=== PATIENT | male | born 1970 | race Caucasian/White ===

== ENCOUNTER 2020-06-03 18:36 | Emergency (ER) | payer OTHER, SELFPAY ==
[2020-06-03 18:44] VITALS: BP 160/90; PULSE 76; RESP 16; TEMP 36.6; O2SAT 98
--- NOTE | 2020-06-03 18:53 | NUR.NOTE ---
Nursing Note: PMH of HTN. PT does not know the name of the medication he takes.
--- NOTE | 2020-06-03 19:03 | ED.GENADUL_ITS ---
Discharge Plan Disposition Patient Disposition: HOME Condition: Good Discharge Details Chief Complaint: EyeProblem Clinical Impression: Abrasion, corneal Primary Care Provider: Farooq Munoz ED Provider: Naeem French Discharge Instructions Instructions: Corneal Abrasion (ED) Additional Instructions: You have a corneal abrasion on your eye. Please apply the erythromycin ointment 2-3 times per day and a thin ribbon. Please follow-up closely with Dr. Varner on Friday. Please take Tylenol and Motrin as needed for pain. If you notice any worsening of your symptoms, or any new symptoms such as change in vision, discharge from your eye, vomiting, diarrhea, fever, chills, shortness of breath, chest pain, numbness, weakness, or fainting , please return immediately to the emergency department for reevaluation. Please follow up with your primary care provider as soon as possible for reassessment and reevaluation. As always, it was a pleasure participating in your medical care today. Referrals: [facility] [Outside] Medical Decision Making Very pleasant 49-year-old male presents today for pain in his left eye. Patient states that he was working in his shop, the back of his head hit a board, which pushed his head forward and unfortunately his left eye came in direct contact with a nail that was in another board directly in front of him. Hurt his eye, and after about 2 to 3 hours at home with continued pain he came to the ER for further assessment. He admits to blurriness in the left eye, denies any changes in his right eye. Tetanus is not up to date. No other complaints at this time. No other modifying factors. He does not wear contact lenses. Physical exam shows notable corneal abrasion/laceration in a crescent shape with a small flap. However there is no evidence whatsoever of leaking or Salazar sign. Mild pressure onto the eye also shows no evidence of leaking or Salazar sign. At this time I feel that patient would benefit from updating his tetanus status, close follow-up with Dr. Varner, and with his pain being completely resolved with the tetracaine I feel signs and symptoms are clinically consistent with notable corneal abrasion. With no evidence of foreign body or rust ring no further management is needed. Will give erythromycin ointment for pain control, as well as recommend Tylenol Motrin. Discussed red flags which to return as well as importance of close follow-up with Dr. Varner. HPI General Date/Time Provider Initiated Documentation: 06/03/20 18:37 . HPI Narrative: Very pleasant 49-year-old male presents today for pain in his left eye. Patient states that he was working in his shop, the back of his head hit a board, which pushed his head forward and unfortunately his left eye came in direct contact with a nail that was in another board directly in front of him. Hurt his eye, and after about 2 to 3 hours at home with continued pain he came to the ER for further assessment. He admits to blurriness in the left eye, denies any changes in his right eye. Tetanus is not up to date. No other complaints at this time. No other modifying factors. He does not wear contact lenses. Related Data Allergies Allergy/AdvReac Type Severity Reaction Status Date / Time No Known Allergies Allergy Unverified 06/03/20 18:52 General Stated Complaint: EyeProblem JODIE: 4 Review of Systems All systems reviewed & are unremarkable except as noted in HPI and below [facility] Social History Drug use: Never Substance use type: does not use Do you feel safe at home: Yes Do you feel safe in your relationship?: Yes Exam Narrative Exam Narrative: 1.Const: Well-nourished, Well-developed, appearing stated age 2.Eyes: PERRL, no conjunctival injection, and symmetrical lids. Left eye: EOMI, PERRL, Peripheral vision intact. No nystagmus. No clinical signs of septal/orbital cellulitis, no redness around the eye, no proptosis. No hyphema, no signs of trauma around the eye, no periorbital emphysema. No sluggishness of the pupil. No ophthalmoplegia. No afferent pupillary defect. Fluorescein exam is positive for corneal abrasion, negative Salazar sign. The patient's notable corneal abrasion is crescent shaped, with a thin component at the ends, and a notably wide component in the central aspect just from the pupil. It appears that the cornea was lacerated at an angle, with a small flap present on the medial aspect of the crescent. Prolonged observation shows no evidence of leaking or Salazar sign. Vision in the patient's right eye is 20/50 vision in the patient's left eye is 20/100. He does not wear glasses or contacts. Eversion of the upper and lower lids show no evidence of retained foreign body whatsoever. 3.ENT: Atraumatic external nose and ears. Moist MM. Neck: Symmetric, trachea midline, No thyromegaly. 4.CVS: +S1/S2, No murmurs or gallops. Peripheral pulses 2+ and equal in all extremities. Brisk capillary refill in all extremities. 5.RESP: Unlabored respiratory effort. Clear to auscultation bilaterally. No wheezes rales or rhonchi 6.GI: Soft, Nontender/Nondistended, No hepatosplenomegaly. No guarding or rebound. 7.MSK: Normocephalic/Atraumatic, Extremities w/o deformity or ttp No cyanosis or clubbing, Normal movement of all extremities 8.Skin: Warm, Dry. No rashes or lesions. 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 Sensation grossly intact, no focal neurologic deficits. 10.Psych: (AAO) x3. Appropriate mood and affect Course Vital Signs Vital signs: Vital Signs Temperature 36.6 C 06/03/20 18:44 Pulse 76 06/03/20 18:44 Respiratory Rate 16 06/03/20 18:44 Blood Pressure 193/102 H 06/03/20 18:44 Pulse Oximetry 98 06/03/20 18:44 Temperature 36.6 C 06/03/20 18:44 Temperature Source Tympanic 06/03/20 18:44 Pulse 76 06/03/20 18:44 Respiratory Rate 16 06/03/20 18:44 Respiratory Effort Non-Labored 06/03/20 18:49 Blood Pressure 193/102 H 06/03/20 18:44 Blood Pressure Position Sitting 06/03/20 18:44 Pulse Oximetry 98 06/03/20 18:44 Oxygen Delivery Method Room Air 06/03/20 18:44 Oxygen Flow Rate 0 06/03/20 18:44 Pain Level 9 06/03/20 18:44
[2020-06-03] MEDS: Fluorescein STRIPS 100/BOX 1 MG (19:10)
[2020-06-03] MEDS: Erythromycin Ophth Oint 3.5 GM TUBE (19:10)
[2020-06-03] MEDS: Tetanus & Diphtheria Tox,ADULT 0.5 ML VIAL IM (19:10)
[2020-06-03] MEDS: Tetracaine 0.5% 4 ML BTL (19:11)
--- NOTE | 2020-06-04 06:03 | NUR.NOTE ---
referral faxed to [facility] for follow up.Nursing Note:
== END 2020-06-03 19:05 | disposition home or self-care (01) ==
PROVIDERS: Emergency Provider Student in an Organized Health Care Education/Training Program; PCP Physician Assistant
DX: S05.02XA Injury of conjunctiva and corneal abrasion without foreign body, left eye, initial encounter (principal); W45.0XXA Nail entering through skin, initial encounter; I10 Essential (primary) hypertension
CPT/HCPCS: 90471; 99284; 99283

== ENCOUNTER 2023-05-07 10:14 | Outpatient (REF) | payer BC, SELFPAY ==
[2023-05-07 17:05] LABS: HCT 43.7 % (40.0-50.0); HGB 14.8 g/dL (13.5-17.5); MCH 30.4 pg (27.0-33.0); MCHC 33.9 % (32.0-36.0); MCV 90 fL (80-95); MPV 11.1 fL (8.0-11.0); Platelet Count 181 10^3/uL (130-400); RBC 4.87 10^6/uL (4.36-5.78); RDW-SD 39.8 fL; WBC 7.03 10^3/uL (4.4-10.8)
[2023-05-07 17:33] LABS: ALT 26 U/L (16-63); AST 25 U/L (15-37); Albumin 3.8 g/dL (3.4-5.0); Alkaline Phosphatase 69 U/L (46-116); Anion Gap 6.9 mmol/L (3-11); BUN 13 mg/dL (7-18); Bilirubin, Total 0.6 mg/dL (0.2-1.0); CO2 28.1 mmol/L (21.0-32.0); CREATININE 1.1 mg/dL (0.70-1.30); Calcium 8.7 mg/dL (8.5-10.1); Calculated LDL 48 mg/dL (<100); Chloride 105 mmol/L (98-107); Cholesterol 95 mg/dL (<200); Estimated GFR 79.77 (mL/min/1.73m2); Glucose 96 mg/dL (74-106); HDL Cholesterol 39 mg/dL (40-60); Potassium 4.7 mmol/L (3.5-5.1); Sodium 140 mmol/L (136-145); Total Protein 6.9 g/dL (6.4-8.2); Triglyceride 42 mg/dL (<150)
[2023-05-08 19:10] LABS: PSA, Screening 0.4 ng/mL (<=3.5)
== END 2023-05-07 10:15 | disposition home or self-care (01) ==
LOC: NCHCN 10:14
PROVIDERS: PCP Physician Assistant; Visit Provider Physician Assistant
DX: I10 Essential (primary) hypertension (principal); E78.5 Hyperlipidemia, unspecified; Z12.5 Encounter for screening for malignant neoplasm of prostate
CPT/HCPCS: 80053; 80061; 84153; 85027

== ENCOUNTER 2023-07-04 05:39 | Emergency (ER) | payer BC, SELFPAY ==
[2023-07-04] VITALS (421 sets, daily range): BP systolic 117–152; BP diastolic 63–88; PULSE 48–123; RESP 0–28; TEMP 36.7–36.8; O2SAT 95–100
--- NOTE | 2023-07-04 05:30 | RT.EKG_ITS ---
APPROVED REPORT Exam: Resting ECG Reason for Exam: chest pain Patient Location: E HR:65 bpm ECG Measurements Heart Rate 65 AXIS ID 161 P 66 QRSd 99 QRS -36 QT 406 T 173 QTc 422 Conclusion Sinus rhythm...normal P axis, V-rate 60- 99 Left axis deviation...QRS axis (-30,-90) Repol abnrm suggests ischemia, diffuse leads...ST-T neg, ant/lat/inf Sinus rhtythm with ST depression V3-V6 and T wave inversion. No prior for comparisson.WD
--- NOTE | 2023-07-04 05:45 | DI.RAD_ITS ---
Exam(s) XR PORTABLE CHEST AP EXAM: XR PORTABLE CHEST AP CLINICAL HISTORY: chest pain TECHNIQUE: 2D digital imaging was performed. COMPARISON: CT CT CHEST PE CTA from 07/04/2023 FINDINGS: LUNGS: Clear. No pleural abnormality seen. HEART: Normal size. AORTA: Normal diameter. BONES: Unremarkable for age. Soft tissues: Unremarkable. IMPRESSION: No acute findings. DATA REPOSITORY: RADIATION DOSE DELIVERED:
--- NOTE | 2023-07-04 05:46 | W.ED.GENAD ---
Discharge Plan Discharge Details Chief Complaint: Chest Pain Clinical Impression: Non-ST elevation (NSTEMI) myocardial infarction Primary Care Provider: Farooq Munoz ED Provider: Jennifer Scott Home Meds and New Rx's Prescriptions: No Action atorvastatin 80 mg tablet 80 mg PO DAILY Patient Comments: TAKE ONE TABLET BY MOUTH EVERY DAY metoprolol succinate 50 mg tablet extended release 24 hr 50 mg PO DAILY Patient Comments: TAKE 1 TABLET BY MOUTH ONCE A DAY amlodipine 10 mg tablet 10 mg PO DAILY Patient Comments: TAKE ONE TABLET BY MOUTH EVERY DAY nitroglycerin 0.4 mg tablet, sublingual 0.4 mg sublingual Patient Comments: PLACE ONE TABLET UNDER THE TONGUE EVERY 5 MINUTES FOR UP TO 3 DOSES NEEDED FOR CHEST PAIN hydrochlorothiazide 12.5 mg tablet 12.5 mg PO DAILY Patient Comments: TAKE ONE TABLET BY MOUTH EVERY DAY aspirin [Ecotrin Low Strength] 81 mg Tablet,Delayed Release (Dr/Ec) 81 mg PO DAILY Medical Decision Making 52-year-old male with history of prior OR and stent placement presents for evaluation of chest pain. He received a total of 3 sublingual nitroglycerin and 4 baby aspirin. He has had resolution of his pain at this time. EKG was obtained and shows ST wave depressions laterally with T wave inversion. CXR unremarkable. Labs show elevated troponin 251. Patient had return of chest pain and was started on heparin gtt and nitro gtt. Pain resolved again. Repeat EKG shows persistent ST depression with T wave inversion. Consult placed to [facility] cardiology. Anticipate transfer for further care. Signed out to oncoming provider. HPI General Date/Time Provider Initiated Documentation: 07/04/23 05:44. HPI Narrative: 52-year-old male with history of cardiac stent secondary to OR in 2016 presents for evaluation of chest pain. Around 5 AM he developed significant pain in the center of his chest. He did take one of his sublingual nitroglycerin with improvement. Called EMS. He received a total of 3 sublingual nitroglycerin with resolution of pain. He received 4 baby aspirin en route. He is not on any other blood thinners. He does have a history of high blood pressure and is on medication. He also takes medication for high cholesterol. No fevers or chills. No cough or cold. No leg pain or swelling. The pain is not worse with taking a deep breath or movement. He states that he has never had a stress test or an echocardiogram. He has been having ongoing intermittent episodes of chest pain for a month or more. He has been seeing his primary care physician. There was a plan to have a CT of his chest obtained. Patient is a smoker. Related Data Home Medications Medication Instructions Recorded Confirmed amlodipine 10 mg tablet 10 mg PO DAILY 07/04/23 07/04/23 aspirin 81 mg tablet,delayed 81 mg PO DAILY 07/04/23 07/04/23 release (Ecotrin Low Strength) atorvastatin 80 mg tablet 80 mg PO DAILY 07/04/23 07/04/23 hydrochlorothiazide 12.5 mg tablet 12.5 mg PO DAILY 07/04/23 07/04/23 metoprolol succinate 50 mg 50 mg PO DAILY 07/04/23 07/04/23 tablet,extended release 24 hr nitroglycerin 0.4 mg sublingual 0.4 mg sublingual 07/04/23 tablet Allergies Allergy/AdvReac Type Severity Reaction Status Date / Time No Known Allergies Allergy Unverified 07/04/23 05:47 General JODIE: 4 Review of Systems Narrative: Remainder of review of systems otherwise negative except present on the HPI x 10. PFSH All Active Problems (Updated 07/04/23 @ 07:19 by Jennifer Scott MD) Non-ST elevation (NSTEMI) myocardial infarction (Acute) Social History Smoking/Tobacco Use Status: Current every day Tobacco Type: pipe Smoking risk assessment performed?: Yes Drug use: Never Substance use type: does not use Do you feel safe at home: Yes Do you feel safe in your relationship?: Yes Exam Narrative Exam Narrative: General: non-toxic, no respiratory distress, comfortable HEENT: normocephalic, atraumatic, lids and lashes normal, PERRL, EOMI, anicteric sclera, no conjunctival injection, moist oral mucosa Card: regular rate and rhythm, S1S2, no murmurs, rubs, or gallops Lungs: good air entry, clear to auscultation bilaterally. no wheezes, rales, rhonchi, or retractions Abd: soft, non-tender, non-distended, normal bowel sounds, no rebound or guarding, no peritoneal signs Musculoskeletal: full range of motion of arms and legs, no tenderness to palpation. no clubbing, cyanosis, or edema Neurologic: appropriate for age, strength normal Psych: alert and oriented Skin: no petechiae, no lesions, warm and dry Critical Care Time Critical Care Time Attestation: CRITICAL CARE Total critical care time: 40 minutes Critical care concerns:Chest pain, non-STEMI Critical care interventions: IV heparin, IV nitroglycerin, cardiology consult, frequent reassessment Total critical care time included the assessment and discussions as described in the emergency department history, physical, and medical decision making. The critical care time provided excludes separately billable procedures. Sign Out Sign Out Data: Sign Out Comment: Patient presented with chest pain that started at 5 AM this morning. Initially resolved with 3 nitroglycerin. He also got 4 baby aspirin en route. He was pain-free upon ED arrival. EKG concerning for lateral ST depressions with T wave inversion. Initial troponin 251. Patient had return of chest pain. Nitro drip and heparin drip were started. Consult placed to [facility]. Last updated by Jennifer Scott MD at 07/04/23 07:14
[2023-07-04 05:57] LABS: Abs Immature Grans 0.02 10^3/uL (0.0-0.06); Absolute Lymphocyte Count 3.02 10^3/uL (1.2-3.4); Absolute Monocyte Count 1.03 10^3/uL (0.1-0.8); Absolute Neutrophil Count 4.61 10^3/uL (1.2-6.7); Basophils % 1.1; Eosinophils % 3.3; HCT 46.4 % (40.0-50.0); HGB 15.6 g/dL (13.5-17.5); Immature Grans % 0.2; Lymphocytes % 33.3; MCH 29.9 pg (27.0-33.0); MCHC 33.6 % (32.0-36.0); MCV 89 fL (80-95); MPV 10.3 fL (8.0-11.0); Monocytes % 11.3; Neutrophils % 50.8; Platelet Count 209 10^3/uL (130-400); RBC 5.22 10^6/uL (4.36-5.78); RDW 12.3 % (11.8-14.1); RDW-SD 40.5 fL; WBC 9.08 10^3/uL (4.4-10.8)
--- NOTE | 2023-07-04 06:00 | DI.CT_ITS ---
Exam(s) CT CHEST PE CTA EXAM: CT CHEST PE CTA CLINICAL HISTORY: chest pain. TECHNIQUE: Imaging Protocol: Axial CT angiography was performed with multi-slice acquisition and mu lti-planar reconstructions as well as axial, coronal and sagittal MIP reconstructions. CONTRAST MATERIAL: Intravenous: Omnipaque 350 Contrast volume:100 ml COMPARISON: CR,XR XR PORTABLE CHEST AP from 07/04/2023 FINDINGS: Pulmonary Arteries: No evidence of filling defect to suggest pulmonary emboli. Tracheobronchial tree: Patent where visualized. Mediastinum and Elizabeth: No dominant adenopathy or fluid collection. Pulmonary parenchyma: Mild emphysematous changes in the upper lobes. Minimal atelectasis right lower lobe. No consolidation or dominant measurable mass. Pleura: No effusion or pneumothorax. Heart: The heart is not dilated. Rosa artery stent. Aorta: Thoracic aorta non-dilated. No aneurysm. No dissection. Upper abdomen: Unremarkable. Bones: Degenerative changes thoracic spine. No compression fractures. Tubes, Catheters, and Lines: IMPRESSION: No evidence of pulmonary embolism or other acute abnormality. Mild emphysematous changes.. RADIATION DOSE DELIVERED: 438.1mGy.cm Total DLP DATA REPOSITORY: All CT scans at this facility are submitted to the National Radiology Data Registry (NRDR) Dose Index Registry (DIR) with the [employer] (ACR). RADIATION OPTIMIZATION: All CT scans at this facility use at least one of these dose optimization te chniques: automated exposure control; mA and/or kV adjustment per patient size (includes targeted exa ms where dose is matched to clinical indication); or iterative reconstruction.
[2023-07-04 06:12] LABS: INR 1.1 (0.9-1.1); PTT Activated 28.5 sec (21.5-31.9)
[2023-07-04 06:19] LABS: ALT 27 U/L (16-63); AST 26 U/L (15-37); Alkaline Phosphatase 86 U/L (46-116); BUN 11 mg/dL (7-18); Bilirubin, Total 0.6 mg/dL (0.2-1.0); CREATININE 1.2 mg/dL (0.70-1.30); Calcium 9.2 mg/dL (8.5-10.1); Chloride 106 mmol/L (98-107); Estimated GFR 71.86 (mL/min/1.73m2); Glucose 111 mg/dL (74-106); Magnesium 2.1 mg/dL (1.8-2.4); NT-proBNP 315 pg/mL (<300); Potassium 4.1 mmol/L (3.5-5.1); Sodium 142 mmol/L (136-145); Total Protein 7.5 g/dL (6.4-8.2)
[2023-07-04 06:27] LABS: Troponin I 251 ng/L (<or=60)
--- NOTE | 2023-07-04 06:30 | RT.EKG_ITS ---
APPROVED REPORT Exam: Resting ECG Reason for Exam: chest pain Patient Location: E HR:57 bpm ECG Measurements Heart Rate 57 AXIS TX 155 P 66 QRSd 109 QRS -29 QT 455 T 178 QTc 444 Conclusion Sinus bradycardia...rate< 60 Repol abnrm, prob ischemia, anterolateral lds...ST dep, T neg, I aVL V2-V6 Sinus bradycardia with ST depression V3-V4. No significant change from prior. WD
[2023-07-04] MEDS: Normal Saline - Diluent 50 ML VIAL IJ (06:34)
[2023-07-04] MEDS: Omnipaque 350 MG/ML 100 ML BTL IJ (06:34)
[2023-07-04] MEDS: Heparin in 0.45% NaCl 25,000 UNIT/250 ML BAG 10 UNIT IV (06:54)
[2023-07-04] MEDS: nitroGLYcerin in D5W 50 MG/250 ML BTL IV (07:02)
--- NOTE | 2023-07-04 07:10 | DI.VRAD_ITS ---
PROCEDURE INFORMATION: Exam: XR Chest Exam date and time: 07/04/2023 6:03 AM Age: 52 years old Clinical indication: Chest wall pain TECHNIQUE: Imaging protocol: Radiologic exam of the chest. Views: 1 view. COMPARISON: No relevant prior studies available. FINDINGS: Lungs: No consolidation. Pleural spaces: No pleural effusion. No pneumothorax. Heart/Mediastinum: No cardiomegaly. Bones/joints: Unremarkable. IMPRESSION: No acute findings. Dictated and Authenticated by: Norberto Triana MD. Ordering:RAJIV Rodriguez MD
--- NOTE | 2023-07-04 07:44 | DI.VRAD_ITS ---
PROCEDURE INFORMATION: Exam: CTA Chest With Contrast Exam date and time: 07/04/2023 6:29 AM Age: 52 years old Clinical indication: Chest wall pain; Prior surgery; Surgery date: 6+ months; Surgery type: PT states h/o heart attack and cardiac stent surgery TECHNIQUE: Imaging protocol: Computed tomographic angiography of the chest with contrast. Exam focused on the arteries. 3D rendering (Not supervised by radiologist): MIP and/or 3D reconstructed images were created by the technologist. Radiation optimization: All CT scans at this facility use at least one of these dose optimization techniques: automated exposure control; mA and/or kV adjustment per patient size (includes targeted exams where dose is matched to clinical indication); or iterative reconstruction. Contrast material: OMNI 350; Contrast volume: 100 ml; Contrast route: INTRAVENOUS (IV); COMPARISON: CR XR PORTABLE CHEST AP 07/04/2023 6:03 AM FINDINGS: Pulmonary arteries: Normal. No pulmonary emboli. Aorta: Unremarkable. No aortic aneurysm. No aortic dissection. Lungs: Mild centrilobular emphysema in the lung apices. Mild dependent changes at the lung bases. No acute lung infiltrates. No suspicious pulmonary nodules. Pleural spaces: Unremarkable. No pneumothorax. No pleural effusion. Heart: Unremarkable. No cardiomegaly. No pericardial effusion. Coronary arteries: No coronary artery calcification noted. Lymph nodes: Unremarkable. No enlarged lymph nodes. Bones/joints: Moderate multilevel degenerative changes in the mid to lower thoracic spine. No acute or suspicious osseous abnormalities. Soft tissues: Unremarkable. IMPRESSION: 1. No evidence of pulmonary embolism. 2. Mild centrilobular emphysema in the lung apices. Dictated and Authenticated by: Francesca Gomez MD. Ordering:RAJIV Rodriguez MD
--- NOTE | 2023-07-04 08:26 | W.EDPROG ---
Date of service: 07/04/23 Time of Service: 08:27 Medical Decision Making Case discussed with [facility] transfer center cardiology. Patient accepted in transfer to Dr. Piyush Pastor. Awaiting bed. Plan is to continue nitro drip as well as heparin drip. They have requested low-dose beta-óscar metoprolol 12.5 twice daily. Loading dose of Plavix and atorvastatin. Awaiting bed. Patient with normal vital signs. Pain-free. 3:45 PM. Unable to get any timeline as to when the patient will be transferred to [facility]. principal secretary has called multiple times requesting a bed. I have discussed the case with my colleague hospitalist for obs admission given that the patient may be here for several more hours. Sign Out Sign Out Data: Sign Out Comment: Patient presented with chest pain that started at 5 AM this morning. Initially resolved with 3 nitroglycerin. He also got 4 baby aspirin en route. He was pain-free upon ED arrival. EKG concerning for lateral ST depressions with T wave inversion. Initial troponin 251. Patient had return of chest pain. Nitro drip and heparin drip were started. Consult placed to [facility]. Last updated by Jennifer Scott MD at 07/04/23 07:14 Discharge Plan Disposition Patient Disposition: Transfer-Acute Inpatient Care Specific Acute Inpt Facility: [facility] Condition: Stable Discharge Details Clinical Impression: Non-ST elevation (NSTEMI) myocardial infarction Primary Care Provider: Farooq Munoz ED Provider: Reji Garcia Home Meds and New Rx's Prescriptions: No Action atorvastatin 80 mg tablet 80 mg PO DAILY Patient Comments: TAKE ONE TABLET BY MOUTH EVERY DAY metoprolol succinate 50 mg tablet extended release 24 hr 50 mg PO DAILY Patient Comments: TAKE 1 TABLET BY MOUTH ONCE A DAY amlodipine 10 mg tablet 10 mg PO DAILY Patient Comments: TAKE ONE TABLET BY MOUTH EVERY DAY nitroglycerin 0.4 mg tablet, sublingual 0.4 mg sublingual PRN PRN Patient Comments: PLACE ONE TABLET UNDER THE TONGUE EVERY 5 MINUTES FOR UP TO 3 DOSES NEEDED FOR CHEST PAIN hydrochlorothiazide 12.5 mg tablet 12.5 mg PO DAILY Patient Comments: TAKE ONE TABLET BY MOUTH EVERY DAY aspirin [Ecotrin Low Strength] 81 mg Tablet,Delayed Release (Dr/Ec) 81 mg PO DAILY
[2023-07-04] MEDS: Metoprolol 12.5 MG TAB PO (08:55)
[2023-07-04] MEDS: Clopidogrel 300 MG TAB 600 MG PO (08:55)
--- NOTE | 2023-07-04 09:15 | RT.EKG_ITS ---
APPROVED REPORT Exam: Resting ECG Reason for Exam: Repeat EKG Patient Location: E HR:54 bpm ECG Measurements Heart Rate 54 AXIS CA 163 P 43 QRSd 102 QRS -15 QT 438 T 211 QTc 416 Conclusion Sinus bradycardia...rate< 60 Repol abnrm suggests ischemia, anterolateral...ST dep, T neg, I aVL V2-V6
[2023-07-04 09:55] LABS: Troponin I 361 ng/L (<or=60)
--- NOTE | 2023-07-04 10:15 | NUR.NOTE ---
Nursing Note: received report from Irene Garcia RN at 1015; assumed care of patient at this time.
--- NOTE | 2023-07-04 11:07 | NUR.NOTE ---
Nursing Note: leaving bedside at this time Mili - [phone]. Will call with any updates
[2023-07-04 13:29] LABS: Troponin I 505 ng/L (<or=60)
[2023-07-04 13:31] LABS: PTT Activated 67.6 sec (21.5-31.9)
[2023-07-04 16:42] LABS: Troponin I 525 ng/L (<or=60)
--- NOTE | 2023-07-04 16:44 | HPE_ITS ---
Date of service: 07/04/23 Time of Service: 16:44 [facility] All Active Problems (Updated 07/04/23 @ 07:19 by Jennifer Scott MD) Non-ST elevation (NSTEMI) myocardial infarction (Acute) Social History Smoking/Tobacco Use Status: Current every day Tobacco Type: pipe Smoking risk assessment performed?: Yes Drug use: Never Substance use type: does not use Do you feel safe at home: Yes Do you feel safe in your relationship?: Yes Meds Allergies and Home Medications Allergies Allergy/AdvReac Type Severity Reaction Status Date / Time No Known Allergies Allergy Unverified 07/04/23 05:47 Home Medications Medication Instructions Recorded Confirmed Type amlodipine 10 mg tablet 10 mg PO DAILY 07/04/23 07/04/23 History aspirin 81 mg tablet,delayed 81 mg PO DAILY 07/04/23 07/04/23 History release (Ecotrin Low Strength) atorvastatin 80 mg tablet 80 mg PO DAILY 07/04/23 07/04/23 History hydrochlorothiazide 12.5 mg tablet 12.5 mg PO DAILY 07/04/23 07/04/23 History metoprolol succinate 50 mg 50 mg PO DAILY 07/04/23 07/04/23 History tablet,extended release 24 hr nitroglycerin 0.4 mg sublingual 0.4 mg sublingual PRN PRN 07/04/23 07/04/23 History tablet Results Labs 07/04/23 05:30 07/04/23 05:30 Labs: Laboratory Results - last 24 hr 07/04/23 07/04/23 07/04/23 05:30 05:30 05:51 WBC 9.08 RBC 5.22 Hgb 15.6 Hct 46.4 MCV 89 MCH 29.9 MCHC 33.6 RDW 12.3 Plt Count 209 MPV 10.3 Immature Gran % 0.2 Neutrophils % 50.8 Lymphocytes % 33.3 Monocytes % 11.3 Eosinophils % 3.3 Basophils % 1.1 Nucleated RBC % 0.0 Absolute Neutrophils 4.61 Absolute Lymphocytes 3.02 Absolute Monocytes 1.03 H Absolute Eosinophils 0.30 Absolute Basophils 0.10 PT 11.0 INR 1.1 APTT 28.5 Sodium 142 Potassium 4.1 Chloride 106 Carbon Dioxide 27.0 Anion Gap 9.0 BUN 11 Creatinine 1.2 Est GFR (CKD-EPI 2020) 71.86 Glucose 111 H Calcium 9.2 Magnesium 2.1 Total Bilirubin 0.6 AST 26 ALT 27 Alkaline Phosphatase 86 Troponin I 251 H* NT-Pro-B Natriuret Pep 315 H Total Protein 7.5 Albumin 4.0 07/04/23 07/04/23 07/04/23 09:25 13:01 13:01 WBC RBC Hgb Hct MCV MCH MCHC RDW Plt Count MPV Immature Gran % Neutrophils % Lymphocytes % Monocytes % Eosinophils % Basophils % Nucleated RBC % Absolute Neutrophils Absolute Lymphocytes Absolute Monocytes Absolute Eosinophils Absolute Basophils PT INR APTT 67.6 H Sodium Potassium Chloride Carbon Dioxide Anion Gap BUN Creatinine Est GFR (CKD-EPI 2020) Glucose Calcium Magnesium Total Bilirubin AST ALT Alkaline Phosphatase Troponin I 361 H* 505 H* NT-Pro-B Natriuret Pep Total Protein Albumin 07/04/23 16:07 WBC RBC Hgb Hct MCV MCH MCHC RDW Plt Count MPV Immature Gran % Neutrophils % Lymphocytes % Monocytes % Eosinophils % Basophils % Nucleated RBC % Absolute Neutrophils Absolute Lymphocytes Absolute Monocytes Absolute Eosinophils Absolute Basophils PT INR APTT Sodium Potassium Chloride Carbon Dioxide Anion Gap BUN Creatinine Est GFR (CKD-EPI 2020) Glucose Calcium Magnesium Total Bilirubin AST ALT Alkaline Phosphatase Troponin I 525 H* NT-Pro-B Natriuret Pep Total Protein Albumin Last Vital Signs Temp 36.8 C 07/04/23 05:41 Pulse 53 L 07/04/23 16:01 Resp 12 07/04/23 16:13 BP 132/79 07/04/23 16:01 Pulse Ox 98 07/04/23 16:13
--- NOTE | 2023-07-04 17:07 | NUR.NOTE ---
Nursing Note: report to [employer] worker blessing transporting patient. [phone]
--- NOTE | 2023-07-04 17:10 | NUR.NOTE ---
Nursing Note: Attempted report to [phone], rang for minutes, no answer and line disconnected. Will try back. Patient still in room with [employer] now; preparing for transport.
--- NOTE | 2023-07-04 17:21 | NUR.NOTE ---
Nursing Note: Report to Justin EATON at L3wb unit at [facility]
== END 2023-07-04 13:44 | disposition short-term general hospital (02) ==
PROVIDERS: Emergency Medicine Emergency Medical Services; Emergency Provider Emergency Medicine; PCP Physician Assistant
DX: I21.4 Non-ST elevation (NSTEMI) myocardial infarction (principal); R00.1 Bradycardia, unspecified; I25.2 Old myocardial infarction; I25.10 Atherosclerotic heart disease of native coronary artery without angina pectoris; Z95.5 Presence of coronary angioplasty implant and graft; F17.210 Nicotine dependence, cigarettes, uncomplicated
CPT/HCPCS: 71275; 80053; 93005; 96365; 96366; 99291; 71045; 83735; 83880; 84484; 85025; 85610; 85730; 93010; 93306; J3490

== ENCOUNTER 2023-07-23 10:00 | Outpatient (RCR) | payer BC, SELFPAY | END 2023-07-24 23:59 | disposition home or self-care (01) | LOC: CR 10:00 | PROVIDERS: PCP Physician Assistant; Visit Provider Internal Medicine Cardiovascular Disease | DX: I25.2 Old myocardial infarction (principal); I25.10 Atherosclerotic heart disease of native coronary artery without angina pectoris | CPT/HCPCS: S9472 ==

== ENCOUNTER 2023-07-31 08:51 | Outpatient (CLI) | payer BC, SELFPAY ==
--- NOTE | 2023-07-31 08:45 | RT.EKG_ITS ---
APPROVED REPORT Exam: Resting ECG Reason for Exam: cardiology evaluation Patient Location: O HR:58 bpm ECG Measurements Heart Rate 58 AXIS MA 154 P 58 QRSd 104 QRS -2 QT 431 T 104 QTc 424 Conclusion Sinus rhythm...normal P axis, V-rate 50- 99 Abnormal T, consider ischemia, lateral leads...T <-0.20mV, I aVL V5 V6 Baseline wander in lead(s) V4
== END 2023-07-31 08:52 | disposition home or self-care (01) ==
LOC: DI.CARD 08:51
PROVIDERS: PCP Physician Assistant; Visit Provider Internal Medicine Cardiovascular Disease
DX: I21.4 Non-ST elevation (NSTEMI) myocardial infarction (principal)
CPT/HCPCS: 93010

== ENCOUNTER 2023-08-22 10:03 | Outpatient (RCR) | payer BC, SELFPAY | END 2023-08-23 23:59 | disposition home or self-care (01) | LOC: CR 10:03 | PROVIDERS: PCP Physician Assistant; Visit Provider Internal Medicine Cardiovascular Disease | DX: I25.10 Atherosclerotic heart disease of native coronary artery without angina pectoris (principal); I25.2 Old myocardial infarction; Z51.89 Encounter for other specified aftercare | CPT/HCPCS: S9472 ==

== ENCOUNTER 2023-09-22 10:25 | Outpatient (RCR) | payer BC, SELFPAY | END 2023-09-23 23:59 | disposition home or self-care (01) | LOC: CR 10:25 | PROVIDERS: PCP Physician Assistant; Visit Provider Internal Medicine Cardiovascular Disease | DX: I25.10 Atherosclerotic heart disease of native coronary artery without angina pectoris (principal); Z51.89 Encounter for other specified aftercare | CPT/HCPCS: S9472 ==

== ENCOUNTER 2023-10-22 10:57 | Outpatient (RCR) | payer BC, SELFPAY | END 2023-10-23 23:59 | disposition home or self-care (01) | LOC: CR 10:57 | PROVIDERS: PCP Physician Assistant; Visit Provider Internal Medicine Cardiovascular Disease | DX: I25.2 Old myocardial infarction (principal); Z51.89 Encounter for other specified aftercare | CPT/HCPCS: S9472 ==

== ENCOUNTER 2023-10-31 10:05 | Outpatient (RCR) | payer BC, SELFPAY | END 2023-11-23 23:59 | disposition home or self-care (01) | LOC: CR 10:05 | PROVIDERS: PCP Physician Assistant; Visit Provider Internal Medicine Cardiovascular Disease | DX: I25.2 Old myocardial infarction (principal); Z51.89 Encounter for other specified aftercare | CPT/HCPCS: S9472 ==

== ENCOUNTER 2023-11-14 11:12 | Outpatient (REF) | payer BC, SELFPAY ==
[2023-11-14 16:06] LABS: BUN 14 mg/dL (7-18); CREATININE 1.1 mg/dL (0.70-1.30); Calcium 9.1 mg/dL (8.5-10.1); Chloride 103 mmol/L (98-107); Estimated GFR 79.77 (mL/min/1.73m2); Glucose 96 mg/dL (74-106); Potassium 4.7 mmol/L (3.5-5.1); Sodium 138 mmol/L (136-145)
[2023-11-19 13:08] LABS: Testosterone, Total 723 ng/dL (240-950)
== END 2023-11-14 11:13 | disposition home or self-care (01) ==
LOC: NCHCN 11:12
PROVIDERS: PCP Physician Assistant; Visit Provider Physician Assistant
DX: I10 Essential (primary) hypertension (principal); F52.21 Male erectile disorder
CPT/HCPCS: 80048; 84403

== ENCOUNTER 2024-08-11 18:42 | Outpatient (REF) | payer BC, SELFPAY ==
[2024-08-11 16:54] LABS: HCT 44.3 % (40.0-50.0); HGB 14.3 g/dL (13.5-17.5); MCH 30.2 pg (27.0-33.0); MCHC 32.3 % (32.0-36.0); MCV 94 fL (80-95); MPV 11.4 fL (8.0-11.0); Platelet Count 151 10^3/uL (130-400); RBC 4.73 10^6/uL (4.36-5.78); RDW 12.9 % (11.8-14.1); RDW-SD 44.3 fL; WBC 8.09 10^3/uL (4.4-10.8)
[2024-08-11 17:23] LABS: ALT 26 U/L (16-63); AST 28 U/L (15-37); Albumin 3.7 g/dL (3.4-5.0); Alkaline Phosphatase 67 U/L (46-116); Anion Gap 11.6 mmol/L (3-11); BUN 16 mg/dL (7-18); Bilirubin, Total 0.61 mg/dL (0.2-1.0); CO2 27.4 mmol/L (21.0-32.0); CREATININE 1.1 mg/dL (0.70-1.30); Calcium 8.8 mg/dL (8.5-10.1); Calculated LDL 96 mg/dL (<100); Chloride 101 mmol/L (98-107); Cholesterol 190 mg/dL (<200); Estimated GFR 79.28 (mL/min/1.73m2); Glucose 87 mg/dL (74-106); HDL Cholesterol 47 mg/dL (40-60); Potassium 3.7 mmol/L (3.5-5.1); Sodium 140 mmol/L (136-145); Total Protein 6.9 g/dL (6.4-8.2); Triglyceride 239 mg/dL (<150)
[2024-08-11 17:34] LABS: C-Reactive Protein < 0.50 mg/dL (<or=0.5)
--- OUTSIDE RECORDS SUMMARY | 2024-08-11 18:45 | XMS_ITS | Data Portability ---
Author Organization [place] - [facility], [facility] Address [place] [address] Assessment Encounter Date Assessment Date Assessment LastModified by Organization Details LastModified Time 02/26/2024 02/26/2024 No sign of active coronary artery disease. He has some chronic fatigue that did not improve with stent placements though he is no longer having heartburn which was his cardiac equivalent. Continues to not smoke. Has moderate varicosities in right lower leg greater than left. Advised compression stockings. No change in medication management today. Less orthostasis on lower dose of metoprolol. Fasting blood work prior to physical in 6 months. [email or web address] Not available 02/26/2024 11:51:49 Plan of Treatment Reminders Order Date Submit Date Provider Last Modified By Organization Details Last Modified Time Details Appointments Follow Up 30 2023 09:30A M Not available Not available Not available Annual Wellness Exam 40 2023 09:00A M Not available Not available Not available Lab testoster one, total, serum - 1 attempt to right ACleft AC 1 sst 2 red 2022 023 BEHZAD [facility] (Registration ), [address] [place] [address] [place], [address], 11/19/2023 15:23:03 BMP, serum or plasma - 1 attempt to right ACleft AC 1 sst 2 red 2022 023 [facility] (Registration ), [address] [place] [address] [place], [address], 11/21/2023 07:56:32 CBC 2023 024 [facility] (Registration ), [address] [place] [address] [place], [address], 08/11/2024 10:25:22 PSA, serum or plasma 2023 024 [facility] (Registration ), [address] [place] [address] [place], [address], 08/11/2024 10:25:21 lipid panel, blood 2023 024 [facility] (Registration ), [address] [place] [address] [place], [address], 08/11/2024 10:30:39 CMP, serum or plasma 2023 024 [facility] (Registration ), [address] [place] [address] [place], [address], 08/11/2024 10:25:20 C reactive protein, QN, serum or plasma - 1 tiger, 1 LAV obtained without issue 2023 024 [email or web address] [facility] (Registration ), [address] [place] [address] [place], [address], 08/11/2024 10:48:06 Referral None recorded. Procedures None recorded. Surgeries None recorded. Imaging None recorded. Medication Orders metoprolo l succinate ER 25 mg tablet,ex tended release 24 hr 2022 023 BEHZAD [facility], [address], [place], [address], 11/21/2023 10:36:14 doxycycli ne hyclate 100 mg capsule 2023 024 BEHZAD [facility], [address] [place], [address], 08/11/2024 09:35:03 Patient TargetsNo targets recorded. Patient Instructions Encounter Date Encounter Id Patient Instructions Last Modified By Organization Details Last Modified Time 08/11/2024 [id number] diet [email or web address] Not available 09:59:09 exercise [email or web address] Not available 09:59:08 Reason for Referral None Reported. Results Created Date Observation Date Name Description Value Unit Range Abnormal Flag Note LastModifiedBy Organization Detail LastModifiedTime 11/14/2011/14/2023 BASIC METAB OLIC PANEL calcium 9.1 mg/dL 8.5-10 .1 normal Not Available [address] [facility] [place], [address] 11/15/2023 10:14:33 11/14/20 23 11/14/2023 BASIC METAB OLIC PANEL glucose 96 mg/dL 74-106 normal Not Available Jenae reeder [address] [place], [address] 11/15/2023 10:14:33 11/14/20 23 11/14/2023 BASIC METAB OLIC PANEL BUN 14 mg/dL 7-18 normal Not Available Jenae reeder [address] [facility] [place], [address] 11/15/2023 10:14:33 11/14/20 23 11/14/2023 BASIC METAB OLIC PANEL creatinine 1.1 mg/dL 0.70-1 .30 normal Not Available [address] [facility] [place], [address] 11/15/2023 10:14:33 11/14/20 23 11/14/2023 BASIC METAB OLIC PANEL estimated GFR 79.77 mL/min /1.73m 2 The eGFR is calcu lated from a serum creat inine using the CKD-E PI 2020 equat ion. Other varia bles requi red for the equat ion are gende r and age; this equat ion does not inclu de a race coeff icien t. This equat ion has simil ar overa ll perfo rmanc e to previ ous equat ions excep t value s may diffe r, in parti cular , in patie nts with highe r value s of eGFR and young er-ag ed adult s. Not Available [address] [place], [address] 11/15/2023 10:14:33 11/14/20 23 11/14/2023 BASIC METAB OLIC PANEL sodium 138 mmol/ L 136-14 5 normal Not Available [address] [place], [address] 11/15/2023 10:14:33 11/14/20 23 11/14/2023 BASIC METAB OLIC PANEL potassium 4.7 mmol/ L 3.5-5. 1 normal Not Available [address] [place], [address] 11/15/2023 10:14:33 11/14/2011/14/2023 BASIC METAB OLIC PANEL chloride 103 mmol/ L 98-107 normal Not Available [address] [place], [address] 11/15/2023 10:14:33 11/14/20 23 11/14/2023 BASIC METAB OLIC PANEL CO2 28.0 mmol/ L 21.0-3 2.0 normal Not Available [address] [place], [address] 11/15/2023 10:14:33 11/14/2011/14/2023 BASIC METAB OLIC PANEL anion gap 7.0 mmol/ L 3-11 normal Not Available [address] [place], [address] 11/15/2023 10:14:33 11/14/20 23 11/19/2023 TESTO STERO NE, TOTAL testosterone , total 723 NG/dL 240-95 0 ----- ----- ----- ----A DDITI ONAL INFOR MATIO N---- ----- ----- ----- Testi ng perfo rmed by Dante Pabon atandrew Bear m Mass Spect romet ry (LC-M S/MS) . This test was devel oped and its perfo rmanc e joseph cteri stics deter mined by [facility] in a mikael r consi stent with VIRI causey ts. This test has not been clear ed or appro keenan by the U.S. Food and Drug Admin istra tion. Test Perfo rmed by: [facility] - [address] [address] , [place] [address] Lab Direc tor: Farzad Daugherty Ph.D. ; CLIA# [id number] Not Available [place] [address] [facility] [address], [place], [address] 11/19/2023 15:23:03 08/09/20 24 07/04/2023 imagi ng/di agnos tic resul t No observ ation record ed. [email or web address] Not Available 08/09 02:04:49 08/09/2007/04/2023 imagi ng/di agnos tic resul t No observ ation record ed. [email or web address] Not Available 08/09 02:05:09 08/09/20 24 07/04/2023 imagi ng/di agnos tic resul t No observ ation record ed. [email or web address] Not Available 08/09 02:05:09 08/09/20 24 07/04/2023 imagi ng/di agnos tic resul t No observ ation record ed. [email or web address] Not Available 08/09 02:05:10 08/09/20 24 07/31/2023 imagi ng/di agnos tic resul t No observ ation record ed. [email or web address] Not Available 08/09 02:05:16 08/09/20 24 07/04/2023 imagi ng/di agnos tic resul t No observ ation record ed. [email or web address] Not Available 08/09 02:05:27 08/09/20 24 07/04/2023 imagi ng/di agnos tic resul t No observ ation record ed. [email or web address] Not Available 08/09 02:05:28 08/09/20 24 07/04/2023 imagi ng/di agnos tic resul t No observ ation record ed. [email or web address] Not Available 08/09 02:05:37 09/1607/04/2023 imagi ng/di jabarios tic resul t No observ ation record ed. [email or web address] Not Available 08/09 02:05:40 Result Notes None recorded. Problems Name Problem SNOMED Code Status Onset Date Resolution Date Notes Provider Name and Address Organization Details Recorded Time Anxiety disorder 434143636 Active 2022 Problem Code: F41.9; Problem Code Type: ICD-10; Not Available [facility] 3 05:17:30 Mild intermitt ent asthma 611497370 Active 2022 Problem Code: J45.20; Problem Code Type: ICD-10; Not Available [facility] 3 05:17:30 Essential hypertens ion 91915895 Active 2022 Problem Code: I10; Problem Code Type: ICD-10; [address] [place], [address] , [facility] 4 09:21:54 Hyperlipi demia 67789033 Active 2022 3 - Comments only - Farooq Munoz RPA - He has resumed taking statin. He will continue. Problem Code: E78.5; Problem Code Type: ICD-10; Not Available [facility] 3 05:17:30 Nicotine dependenc e 42065691 Active 2022 in remission . Stopped smoking 2022. Nicotine gum. Problem Code: F17.200; Problem Code Type: ICD-10; In remission . He stopped in fall [address], [place], [address] , [facility] 4 11:49:35 Screening for malignant neoplasm of prostate Active 2022 Problem Code: Z12.5; Problem Code Type: ICD-10; Not Available [facility] 3 05:17:31 Constipat ion 78681766 Active 2022 Problem Code: K59.09; Problem Code Type: ICD-10; Not Available [facility] 3 05:17:31 Acute non-ST segment elevation myocardia l infarctio n 708163161 Active 2022 3 - Comments only - Farooq Munoz RPA - restenosi s of LAD and RCA stenosis. stenting X 3. Plavix X 1 year. Problem Code: I21.4; Problem Code Type: ICD-10; Not Available [facility] 3 05:17:31 Atheroscl erosis of coronary artery without angina pectoris 05026049767 4103 Active 2022 3 - Comments only - Farooq Munoz SWAPNIL - Status post stenting of his LAD and RCA earlier this month. Restentin g of the LAD from prior CA. He is doing well. Toleratin g his medicatio ns well. Metoprolo l may be contribut ing to some fatigue. Hold off on medicatio n managemen t changes for now. He will be on dual antiplate let therapy for a year. Preserved ejection fracture on recent echocardi ogram. Akinesis of the apical region. Functiona lly doing well. Has started with cardiac rehab. Had his intake yesterday . Some persisten t tendernes s over his right volar forearm that he relates to catheteri zation. Advised moist heat. No sign of celluliti s. I do not feel any roping of his veins. Good radial pulse. Follow-up here in 1 month. Problem Code: I25.10; Problem Code Type: ICD-10; Not Available [facility] 3 05:17:31 Erectile dysfuncti on 836019605 Active 2022 3 - Comments only - Farooq Alexander KRAFT - Mild and likely an anxiety component . Trial of low-dose sildenafi l. Cautioned on the contraind ication with any nitro use. Problem Code: N52.9; Problem Code Type: ICD-10; Not Available [facility] 4 05:36:18 Problem Notes None recorded. Procedures Surgical History None recorded. Imaging Results Imaging Date Name Status LastModified by Organ atmission hospital Details LastModified Time 07/04/2023 imaging/diag nostic result completed [email or web address] Information not available 08/09/2024 02:04:49 07/04/2023 imaging/diag nostic result completed [email or web address] Information not available 08/09/2024 02:05:09 07/04/2023 imaging/diag nostic result completed Information not available 08/09/2024 02:05:09 07/04/2023 imaging/diag nostic result completed Information not available 08/09/2024 02:05:10 07/31/2023 imaging/diag nostic result completed Information not available 08/09/2024 02:05:16 07/04/2023 imaging/diag nostic result completed Information not available 08/09/2024 02:05:27 07/04/2023 imaging/diag nostic result completed Information not available 08/09/2024 02:05:28 07/04/2023 imaging/diag nostic result completed Information not available 08/09/2024 02:05:37 07/04/2023 imaging/diag nostic result completed Information not available 08/09/2024 02:05:40 Procedure Notes None recorded. Medical Equipment None Reported. Allergies No known drug allergies Medications Name Sig Start Date Stop Date Status Note LastModified by Organization Details LastModified Time atorvasta tin 80 mg tablet TAKE ONE TABLET BY MOUTH EVERY EVENING active Not Available Not Available No t Available doxycycli ne hyclate 100 mg capsule TAKE ONE CAPSULE BY MOUTH TWICE A DAY 08/11 completed Not Available Not Available Not Available Carafate 1 gram tablet Take 1 tablet by mouth three times a day as needed prior to meals 07/01 completed Not Available Not Available Not Available metoprolo l succinate ER 50 mg tablet,ex tended release 24 hr TAKE 1 TABLET BY MOUTH ONCE A DAY 02/25 completed Not Available Not Available Not Available famotidin e 40 mg tablet Take 1 tablet by mouth twice a day 07/01 completed Not Available Not Available Not Available clopidogr el 75 mg tablet TAKE ONE TABLET BY MOUTH EVERY DAY 07/06 completed stopped by saurabh phillips [place] 07/02/24 Not Available Not Available Not Available amlodipin e 5 mg tablet TAKE ONE TABLET BY MOUTH EVERY DAY 12/29 /2023 completed Not Available Not Available Not Available amlodipin e 10 mg tablet TAKE ONE TABLET BY MOUTH EVERY DAY 02/25 completed Not Available Not Available Not Available pantopraz ole 40 mg tablet,de layed release Take 1 tablet by mouth once a day take before your largest meal of day. 06/25 completed Not Available Not Available Not Available lisinopri l 10 mg tablet TAKE ONE TABLET BY MOUTH EVERY DAY 11/21 completed Not Available Not Available Not Available nicotine 21 mg/24 hr daily transderm al patch Apply 1 patch to skin daily 07/18 completed [facility] d/c 07/08 Not Available Not Available Not Available nitroglyc rudy 0.4 mg sublingua l tablet PLACE 1 TABLET UNDER THE TONGUE EVERY 5 MIN NEEDED FOR CHEST PAIN active Not Available Not Available No t Available metoprolo l succinate ER 25 mg tablet,ex tended release 24 hr TAKE ONE TABLET BY MOUTH EVERY DAY active Not Available Not Available No t Available lisinopri l 10 mg-hydroc hlorothia zide 12.5 mg tablet TAKE ONE TABLET BY MOUTH EVERY DAY active Not Available Not Available No t Available Adult Low Dose Aspirin 81 mg tablet,de layed release Take 1 tablet by mouth once a day active Not Available Not Available No t Available sildenafi l (pulmonar y hypertens ion) 20 mg tablet TAKE 1-5 TABLETS BY MOUTH DIRECTED NEEDED 30 MIN PRIOR TO INTERCOU RSE active Not Available Not Available No t Available hydrochlo rothiazid e 12.5 mg tablet Take 1 tablet by mouth once a day 07/18 completed NOT on [facility] D/c summary 07/08/23 Not Available Not Available Not Available Vitals Date Recorded Body height Body mass index (BMI) Body weight Body temperature Respiratory rate Heart rate Systolic blood pressure Diastolic blood pressure Provider Name and Address Organization Details Last Updated DateTime 3 180.34 cm 29.2 kg/m2 69325.2 4 g 97.5 [degF] 18 /min 64 /min 118 mm[Hg] 64 mm[Hg] SKYLAR RAM RN [place] [facility] 3 10:17:26 Date Recorded Body height Body mass index (BMI) Body weight Body temperature Respiratory rate Heart rate Systolic blood pressure Diastolic blood pressure Provider Name and Address Organization Details Last Updated DateTime 4 180.34 cm 29.9 kg/m2 67033.9 2 g 97.3 [degF] 16 /min 68 /min 130 mm[Hg] 64 mm[Hg] SKYLAR RAM RN [facility] 4 11:30:06 Date Recorded Body height Body mass index (BMI) Body weight Body temperature Oxygen saturation Oxygen saturation in Arterial blood by Pulse oximetry Heart rate Respiratory rate Systolic blood pressure Diastolic blood pressure Provider Name and Address Organization Details Last Updated DateTime 4 180.34 cm 30.4 kg/m2 62266.1 4 g 98.8 [degF] 99 % 99 % 74 /min 15 /min 118 mm[Hg] 60 mm[Hg] PANDA ARIAS RN [facility] 4 13:41:53 Date Recorded Body height Body mass index (BMI) Body weight Body temperature Oxygen saturation Oxygen saturation in Arterial blood by Pulse oximetry Heart rate Respiratory rate Systolic blood pressure Diastolic blood pressure Provider Name and Address Organization Details Last Updated DateTime 4 180.34 cm 30.8 kg/m2 499418. 48 g 97.9 [degF] 98 % 98 % 68 /min 14 /min 138 mm[Hg] 86 mm[Hg] ANNETTE CARDENAS RN [facility] 4 09:39:08 Social History Question Answer Notes LastModified by Organizat ion Details LastModified Time Tobacco Smoking Status Former Smoker SKYLAR RAM RN [facility], [facility] 11/21/2023 10:21:05 What Was The Date Of Your Most Recent Tobacco Screening? 08/11/2024 Information not available 08/11/2024 At What Age Did You Start Smoking Tobacco? 10 Information not available 11/21/2023 Has Tobacco Cessation Counseling Been Provided? Yes Information not available 11/21/2023 On What Date Was Tobacco Cessation Counseling Provided? 11/21/2023 Information not available 11/21/2023 Do You Or Have You Ever Used Any Other Forms Of Tobacco Or Nicotine? No Information not available 08/11/2024 Sex: Male Functional Status None recorded. Mental Status None recorded. Family History Relationship Description Onset Age of this Age Resolved Age Notes LastModified by Organization Details LastModified Time Father Family history of ischemic heart disease [email or web address] Not available 2022 03:55:04 Mother Family history of malignant neoplasm of lung [email or web address] Not available 2022 03:55:05 Medical History No medical history recorded. Immunizations Vaccine Type Date Status Provider Name and Address Organization Details Recorded Time Tdap 07/22/2017 completed Not Available [facility] 06:13:43 Influenza, split virus, quadrivalent, PF 11/21/2023 cancelled FAROOQ MUNOZ PA-C [address], [place], [address], [facility] 11/21/2023 12:36:35 COVID-19, mRNA, LNP-S, PF, valentin-sucrose, 30 mcg/0.3 mL 11/21/2023 cancelled FAROOQ MUNOZ PA-C [address], [place], [address], [facility] 11/21/2023 12:36:35 zoster recombinant 11/21/2023 cancelled FAROOQ MUNOZ PA-C [address], [place], [address], [facility] 11/21/2023 12:36:35 Past Encounters Encounter ID Performer Location Encounter Start Date Encounter Closed Date Diagnosis/Indication Diagnosis SNOMED-CT Code Diagnosis ICD10 Code [id number] Makayla Alberto RN [facility] [address] [place] [address] 11/14/2023 07:25:31 11/14/2023 08:52:41 Erectile dysfunction 639937450 F52.21 Essential hypertension 84851433 I10 [id number] FAROOQ MUNOZ PA-C [facility] [address] [place] [address] 11/21/2023 10:03:29 11/21/2023 10:44:28 Administration of influenza vaccine 16500591 Z23 Administra tion of SARS-CoV-2 vaccine 0530899353 Z23 Active or passive immunization 989034244 Z23 Essential hypertension 64602948 I10 Atheroscle rosis of coronary artery without angina pectoris 3272040513 60547 I25.10 [id number] FAROOQ MUNOZ PA-C [facility] [address] [place] [address] 02/26/2024 11:20:59 02/26/2024 11:46:25 Atherosclerosis of coronary artery without angina pectoris 3705051837 33385 I25.10 Essential hypertension 34237131 I10 Hyperlipidemia 19606489 E78.5 Screening for malignant neoplasm of prostate 541199416 Z12.5 [id number] FAROOQ MUNOZ PA-C [facility] [address] [place] [address] 08/11/2024 09:27:11 08/11/2024 09:57:50 Hyperlipidemia 29256676 E78.5 Screening for malignant neoplasm of prostate 268845925 Z12.5 Atheroscle rosis of coronary artery without angina pectoris 4508883380 10995 I25.10 Obesity 566366690 E66.9 Lyme disease 50559066 A6 9.20 [id number] FAROOQ MUNOZ PA-C [facility] [address] [place] [address] 07/06/2024 13:33:54 07/06/2024 14:43:39 Lyme disease 05030384 A69.20 Health Concerns Section Related Observation LastModified by Organization Detai ls LastModified Time None Recorded Concern Status LastModified by Organization Details LastModified Time None Recorded Advance Directives Directive None Recorded Payers Encounter Date Sequence Insurance Name Policy Number Policy [place] Covered Member ID [place] Member ID Guarantor Name 11/21/2023 2 [place] [facility] [id number] Antonio Pham [id number] Antonio Pham 02/26/2024 2 [place] [facility] [id number] Antonio Pham [id number] Antonio Pham 07/06/2024 2 [place] [facility] [id number] Antonio Pham [id number] Antonio Pham 07/06/2024 1 [place] [facility] [id number] Antonio Pham [id number] Antonio Pham 08/11/2024 1 [place] [facility] [id number] Antonio Pham [id number] Antonio Pham Notes Date Note Type Note Provider Name and Address Organization Details Recorded Time 11/21/2023 text/html HPI Notes: Jatin mesa is here for follow-up of Coronary artery disease and hypertension. He is feeling pretty well. He continues to not smoke though this has been difficult. Associated mood irritability. He continues with some fatigue and cold extremities that he attributes to his medications. Some mild lightheadedness if he gets up quickly. He has not had any recurrent chest pain or stomach issues. He completed cardiac rehab. He has been checking his blood pressures at home. They have been in a very good range. [address] [place], [address], [facility] 11/21/2023 12:42:27 02/26/2024 text/html HPI Notes: Ramos is here for followup of coronary artery disease, htn. Ramos is doing fine. Continues to be a non smoker though admits that he isn't happy about it. Compliant with his medications. Less krthostatic dizziness since lower metoprolol to 25 mg. Has not had any chest pain or heart burn. Chronic fatigue that is unchanged. [address] [place], [address], [facility] 02/26/2024 11:54:27 07/06/2024 text/html HPI Notes: Can nts for an acute visit with fever, rigors, and chills that began 5 days ago. Some improvement of symptoms over the next few days. Associated upper back and neck tightness. No respiratory symptoms. No nasal congestion. No associated nausea or vomiting. No diarrhea. About the same time his noted a rash on his back. He recalls feeling a bug on his back just prior and slapping his back. He is feeling better now but the rash Has spread. Now several red oval lesions over his body. [address], [place], [address], [facility]. 07/06/2024 14:54:27 08/11/2024 text/html HPI Notes: Ramos is here for follow-up after treatment for Lyme disease. He tolerated the antibiotic okay. His rash resolved after a few days. The antibiotic made him a bit constipated. He is concerned about persistent infection In his sinuses. Poor dentition. Chronically. He cannot afford the appropriate dental care. UMA LOPEZ, [facility]. 08/11/2024 10:18:08
--- OUTSIDE RECORDS SUMMARY | 2024-08-11 18:46 | XMS_ITS | Continuity of Care Document ---
Author Organization [place] - [facility] Address [address] [place] [address] Assessment No assessment recorded. Plan of Treatment Reminders Order Date Submit Date Provider Last Modified By Organization Details Last Modified Time Details Appointments Follow Up 30 2023 09:30A M Not available Not available Not available Annual Wellness Exam 40 2023 09:00A M Not available Not available Not available Lab C reactive protein, QN, serum or plasma - 1 tiger, 1 LAV obtained without issue 2023 024 [email or web address] [facility] (Registration ), [facility] [place], [address], 08/11/2024 10:48:06 Referral None recorded. Procedures None recorded. Surgeries None recorded. Imaging None recorded. Medication Orders None recorded. Patient TargetsNo targets recorded. Patient Instructions Encounter Date Encounter Id Patient Instructions Last Modified By Organization Details Last Modified Time 08/11/2024 [id number] diet [email or web address] Not available 09:59:09 exercise [email or web address] Not available 09:59:08 Reason for Referral None Reported. Results Created Date Observation Date Name Description Value Unit Range Abnormal Flag Note LastModifiedBy Organization Detail LastModifiedTime 08/09/20 24 07/04/2023 imagi ng/di agnos tic [...] record ed. [email or web address] Not Available 08/09 02:05:16 08/09/2007/04/2023 imagi ng/di agnos tic resul t No observ ation record ed. [email or web address] Not Available 08/09 02:05:27 08/09/20 24 07/04/2023 imagi ng/di agnos tic resul t No observ ation record ed. [email or web address] Not Available 08/09 02:05:28 08/09/20 24 07/04/2023 imagi ng/di agnos tic resul t No observ ation record ed. [email or web address] Not Available 08/09 02:05:37 08/09/20 24 07/04/2023 imagi ng/di agnos tic resul t No observ ation record ed. [email or web address] Not Available 08/09 02:05:40 Result Notes None recorded. Problems Name Problem SNOMED Code Status Onset Date Resolution Date Notes Provider Name and Address Organization Details Recorded Time Anxiety disorder 863730378 Active 2022 Problem Code: F41.9; Problem Code Type: ICD-10; Not Available [facility] 05:17:30 Mild intermitt ent asthma 229011352 Active 2022 Problem Code: J45.20; Problem Code Type: ICD-10; Not Available [facility] 05:17:30 Essential hypertens ion 05588007 Active 2022 Problem Code: I10; Problem Code Type: ICD-10; FAROOQ MUNOZ PA-C [address], [place], [address] , [facility] 4 09:21:54 Hyperlipi isaiah 99788373 Active 2022 3 - Comments only - Farooq Munoz RPA - He has resumed taking statin. He will continue. Problem Code: E78.5; Problem Code Type: ICD-10; Not Available [facility] 3 05:17:30 Nicotine dependenc e 90163943 Active 2022 in remission . Stopped smoking 2022. Nicotine gum. Problem Code: F17.200; Problem Code Type: ICD-10; In remission . He stopped in fall 2022 FAROOQ MUNOZ PA-C [address], [place], [address] , [facility] 4 11:49:35 Screening for malignant neoplasm of prostate Active 2022 Problem Code: Z12.5; Problem Code Type: ICD-10; Not Available [facility] 3 05:17:31 Constipat ion 00699636 Active 2022 Problem Code: K59.09; Problem Code Type: ICD-10; Not Available [facility] 3 05:17:31 Acute non-ST segment elevation myocardia l infarctio n 612272502 Active 2022 3 - Comments only - Farooq Munoz RPA - restenosi s of LAD and RCA stenosis. stenting X 3. Plavix X 1 year. Problem Code: I21.4; Problem Code Type: ICD-10; Not Available [facility] 3 05:17:31 Atheroscl erosis of coronary artery without angina pectoris 46426626937 4103 Active 2022 3 - Comments only - Farooq Munoz RPA - Status post stenting of his LAD and RCA earlier this month. Restentin g of the LAD from prior [place]. He is doing well. Toleratin g his [...] I25.10; Problem Code Type: ICD-10; Not Available [facility] 3 05:17:31 Erectile dysfuncti on 972225420 Active 2022 3 - Comments only - Farooq Munoz RPA - Mild and likely an anxiety component . Trial of low-dose sildenafi l. Cautioned on the contraind ication with any nitro use. Problem Code: N52.9; Problem Code Type: ICD-10; Not Available [facility] 4 05:36:18 Problem Notes None recorded. Medical Equipment None Reported. [...] EVERY DAY 07/06 completed stopped by saurabh NEW 07/02/24 Not Available Not Available Not Available [...] 1 patch to skin daily 07/18 completed [facility] d/c 07/08 Not Available Not Available Not [...] once a day 07/18 completed NOT on [facility] D/c summary 07/08/23 Not Available Not Available Not Available Vitals Date Recorded Body height Body mass index (BMI) Body weight Body temperature Oxygen saturation Oxygen saturation in Arterial blood by Pulse oximetry Heart rate Respiratory rate Systolic blood pressure Diastolic blood pressure Provider Name and Address Organization Details Last Updated DateTime 4 180.34 cm 30.8 kg/m2 287428. 48 g 97.9 [degF] 98 % 98 % 68 /min 14 /min 138 mm[Hg] 86 mm[Hg] ANNETTE CARDENAS RN [facility]. 4 09:39:08 Social History Question Answer Notes LastModified by Organizat ion Details LastModified Time Tobacco Smoking Status Former Smoker SKYLAR RAM RN null, [facility] 11/21/2023 10:21:05 What Was The Date Of [...] Father Family history of ischemic heart disease [email or web address] Not available 2022 03:55:04 Mother Family history of malignant neoplasm of lung [email or web address] Not available 2022 03:55:05 Medical History No medical history recorded. Immunizations Vaccine Type Date Status Provider Name and Address Organization Details Recorded Time Tdap 07/22/2017 completed Not Available [facility] 06:13:43 Influenza, split virus, quadrivalent, PF 11/21/[address], [place], [address], [facility] 11/21/2023 12:36:35 COVID-19, mRNA, LNP-S, PF, valentin-sucrose, 30 mcg/0.3 mL 11/21/[address], [place], [address], [facility] 11/21/2023 12:36:35 zoster recombinant 11/21/[address], [place], [address], [facility] 11/21/2023 12:36:35 Past Encounters Encounter ID Performer Location Encounter Start Date Encounter Closed Date Diagnosis/Indication Diagnosis SNOMED-CT Code Diagnosis ICD10 Code [id number] FAROOQ MUNOZ PA-C [facility] [address] [address] [place] [address] 08/11/2024 09:27:11 08/11/2024 09:57:50 Hyperlipidemia 75620068 E78.5 Screening for malignant neoplasm of prostate 330022137 Z12.5 Atheroscle rosis of coronary artery without angina pectoris 6910471231 21235 I25.10 Obesity 431372084 E66.9 Lyme disease 60588966 A6 9.20 Health Concerns Section Related Observation LastModified by Organization Detai ls LastModified Time None Recorded Concern Status LastModified by Organization Details LastModified Time None Recorded Payers Encounter Date Sequence Insurance Name Policy Number Policy [place] Covered Member ID [place] Member ID Guarantor Name 08/11/2024 1 [facility] [id number] 1 Antonio Pham [id number] Antonio Pham Notes Date Note Type Note Provider Name and Address Organization Details Recorded Time 08/11/2024 text/html HPI Notes: Ramos is here for follow-up after treatment for Lyme disease. He tolerated the antibiotic okay. His rash resolved after a few days. The antibiotic made him a bit constipated. He is concerned about persistent infection In his sinuses. Poor dentition. Chronically. He cannot afford the appropriate dental care. ANNETTE [facility]S [facility] [place] [facility]. 08/11/2024 10:18:08
--- OUTSIDE RECORDS SUMMARY | 2024-08-11 18:46 | XMS_ITS | Encounter Summary ---
Author Organization [facility] Address [facility] [place] [address] Care Team Providers Care Poolroom Table Attendant Name Role Phone Farooq Munoz Primary Care Provider Encounter Details Date Type Department Care Team (Late st Contact Info) Description 07/04/2023 7:35 AM EDT Ancillary Procedure Radiology [facility] [place] [address] Mekhi Cortez MD [facility] [place] [address] Social History Tobacco Use Types Packs/Day Years Used Date Smoking Tobacco: Former Cigarettes 1 30 0 06/21/1986 - 06/21/2016 Smokeless Tobacco: Never Alcohol Use Standard Drinks/Week Comments No 0 (1 standard drink = 0.6 oz pur e alcohol) Sex and Gender Information Value Date Recorded Sex Assigned at Not on file Gender Identity Not on file Sexual Orientation Not on file documented as of this encounter Plan of Treatment Not on file documented as of this encounter Procedures Procedure Name Priority Date/Time Associated Diagnosis Comments FILM LIBRARY STORAGE ONLY CT CHEST Routine 07/04/2023 7:31 AM EDT documented in this encounter Results * Film Library- Storage Only CT Chest (07/04/2023 7:31 AM EDT) Narrative [facility] - 07/04/2023 7:31 AM EDT This exam is auto-finalizing. It's purpose is for storage only. Mekhi Cortez MD G FILM LIBRARY ORD ERABLES [facility] [place], [place] documented in this encounter Visit Diagnoses Not on filedocumented in this encounter Care Teams Poolroom Table Attendant Relationship Specialty Start Date End Date Farooq Munoz PA PCP - General General Internal Medicine 07/02/16 documented as of this encounter
--- OUTSIDE RECORDS SUMMARY | 2024-08-11 18:46 | XMS_ITS | Encounter Summary ---
Author Organization [facility] [place] [address] Care Team Providers Care Radio Electronics Technician Name Role Phone None Primary Care Provider Unavailabl e Encounter Details Date Type Department Care Team (Late st Contact Info) Description 06/24/2016 Telephone Cardiac Rehab [facility] [place] [address] Jenny Gonzalez RN Social History Tobacco Use Types Packs/Day Years [...] on file documented as of this encounter Miscellaneous Notes * Telephone Encounter - Jenny Gonzalez RN - 06/24/2016 11:26 AM EDT Patient was inpatient 06/21/16-06/23/16 with diagnosis of STEMI. Called and spoke with patient today regarding participation in outpatient cardiac rehab at [facility]. Patient agrees with areferral to this program. Will send the referral and discharge summary to [facility] today. Patient should hear from them within 7-10 days. documented in this encounter Plan of Treatment Not on file documented as of this encounter Visit Diagnoses Not on filedocumented in this encounter Care Teams Radio Electronics Technician Relationship Specialty Start Date End Date None None PCP - General 05/24/16 07/01/16 documented as of this encounter
--- OUTSIDE RECORDS SUMMARY | 2024-08-11 18:46 | XMS_ITS | Encounter Summary ---
Author Organization [facility] Address [address] [place] [address] Care Team Providers Care Health Education Aide Name Role Phone None, Provider Primary Care Provider Unavailabl e Encounter Details Date Type Department Care Team (Late st Contact Info) Description 05/08/2023 Lab Requisition [facility] Pathology & Laboratory Medicine - [address] [address] Outr Resulting Lab, Provider Social History Tobacco Use Types Packs/Day Years Used Date Smoking Tobacco: Never Assessed Sex and Gender Information Value Date Recorded Sex Assigned at Not on file Gender Identity Not on file Sexual Orientation Not on file documented as of this encounter Plan of Treatment Not on file documented as of this encounter Procedures Procedure Name Priority Date/Time Associated Diagnosis Comments PSA TOTAL, DIAGNOSTIC Routine 05/07/2023 8:20 EDT documented in this encounter Results * PSA TOTAL, DIAGNOSTIC (05/07/2023 8:20 EDT) PSA 0.4 <=3.5 ng/mL 05/08/2023 19:05 EDT [facility] Blood VENOUS BLOOD / Unknown 05/07/2023 8:20 EDT 05/08/2023 18:06 EDT Narrative [facility] - 05/08/2023 19:05 EDT NOTE: Serum PSA concentration should not be interpreted as absolute evidence for the presence or absence of malignant disease. Assayed on Siemens ADVIA Centaur XPT using chemiluminescent technology.??Values obtained by using different assay methods cannot be used interchangeably. Provider Outr Resulting Lab CHEMISTRY & BLOOD GAS ORDERABLES [facility] [address] [place] [address] documented in this encounter Visit Diagnoses Not on filedocumented in this encounter Care Teams Health Education Aide Relationship Specialty Start Date End Date None, Provider PCP - General 10/04/15 documented as of this encounter
--- OUTSIDE RECORDS SUMMARY | 2024-08-11 18:46 | XMS_ITS | Encounter Summary ---
Author Organization [facility] [place] [address] Care Team Providers Care Rock Singer Name Role Phone Farooq Munoz Primary Care Provider Encounter Details Date Type Department Care Team (Late st Contact Info) Description 07/08/2023 Telephone Cardiology at [address] [address] Keren Castillo Social History Tobacco Use Types Packs/Day Years Used Date Smoking Tobacco: Former Cigarettes 1 30 0 06/21/1986 - 06/21/2016 Smokeless Tobacco: Never Alcohol Use Standard Drinks/Week Comments No 0 (1 standard drink = 0.6 oz pur e alcohol) [facility] Inpatient Questions Answer Date Recorded Does Anyone Try to Keep You From Having Contact with Others or Doing Things Outside Your Home? no 07/06/2023 Feels Threatened by Someone no 06/24 Feels Unsafe at Home or Work/School no 07/06/2023 Physical Signs of Abuse Present no 07/06/2023 Sex and Gender Information Value Date Recorded Sex Assigned at Not on file Gender Identity Not on file Sexual Orientation Not on file documented as of this encounter Miscellaneous Notes * Telephone Encounter - Keren Castillo - 07/08/2023 9:26 AM EDT Cardiology referral from Katy Keenan APRN faxed to [facility] Cardiology at [phone] Keren Castillo Clinical Procedure Briquette Operator, Sr. documented in this encounter Plan of Treatment Not on file documented as of this encounter Visit Diagnoses Not on filedocumented in this encounter Care Teams Rock Singer Relationship Specialty Start Date End Date Farooq Munoz PA PCP - General General Internal Medicine 07/02/16 documented as of this encounter
--- OUTSIDE RECORDS SUMMARY | 2024-08-11 18:46 | XMS_ITS | Encounter Summary ---
Author Organization [facility] Address [facility] [place] [address] Care Team Providers Care Workplace Trainer And Assessor Name Role Phone Farooq Munoz Primary Care Provider [phone] Encounter Details Date Type Department Care Team (Late st Contact Info) Description 07/04/2023 Telephone Cardiology at [address] [place] [address] Sahra De Leon PA [facility] [place] [address] Social History Tobacco Use Types Packs/Day Years [...] encounter Miscellaneous Notes * Telephone Encounter - Sahra De Leon PA - 07/04/2023 8:11 AM EDT Images from the original note were not included. 07/04/2023 Antonio Pham Initial Contact Date: 07/04/2023 Contact time: 8:11 AM Referring Provider:Dr. Garcia Patient Location: [facility] Brief History 52 y.o with PMH of ASCVD (inferior STEMI 2016 s/p LEIGH to RCA and LCX), HLD, HTN, current smoker whopresents to OSH with chest pain. Reports stuttering chest pain x1 month. This morning woke up around 5 AM with centralized chest pain radiating to back around 5 AM. Received 3 S LNTG on arrival to EDwith mild improvement and subsequently placed on NTG gtt and is currently pain free. CXR without acute findings CT chest read pending; prelim view no acute abnrormalities Vital sign: HR 60, 99% on RA, 128/78. Pertinent Diagnostic Findings: Labs: Troponin 211 x1 No other values provided Past cardiac studies: EKG: TTE 2015 SUMMARY: 1. Technically limited study. Contrast was administered. 2. The left ventricular chamber size is normal. The quantitative left ventricular ejection fraction by biplane Chow's method is 52%. There are left ventricular segmental wall motion abnormalities present, as shown in the diagram below. 3. The right ventricle is normal in size. Right ventricular global systolic function is normal. Pulmonary artery hypertension could not be assessed due to inadequate tricuspid regurgitation jet. 4. There is no hemodynamically significant valve disease evident. 5. See remainder of report for additional findings. Cardiac Cath 06/21/16 Conclusions: * Two vessel coronary artery disease (LCX and RCA) * Normal left ventricular ejection fraction (EF-60%) * Successful thrombectomy and stent insertion of the proximal RCA lesion * Successful stent insertion of the proximal OM2 lesion * Drug eluting stents placed. OSH Interventions: ASA 325 mg x1 Plavix 600 mg x1 IV heparin NTG gtt Assessment & Plan: Antonio Pham is a 52 y.o with PMH of ASCVD (inferior STEMI 2016 s/p LEIGH to RCA and LCX), HLD, HTN, current smoker who presents to OSH after waking up at 5 AM with centralized chest pain with radiation to back. Also reported stuttering chest pain x1 month. Received SL NTG x3 on arrival to ED withmild improvement and subsequently placed on NTG gtt. Currently pain free and HDS. Troponin 211 x1, second pending. EKG with TWI V3-V6. CXR without acute process. CT chest read pending, but on outsideproviders view, no acute findings. He has been loaded with ASA and started on IV heparin. I recommended loading with Plavix 600 mg x1, statin, BB as tolerated and obtaining TTE prior to transfer if able. Advised they call us back if any acute changes in patients clinical status or if CT chest/additional imaging abnormal. Accepted for transfer 07/04. Above recommendations were based on my discussion with Dr. Garcia; I have not personally interviewedor examined this patient. I encouraged them to contact us if there is any change in symptoms, decision- making, or further need for guidance in management. Sahra De Leon PA-C Access Pager [phone] 07/04/2023 OSH called back 1:36 PM to report second trop up-trended ~500. Patient remains pain free. documented in this encounter Plan of Treatment Not on file documented as of this encounter Visit Diagnoses Not on filedocumented in this encounter Care Teams Workplace Trainer And Assessor Relationship Specialty Start Date End Date Farooq Munoz PA PCP - General General Internal Medicine 07/02/16 documented as of this encounter
--- OUTSIDE RECORDS SUMMARY | 2024-08-11 18:46 | XMS_ITS | Referral Summary ---
Author Organization [facility] Address [address] [place] [address] Care Team Providers Care Director Instrumentation Name Role Phone None, Provider Primary Care Provider Unavailabl e Social History Tobacco Use Types Packs/Day Years Used Date Smoking Tobacco: Never Assessed Sex and Gender Information Value Date Recorded Sex Assigned at Not on file Gender Identity Not on file Sexual Orientation Not on file Plan of Treatment Not on file Care Teams Director Instrumentation Relationship Specialty Start Date End Date None, Provider PCP - General 10/04/15
--- OUTSIDE RECORDS SUMMARY | 2024-08-11 18:46 | XMS_ITS | Encounter Summary ---
Author Organization [facility] Address [facility] [place] [address] Care Team Providers Care Emergency Room Physician Assistant Name Role Phone Farooq Munoz Primary Care Provider [phone] Reason for Visit * Reason Comments Coronary Artery Disease Follow-up Encounter Details Date Type Department Care Team (Latest Contact Info) Description 07/26/2016 11:30 AM EDT Office Visit Cardiology at [address] [address] Lavelle Willams MD [facility] [place] [address] Atherosclerosis of circle coronary artery of circle heart without angina pectoris; Lipid disorder Social History Tobacco Use Types Packs/Day Years [...] on file documented as of this encounter Last Filed Vital Signs Vital Sign Reading Time Taken Comments Blood Pressure 140/80 07/26/2016 10:58 AM EDT Pulse 60 07/26/2016 10:58 AM EDT Temperature - - Respiratory Rate - - Oxygen Saturation 98% 07/26/2016 10: 58 AM EDT Inhaled Oxygen Concentration - - Weight 107.9 kg (237 lb 14.4 oz) 2015 10:58 AM EDT Height 182.9 cm (6') 07/26/2016 10:58 AM EDT Body Mass Index 32.27 07/26/2016 10:58 AM EDT documented in this encounter Progress Notes * Lavelle Willams MD - 07/26/2016 11:30 AM EDT Cardiology Clinic Note History: Antonio Pham is a 45 y.o. male presenting for routine office follow up of his acute inferior STEMI in May. I was the attending of record and details of the admission are provided in the DC summary of 06/23/16. The patient presented to [facility] with chest pain and RAY with lytics provided andthen urgent cath demonstrating a culprit lesion in the mid RCA with auxillary disease in the LCx . Both lesions were successfully stented with LEIGH. His post infarction course was benign. The patient reports fatigue as his main issue, waking up feeling tired and pretty exhausted by mid afternoon. He is not experiencing chest discomfort, BROWN, palpitations or other CV symptoms. 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 He mentions trying to enroll in the cardiac rehab program at [facility] but ran into some disrespectful phone interaction with someone involved in scheduling. He hopes to try again to organize this engagement. Meds as below. No significant bleeding or bruising on the DAPT. Finally, he is using a e-cigarettes to help him overcome the tobacco habit. Allergies as of 07/26/2016 ??? (No Known Allergies) Current Outpatient Prescriptions Medication Sig Dispense Refill ??? aspirin 81 mg Tablet, Delayed Release (E.C.) Take 81 mg by mouth daily. ??? clopidogrel (PLAVIX) 75 mg Tablet Take 1 tablet by mouth daily. 30 tablet 11 ??? atorvastatin (LIPITOR) 80 mg Tablet Take 1 tablet by mouth daily. 30 tablet 3 ??? lisinopril (PRINIVIL;ZESTRIL) 20 mg Tablet Take 1 tablet by mouth daily. 30 tablet 12 ??? meTOPROLOL succinate (TOPROL-XL) 50 mg Tablet Sustained Release 24 hr Take 1 tablet by mouth daily. 30 tablet 12 ??? nitroGLYcerin (NITROSTAT) 0.4 mg Tablet, Sublingual Place 1 tablet under the tongue every 5 minutes as needed for Chest pain. 90 tablet 12 Physical Exam: Blood pressure 140/80, pulse 60, height 182.9 cm (6'), weight (!) 107.9 kg (237 lb 14.4 oz), SpO2 98 %. General: WD, WN, middle age man, appearing well HEENT: Eyes: No conjunctival pallor Neck: No JVD, carotid bruits or lymphadenopathy Lungs: Clear to A+P Cor: RR, normal S1, S2. PMI not displaced. No murmur or gallop Ext: No edema, cyanosis or clubbing Neuro: physiologic to limited exam Skin: Without rash or icterus Lab data: Echo 06/21/16 TTE - 1. Technically limited study. Contrast was administered. 2. The left ventricular chamber size is normal. The quantitative left ventricular ejection fraction by biplane Chow's method is 52%. There are left ventricular segmental wall motion abnormalities present, as shown in the diagram below. ?? 3. The right ventricle is normal in size. Right ventricular global systolic function is normal. Pulmonary artery hypertension could not be assessed due to inadequate tricuspid regurgitation jet. ?? 4. There is no hemodynamically significant valve disease evident. Lab Results Component Value Date WBC 9.2 06/22/2016 HGB 15.8 06/22/2016 HCT 47.8 06/22/2016 MCV 92.3 (H) 06/22/2016 PLATELET 211 06/22/2016 Chemistry Component Value Date/Time NA 141 06/23/2016 0605 K 4.2 06/23/2016 0605 CL 106 06/23/2016 0605 CO2 Not Perf 06/23/2016 0605 BUN 12 06/23/2016 0605 CREATININE 1.02 06/23/2016 0605 Component Value Date/Time CALCIUM 8.5 06/23/2016 0605 Cardiac Cath 06/21/16 Conclusions: ?? * Two vessel coronary artery disease (LCX and RCA) ?? * Normal left ventricular ejection fraction (EF-60%) ?? * Successful thrombectomy and stent insertion of the proximal RCA lesion ?? * Successful stent insertion of the proximal OM2 lesion ?? * Drug eluting stents placed. Cardiovascular Problem list and Plan of care: 1. CAD, two vessel (RCA, LCx), s/p inferior STEMI 06/21/16, stable 2. LV systolic dysfunction, mild, segmental 3. Lipid disorder, on statin at guideline dose 4. Tobacco abuse disorder 5. Fatigue, likely multifactorial but metoprolol may be a contributor Plan: 1. I talked with the patient about his symptoms and I advised reducing the metoprolol to 25mg dailyfor the next five days and then discontinuing this medication. He was advised to continue the othermeds as ordered. 2. I commented on his need to eliminate the e-cigarette use as soon as possible. 3. I discussed the benefits of cardiac rehab and hope he can reconnect with the program at [facility]. I reviewed the active treatment and ongoing surveillance for the cardiovascular problems as appropriate. I addressed the patient's questions. Non-Cardiac Problems: Cardiology follow up scheduled for: six months or prn 20 minutes of this 25 minute visit was spent in face to face discussion with the patient regarding the diagnoses in the assessment and plan of care. documented in this encounter Plan of Treatment Not on file documented as of this encounter Visit Diagnoses Diagnosis Atherosclerosis of circle coronary artery of circle heart without angina pectoris Lipid disorder Unspecified disorder of lipoid metabolism documented in this encounter Care Teams Emergency Room Physician Assistant Relationship Specialty Start Date End Date Farooq Munoz PA PCP - General General Internal Medicine 07/02/16 documented as of this encounter
--- OUTSIDE RECORDS SUMMARY | 2024-08-11 18:46 | XMS_ITS | Continuity of Care Document ---
Author Organization [place] [facility] Address [address] [place] [place] [place] [address] Assessment No assessment recorded. Plan of Treatment Reminders Order Date Submit Date Provider Last Modified By Organization Details Last Modified Time Details Appointments Follow Up 30 2023 09:30A M Not available Not available Not available Annual Wellness Exam 40 2023 09:00A M Not available Not available Not available Lab None recorded. Referral None recorded. Procedures None recorded. Surgeries None recorded. Imaging None recorded. Medication Orders doxycycli ne hyclate 100 mg capsule 2023 024 [facility] [address], [place], [address], 08/11/2024 09:35:03 Patient TargetsNo targets recorded. Patient InstructionsNo instructions recorded. Reason for Referral None Reported. Results Created Date Observation Date Name Description Value Unit Range Abnormal Flag Note LastModifiedBy Organization Detail LastModifiedTime 08/09/2007/04/2023 imagi ng/di agnos tic resul t [...] record ed. [email or web address] Not Available 08/09 02:05:27 08/09/2007/04/2023 imagi ng/di agnos tic resul t No observ ation record ed. [email or web address] Not Available 08/09 02:05:28 08/09/2007/04/2023 imagi ng/di agnos tic resul t No observ ation record ed. [email or web address] Not Available 08/09 02:05:37 08/09/2007/04/2023 imagi ng/di agnos tic resul t No observ ation record ed. [email or web address] Not Available 08/09 02:05:40 Result Notes None recorded. Problems Name Problem SNOMED Code Status Onset Date Resolution Date Notes Provider Name and Address Organization Details Recorded Time Anxiety disorder 961693454 Active 2022 Problem Code: F41.9; Problem Code Type: ICD-10; Not Available [facility] 3 05:17:30 Mild intermitt ent asthma 227690705 Active 2022 Problem Code: J45.20; Problem Code Type: ICD-10; Not Available [facility] 3 05:17:30 Essential hypertens ion 36449798 Active 2022 Problem Code: I10; Problem Code Type: ICD-10; [address], [place], [address] , [facility]. 4 09:21:54 Hyperlipi demia 85577433 Active 2022 3 - Comments only - Eileen Cassidy RPA - He has resumed taking statin. He will continue. Problem Code: E78.5; Problem Code Type: ICD-10; Not Available [facility] 3 05:17:30 Nicotine dependenc e 61751625 Active 2022 in remission . Stopped smoking 2022. Nicotine gum. Problem Code: F17.200; Problem Code Type: ICD-10; In remission . He stopped in fall [address], [place], [address] , [facility] 4 11:49:35 Screening for malignant neoplasm of prostate Active 2022 Problem Code: Z12.5; Problem Code Type: ICD-10; Not Available [facility] 3 05:17:31 Constipat ion 86116351 Active 2022 Problem Code: K59.09; Problem Code Type: ICD-10; Not Available [facility] 3 05:17:31 Acute non-ST segment elevation myocardia l infarctio n 531887992 Active 2022 3 - Comments only - Eileen Cassidy RPA - restenosi s of LAD and RCA stenosis. stenting X 3. Plavix X 1 year. Problem Code: I21.4; Problem Code Type: ICD-10; Not Available [facility] 3 05:17:31 Atheroscl erosis of coronary artery without angina pectoris 46216776024 4103 Active 2022 3 - Comments only - Eileen Cassidy RPA - Status post stenting of his [...] I25.10; Problem Code Type: ICD-10; Not Available [facility] 3 05:17:31 Erectile dysfuncti on 206270562 Active 2022 3 - Comments only - Eileen Cassidy RPA - Mild and likely an anxiety component . Trial of low-dose sildenafi l. Cautioned on the contraind ication with any nitro use. Problem Code: N52.9; Problem Code Type: ICD-10; Not Available [facility] 4 05:36:18 Problem Notes None recorded. Medical [...] EVERY DAY 07/06 completed stopped by saurabh y [facility] 07/02/24 Not Available Not Available Not Available [...] Updated DateTime 4 180.34 cm 30.4 kg/m2 81246.1 4 g 98.8 [degF] 99 % 99 % 74 /min 15 /min 118 mm[Hg] 60 mm[Hg] PANDA ARIAS RN [facility] 4 13:41:53 Social History Question Answer Notes LastModified by Organizat ion Details LastModified Time Tobacco Smoking Status Former Smoker SKYLAR RAM RN [facility], [facility] 11/21/2023 10:21:05 What Was The Date Of [...] Recorded Time Tdap 07/22/2017 completed Not Available [facility] 06:13:43 Influenza, split virus, quadrivalent, PF 11/21/2023 cancelled EILEEN CASSIDY PA-C [address], [place], [address], [facility] 11/21/2023 12:36:35 COVID-19, mRNA, LNP-S, PF, valentin-sucrose, 30 mcg/0.3 mL 11/21/2023 cancelled EILEEN CASSIDY PA-C [address], [place], [address], [facility] 11/21/2023 12:36:35 zoster recombinant 11/21/2023 cancelled EILEEN CASSIDY PA-C [address], [place], [address], [facility] 11/21/2023 12:36:35 Past Encounters Encounter ID Performer Location Encounter Start Date Encounter Closed Date Diagnosis/Indication Diagnosis SNOMED-CT Code Diagnosis ICD10 Code [id number] EILEEN CASSIDY PA-C [facility] [address] [place] [address] 07/06/2024 13:33:54 07/06/2024 14:43:39 Lyme disease 00324369 A69.20 Health Concerns Section Related Observation LastModified by Organization Detai ls LastModified Time None Recorded Concern Status LastModified by Organization Details LastModified Time None Recorded Payers Encounter Date Sequence Insurance Name Policy Number Policy [place] Covered Member ID [place] Member ID Guarantor Name 07/06/2024 2 [place] [facility] [id number] Antonio Pham [id number] Antonio Pham 07/06/2024 1 [place] [facility] [id number] Antonio Pham [id number] Antonio Pham Notes Date Note Type Note Provider Name and Address Organization Details Recorded Time 07/06/2024 text/html HPI Notes: Presents for an acute visit with fever, rigors, [...] lesions over his body. [address], [place], [address], [facility]. 07/06/2024 14:54:27
--- OUTSIDE RECORDS SUMMARY | 2024-08-11 18:46 | XMS_ITS | Encounter Summary ---
Author Organization [facility] Address [facility] [place] [address] Care Team Providers Care Hotel Services Supervisor Name Role Phone Farooq Munoz Primary Care Provider Encounter Details Date Type Department Care Team (Late st Contact Info) Description 07/04/2023 7:40 AM EDT Ancillary Procedure Radiology Library at [facility] [place] [address] Mekhi Cortez MD [facility] [place] [address] Social History Tobacco Use Types Packs/Day Years [...] Associated Diagnosis Comments FILM LIBRARY STORAGE ONLY DX CHEST Routine 07/04/2023 7:31 AM EDT documented in this encounter Results * Film Library- Storage Only DX Chest (07/04/2023 7:31 AM EDT) Narrative [facility][NOTE 3] - 07/04/2023 7:31 AM EDT This exam is auto-finalizing. It's purpose is for storage only. Mekhi Cortez MD IMG FILM LIBRARY ORD ERABLES [facility] [place], [place] documented in this encounter Visit Diagnoses Not on filedocumented in this encounter Care Teams Hotel Services Supervisor Relationship Specialty Start Date End Date Farooq Munoz PA PCP - General General Internal Medicine 07/02/16 documented as of this encounter
--- OUTSIDE RECORDS SUMMARY | 2024-08-11 18:46 | XMS_ITS | Clinical Summary ---
Author Organization [facility] Address [address] [place] [address] Care Team Providers Care Kids Club Attendant Name Role Phone None, Provider Primary Care Provider Unavailabl e Social History Tobacco Use Types Packs/Day Years Used Date Smoking Tobacco: Never Assessed Sex and Gender Information Value Date Recorded Sex Assigned at Not on file Gender Identity Not on file Sexual Orientation Not on file Plan of Treatment Health Maintenance Due Date Last Done Comments Hepatitis C Screen 1970 Hepatitis B Vaccine (1 of 3 - 19+ 3-dose series) 12/24 COVID-19 Vaccine (2022-24 season) 2023 Care Teams Kids Club Attendant Relationship Specialty Start Date End Date None, Provider PCP - General 10/04/15
--- OUTSIDE RECORDS SUMMARY | 2024-08-11 18:46 | XMS_ITS | Encounter Summary ---
[place] [address] Care Team Providers Care Cut Plug Packer Name Role Phone Farooq Munoz Primary Care Provider [phone] Reason for Referral * Diagnostic Test (Routine) - Closed Specialty Diagnoses / Procedures Referred By Contac t Referred To Contact Cardiology Diagnoses Non-ST elevation myocardial infarction (NSTEMI) Procedures Mobile Reji Johnson MD [address] [place] [address] [facility] [place] [address] Referral ID Status Reason Start Date Expiration Date V isits Requested Visits Authorized [id number] Closed Specialty Service Requested 07/04/2023 07/03/2024 1 1 Reason for Visit * Diagnostic Test (Routine) - Closed Specialty Diagnoses / Procedures Referred By Contac t Referred To Contact Cardiology Diagnoses Non-ST elevation myocardial infarction (NSTEMI) Procedures Mobile Reji Johnson MD [address] [place] [address] [facility] [place] [address] Referral ID Status Reason Start Date Expiration Date V isits Requested Visits Authorized [id number] Closed Specialty Service Requested 07/04/2023 07/03/2024 1 1 Encounter Details Date Type Department Care Team (Latest Contact Info) Description 07/04/2023 10:55 AM EDT - 07/04/2023 6:34 PM EDT Hospital Encounter [place] [address] Reji Garcia MD [address] [place] [address] Non-ST elevation myocardial infarction (NSTEMI) Discharge Disposition: Home Social History Tobacco Use Types Packs/Day Years [...] on file documented as of this encounter Medications at Time of Discharge Medication Sig Dispensed Refills Start Date End Date nicotine (Nicoderm CQ) 21 mg/24 hr Patch 24 hr Change 1 patch on the skin daily. 28 patch 07/08/2023 clopidogreL (Plavix) 75 mg tablet Take 1 tablet by mouth daily. 90 tablet 3 07/08/2023 lisinopriL (Zestril) 10 mg tablet Take 1 tablet by mouth daily. 30 tablet 3 07/08/2023 nitroGLYcerin (Nitrostat) 0.[address] 1 tablet under the tongue every 5 minutes as needed for Chest pain. 25 tablet 07/08/2023 aspirin 81 mg Tablet, Delayed Release (E.C.) Take 81 mg by mouth daily. atorvastatin (LIPITOR) 80 mg Tablet Take 1 tablet by mouth daily. 30 tablet 3 06/23/2016 meTOPROLOL succinate (TOPROL-XL) 50 mg Tablet Sustained Release 24 hr Take 1 tablet by mouth daily. 30 tablet 12 06/23/2016 lisinopriL (Zestril) 20 mg tablet Take 0.5 tablets by mouth daily. 07/08/2023 07/08/2023 amLODIPine (Norvasc) 10 mg tablet Take 10 mg by mouth daily. 06/10/2023 07/08/2023 clopidogrel (PLAVIX) 75 mg Tablet Take 1 tablet by mouth daily. 30 tablet 11 06/23/2016 07/08/2023 lisinopril (PRINIVIL;ZESTRIL) 20 mg Tablet Take 1 tablet by mouth daily. 30 tablet 12 06/23/2016 07/08/2023 nitroGLYcerin (NITROSTAT) 0.4 mg Tablet, Sublingual Place 1 tablet under the tongue every 5 minutes as needed for Chest pain. 90 tablet 12 06/23/2016 07/08/2023 documented as of this encounter Plan of Treatment Not on file documented as of this encounter Procedures Procedure Name Priority Date/Time Associated Diagnosis Comments ECHO COMPLETE Routine 07/04/2023 11:03 AM EDT Non-ST elevation myocardial infarction (NSTEMI) documented in this encounter Results * ECHO COMPLETE (07/04/2023 11:03 AM EDT) Anatomical Region Laterality Modality Other 07/04/2023 9:36 AM EDT Narrative 07/04/2023 11:30 AM EDT ? Echocardiogram Report Name: ANTONIO PHAM ?Study Date: 07/04/2023 09:36 AMBP: 130/70 mmHg ? Patient Location: 4A : 1970 ? Height: 183 cm ? Account: [id number] Age: 52 yrs ? Weight: 94 kg Gender: Male ?BSA: 2.2 m2 Ordering Physician: REJI GARCIA Referring Physician: REJI GARCIA Reason For Study: NSTEMI Exam Location: [facility]. Interpretation Summary -Left ventricular systolic function is normal. Left ventricular ejection fraction is estimated visually at 55%. There is akinesis of the apical region (LAD coronary distribution). -Right ventricular wall thickness is normal. Right ventricular systolic function is normal. -There is mild mitral regurgitation. -In comparison to a prior study dated 06/21/16, apical segmental wall motion abnormalities are probably new (report in 2016 codes lateral WMAs, images not available for direct comparison). Procedure Complete-05015. Left Ventricle Left ventricle is of normal size. Wall thickness is normal. Left ventricular systolic function is normal. Left ventricular ejection fraction is estimated visually at 55%. There is akinesis of the apical region. Right Ventricle The right ventricle is of normal size. Right ventricular wall thickness is normal. Right ventricular systolic function is normal. Left Atrium The left atrium is normal. No abnormality of the interatrial septum is identified. Right Atrium The right atrium is normal. Aortic Valve The aortic valve is not well visualized. There is no aortic stenosis. There is no aortic regurgitation. Mitral Valve The mitral valve is structurally normal. There is mild mitral regurgitation. Tricuspid Valve The tricuspid valve is structurally normal. There is trace tricuspid regurgitation. Pulmonic Valve The pulmonic valve appears to be structurally normal. There is no pulmonic valve regurgitation. Great Arteries The aortic root is of normal size. No abnormalities are identified. Ascending aorta is normal in size. Venous Inferior vena cava is normal in size. Inferior vena cava collapse greater than 50% with respiration. Pericardium/Pleural The pericardium appears normal. Hemodynamics Pulmonary artery hypertension could not be assessed due to inadequate tricuspid regurgitation jet. ? 2D Measurements ?IVSd: 0.91 cm ?LVIDd: 4.7 cm ?LVIDs: 3.5 cm ?LVPWd: 0.92 cm ?LV mass(C)d: 143.6 grams ?LV mass(C)dI: 66.3 grams/m2 ?Ao root diam: 3.0 cm ?Ao root diam index: 1.4 ?TAPSE_phl: 2.8 cm Doppler LV V1 VTI: 22.7 cm LVOT max Velocity: 95.4 cm/sec Ao V2 VTI: 28.0 cm Ao Max: 116.5 cm/sec Ao valve max: 5.4 mmHg Ao valve mean: 2.7 mmHg MV E max alberto: 52.7 cm/sec MV A max alberto: 53.1 cm/sec MV E/A: 0.99 MV dec time: 0.22 sec Lat Peak E' Alberto: 13.1 cm/sec E/ e' (lat): 4.0 Med Peak E' Alberto: 11.8 cm/sec E/e' (med): 4.5 E/e' Average: 4.2 Dimensionless index Aov: 0.81 I ?WMSI = 1.38 ? % Normal = 75 ?Segments ??Size X - Cannot ?? 1 - Normal ?? 2 - ? 3 - Akinetic 4 - ?1-2 ? small Interpret ? Hypokinetic ?Dyskinetic ?? 3-5 ? moderate 5 - ? 6-14 ?large Aneurysmal ?15-16 ?? diffuse Procedure Note Alvarez Mix MD - 07/04/2023 Echocardiogram Report Name: ANTONIO PHAM Study Date:07/04/2023 09:36 AMBP: 130/70 mmHg Patient Location: : 1970 Height: 183 cm Account: [id number] Age: 52 yrs Weight: 94 kg Gender: Male BSA: 2.2 m2 Ordering Physician: REJI GARCIA Referring Physician: REJI GARCIA Reason For Study: NSTEMI Exam Location: [facility]. Interpretation Summary -Left ventricular systolic function is normal. Left ventricular ejectionfraction is estimated visually at 55%. There is akinesis of the apical region (LADcoronary distribution). -Right ventricular wall thickness is normal. Right ventricular systolicfunction is normal. -There is mild mitral regurgitation. -In comparison to a prior study dated 06/21/16, apical segmental wallmotion abnormalities are probably new (report in 2016 codes lateral WMAs, imagesnot available for direct comparison). Procedure Complete-[id number]. Left Ventricle Left ventricle is of normal size. Wall thickness is normal. Leftventricular systolic function is normal. Left ventricular ejection fraction isestimated visually at 55%. There is akinesis of the apical region. Right Ventricle The right ventricle is of normal size. Right ventricular wall thickness isnormal. Right ventricular systolic function is normal. Left Atrium The left atrium is normal. No abnormality of the interatrial septum isidentified. Right Atrium The right atrium is normal. Aortic Valve The aortic valve is not well visualized. There is no aortic stenosis.There is no aortic regurgitation. Mitral Valve The mitral valve is structurally normal. There is mild mitralregurgitation. Tricuspid Valve The tricuspid valve is structurally normal. There is trace tricuspid regurgitation. Pulmonic Valve The pulmonic valve appears to be structurally normal. There is no pulmonicvalve regurgitation. Great Arteries The aortic root is of normal size. No abnormalities are identified.Ascending aorta is normal in size. Venous Inferior vena cava is normal in size. Inferior vena cava collapse greaterthan 50% with respiration. Pericardium/Pleural The pericardium appears normal. Hemodynamics Pulmonary artery hypertension could not be assessed due to inadequatetricuspid regurgitation jet. 2D Measurements IVSd: 0.91 cm LVIDd: 4.7 cm LVIDs: 3.5 cm LVPWd: 0.92 cm LV mass(C)d: 143.6 grams LV mass(C)dI: 66.3 grams/m2 Ao root diam: 3.0 cm Ao root diam index: 1.4 TAPSE_phl: 2.8 cm Doppler LV V1 VTI: 22.7 cm LVOT max Velocity: 95.4 cm/sec Ao V2 VTI: 28.0 cm Ao Max: 116.5 cm/sec Ao valve max: 5.4 mmHg Ao valve mean: 2.7 mmHg MV E max alberto: 52.7 cm/sec MV A max alberto: 53.1 cm/sec MV E/A: 0.99 MV dec time: 0.22 sec Lat Peak E' Alberto: 13.1 cm/sec E/ e' (lat): 4.0 Med Peak E' Alberto: 11.8 cm/sec E/e' (med): 4.5 E/e' Average: 4.2 Dimensionless index Aov: 0.81 I WMSI = 1.38 % Normal = 75 SegmentsSize X - Cannot 1 - Normal 2 - 3 - Akinetic 4 - 1-2small Interpret Hypokinetic Dyskinetic 3-5moderate 5 - 6-14large Aneurysmal 15-16diffuse Reji Garcia MD ECHO ORDERABLES documented in this encounter Visit Diagnoses Diagnosis Non-ST elevation myocardial infarction (NSTEMI) Acute myocardial infarction, subendocardial infarction, episode of care unspecified documented in this encounter Care Teams Cut Plug Packer Relationship Specialty Start Date End Date Farooq Munoz PA PCP - General General Internal Medicine 07/02/16 documented as of this encounter
--- OUTSIDE RECORDS SUMMARY | 2024-08-11 18:46 | XMS_ITS | Encounter Summary ---
Author Organization [facility] [place] [address] Care Team Providers Care Outsole Cutter Machine Name Role Phone Farooq Munoz Primary Care Provider [phone] Reason for Visit * Auth/Cert (Routine) Specialty Diagnoses / Procedures Referred By Contac t Referred To Contact Diagnoses NSTEMI (non-ST elevated myocardial infarction) NSTEMI Procedures EMERGENCY IPI Alexandria Amaya MD [facility] [place] [address] [facility] [place] Referral ID Status Reason Start Date Expiration Date Visits Re quested Visits Authorized [id number] 1 1 Encounter Details Date Type Department Care Team (Late st Contact Info) Description 07/07/2023 12:00 PM EDT - 07/07/2023 1:00 PM EDT Surgery [employer] [address] Mekhi Cortez MD [facility] [place] [address] CARDIAC CATHETERIZATION Social History Tobacco Use Types Packs/Day Years Used Date Smoking Tobacco: Former Cigarettes 1 30 0 06/21/1986 - 06/21/2016 Smokeless Tobacco: Never Alcohol Use Standard Drinks/Week Comments No 0 (1 standard drink = 0.6 oz pur e alcohol) [facility] Inpatient Questions Answer Date Recorded Does Anyone [...] Sign Reading Time Taken Comments Blood Pressure 129/73 07/07/2023 11:00 AM EDT Pulse 66 07/07/2023 7:00 AM EDT Temperature 35.9 ??C (96.6 ??F) 07/07/2023 11:00 AM E DT Respiratory Rate 16 07/07/2023 11:00 AM EDT Oxygen Saturation 100% 07/07/2023 11:00 AM EDT Inhaled Oxygen Concentration - - Weight 91 kg (200 lb 9.6 oz) 07/07/2023 3:49 AM EDT Height 182.9 cm (6') 07/07/2023 3:49 AM EDT Body Mass Index 27.21 07/07/2023 3:49 AM EDT documented in this encounter Discharge Summaries * Katy Keenan APRN - 07/08/2023 10:50 AM EDT Images from the original note were not included. Discharge Summary Patient Name: Antonio Pham Patient Age: 52 y.o. Language: Bruneian Admit date: 07/04/2023 Discharge date and time: 07/08/2023 10:49 AM Attending Physician: Milagros Rdz MD, Emanuel Farias MD Discharge Physician: Emanuel Farias MD Follow-up Recommendations for Providers: Patient is 52 year old with known inferior STEMI 7 years ago who presented with NSTEMI and was found to have in stent restenosis of his LAD and a new RCA lesion both requiring stenting. Access via right radial artery. -Renewal of Plavix prescription for 1 year -Reduced lisinopril to 10 mg daily, BMP needed in one week -new script for sl nitroglycerin provided -Nicotine patch prescribed at discharge, encourage smoking cessation -Encourage attendance at cardiac rehab Inpatient Provider Contact Information: MD Milagros Díaz MD Jonathan C Waltman, MD Janette Stender, ASSISTANT PLANT CONTROLLER [phone] Discharge Diagnoses (Hospital Problems) and Secondary Diagnoses (Chronic Problems): Active Hospital Problems Diagnosis NSTEMI (non-ST elevated myocardial infarction) Resolved Hospital Problems No resolved problems to display. Active Non-Hospital Problems Diagnosis Atherosclerotic heart disease of [place] coronary artery without angina pectoris Lipid disorder ST elevation (STEMI) myocardial infarction Operations/Major Procedures: Echo from 07/04/23 Interpretation Summary -Left ventricular systolic function is [...] WMAs, images not available for direct comparison). Cardiac cath: 07/07/23 Conclusions: * Two vessel coronary artery disease (LAD and RCA) * Successful stent insertion of the proximal LAD lesion * Successful stent insertion of the mid RCA lesion * Successful stent insertion of the distal LAD lesion * See Dual Antiplatelet (DAPT) Recommendations above History of Presentation (Per History and Physical 07/04/23): 52 y.o with PMH of ASCVD (inferior STEMI 2016 s/p LEIGH to RCA and LCX), HTN, HLD, current smoker who presents to [facility] with chest pain. The patient reports waking up at 5 AM with chest pain characterized as a burning sensation. This pain radiated to the back and shoulders and is accompanied by flushing, reminiscent of his past heart attack, despite the absence of chest pain during that specific incident. The patient attempted to alleviate the symptoms by taking an antacid and 2 sublingual nitroglycerin tablets, but found no relief. These episodes have been occurring over the span of several months; previously, they were only triggered by exertion and did not radiate. The patient has been using antacids intermittently due to the burning sensation, which has occasionally provided relief. The patient notes that he was evaluated by his PCP, during which cardiac enzyme tests consistently yielded negative results. Nonetheless, due to the patient's significant cardiac history, he has beenscheduled for a stress test on the upcoming Friday. The patient also notes recent changes in medication due to poorly controlled blood pressure. The patient denies experiencing palpitations, lightheadedness, near-fainting, or fainting episodes. Additionally, he denies symptoms such as nausea, vomiting, abdominal pain, and alterations in bowel or urinary habits. The patient admits to active smoking and alcohol consumption but denies any use of illicit drugs. Hospital Course: NSTEMI The patient ruled in for NSTEMI with elevated troponin x 3. He was anticoagulated with IV heparin. Given the patient's risk factors, ECG changes, positive biomarkers, it was decided to proceed with coronary angiography. The patient went to the cardiac clinical lab specialist for a diagnostic cath on 07/07/23 which showed 2 vessel coronary artery disease in the prox LAD, mid RCA and distal LAD. These lesions werestented with a drug eluting stents and the patient will need to continue on Plavix for the next year. Access was via right radial artery and this site was clean, dry and intact on the day of discharge. The patient???s medications at discharge include: aspirin, statin, beta daniel, JAYDEN inhibitor, Plavix and PRN nitroglycerin. Hypertension Patient's home amlodipine was held on admission. Patient continues on his home dosing of metoprolol, and reduced dose of lisinopril now at 10 mg daily. BMP needed in one week to assess his renal function on this dosing. Tobacco Use Disorder Patient counseled on benefits of smoking cessation. Patient accepted nicotine patch and one was prescribed at discharge. Ongoing smoking cessation is essential to his cardiac health and every supportshould be used to ensure this journey. Functional and Cognitive Status: Alert and oriented x 3, ambulatory-independent Important Studies and Lab Data: Labs: Lab Results Component Value Date WBC 7.2 07/07/2023 HGB 13.6 (L) 07/07/2023 HCT 40.0 (L) 07/07/2023 PLATELET 161 07/07/2023 No results for input(s): INR in the last 168 hours. Lab Results Component Value Date NA 143 07/07/2023 K 3.8 07/07/2023 CL 111 (H) 07/07/2023 CO2 23 07/07/2023 BUN 12 07/07/2023 CREATININE 0.97 07/07/2023 Recent Labs 07/04/23 204 TSH 1.12 Recent Labs 07/05/23 0200 HA1C 5.6 Recent Labs 07/04/23 2357 07/04/23 204 TROPONINTHS 123* 134* Lab Results Component Value Date CHLPL 93 07/05/2023 HDL 36 07/05/2023 CHOLHDL 2.6 07/05/2023 TRIG 78 07/05/2023 LDLCHOL 41 07/05/2023 Pending Studies and Lab Data: None Discharge Conditions/Prognosis: Ambulatory without anginal symptoms Discharge to: Home Updated Allergies/ADRs: No Known Allergies Immunizations Given this Hospitalization: There is no immunization history on file for this patient. Discharge Medications: Your Medications New Medications Dose Details nicotine 21 mg/24 hr Patch 24 hr Commonly known as: Nicoderm CQ Change 1 patch on the skin daily. 1 patch Quantity: 28 patch Refills: 0 Continued medications with new dosing Dose Details lisinopriL 10 mg tablet Commonly known as: Zestril Take 1 tablet by mouth daily. What changed: medication strength how much to take 10 mg Quantity: 30 tablet Refills: 3 Continued medications, unchanged Dose Details aspirin EC 81 mg EC (DR) tablet Take 81 mg by mouth daily. 81 mg Refills: 0 atorvastatin 80 mg tablet Commonly known as: Lipitor Take 1 tablet by mouth daily. 80 mg Quantity: 30 tablet Refills: 3 clopidogreL 75 mg tablet Commonly known as: Plavix Take 1 tablet by mouth daily. 75 mg Quantity: 90 tablet Refills: 3 metoprolol succinate XL 50 mg ER 24 hr tablet Commonly known as: Toprol-XL Take 1 tablet by mouth daily. 50 mg Quantity: 30 tablet Refills: 12 nitroGLYcerin 0.4 mg sublingual tablet Commonly known as: Nitrostat Place 1 tablet under the tongue every 5 minutes as needed for Chest pain. 0.4 mg Quantity: 25 tablet Refills: PRN STOPPED Medications amLODIPine 10 mg tablet Commonly known as: Norvasc Smoking Status at Discharge: Social History Tobacco Use Smoking Status Former Packs/day: 1.00 Years: 30.00 Pack years: 30.00 Types: Cigarettes Quit date: 06/21/2016 Years since quittin.0 Smokeless Tobacco Never Instructions Given to Patient at Discharge: Patient Instructions Call your doctor if: Chest pain, shortness of breath, pain or swelling in legs occurs. If you have non-emergent questions between now and the time of your follow up appointments: During 8am-5pm Friday through Friday call [phone] to speak with a nurse in the cardiology clinic All other times call [phone] and ask to speak to the camper assembler business administration professor. Return to work: No lifting more than 10 pounds for the next 7 days Driving: No driving for 48 hours after catheterization. Follow up Appointments: PCP DANYA Jimenez [phone] July 18, 2023 at 1:30 pm Cardiology at [facility] Dr. Varela July 31, 2023 11:20 am General Instructions None Future Appointments and Orders Future Orders Complete By Expires Referral to Cardiology [REF12 Custom] As directed Process Instructions: If no progress note charted, please enter Clinical details in comments. Scheduling Instructions: Questions: My question or request is: establish CV care, post inferior STEMI in 2015, now with NSTEMI in 2022 Discharge References/Attachments None Katy Keenan APRN 07/08/2023 Associated attestation - Emanuel Farias MD - 07/08/2023 11:52 AM EDT This patient was seen in conjunction with the associate provider as part of a shared visit. I have reviewed relevant data from the chart, and independently conducted an examination along with relevant history taking independent of that performed by the associate provider. I concur with the data as presented. I have arrived at the following assessment and plan: He had an excellent result from his multivessel PCI yesterday. He is doing well this morning. No recurrent angina and no CHF symptoms. I emphasized to him the importance of complete tobacco cessation. He is ready for discharge. documented in this encounter Discharge Instructions * Patient Instructions* Katy Keenan APRN - 07/07/2023 9:39 AM EDT Call your doctor if: Chest pain, shortness of breath, pain or swelling in legs occurs. If you have non-emergent questions between now and the time of your follow up appointments: During 8am-5pm Friday through Friday call [phone] to speak with a nurse in the cardiology clinic All other times call [phone] and ask to speak to the camper assembler business administration professor. Return to work: No lifting more than 10 pounds for the next 7 days Driving: No driving for 48 hours after catheterization. Follow up Appointments: PCP DANYA Jimenez [phone] July 18, 2023 at 1:30 pm Cardiology at [facility] Dr. Varela July 31, 2023 11:20 am documented in this encounter Medications at Time of Discharge [...] by mouth daily. 30 tablet 12 06/23/2016 documented as of this encounter Progress Notes * Natalya Kent RN - 07/08/2023 11:58 AM EDT Patient discharged to home with family in stable condition. Post heart cath and stent education provided. Questions answered. * Karen Azul - 07/08/2023 11:28 AM EDT Nutrition Services Note - Low Nutrition Acuity Antonio Pham is a 52 y.o. male Reason for intervention: education and consult Nutrition Plan: Continue current diet. Encourage PO intake. Provided diet education and contact information. Encouragement and support provided. Nutrition Services was consulted for [facility] diet teaching and Pt was seen at bedside. Pt stated hisappetite was good and when asked, Pt didn't have any questions or concerns about current diet. Pt had consistently excellent ( 75%- 100%) PO intake over past couple days, according to chart. Assembly Machine Feeder provided Pt with Guidelines for a heart healthy lifestyle informational booklet. Assembly Machine Feeder highlighted main points of the [facility]/cardiac diet. Pt had no nutritional concerns or questions regarding diet at time of education. Assembly Machine Feeder contact information was provided and Pt was encouraged to reach out with questions pre-discharge. Active Orders Diet Daily Healthy Menu Choices/Cardiac diet ([facility]-Diet) Frequency: Effective Now Number of Occurrences: Until Specified Admit Weight: 91.4 kg Estimated body mass index is 27.21 kg/m?? as calculated from the following: Height as of this encounter: 182.9 cm (6'). Weight as of this encounter: 91 kg (200 lb 9.6 oz). Wt Readings from Last 5 Encounters: 07/07/23 91 kg (200 lb 9.6 oz) 07/26/16 (!) 107.9 kg (237 lb 14.4 oz) 06/23/16 (!) 103.7 kg (228 lb 9.9 oz) Weight loss: not clinically significant Appetite: Excellent (75%-100%) Food allergies:no known food allergies Chewing/Swallowing difficulty: none Nausea/Vomiting: no nausea and no vomiting Last Bowel Movement: 07/06/23 Patient education / questions: provided diet order education and patient with good understanding, written education and contact information provided, and all nutrition related questions answered at this time Karen Azul [phone] * Emanuel Farias MD - 07/07/2023 10:28 AM EDT Images from the original note were not included. DAILY PROGRESS NOTE Page to reach a provider 16/06 Admit Date: 07/04/2023 Encounter Date July 07, 2023 Anticipated Discharge Date: 07/08/2023 Hospital Day: 3 Active Hospital Problems Diagnosis NSTEMI (non-ST elevated myocardial infarction) Resolved Hospital Problems No resolved problems to display. 24 Hour Events/Subjective: - Denying current chest pressure, SOB, n/v, abd pain. -[place] well walking outside for a short time yesterday -Aware of the plan for cardiac cath today pending room availability Medications: Scheduled Meds: nicotine 1 patch Transdermal Daily And Patch Verification 1 patch Transdermal BID aspirin EC 81 mg Oral Daily atorvastatin 80 mg Oral Daily clopidogreL 75 mg Oral Daily metoprolol succinate XL 50 mg Oral Daily sodium chloride 0.9 % (flush) 5 mL Intravenous BID senna-docusate 2 tablet Oral BID Continuous Infusions: sodium chloride 0.9% heparin (porcine) infusion 1,200 Units/hr (07/06/23 1930) PRN Meds:.heparin (porcine) infusion AND heparin (porcine), nitroGLYcerin, sodium chloride 0.9 % (flush), lidocaine Objective: Last value Range last 24 hrs Temp: 36.9 ??C (98.4 ??F) Temp: [36.7 ??C (98 ??F)-36.9 ??C (98.4 ??F)] Heart Rate: 66 Heart Rate: [57-67] BP: 134/88 BP: (106-134)/(71-88) Resp: 15 Resp: [15-19] SpO2: 100 % SpO2: [98 %-100 %] Height: 182.9 cm (6') Weight: 91 kg (200 lb 9.6 oz) BMI (Calculated): 27.2 BMI Classification: Over Weight Admit weight: 91.4 kg Patient Vitals for the past 168 hrs: Weight 07/07/23 0349 91 kg (200 lb 9.6 oz) 07/04/23 1844 91.4 kg (201 lb 8 oz) Intake/Output Summary (Last 24 hours) at 07/07/2023 1028 Last data filed at 07/07/2023 0854 Gross per 24 hour Intake 799 ml Output 850 ml Net -51 ml Physical Exam: Physical Exam Constitutional: Appearance: Normal appearance. HENT: Head: Normocephalic and atraumatic. Mouth/Throat: Mouth: Mucous membranes are moist. Eyes: Extraocular Movements: Extraocular movements intact. Cardiovascular: Rate and Rhythm: Normal rate and regular rhythm. Heart sounds: No murmur heard. Pulmonary: Effort: Pulmonary effort is normal. Breath sounds: Normal breath sounds. Abdominal: General: There is no distension. Palpations: Abdomen is soft. Musculoskeletal: General: No swelling. Skin: General: Skin is warm and dry. Neurological: General: No focal deficit present. Mental Status: He is alert and oriented to person, place, and time. Labs: Recent Labs 07/07/2334507/06/2319907/05/2319907/04/232039 WBC 7.2 8.5 8.1 10.4* HGB 13.6* 14.4 14.2 14.1 HCT 40.0* 43.3 42.3 41.9 PLATELET 161 199 179 188 MCV 89.1 90.0 88.7 89.7 Recent Labs 07/07/2334507/06/2319907/05/2319907/04/232039 NA 143 138 143 143 CL 111* 105 109* 108* CO2 23 26 24 24 K 3.8 3.9 4.0 3.5 MAGNESIUM 0.80 0.93 -- 0.93 PHOS -- -- -- 2.4* CALCIUM 7.9* 9.2 8.7 8.8 BUN 12 11 11 10 CREATININE 0.97 1.08 0.93 0.95 Coags No results for input(s): INR, PT, PTT, DDIMER in the last 168 hours. Cardiac Markers Recent Labs 07/04/23235607/04/232039 TROPONINTHS 123* 134* Endocrine Recent Labs 07/05/2319907/04/232039 TSH -- 1.12 HA1C 5.6 -- Recent Labs 07/05/23199 CHLPL 93 TRIG 78 HDL 36 LDLCHOL 41 CHOLHDL 2.6 Recent Labs 07/07/2334507/06/23 2344 07/06/2319907/05/23199 GLUCOSE 106 -- 98 95 POCGLU -- 134 -- -- EKG: pending Telemetry: I have personally reviewed and interpreted the telemetry from the last 24 hours. Resultsshow NSR, HR 50s-100s sinus bradycardia, sinus rhythm, sinus tachycardia Cardiac cath: Pending Echo from 07/04/23 Interpretation Summary -Left ventricular systolic function is [...] WMAs, images not available for direct comparison). Assessment/Plan Antonio Pham is a 52 y.o with PMH of ASCVD (inferior STEMI 2016 s/p LEIGH to RCA and LCX), HTN, HLD, current smoker who presented to [facility] with chest pain characterized as a burning sensation, reminiscent of his past heart attack. Patient's troponin and ECG findingc/f NSTEMI. Patient transferred and admitted to [facility] 07/04/23 for further management. Patient reports being chest pain free since admission. #NSTEMI likely type I #History of ASCVD (inferior STEMI 2016 s/p LEIGH to RCA and LCX) #HLD - Telemetry monitoring - HS Troponin 211>>251 at OSH; at [facility] 134 >> 123 - TTE 07/04/23 revealed apical segmental wall motion abnormalities that are probably new - Continue ASA 81 daily - Continue Plavix 75 mg daily s/p Plavix 600 mg at OSH - Continue heparin gtt per ACS protocol - continue home metoprolol succinate 50 mg daily - Continue home atorvastatin 80 QPM - SL nitroglycerin PRN for chest pain - Awaiting cardiac cath #HTN BP: (106-134)/(71-88) - Hold home amlodipine for now, BP wnl [ ] consider JAYDEN/ARB after cath #Tobacco use disorder - Nicotine patch daily Fluids: pre cath IVF ordered Electrolytes: replete PRN Diet: NPO diet (Give Meds) DVT Prophylaxis: heparin gtt GI Prophylaxis: none IS: ordered Code status: Attempt Cardiopulmonary Resuscitation - Inpatient Disposition: Discharge Planning: AM-PAC Basic Mobility Raw Score: 24 PT: OT: PCP DANYA Jimenez [phone] Discussed with MD Katy Broderick, ASSISTANT PLANT CONTROLLER Pager [phone] 07/07/2023 Addendum: Correction from previous attestation. There was addended to the wrong patient. This patient at the time of this dictation is still awaiting his procedure. Current medical therapy is actionable. He is on the schedule next. He is getting anxious understandably but hopefully we can get him done shortly. * Geneva Zepeda MD - 07/06/2023 3:07 PM EDT DAILY PROGRESS NOTE Page to reach a provider 16/06 Admit Date: 07/04/2023 Encounter Date July 06, 2023 Anticipated Discharge Date: 07/08/2023 Hospital Day: 2 Active Hospital Problems Diagnosis NSTEMI (non-ST elevated myocardial infarction) Resolved Hospital Problems No resolved problems to display. 24 Hour Events/Subjective: - Denying current chest pressure, SOB, n/v, abd pain. - Patient frustrated with cath delay due to emergent cases. Agrees to stay for 1 more day, though would appreciate being able to get fresh air. Medications: Scheduled Meds: nicotine 1 patch Transdermal Daily And Patch Verification 1 patch Transdermal BID aspirin EC 81 mg Oral Daily atorvastatin 80 mg Oral Daily clopidogreL 75 mg Oral Daily metoprolol succinate XL 50 mg Oral Daily sodium chloride 0.9 % (flush) 5 mL Intravenous BID senna-docusate 2 tablet Oral BID Continuous Infusions: heparin (porcine) infusion 1,200 Units/hr (07/05/232002) PRN Meds:.heparin (porcine) infusion AND heparin (porcine), nitroGLYcerin, sodium chloride 0.9 % (flush), lidocaine Objective: Last value Range last 24 hrs Temp: 36.6 ??C (97.9 ??F) Temp: [36.6 ??C (97.9 ??F)-36.8 ??C (98.2 ??F)] Heart Rate: 62 Heart Rate: [52-62] BP: 148/90 BP: (118-148)/(68-90) Resp: 18 Resp: [16-18] SpO2: 100 % SpO2: [98 %-100 %] Height: 182.9 cm (6') Weight: 91.4 kg (201 lb 8 oz) BMI (Calculated): 27.33 BMI Classification: Over Weight Admit weight: 91.4 kg Patient Vitals for the past 168 hrs: Weight 07/04/23 1844 91.4 kg (201 lb 8 oz) Intake/Output Summary (Last 24 hours) at 07/06/2023 1523 Last data filed at 07/06/2023 0800 Gross per 24 hour Intake 1019.13 ml Output 1050 ml Net -30.87 ml Physical Exam: Physical Exam Constitutional: Appearance: Normal appearance. HENT: Head: Normocephalic and atraumatic. Mouth/Throat: Mouth: Mucous membranes are moist. Eyes: Extraocular Movements: Extraocular movements intact. Cardiovascular: Rate and Rhythm: Normal rate and regular rhythm. Heart sounds: No murmur heard. Pulmonary: Effort: Pulmonary effort is normal. Breath sounds: Normal breath sounds. Abdominal: General: There is no distension. Palpations: Abdomen is soft. Musculoskeletal: General: No swelling. Skin: General: Skin is warm and dry. Neurological: General: No focal deficit present. Mental Status: He is alert and oriented to person, place, and time. Labs: Recent Labs 07/06/23 02007/05/2319907/04/232039 WBC 8.5 8.1 10.4* HGB 14.4 14.2 14.1 HCT 43.3 42.3 41.9 PLATELET 199 179 188 MCV 90.0 88.7 89.7 Recent Labs 07/06/23 02007/05/2319907/04/232039 NA 138 143 143 CL 105 109* 108* CO2 26 24 24 K 3.9 4.0 3.5 MAGNESIUM 0.93 -- 0.93 PHOS -- -- 2.4* CALCIUM 9.2 8.7 8.8 BUN 11 11 10 CREATININE 1.08 0.93 0.95 Coags No results for input(s): INR, PT, PTT, DDIMER in the last 168 hours. Cardiac Markers Recent Labs 07/04/23 2357 07/04/232039 TROPONINTHS 123* 134* Endocrine Recent Labs 07/05/23 0200 07/04/232039 TSH -- 1.12 HA1C 5.6 -- Recent Labs 07/05/23199 CHLPL 93 TRIG 78 HDL 36 LDLCHOL 41 CHOLHDL 2.6 Recent Labs 07/06/23 0200 07/05/23 0200 07/04/23 2040 GLUCOSE 98 95 144 EKG: pending Telemetry: I have personally reviewed and interpreted the telemetry from the last 24 hours. Resultsshow NSR, HR 50s-80s Imaging: No results found for this visit on 07/04/23 (from the past 24 hour(s)). Assessment/Plan Antonio Pham is a 52 y.o with PMH of ASCVD (inferior STEMI 2016 s/p LEIGH to RCA and LCX), HTN, HLD, current smoker who presented to [facility] with chest pain characterized as a burning sensation, reminiscent of his past heart attack. Patient's troponin and ECG findingc/f NSTEMI. Patient transferred and admitted to [facility] 07/04/23 for further management. Patient reports being chest pain free since admission. #NSTEMI likely type I #History of ASCVD (inferior STEMI 2016 s/p LEIGH to RCA and LCX) #HLD - Telemetry monitoring - HS Troponin 211>>251 at OSH; at [facility] 134 >> 123 - TTE 07/04/23 revealed apical segmental wall motion abnormalities that are are probably new - Start ASA 81 daily s/p ASA 324 at OSH - Start Plavix 75 mg daily s/p Plavix 600 mg at OSH - Continue heparin gtt per ACS protocol - continue home metoprolol succinate 50 mg daily - Continue home atorvastatin 80 QPM - SL nitroglycerin PRN for chest pain - NPO at [place] for [facility] tomorrow #HTN - Hold home amlodipine for now, BP wnl [ ] consider JAYDEN/ARB after cath #Tobacco use disorder - Nicotine patch daily Fluids: none Electrolytes: replete PRN Diet: NPO diet (Give Meds) DVT Prophlaxis: heparin gtt GI Prophylaxis: none IS: ordered Code status: Attempt Cardiopulmonary Resuscitation - Inpatient Disposition: Discharge Planning: AM-PAC Basic Mobility Raw Score: 24 PT: OT: PCP DANYA Jimenez [phone] * Milagros Rdz MD - 07/06/2023 2:00 PM EDT Images from the original note were not included. [facility] Department of Cardiology Cardiology Consult Note - Follow Up Patient info: Antonio Pham 1970 [id number] DANYA Jimenez Date of Admission: 07/04/2023 ( Hospital Day 2 days ) Reason for Consult: We are consulted at the request of Dr. Zepeda for recommendations regarding evaluation and management of NSTEMI. Patient ID: Antonio Pham is a 52 y.o. male with a history of ASCVD s/p inf STEMI 2016 (LEIGH to RCA + LCX), HTN, HLD, active TUD who presented to [facility] with chest pain, persistent on background of stuttering for>1 month with evidence of NSTEMI Interval History: No acute medical events Cath delayed due to emergent cases/lack of team availability Patient irritable this morning with delay, but denies chest discomfort, dyspnea, diaphoresis UFH maintained therapeutic without issue Active Medications: Scheduled: Scheduled Meds: nicotine 1 patch Transdermal Daily And Patch Verification 1 patch Transdermal BID aspirin EC 81 mg Oral Daily atorvastatin 80 mg Oral Daily clopidogreL 75 mg Oral Daily metoprolol succinate XL 50 mg Oral Daily sodium chloride 0.9 % (flush) 5 mL Intravenous BID senna-docusate 2 tablet Oral BID Continuous: Continuous Infusions: heparin (porcine) infusion 1,200 Units/hr (07/05/232002) PRNs: PRN Meds:.heparin (porcine) infusion AND heparin (porcine), nitroGLYcerin, sodium chloride 0.9 % (flush), lidocaine Vitals: Last value Range last 24 hrs Temperature Temp: 36.6 ??C (97.9 ??F) Temp: [36.6 ??C (97.9 ??F)-36.8 ??C (98.2 ??F)] Heart Rate Heart Rate: 62 Heart Rate: [52-62] Blood Pressure BP: 148/90 BP: (118-148)/(68-90) Respiratory Rate Resp: 18 Resp: [16-18] SpO2 SpO2: 100 % SpO2: [98 %-100 %] Ins/Outs: Intake/Output Summary (Last 24 hours) at 07/06/2023 1401 Last data filed at 07/06/2023 0800 Gross per 24 hour Intake 1019.13 ml Output 1050 ml Net -30.87 ml Patient Vitals for the past 168 hrs: Weight 07/04/23 1844 91.4 kg (201 lb 8 oz) Physical Exam: Gen: Irritable this morning. NAD, AAOX3 HEENT: NC/AT, sclera anicteric Neck: JVP flat CV: Regular rhythm normal rate Resp: CTAB with good air movement throughout, normal effort Abd: soft NTND EXT: No cyanosis or edema, DP pulses 2+ and symmetric bilaterally Skin: Nondiaphoretic Neuro: AAOx3, face symmetric, moving all extremities normally Psych: Cooperative Labs: Recent Labs 07/06/23 0200 07/05/2319907/04/232039 WBC 8.5 8.1 10.4* HGB 14.4 14.2 14.1 PLATELET 199 179 188 Recent Labs 07/06/23 0200 07/05/2319907/04/232039 NA 138 143 143 K 3.9 4.0 3.5 CL 105 109* 108* CO2 26 24 24 BUN 11 11 10 CREATININE 1.08 0.93 0.95 Recent Labs 07/06/23 0200 07/05/23 0200 07/04/232039 CALCIUM 9.2 8.7 8.8 MAGNESIUM 0.93 -- 0.93 PHOS -- -- 2.4* Recent Labs 07/04/232039 AST 18 ALT 14 ALKPHOS 73 BILITOT 0.6 No results for input(s): TROPONINT, CK in the last 168 hours. No results for input(s): PHART, YFD9KVW, PO2ART, VBD3PNG in the last 168 hours. Troponin 134 => 123 Cardiovascular Studies: EKGs reviewed and show NSR with marked STTW abnormalities in the lateral precordial leads TTE 07/04/23: -Left ventricular systolic function is normal. Left [...] WMAs, images not available for direct comparison). Assessment: Antonio Pham is a 52 y.o. male with a history of ASCVD s/p inf STEMI 2016 (LEIGH to RCA + LCX), HTN, HLD, active TUD who presented to [facility] with chest pain, persistent on background of stuttering for>1 month with evidence of NSTEMI. Given distribution of WMAs, suspect LAD disease. Patient amenable to cath and will pursue when teamis next available. Continue medical management in the interim. Double product control has been fair; perhaps slight room for better BP control. *Of note, patient has stated a very strong preference for PCI versus CABG in the event of multivessel disease, unless PCI was felt unsafe/inappropriate Recommendations: Continue therapies for ACS including UFH, DAPT, double product control, statin Cardiac catheterization when team next available Further recommendations pending findings of cath Care of patient discussed with Dr. Zepeda. Milagros Rdz MD Cardiovascular Medicine Personal Pager #[phone] 07/06/2023 * Geneva Zepeda MD - 07/05/2023 4:27 PM EDT DAILY PROGRESS NOTE Page to reach a provider 16/06 Admit Date: 07/04/2023 Encounter Date July 05, 2023 Anticipated Discharge Date: Hospital Day: 1 Active Hospital Problems Diagnosis NSTEMI (non-ST elevated myocardial infarction) Resolved Hospital Problems No resolved problems to display. 24 Hour Events/Subjective: - Admitted overnight - Denying current chest pressure, SOB, n/v, abd pain. Medications: Scheduled Meds: nicotine 1 patch Transdermal Daily And Patch Verification 1 patch Transdermal BID aspirin EC 81 mg Oral Daily atorvastatin 80 mg Oral Daily clopidogreL 75 mg Oral Daily metoprolol succinate XL 50 mg Oral Daily sodium chloride 0.9 % (flush) 5 mL Intravenous BID senna-docusate 2 tablet Oral BID Continuous Infusions: heparin (porcine) infusion 1,200 Units/hr (07/05/23 0914) PRN Meds:.heparin (porcine) infusion AND heparin (porcine), nitroGLYcerin, sodium chloride 0.9 % (flush), lidocaine Objective: Last value Range last 24 hrs Temp: 37.1 ??C (98.7 ??F) Temp: [37 ??C (98.6 ??F)-37.5 ??C (99.5 ??F)] Heart Rate: 59 Heart Rate: [52-63] BP: 137/89 BP: (123-144)/(70-89) Resp: 18 Resp: [18-20] SpO2: 100 % SpO2: [97 %-100 %] Height: 182.9 cm (6') Weight: 91.4 kg (201 lb 8 oz) BMI (Calculated): 27.33 BMI Classification: Over Weight Admit weight: 91.4 kg Patient Vitals for the past 168 hrs: Weight 07/04/23 1844 91.4 kg (201 lb 8 oz) Intake/Output Summary (Last 24 hours) at 07/05/2023 1628 Last data filed at 07/05/2023 1600 Gross per 24 hour Intake 636.33 ml Output 1725 ml Net -1088.67 ml Physical Exam: Physical Exam Constitutional: Appearance: Normal appearance. HENT: Head: Normocephalic and atraumatic. Mouth/Throat: Mouth: Mucous membranes are moist. Eyes: Extraocular Movements: Extraocular movements intact. Cardiovascular: Rate and Rhythm: Normal rate and regular rhythm. Heart sounds: No murmur heard. Pulmonary: Effort: Pulmonary effort is normal. Breath sounds: Normal breath sounds. Abdominal: General: There is no distension. Palpations: Abdomen is soft. Musculoskeletal: General: No swelling. Skin: General: Skin is warm and dry. Neurological: General: No focal deficit present. Mental Status: He is alert and oriented to person, place, and time. Labs: Recent Labs 07/05/23 0200 07/04/232039 WBC 8.1 10.4* HGB 14.2 14.1 HCT 42.3 41.9 PLATELET 179 188 MCV 88.7 89.7 Recent Labs 07/05/23 0200 07/04/232039 NA 143 143 CL 109* 108* CO2 24 24 K 4.0 3.5 MAGNESIUM -- 0.93 PHOS -- 2.4* CALCIUM 8.7 8.8 BUN 11 10 CREATININE 0.93 0.95 Coags No results for input(s): INR, PT, PTT, DDIMER in the last 168 hours. Cardiac Markers Recent Labs 07/04/23 2357 07/04/23 2040 TROPONINTHS 123* 134* Endocrine Recent Labs 07/04/23 2040 TSH 1.12 Recent Labs 07/05/23 0200 CHLPL 93 TRIG 78 HDL 36 LDLCHOL 41 CHOLHDL 2.6 Recent Labs 07/05/23 0200 07/04/23 2040 GLUCOSE 95 144 EKG: pending Telemetry: I have personally reviewed and interpreted the telemetry from the last 24 hours. Resultsshow NSR, HR 50s-80s Imaging: No results found for this visit on 07/04/23 (from the past 24 hour(s)). Assessment/Plan Antonio Pham is a 52 y.o with PMH of ASCVD (inferior STEMI 2016 s/p LEIGH to RCA and LCX), HTN, HLD, current smoker who presented to [facility] with chest pain characterized as a burning sensation, reminiscent of his past heart attack. Patient's troponin and ECG findingc/f NSTEMI. Patient transferred and admitted to [facility] 07/04/23 for further management. Patient reports being chest pain free since admission. #NSTEMI likely type I #History of ASCVD (inferior STEMI 2016 s/p LEIGH to RCA and LCX) #HLD - Telemetry monitoring - HS Troponin 211>>251 at OSH; at [facility] 134 >> 123 - TTE 07/04/23 revealed apical segmental wall motion abnormalities that are are probably new - Start ASA 81 daily s/p ASA 324 at OSH - Start Plavix 75 mg daily s/p Plavix 600 mg at OSH - Continue heparin gtt as per ACS protocol - continue home metoprolol succinate 50 mg daily - Continue home atorvastatin 80 QPM - SL nitroglycerin PRN for chest pain - NPO at [facility] for [facility] tomorrow #HTN - Hold home amlodipine for now, BP wnl #Tobacco use disorder - Nicotine patch daily Fluids: none Electrolytes: replete PRN Diet: Daily Healthy Menu Choices/Cardiac diet ([facility]-Diet) NPO diet (Give Meds) DVT Prophlaxis: heparin gtt GI Prophylaxis: none IS: ordered Code status: Attempt Cardiopulmonary Resuscitation - Inpatient Disposition: Discharge Planning: AM-PAC Basic Mobility Raw Score: 24 PT: OT: PCP DANYA Jimenez [phone] documented in this encounter H&P Notes * Alexandria Amaya MD - 07/04/2023 7:38 PM EDT Inpatient Hospital Medicine - Admission Note Problem List: Active Hospital Problems Diagnosis NSTEMI (non-ST elevated myocardial infarction) Resolved Hospital Problems No resolved problems to display. Active Non-Hospital Problems Diagnosis Atherosclerotic heart disease of [place] coronary artery without angina pectoris Lipid disorder ST elevation (STEMI) myocardial infarction History of Present Illness: 52 y.o with PMH of ASCVD (inferior STEMI 2016 s/p LEIGH to RCA and LCX), HTN, HLD, current smoker whopresents to [facility] with chest pain. The patient reports waking up at 5 AM with chest pain characterized as a burning sensation. This pain radiated to the back and shoulders and is accompanied by flushing, reminiscent of his past heart attack, despite the absence of chest pain during that specific incident. The patient attempted to alleviate the symptoms by taking an antacid and 2 sublingual nitroglycerin tablets, but found no relief. These episodes have been occurring over the span of several months; previously, they were only triggered by exertion and did not radiate. The patient has been using antacids intermittently due to the burning sensation, which has occasionally provided relief. The patient notes that he was evaluated by his PCP, during which cardiac enzyme tests consistently yielded negative results. Nonetheless, due to the patient's significant cardiac history, he has beenscheduled for a stress test on the upcoming Friday. The patient also notes recent changes in medication due to poorly controlled blood pressure. The patient denies experiencing palpitations, lightheadedness, near-fainting, or fainting episodes. Additionally, he denies symptoms such as nausea, vomiting, abdominal pain, and alterations in bowel or urinary habits. The patient admits to active smoking and alcohol consumption but denies any use of illicit drugs. OSH course: En route to the ED, pt received 4 baby aspirin, and SL nitroglycerin with good effect. EKG revealedsinus rhythm, ST depression V3-6, and T wave inversion. HS Troponin 211>>251. CXR which was negative, and CTA chest ruled out PE. Patient was placed on nitro gtt drip. He was also loaded with Plavix 600 mg, and started on Heparin gtt per ACS protocol. Cardiac work up: TTE 07/04/2023 Interpretation Summary -Left ventricular systolic function is [...] WMAs, images not available for direct comparison). Cardiac Cath 06/21/16 Conclusions: * Two vessel coronary artery disease (LCX and RCA) * Normal left ventricular ejection fraction (EF-60%) * Successful thrombectomy and stent insertion of the proximal RCA lesion * Successful stent insertion of the proximal OM2 lesion * Drug eluting stents placed. Review of Systems: Negative except as noted above Past Medical History: ASCVD (inferior STEMI 2016 s/p LEIGH to RCA and LCX), HTN, HLD Prior To Admission Medications: Medications Prior to Admission Medication Sig Dispense Refill Last Dose aspirin 81 mg Tablet, Delayed Release (E.C.) Take 81 mg by mouth daily. clopidogrel (PLAVIX) 75 mg Tablet Take 1 tablet by mouth daily. 30 tablet 11 atorvastatin (LIPITOR) 80 mg Tablet Take 1 tablet by mouth daily. 30 tablet 3 lisinopril (PRINIVIL;ZESTRIL) 20 mg Tablet Take 1 tablet by mouth daily. 30 tablet 12 meTOPROLOL succinate (TOPROL-XL) 50 mg Tablet Sustained Release 24 hr Take 1 tablet by mouth daily.30 tablet 12 nitroGLYcerin (NITROSTAT) 0.4 mg Tablet, Sublingual Place 1 tablet under the tongue every 5 minutesas needed for Chest pain. 90 tablet 12 Allergies: No Known Allergies Family History: No family history on file. Social History and Habits: Social History Socioeconomic History Marital status: Spouse name: Not on file Number of children: Not on file Years of education: Not on file Highest education level: Not on file Occupational History Not on file Tobacco Use Smoking status: Former Packs/day: 1.00 Years: 30.00 Pack years: 30.00 Types: Cigarettes Quit date: 06/21/2016 Years since quittin.0 Smokeless tobacco: Never Substance and Sexual Activity Alcohol use: No Drug use: No Sexual activity: Yes Partners: Female Other Topics Concern Not on file Social History Narrative Not on file Social Determinants of Health Financial Resource Strain: Not on file Food Insecurity: Not on file Transportation Needs: Not on file Physical Activity: Not on file Housing Stability: Not on file Immunizations: There is no immunization history on file for this patient. Physical Exam: Last Set of Vitals and range of vitals over past 24 hours: Last value Range last 24 hrs Temperature Temp: 37.5 ??C (99.5 ??F) Temp: [37.5 ??C (99.5 ??F)] Heart Rate Heart Rate: 63 Heart Rate: [62-63] Blood Pressure BP: 144/82 BP: (144)/(82) Respiratory Rate Resp: 19 Resp: [19] SpO2 SpO2: 97 % SpO2: [97 %] Body mass index is 27.33 kg/m??. Physical Exam Constitutional: General: He is not in acute distress. Appearance: He is not ill-appearing. HENT: Head: Normocephalic and atraumatic. Mouth/Throat: Pharynx: Oropharynx is clear. Eyes: Extraocular Movements: Extraocular movements intact. Pupils: Pupils are equal, round, and reactive to light. Cardiovascular: Rate and Rhythm: Normal rate and regular rhythm. Heart sounds: No murmur heard. Pulmonary: Effort: No respiratory distress. Breath sounds: No stridor. Abdominal: General: There is no distension. Tenderness: There is no abdominal tenderness. Musculoskeletal: General: No swelling or tenderness. Cervical back: No rigidity or tenderness. Skin: Coloration: Skin is not jaundiced or pale. Neurological: Sensory: No sensory deficit. Motor: No weakness. Psychiatric: Mood and Affect: Mood normal. Laboratory (Last 24 Hours): No results found for this or any previous visit (from the past 24 hour(s)). Assessment and plan: 52 y.o with PMH of ASCVD (inferior STEMI 2016 s/p LEIGH to RCA and LCX), HTN, HLD, current smoker whopresents to [facility] with chest pain characterized as a burning sensation. This pain radiated to the back and shoulders and is accompanied by flushing, reminiscent of his past heart attack, despite the absence of chest pain during that specific incident. En route to the ED, pt received 4 baby aspirin, and 3 SL nitroglycerin, and subsequently placed on nitro drip in the ED with good effect. EKG revealed sinus rhythm, ST depression V3-6, and T wave inversion. Troponin I 211>>251>>505>>525 (Reference <60). CXR which was negative, and CTA chest ruled out PE. He was also loaded with Plavix 600 mg, and started on Heparin gtt per ACS protocol. #NSTEMI likely type I #History of ASCVD (inferior STEMI 2015 s/p LEIGH to RCA and LCX) #HLD - Telemetry monitoring - HS Troponin 211>>251 - TTE 07/04/23 revealed apical segmental wall motion abnormalities that are are probably new - Trend HS to peak - TSH, Lipid panel, CBC, CMP - Start ASA 81 daily s/p ASA 324 - Start Plavix 75 mg daily s/p Plavix 600 mg - Continue heparin gtt as per ACS protocol - metoprolol home metoprolol succinate 50 mg daily - Continue atorvastatin QPM - SL nitroglycerin PRN for chest pain - NPO at [facility] for possible [facility] tomorrow #HTN - Hold home amlodipine for now, BP wnl #Tobacco use disorder - Nicotine patch daily DVT: Heparin gtt Code status: Full code A copy of this document will be sent to the patient's Primary Care Physician and/or Referring Physician. Alexandria Amaya MD 07/04/2023 documented in this encounter Miscellaneous Notes * Consult Note - Gracie Valera RN - 07/08/2023 10:18 AM EDT Cardiac Rehabilitation Inpatient Evaluation Primary Cardiac Diagnosis: NSTEMI, PCI Cardiac Risk Factors: Smoking: yes, quit on night Overweight: no Hyperlipidemia: yes Sedentary: somewhat HTN: yes Family history: unknown DM: no Stress: yes Patient Education: Reviewed cardiac cath findings, implications of coronary artery disease, managing angina and risk factor modification. 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 His biggest risk factor is smoking (pipe), approx 1 pack per week. He quit after his last heart attack in 2015 but only made it a few months. We discussed some strategies for coping with triggers. He was given the [place] quit line. Given parameters for home exercise. Reviewed managing angina /use of sl nitroglycerin. Phase II Referral: Participation in the outpatient cardiac rehabilitation program at [facility] was discussed. Patient agrees to a referral to this program. The referral will be sent at discharge and the patient should be contacted by the Program within 1- 2 weeks from discharge. Activity Summary: By discharge, patient will be able to perform self care, walk 5-7 minutes and go up and down stairs without signs or symptoms of ischemia. Symptoms/Comments: Ambulated 2 loops and a flight of stairs w/me. VSS * Care Management Discharge - Dmitri Smallwood RN - 07/08/2023 8:53 AM EDT CARE MANAGEMENT FINAL DISCHARGE NOTE Chart reviewed, care reviewed with primary team and at interdisciplinary rounds. Patient is medically ready for discharge to home. Needs for Transition of Care: per discharge instructions Plan for discharge is: Home w/o Services Outpatient Agency/Support Group Needs: None Agency Referrals & Follow-up Care: Contact information for follow-up Cardiology, [facility] [address] [facility] [address] Transportation: family or friend will provide Wheelchair van/Ambulance? No Functional status prior to admission: Independent Home Environment: Others in the home: significant other. Current Living Arrangements: home/apartment/condo. Accessibility Concerns:1 story home 1 RAY; no home accessibility concerns. Current Functional Ability: Independent DME used at home: none DME Needed at Discharge: N/A Patient is insured through: Primary Insurance: [employer] [place] Payor: [employer] [place] / Plan[place] / Product Type: *No Product type* / Secondary Insurance: N/A Prescription Coverage: Yes ([place]) This plan was formulated with input from patient and team. All are in agreement with plan. * Plan of Care - Umang Langston RN - 07/08/2023 1:10 AM EDT Problem: Adult Inpatient Plan of Care Goal: Plan of Care Review Outcome: Ongoing (Interventions Implemented as Appropriate) Goal: Patient-Specific Goal (Individualized) Outcome: Ongoing (Interventions Implemented as Appropriate) Goal: Absence of Hospital-Acquired Illness or Injury Outcome: Ongoing (Interventions Implemented as Appropriate) Goal: Optimal Comfort and Wellbeing Outcome: Ongoing (Interventions Implemented as Appropriate) Goal: Readiness for Transition of Care Outcome: Ongoing (Interventions Implemented as Appropriate) Problem: Arrhythmia/Dysrhythmia (Cardiac Catheterization) Goal: Stable Heart Rate and Rhythm Outcome: Ongoing (Interventions Implemented as Appropriate) Problem: Bleeding (Cardiac Catheterization) Goal: Absence of Bleeding Outcome: Ongoing (Interventions Implemented as Appropriate) Problem: Contrast-Induced Injury Risk (Cardiac Catheterization) Goal: Absence of Contrast-Induced Injury Outcome: Ongoing (Interventions Implemented as Appropriate) Problem: Embolism (Cardiac Catheterization) Goal: Absence of Embolism Signs and Symptoms Outcome: Ongoing (Interventions Implemented as Appropriate) Problem: Ongoing Anesthesia/Sedation Effects (Cardiac Catheterization) Goal: Anesthesia/Sedation Recovery Outcome: Ongoing (Interventions Implemented as Appropriate) Problem: Pain (Cardiac Catheterization) Goal: Acceptable Pain Control Outcome: Ongoing (Interventions Implemented as Appropriate) Problem: Vascular Access Protection (Cardiac Catheterization) Goal: Absence of Vascular Access Complication Outcome: Ongoing (Interventions Implemented as Appropriate) * Plan of Care - Dayan Guerra MD - 07/08/2023 1:03 AM EDT Post Cardiac Cath Note S: Patient reports no chest pain or shortness of breath. Patient reports no back or chest pain. He says right wrist is sore, but RN just removed the band. O: No active bleeding noted at cath site, right radial. No hematoma; slight tenderness noted. Radial pulse intact. Last value Range last 8 hrs Temperature Temp: 36.5 ??C (97.7 ??F) Temp: [36.5 ??C (97.7 ??F)-37 ??C (98.6 ??F)] Heart Rate Heart Rate: 58 Heart Rate: [57-66] Blood Pressure BP: (!) 143/97 BP: (114-143)/(71-97) Respiratory Rate Resp: 16 Resp: [6-18] SpO2 SpO2: 98 % SpO2: [97 %-100 %] A/P. Post cardiac cath without complications. Dayan Guerra MD 07/08/2023 * Initial Assessments - Dmitri Smallwood RN - 07/07/2023 4:00 PM EDT Office of Care Management Initial Assessment Dmitri Smallwood RN reviewed record and discussed patient with Care Team. Source of Information: Team, bedside nurse, medical record, and Patient, Significant Other Introduced self/reviewed role; services accepted. Admitted From: Home Reason for Hospitalization: referred from another hospital for a heart attack Covid Vaccination Status: Unvaccinated Last COVID test: Past medical History: No past medical history on file. Hospitalizations Within the Past 30 Days: no previous admission in last 30 days If AD's have not been completed the following surrogate would be surrogate decision maker per [place] decision making law. (Only good for 180 days) Any patient receiving care in [place] must abide by [place] law. The hierarchy for surrogate decision making is: (a) Patient???s spouse or civil union partner unless there is a divorce proceeding, separation agreement, or restraining order limiting that person???s relationship with the patient. (b) Any adult son or daughter of the patient. (c) Either parent of the patient. (d) Any adult brother or sister of the patient. (e) Any adult grandchild of the patient. (f) Any grandparent of the patient. (g) Any adult aunt, uncle, niece, or nephew of the patient. (h) A close friend of the patient. Mili Bhandari (significant other) [phone] is SDM (i) The agent with financial power of real estate attorney or a conservator appointed in accordance with RSA 464-A. (j) The guardian of the patient???s estate. Advance Care Planning: Attempt Cardiopulmonary Resuscitation - Inpatient <no information> -Advanced Directive: No, declines (Mili Bhandari (significant other) is SDM) Current Coping/Education/Information Needs: pending hospital course Current Functional Ability: Independent Functional Status Prior to Admission: Independent Prior ADLs & IADLs: Independent with all ADLs & IADLs Home Environment: Others in the home: significant other. Current Living Arrangements: home/apartment/condo. Accessibility Concerns:1 story home 1 RAY; no home accessibility concerns. Resource / Environmental Concerns: Resource/Environmental Concerns: none Current DME: none Home Address confirmed as: [address] [facility] [address] Social & Family Supports: All names listed below confirmed with patient as current and correct Extended Emergency Contact Information Primary Emergency Contact: Mili Bhandari Address: [address] [address] [facility] Mobile Relation: Friend Current Care Provided by: self Provides Primary Care For: no one Caregiver if needed: significant other Quality of Family relationships: helpful, involved, supportive (at bedside) Community Resources being provided currently: none Behavioral Health History: denies Substance Use/Abuse confirmed: Social History Tobacco Use Smoking Status Former Packs/day: 1.00 Years: 30.00 Pack years: 30.00 Types: Cigarettes Quit date: 06/21/2016 Years since quittin.0 Smokeless Tobacco Never 0 No problems reported 1-2 Low level 3-5 Moderate level 6-8 Substantial level 9- 10 Severe level 0 to 7 points: Low risk 8 to 15 points: Medium risk 16 to 19 points: High risk 20 to 40 points: Addiction likely Other Pertinent/Service Specific Information: N/A Health/Prescription Coverage: Primary Insurance: [employer] [facility] [place] Payor: [facility] [place] / Plan: [place] EXCHANGE / Product Type: *No Product type* / Secondary Insurance: N/A ONLY if patient has Medicare A&B - Does this patient have secondary insurance?: (N/A; [place]) ; Prescription Coverage: Yes ([place]) Preferred Pharmacy: [id number] - [place], [place] - [address] [facility] [address] [facility] [place] [address] [id number] - [facility] [place] - [address] [facility] [address] [facility] [address] [place] Status: Patient is a : No Primary Care Provider confirmed: DANYA Jimenez [phone] Patient/Caregiver Goals of Treatment: home when MR Potential Needs for Transition of Care: none (pending hospital course) Agency Referrals: Not Applicable Transportation: no concerns Transportation Anticipated: family or friend will provide Concerns to be Addressed: denies needs/concerns at this time Assessment: Patient is admitted to Cardiology APP1 service for NSTEMI Plan: plan for LHC today; d/c plan pending clinical course, but likely home with no needs when MR. A member of the Care Management team will continue to monitor progress, follow for continuity of care and assist with transition of care planning. * Plan of Care - Saad Donato RN - 07/06/2023 5:02 PM EDT OUTCOME EVALUATION NOTE: OUTCOME SUMMARY: Pt A&O x4. VSS. No reports of CP or SOB. Denies pain. NSR on tele- see scanned docs. Heparin drip continue. Cath tomorrow. Call wang within reach. PLAN MOVING FORWARD: Cath tomorrow Monitor for bleeding Discharge planning as appropriate INDIVIDUALIZED FALL PREVENTION INTERVENTIONS: Patient-specific fall risk factors per assessment: [current deficits]: O2 monitor, IV tubing and pole, tele wires, unfamiliar environment Assistance [level of assistance required for transfers and ambulation]: Independent Supervision [direct monitoring required during toileting and ADLs]: Independent Surveillance [continuous indirect monitoring]: O2 monitor, purposeful rounding, telemetry Patient-specific fall prevention interventions for sensory deficits provided, if applicable: lighting adjusted for specific tasks/activities, nonskid socks/shoes on, bed in lowest/locked position CARE PLAN GOAL OUTCOME EVALUATION: Ongoing. * Plan of Care - Umang Langston RN - 07/06/2023 1:35 AM EDT Problem: Adult Inpatient Plan of Care Goal: Plan of Care Review Outcome: Ongoing (Interventions Implemented as Appropriate) Goal: Patient-Specific Goal (Individualized) Outcome: Ongoing (Interventions Implemented as Appropriate) Goal: Absence of Hospital-Acquired Illness or Injury Outcome: Ongoing (Interventions Implemented as Appropriate) Goal: Optimal Comfort and Wellbeing Outcome: Ongoing (Interventions Implemented as Appropriate) Goal: Readiness for Transition of Care Outcome: Ongoing (Interventions Implemented as Appropriate) * Plan of Care - Saad Donato RN - 07/05/2023 5:55 PM EDT OUTCOME EVALUATION NOTE: OUTCOME SUMMARY: Pt A&O x4. VSS. No reports of CP or SOB. Denies pain. NSR on tele- see scanned docs. Heparin drip continuous. Planned for clinical lab specialist tomorrow. NPO at midnight. Call wang within reach. PLAN MOVING FORWARD: Cath tomorrow Discharge planning as appropriate INDIVIDUALIZED FALL PREVENTION INTERVENTIONS: Patient-specific fall risk factors per assessment: [current deficits]: O2 monitor, IV tubing and pole, tele wires, unfamiliar environment Assistance [level of assistance required for transfers and ambulation]: Independent Supervision [direct monitoring required during toileting and ADLs]: Independent Surveillance [continuous indirect monitoring]: O2 monitor, purposeful rounding, telemetry Patient-specific fall prevention interventions for sensory deficits provided, if applicable: lighting adjusted for specific tasks/activities, nonskid socks/shoes on, bed in lowest/locked position CARE PLAN GOAL OUTCOME EVALUATION: Ongoing. * Consult Note - Milagros Rdz MD - 07/05/2023 3:44 PM EDT Images from the original note were not included. [facility] Department of Cardiology Initial Cardiology Consult Note Patient info: Antonio Pham 1970 [id number] DANYA Jimenez Date of Admission: 07/04/2023 ( Hospital Day 1 day ) Source: patient Reason for Consult: We are consulted at the request of Dr. Zepeda for recommendations regarding evaluation and management of NSTEMI. Patient ID: Antonio Pham is a 52 y.o. male with a history of ASCVD s/p inf STEMI 2016 (LEIGH to RCA + LCX), HTN, HLD, active TUD who presented to [facility] with chest pain, persistent on background of stuttering for>1 month with evidence of NSTEMI History of Present Illness: Mr. Pham has had recent stuttering chest discomfort that he felt was likely GI, which he describes as burning esophagus pain which was unlike his prior [place] occurring on and off for the past couple months. He has been undergoing evaluation with his PCP for this but work-up negative thus far. Then yesterday morning had onset of more persistent pain which was more reminiscent of his prior ischemic syndrome although not exactly the same. Pain was not resolving with either TUMS or NTG and so he sought care where he was found to have a positive troponin which uptrended, an abnormal EKG with significant STTW abnormalities and an echocardiogram with apical akinesis. He was treated as ACS with DAPT and UFH and transferred for further management. He reports his pain resolved overnight (he was transferred on a NTG gtt) and he is currently pain from on UFH. He unfortunately continues to smoke. Past Medical History: ASCVD s/p inf STEMI 2016 (LEIGH to RCA + LCX), HTN, HLD, active TUD Past Surgical History: Prior PCI to RCA and LCX Medication History: Outpatient Medications Marked as Taking for the 07/04/23 encounter (Hospital Encounter) Medication Sig Dispense Refill amLODIPine (Norvasc) 10 mg tablet Take 10 mg by mouth daily. Allergies: No Known Allergies Social History: Social History Socioeconomic History Marital status: Spouse name: Not on file Number of children: Not on file Years of education: Not on file Highest education level: Not on file Occupational History Not on file Tobacco Use Smoking status: Former Packs/day: 1.00 Years: 30.00 Pack years: 30.00 Types: Cigarettes Quit date: 06/21/2016 Years since quittin.0 Smokeless tobacco: Never Substance and Sexual Activity Alcohol use: No Drug use: No Sexual activity: Yes Partners: Female Other Topics Concern Not on file Social History Narrative Not on file Social Determinants of Health Financial Resource Strain: Not on file Food Insecurity: Not on file Transportation Needs: Not on file Physical Activity: Not on file Housing Stability: Not on file Family History: No family history on file. PHYSICAL EXAM: Vitals: Last value Range last 24 hrs Temperature Temp: 37.1 ??C (98.7 ??F) Temp: [37 ??C (98.6 ??F)-37.5 ??C (99.5 ??F)] Heart Rate Heart Rate: 59 Heart Rate: [52-63] Blood Pressure BP: 137/89 BP: (123-144)/(70-89) Respiratory Rate Resp: 18 Resp: [18-20] SpO2 SpO2: 100 % SpO2: [97 %-100 %] Intake/Output Summary (Last 24 hours) at 07/05/2023 1544 Last data filed at 07/05/2023 1200 Gross per 24 hour Intake 196.33 ml Output 1725 ml Net -1528.67 ml Patient Vitals for the past 168 hrs: Weight 07/04/23 1844 91.4 kg (201 lb 8 oz) Wt Readings from Last 3 Encounters: 07/04/23 91.4 kg (201 lb 8 oz) 07/26/16 (!) 107.9 kg (237 lb 14.4 oz) 06/23/16 (!) 103.7 kg (228 lb 9.9 oz) Physical Exam: Gen: Pleasant, appropriate and cooperative in NAD, AAOX3 HEENT: NC/AT, sclera anicteric Neck: JVP flat CV: RRR, S1 and S2 noted, no m/g/r appreciated Resp: CTAB with good air movement throughout, normal effort Abd: soft NTND EXT: No cyanosis or edema, DP pulses 2+ and symmetric bilaterally Skin: Nondiaphoretic Neuro: AAOx3, face symmetric, moving all extremities normally Psych: Appropriate, cooperaitve Labs: Recent Labs 07/05/2319907/04/232039 WBC 8.1 10.4* HGB 14.2 14.1 HCT 42.3 41.9 PLATELET 179 188 NEUTROABS 4.33 6.56* Recent Labs 07/05/23 02007/04/232039 NA 143 143 K 4.0 3.5 CL 109* 108* CO2 24 24 BUN 11 10 CREATININE 0.93 0.95 Recent Labs 07/05/23 02007/04/232039 CALCIUM 8.7 8.8 MAGNESIUM -- 0.93 PHOS -- 2.4* Recent Labs 07/04/232039 AST 18 ALT 14 ALKPHOS 73 BILITOT 0.6 No results for input(s): INR, PT, PTT in the last 72 hours. Troponin 134 => 123 Cardiovascular Studies: EKGs reviewed and show NSR with marked STTW abnormalities in the lateral precordial leads TTE 07/04/23: -Left ventricular systolic function is normal. Left [...] WMAs, images not available for direct comparison). Assessment: Antonio Pham is a 52 y.o. male with a history of ASCVD s/p inf STEMI 2016 (LEIGH to RCA + LCX), HTN, HLD, active TUD who presented to [facility] with chest pain, persistent on background of stuttering for>1 month with evidence of NSTEMI. Given distribution of WMAs, suspect LAD disease. Patient amenable to cath and will pursue when teamis next available. Continue medical management in the interim. *Of note, patient has stated a very strong preference for PCI versus CABG in the event of multivessel disease, unless PCI was felt unsafe/inappropriate Recommendations: Continue therapies for ACS including UFH, DAPT, double product control, statin Cardiac catheterization when team next available Further recommendations pending findings Care of patient discussed with Dr. Zepeda. Milagros Rdz MD Cardiovascular Medicine Personal Pager #[phone] 07/05/2023 * Plan of Care - Alexandria Amaya MD - 07/05/2023 7:02 AM EDT Images from the original note were not included. Cardiac cath Pre Procedure Note The indications, expected benefits and potential risks of heart catheterization were reviewed in detail with the patient. The potential for , heart attack, stroke, kidney failure, hemorrhage, allergic reaction, vascular complications and infection were reviewed in detail. The possibility of stenting and other percutaneous intervention with associated risk was reviewed. The possible need for emergent coronary artery bypass surgery was reviewed. After a discussion about the above, and havinganswered all questions posed, the patient was provided with a consent which was reviewed and signed. ASA: 2: Patient with mild systemic disease Mallampati: II: tonsillar pillars are blocked by the tongue Sedation Plan: moderate (conscious sedation) Assessment and Plan: Proceed with cardiac cath today, see progress note from today for further details. Alexandria Amaya MD 07/05/2023 * Plan of Care - Umang Langston RN - 07/05/2023 1:15 AM EDT Problem: Adult Inpatient Plan of Care Goal: Plan of Care Review Outcome: Ongoing (Interventions Implemented as Appropriate) Goal: Patient-Specific Goal (Individualized) Outcome: Ongoing (Interventions Implemented as Appropriate) Goal: Absence of Hospital-Acquired Illness or Injury Outcome: Ongoing (Interventions Implemented as Appropriate) Goal: Optimal Comfort and Wellbeing Outcome: Ongoing (Interventions Implemented as Appropriate) Goal: Readiness for Transition of Care Outcome: Ongoing (Interventions Implemented as Appropriate) documented in this encounter Plan of Treatment Scheduled Referrals Name Type Priority Associated Diagnoses Order Schedule Referral to Cardiology Outpatient Referral Routine ACS (acute coronary syndrome) NSTEMI (non-ST elevated myocardial infarction) Ordered: 07/07/2023 documented as of this encounter Procedures Procedure Name Priority Date/Time Associated Diagnosis Comments EKG 12-LEAD Routine 07/08/2023 7:02 AM EDT NSTEMI (non-ST elevated myocardial infarction) MAGNESIUM Routine 07/08/2023 2:50 AM EDT EKG 12-LEAD Routine 07/07/2023 5:27 PM EDT ACS (acute coronary syndrome) CARDIAC CATHETERIZATION Routine 07/07/20 5:10 PM EDT EKG 12-LEAD Routine 07/07/2023 10:41 AM EDT NSTEMI (non-ST elevated myocardial infarction) HEPARIN (UNFRACTIONATED) LEVEL Timed 07/07/2023 3:46 AM EDT HEMOGRAM Routine 07/07/2023 3:46 AM EDT DIFFERENTIAL, AUTOMATED Routine 07/07/20 23 3:46 AM EDT CBC (WITH DIFF) Routine 07/07/2023 3:46 AM EDT MAGNESIUM Routine 07/07/2023 3:46 AM EDT BASIC METABOLIC PANEL Routine 07/07/2023 3:46 AM EDT POCT GLUCOSE Routine 07/06/2023 11:44 PM EDT HEPARIN (UNFRACTIONATED) LEVEL Timed 07/06/2023 2:00 AM EDT HEMOGRAM Routine 07/06/2023 2:00 AM EDT DIFFERENTIAL, AUTOMATED Routine 07/06/20 2:00 AM EDT LAVENDER TUBE HOLD Timed 07/06/2023 2: 00 AM EDT CBC (WITH DIFF) Routine 07/06/2023 2:00 AM EDT MAGNESIUM Routine 07/06/2023 2:00 AM EDT BASIC METABOLIC PANEL Routine 07/06/2023 2:00 AM EDT HEPARIN (UNFRACTIONATED) LEVEL Timed 07/05/2023 8:16 PM EDT EKG 12-LEAD STAT 07/05/2023 5:15 PM EDT ACS (acute coronary syndrome) HEPARIN (UNFRACTIONATED) LEVEL Timed 07/05/2023 2:14 PM EDT HEPARIN (UNFRACTIONATED) LEVEL Timed 07/05/2023 8:39 AM EDT HEPARIN (UNFRACTIONATED) LEVEL Timed 07/05/2023 2:00 AM EDT HEMOGRAM Routine 07/05/2023 2:00 AM EDT DIFFERENTIAL, AUTOMATED Routine 07/05/20 23 2:00 AM EDT LAVENDER TUBE HOLD Routine 07/05/2023 2: 00 AM EDT CBC (WITH DIFF) Routine 07/05/2023 2:00 AM EDT HEMOGLOBIN A1C Routine 07/05/2023 2:00 AM EDT LIPID PANEL (REFLEX DIRECT LDL) Routine 07/05/2023 2:00 AM EDT BASIC METABOLIC PANEL Routine 07/05/2023 2:00 AM EDT TROPONIN - SERIES STAT 07/04/2023 11: 57 PM EDT TROPONIN - SERIES STAT 07/04/2023 8:4 0 PM EDT HEMOGRAM Routine 07/04/2023 8:40 PM EDT DIFFERENTIAL, AUTOMATED Routine 07/04/20 23 8:40 PM EDT CBC (WITH DIFF) Routine 07/04/2023 8:40 PM EDT TSH Routine 07/04/2023 8:40 PM EDT PHOSPHORUS Routine 07/04/2023 8:40 PM EDT MAGNESIUM Routine 07/04/2023 8:40 PM EDT COMPREHENSIVE METABOLIC PANEL Routine 07/04/2023 8:40 PM EDT documented in this encounter Results * EKG 12 Lead (07/08/2023 7:02 AM EDT) Ventricular rate 60 BPM MUSE SYSTEM Atrial Rate 60 BPM MUSE SYSTEM P-R Interval 158 ms MUSE SYSTEM QRS Duration 96 ms MUSE SYSTEM Q-T Interval 434 ms MUSE SYSTEM QTC Calculated (Bezet) 434 ms MUSE SYSTEM Calculated P [place] 68 degrees MUSE SYSTEM Calculated R [place] 36 degrees MUSE SYSTEM Calculated T [place] -142 degrees MUSE SYSTEM INTERPRETATION Normal sinus rhythm ST & T wave abnormality, consider anterolateral ischemia Abnormal ECG When compared with ECG of 07-JUL-2023 17:27, No significant change was found I personally reviewed the tracing and edited the fellows interpretation Confirmed by fellow MD Darlene, Fercho ([id number]) on 07/09/2023 3:01:30 PM Confirmed by MD Antonio, Iam ([id number]) on 07/09/2023 4:46:50 PM MUSE SYSTEM 07/08/2023 7:02 AM EDT 07/09/2023 4:46 PM EDT Katy Keenan APRN ECG ORDERABLES MUSE SYSTEM * Magnesium (07/08/2023 2:50 AM EDT) Magnesium 0.69 0.69 - 1.07 mmol/L [facility] Blood 07/08/2023 2:50 AM EDT 07/08/2023 2:59 AM EDT Narrative Resulting Agency Comment Spec In Lab Geneva Zepeda MD CHEMISTRY ORDERABL ES [facility] [place] [address] * EKG 12 Lead (07/07/2023 5:27 PM EDT) Ventricular rate 56 BPM MUSE SYSTEM Atrial Rate 56 BPM MUSE SYSTEM P-R Interval 168 ms MUSE SYSTEM QRS Duration 102 ms MUSE SYSTEM Q-T Interval 478 ms MUSE SYSTEM QTC Calculated (Bezet) 461 ms MUSE SYSTEM Calculated P [place] 76 degrees MUSE SYSTEM Calculated R [place] 75 degrees MUSE SYSTEM Calculated T [place] 168 degrees MUSE SYSTEM INTERPRETATION Sinus bradycardia ST & T wave abnormality, consider anterolateral ischemia Prolonged QT Abnormal ECG When compared with ECG of 07-JUL-2023 10:41, No significant change was found Confirmed by MD Whitney, Deborah ([id number]) on 07/08/2023 7:39:03 PM MUSE SYSTEM 07/07/2023 5:27 PM EDT 07/08/2023 7:39 PM EDT Emanuel Farias MD ECG ORDERABLES MUSE SYSTEM * CARDIAC CATHETERIZATION (07/07/2023 5:10 PM EDT) Anatomical Region Laterality Modality Other Narrative 07/08/2023 9:22 AM EDT ?[facility] ? Cardiac Catheterization/Intervention Report ? Patient Name: Pham, Antonio ? Procedure Date: 07/07/2023 ? A #: [id number] ? Primary Physician: Dana, Mekhi S ? Case #: [id number] ? File Name: [id number] ? Catheterization Order Number: [id number] ? [facility] ? Final Report [place], [place] ? Patient Name: ? Antonio Pham ?ID#: ?[id number] ? : ?1970 ? Procedure Date: ? July 07, 2023 ?Case #: ? [id number] ? Room: ? 1 ? Case Physician: ? Mekhi Cortez M.D. ? Start: ?15:59 ?Fellow: ? Angel Wilkerson M.D. ?Admission: ??07/04/2023 ? Referring Physician: ??Reji Garcia M.D. ? Procedures: ?* Coronary Angiography ?* Left Heart Catheterization ?* Coronary Ultrasound ?* Coronary Stent Insertion ? History ?Antonio Pham is a 52 year old man. He has hypertension. The patient's ?smoking status is Current with Current - Every Day frequency, using ?cigarettes. Cigarette use is Heavy (>=10/day). He has ?hypercholesterolemia managed with lipid therapy. The patient has a prior ?history of coronary artery disease. He is status post a recent non-ST ?elevation myocardial infarction as well as a remote myocardial ?infarction. The patient had a remote coronary intervention procedure. ?Prior to the initiation of this procedure, the patient was designated as ?ASA Class III. The [facility] clinical frailty scale is 6: Moderately Frail. ? Diagnostic Tests: ?Prior Coronary Angiography: ? LV ejection fraction within 6 months is 70%. ?Electrocardiography: ? EKG was assessed by ECG. EKG was Abnormal. EKG showed other ? abnormality. ?Medications Prior to Procedure: ? Angiotensin Converting Enzyme Inhibitor, Aspirin, Beta Daniel, ? Calcium Channel Blocking Agent and Statin. ? Indications for Diagnostic Cath: ?The priority of the diagnostic procedure was Urgent. The indication for ?the clinical lab specialist visit is ACS less than or equal to 24 hrs. Chest pain ?symptom assessment was: Typical Angina. ? Technique: ?A 6 SLFr sheath was inserted in the right radial artery utilizing the ?Seldinger technique. The left coronary artery was injected utilizing a ?5Fr TIG 4.0 catheter. A 5Fr TIG 4.0 catheter was used to inject the right ?coronary artery. Left ventricular pressure was performed utilizing a 5Fr ?TIG 4.0 catheter. Coronary stent insertion was performed and the ?equipment utilized will be described in the intervention summary section. ?6,500 units of heparin were administered. A total of 200cc of Omnipaque ?were opened, 160cc of Omnipaque were administered and 40cc of Omnipaque ?were wasted. Radiation: Fluoro time was 15.0 minutes, dose area product ?was 44,300 mGYcm2 and air kerma was 623 mGY. See the case log for ?additional details. ?The patient received the following medications prior to and during the ?procedure: ? Unfractionated Heparin and Clopidogrel. ? Hemodynamics: ?Left Heart Pressures ? Resting: ? Syst Diast ? EDP ?a ?v ? m ?Ao 135 ?? 71 ?99 ?LV 136 ? 10 ? Coronary Angiography: ?Dominance: Right ?Left Main ? The left main was normal, free of disease. ?Left Anterior Descending ? There was a 90% stenosis of the proximal segment of the left ? anterior descending artery (LAD). ??The distal segment of the LAD had ? 75% stenosis. ? As a consequence of the catheterization/intervention procedures, a ? 99% stenosis developed in the ostial segment of the first septal ? branch (1st Septal) of the LAD. ?Left Circumflex ? There was mild diffuse (<=25% stenosis) disease of the entire vessel ? segment of the left circumflex artery (LCX). ?Right Coronary Artery ? There was a 90% stenosis of the mid segment of the right coronary ? artery (RCA). ? Intravascular Imaging/Physiology: ?Intravascular Ultrasound was performed in the proximal LAD using a 6 Fr ?EBU 3.75 guiding catheter and a 3.5 Fr [place] 20 Mhz using ?Manual pullback. ??Imaging was successful. ??Image quality was excellent. ?The proximal LAD showed mild diffuse atherosclerotic plaque with no ?significant calcification. ??Measurements were performed after ?pre-dilation. ?Post Intervention: The stent was well expanded and apposed. ?Intravascular Ultrasound was performed in the mid RCA using a 6 Fr JR 4 ?guiding catheter and a 3.5 Fr [place] 20 Mhz using Manual ?pullback. ??Imaging was successful. ??Image quality was excellent. ??The mid ?RCA showed mild diffuse atherosclerotic plaque with no significant ?calcification. ??Measurements were performed after pre-dilation. ?Post Intervention: The stent was well expanded and apposed. ? Indication for Intervention: ?Coronary intervention was indicated for primary therapy for an acute ?myocardial infarction. The priority for the procedure was Urgent. The ?NCDR indication for the procedure was NSTE-ACS. LVEF within one week was ?70%. Syntax Score was Low. Initial PCI was performed for multivessel ?disease. ? Intervention Summary: ?Left Anterior Descending Artery ? Proximal 90% ? Stent insertion was performed on the 90% stenosis in the ? proximal segment of the LAD. This was a de colt lesion. ? According to the ACC/AHA classification system, this lesion ? was a type B2 high risk lesion. Primary prevention of ? restenosis was the indication for stent insertion. This was ? the culprit lesion. A guidewire was placed across this lesion. ? Vessel flow pre intervention was ALISON 3. Lesion length was ? 10mm. The lesion involves a bifurcation with the D3. This ? bifurcation lesion was treated with a single stent, side ? branch jailed and not treated technique. ? Stent insertion was accomplished through a 6 Fr. EBU 3.75 ? guide. ??The lesion was predilated with a 2.50mm EUPHORA 20 MM ? balloon with a maximum inflation pressure of 14 atmospheres. ? A premounted 3.50 x 26 mm [place] (LEIGH) was deployed ? with a maximum inflation pressure of 12 atmospheres. ? Following stent deployment, the lesion was dilated using a ? 4.00mm NC EUPHORA 15 MM balloon with a maximum inflation ? pressure of 13 atmospheres. ? The final outcome was defined as successful. There was no ? residual stenosis following this intervention. The final ALISON ? flow was 3. ? Distal 75% ? Stent insertion was performed on the 75% stenosis in the ? distal segment of the LAD. This was a de colt lesion. This ? lesion was designated a type C high risk lesion based on ? ACC/AHA classification system. Primary prevention of ? restenosis was the indication for stent insertion. This was ? the culprit lesion. A guidewire was placed across this lesion. ? Vessel flow pre intervention was ALISON 3. Lesion length was ? 20mm. ? Stent insertion was accomplished through a 6 Fr. guide. ??A ? premounted 2.00 x 15 mm [place] (LEIGH) was deployed with ? a maximum inflation pressure of 14 atmospheres. ??Following ? stent deployment, the lesion was dilated using a 2.50mm NC ? EUPHORA 08 MM balloon with a maximum inflation pressure of 12 ? atmospheres. ? The final outcome was defined as successful. There was no ? residual stenosis following this intervention. The final ALISON ? flow was 3. ?Right Coronary Artery ? Mid 90% ? Stent insertion was performed on the 90% stenosis in the mid ? segment of the RCA. This was a de colt lesion. According to ? the ACC/AHA classification system, this lesion was a type C ? high risk lesion. Primary prevention of restenosis was the ? indication for stent insertion. This was the culprit lesion. A ? guidewire was placed across this lesion. Vessel flow pre ? intervention was ALISON 3. Lesion length was 20mm. The lesion ? involves a bifurcation with the D1. This bifurcation lesion ? was treated with a single stent, side branch jailed and not ? treated technique. ? Stent insertion was accomplished through a 6 Fr. JR 4 guide. ? The lesion was predilated with a 2.50mm EUPHORA 20 MM balloon ? with a maximum inflation pressure of 12 atmospheres. ??A ? premounted 4.00 x 22 mm [place] (LEIGH) was deployed with ? a maximum inflation pressure of 15 atmospheres. ? The final outcome was defined as successful. There was no ? residual stenosis following this intervention. The final ALISON ? flow was 3. ? Vascular Access: ?Vascular Access Management: ? Mechanical Compression of the right radial artery access site was ? performed. ? Dual Antiplatelet (DAPT) Recommendations: ?Drug eluting stent (LEIGH) inserted. ?P2Y12 Loading dose administered prior to arrival in the clinical lab specialist. ?Recommended anti-platelet/anti-thrombotic regimen: ?Continue aspirin 81 mg daily for 12 months then stop. ?Continue clopidogrel 75 mg daily for indefinitely. ?These recommendations are made at the time of the intervention. Patient ?and provider preferences or a changing clinical situation may require ?modification of this regimen. Consult [facility] Interventional Cardiology for ?questions. ?This patient has a high DAPT score and may benefit from prolonged (12-30 ?months) dual antiplatelet therapy if the patient has completed 12 months ?of DAPT without having a major bleeding or ischemic event and the patient ?is NOT on chronic anticoagulation. This should be used for guidance in ?the overall conversation about prolonged dual antiplatelet therapy and ?not as a recommendation for or against any medical treatment. Consult ?http://tools.acc.org/DAPTriskapp/#!/content/calculator/ or [facility] ?Interventional Cardiology for questions ? 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 Complications/Events: ?The patient had no complications during these procedures. ? Post Procedure Fluid Recommendations: ?IV fluid at 455 mL/hr for 4 hours for a total of 1,820 mL. These ?recommendations are made at the time of the procedure. Patient and ?provider preferences or a changing clinical situation may require ?modification of this regimen. ?The attending physician was present for the entire procedure. ?Dr. Mekhi Cortez M.D. was present during the moderate sedation ?intraservice time as documented by the sedation nurse. ??Case time = 01:04. ?Dr. Mekhi Cortez M.D. performed the coronary angiography, left heart ?catheterization, stent insertion-coronary and IVUS # coronary. ? Mekhi Cortez M.D. ? Electronically Signed by: Mekhi Cortez M.D. ? Report Finalized: 07/08/2023 ??09:15 ? Mekhi Cortez MD CARDIAC CATH ORDERAB LES * EKG 12 Lead (07/07/2023 10:41 AM EDT) Ventricular rate 58 BPM MUSE SYSTEM Atrial Rate 58 BPM MUSE SYSTEM P-R Interval 148 ms MUSE SYSTEM QRS Duration 96 ms MUSE SYSTEM Q-T Interval 442 ms MUSE SYSTEM QTC Calculated (Bezet) 433 ms MUSE SYSTEM Calculated P [place] 61 degrees MUSE SYSTEM Calculated R [place] 36 degrees MUSE SYSTEM Calculated T [place] 167 degrees MUSE SYSTEM INTERPRETATION Sinus bradycardia ST & T wave abnormality, consider anterolateral ischemia Abnormal ECG When compared with ECG of 05-JUL-2023 17:15, Nonspecific T wave abnormality has replaced inverted T waves in Inferior leads Confirmed by MD Antonio, Iam ([id number]) on 07/07/2023 4:10:02 PM MUSE SYSTEM 07/07/2023 10:4 1 AM EDT 07/07/2023 4:10 PM EDT Katyshahab Keenan APRN ECG ORDERABLES MUSE SYSTEM * Differential, Automated (07/07/2023 3:46 AM EDT) Neutrophil % 47.4 % [facility] Neutrophil Absolute 3.43 1.70 - 6.10 x10(3)/[facility] Lymph % 36.5 % [facility] Lymphocytes Abs 2.6 0.9 - 3.2 x10(3)/[facility] Monocyte % 11.3 % [facility] Monocyte Abs 0.8 0.3 - 0.9 x10(3)/[facility] Eos % 3.5 % [facility] Eosinophils Abs 0.2 0.0 - 0.4 x10(3)/[facility] Basophil % 1.2 % [facility] Baso Absolute 0.1 0.0 - 0.1 x10(3)/[facility] Immature Gran % 0.10 % [facility] Comment: Immature granulocytes(IG's)percentage and absolute count will include metamyelocytes, myelocytes, and promyelocytes. Blood smears from CBCs yielding IG's will be scanned manually for concordance. If this scan disagrees with the automated IG or if promyelocytes are noted, a manual differential will be performed. Immature Gran Absolute 0.01 0.00 - 0.04 x10(3)/[facility] Blood 07/07/2023 3:46 AM EDT 07/07/2023 3:55 AM EDT Narrative Resulting Agency Comment Spec In Lab Alexandria Amaya MD HEMATOLOGY ORDERABLE S Performing Organization Address City/[facility]/ZIP Co de Phone Number [facility] [place] [address] * (ABNORMAL) Hemogram (07/07/2023 3:46 AM EDT) White Blood Cell 7.2 4.0 - 9.5 x10(3)/mc L [facility] Red Blood Cell 4.49(L) 4.58 - 5.54 x10(6)/mc L [facility] Hemoglobin 13.6(L) 13.7 - 16.5 g/dL [facility] Hematocrit 40.0(L) 40.5 - 48.5 % [facility] Mean Cell Volume 89.1 82.9 - 93.1 fL [facility] Mean Cell Hemoglobin 30.3 27.5 - 32.1 pg [facility] Mean Cell Hemoglobin Concentration 34.0 32.0 - 35.7 g/dL [facility] Platelet 161 145 - 357 x10(3)/mc L [facility] RDW Standard Deviation 41.6 36.0 - 45.0 fL [facility] RDW coefficient of variation 12.7 11.4 - 13.8 % [facility] Mean Platelet Volume 9.5 7.6 - 12.9 fL [facility] NRBC% auto 0.0 % [facility] NRBC Absolute 0.000 0.000 - 0.000 x10(3)/ L [facility] Blood 07/07/2023 3:46 AM EDT 07/07/2023 3:55 AM EDT Narrative Resulting Agency Comment Spec In Lab Alexandria Amaya MD HEMATOLOGY ORDERABLE S [facility] [place] [address] * Heparin (unfractionated) Level (07/07/2023 3:46 AM EDT) UF Heparin 0.42 IU/mL [facility] Comment: Heparin (anti-Xa) levels should be determined in a plasma sample that has been drawn 6 hours after a dose change to approximate steady-state for continuous heparin infusions. Indication specific Heparin (anti-Xa) levels based on order set selection: Acute DVT or PE treatment: 0.3 ? 0.7 IU/mL Thrombosis Prevention (eg. atrial fibrillation, laci-procedural bridging, mechanical valves): 0.3 ? 0.7 IU/mL Acute Coronary Syndrome: 0.3 ? 0.7 IU/mL Stroke Indications: 0.3 ? 0.5 IU/mL Ultra-low intensity (select indications in cardiac surgery): 0.1 ? 0.3 IU/mL Blood 07/07/2023 3:46 AM EDT 07/07/2023 3:55 AM EDT Narrative Resulting Agency Comment Spec In Lab Alexandria Amaya MD HEMATOLOGY ORDERABLE S Performing Organization Address [facility] Co de Phone Number [facility] [place] [address] * Magnesium (07/07/2023 3:46 AM EDT) Magnesium 0.80 0.69 - 1.07 mmol/L [facility] Blood 07/07/2023 3:46 AM EDT 07/07/2023 3:55 AM EDT Narrative Resulting Agency Comment Spec In Lab Geneva Zepeda MD CHEMISTRY ORDERABL ES Performing Organization Address [facility] de Phone Number [facility] [place] [address] * (ABNORMAL) Basic Metabolic Panel (non-fasting) (07/07/2023 3:46 AM EDT) Glucose 106 65 - 199 mg/dL [facility] Comment:Diabetes: >=200 mg/d L plus symptoms Blood Urea Nitrogen 12 10 - 20 mg/dL [facility] Creatinine 0.97 0.80 - 1.50 mg/dL [facility] Sodium 143 135 - 145 mmol/L [facility] Potassium 3.8 3.5 - 5.0 mmol/L [facility] Comment: Please note: ??Patients with WBC >100,000 may have falsely elevated Potassium levels. ??For accurate Potassium quantification in these patients send serum separator tube (gold top) for subsequent determinations. ??Contact the Clinical Chemistry Laboratory if there are any questions. Chloride 111(H) 98 - 107 mmol/L [facility] Carbon Dioxide 23 22 - 31 mmol/L [facility] Anion Gap 9 5 - 15 mmol/L [facility] Calcium 7.9(L) 8.5 - 10.5 mg/dL [facility] Comment:result rechecked-JSJ Est Glomerular Filtration Rate 93 >=60 mL/min/1. 73 m?? [facility] Comment: This patient's estimated GFR was calculated using the 2020 CKD-EPI equation. The estimated GFR can vary from the measured GFR by up to 30% in the absence of rapidly changing kidney function. Assessment of the estimated GFR is not appropriate when creatinine concentrations are rapidly changing. For clinical situations in which a more precise estimate of GFR is necessary, consider alternative methods of GFR estimation such as a 24-hour urine creatinine clearance. Assignment of CKD stage 1-5 for patients with an eGFR near the transition point between stages may be based on clinical assessment of muscle mass and symptoms in addition to eGFR. Blood 07/07/2023 3:46 AM EDT 07/07/2023 3:55 AM EDT Narrative Resulting Agency Comment Spec In Lab Alexandria Amaya MD CHEMISTRY ORDERABLES Performing Organization Address [facility] Co de Phone Number [facility] [place] [address] * POCT Glucose (07/06/2023 11:44 PM EDT) Glucose, POC 134 65 - 199 mg/dL [facility] Comment: Supplemental ranges: <140 mg/dL before meals <180 mg/dL all other times of the day Blood 07/06/2023 11:4 4 PM EDT 07/06/2023 11:44 PM EDT Milagros Rdz MD POINT OF CARE TEST O RDERABLES Performing Organization Address City/[facility]/ZIP Co de Phone Number [facility] [place] [address] * Lavender Tube HOLD (07/06/2023 2:00 AM EDT) Lavender Hold Sample in lab. [facility] Blood Venous Draw / Unknown 07/06/2023 2:00 AM EDT 07/06/2023 2:12 AM EDT Alexandria Amaya MD HEMATOLOGY ORDERABLE S [facility] [place] [address] * Differential, Automated (07/06/2023 2:00 AM EDT) Neutrophil % 50.9 % [facility] Neutrophil Absolute 4.32 1.70 - 6.10 x10(3)/[facility] Lymph % 33.7 % [facility] Lymphocytes Abs 2.9 0.9 - 3.2 x10(3)/[facility] Monocyte % 10.5 % [facility] Monocyte Abs 0.9 0.3 - 0.9 x10(3)/[facility] Eos % 3.5 % [facility] Eosinophils Abs 0.3 0.0 - 0.4 x10(3)/[facility] Basophil % 1.2 % [facility] Baso Absolute 0.1 0.0 - 0.1 x10(3)/[facility] Immature Gran % 0.20 % [facility] Comment: Immature granulocytes(IG's)percentage and absolute count will include metamyelocytes, myelocytes, and promyelocytes. Blood smears from CBCs yielding IG's will be scanned manually for concordance. If this scan disagrees with the automated IG or if promyelocytes are noted, a manual differential will be performed. Immature Gran Absolute 0.02 0.00 - 0.04 x10(3)/[facility] Blood 07/06/2023 2:00 AM EDT 07/06/2023 2:11 AM EDT Narrative Resulting Agency Comment Spec In Lab Alexandria Amaya MD HEMATOLOGY ORDERABLE S [facility] [place] [address] * Hemogram (07/06/2023 2:00 AM EDT) White Blood Cell 8.5 4.0 - 9.5 x10(3)/[facility] LAB[facility] Red Blood Cell 4.81 4.58 - 5.54 x10(6)/[facility] Hemoglobin 14.4 13.7 - 16.5 g/dL [facility] Hematocrit 43.3 40.5 - 48.5 % [facility] Mean Cell Volume 90.0 82.9 - 93.1 fL [facility] Mean Cell Hemoglobin 29.9 27.5 - 32.1 pg [facility] Mean Cell Hemoglobin Concentration 33.3 32.0 - 35.7 g/dL [facility] Platelet 199 145 - 357 x10(3)/[facility] RDW Standard Deviation 40.7 36.0 - 45.0 fL [facility] RDW coefficient of variation 12.3 11.4 - 13.8 % [facility] Mean Platelet Volume 9.9 7.6 - 12.9 fL [facility] NRBC% auto 0.0 % [facility] NRBC Absolute 0.000 0.000 - 0.000 x10(3)/[facility] Blood 07/06/2023 2:00 AM EDT 07/06/2023 2:11 AM EDT Narrative Resulting Agency Comment Spec In Lab Alexandria Amaya MD HEMATOLOGY ORDERABLE S Performing Organization Address City/State/[facility] Co de Phone Number [facility] [place] [address] * Heparin (unfractionated) Level (07/06/2023 2:00 AM EDT) UF Heparin 0.38 IU/mL [facility] Comment: Heparin (anti-Xa) levels should be determined in a plasma sample that has been drawn 6 hours after a dose change to approximate steady-state for continuous heparin infusions. Indication specific Heparin (anti-Xa) levels based on order set selection: Acute DVT or PE treatment: 0.3 ? 0.7 IU/mL Thrombosis Prevention (eg. atrial fibrillation, laci-procedural bridging, mechanical valves): 0.3 ? 0.7 IU/mL Acute Coronary Syndrome: 0.3 ? 0.7 IU/mL Stroke Indications: 0.3 ? 0.5 IU/mL Ultra-low intensity (select indications in cardiac surgery): 0.1 ? 0.3 IU/mL Blood 07/06/2023 2:00 AM EDT 07/06/2023 2:11 AM EDT Narrative Resulting Agency Comment Spec In Lab Alexandria Amaya MD HEMATOLOGY ORDERABLE S [facility] [place] [address] * Magnesium (07/06/2023 2:00 AM EDT) Magnesium 0.93 0.69 - 1.07 mmol/L [facility] Blood 07/06/2023 2:00 AM EDT 07/06/2023 2:11 AM EDT Narrative Resulting Agency Comment Spec In Lab Geneva Zepeda MD CHEMISTRY ORDERABL ES Performing Organization Address [facility] Co de Phone Number [facility] [place] [address] * Basic Metabolic Panel (non-fasting) (07/06/2023 2:00 AM EDT) Glucose 98 65 - 199 mg/dL [facility] Comment:Diabetes: >=200 mg/d L plus symptoms Blood Urea Nitrogen 11 10 - 20 mg/dL [facility] Creatinine 1.08 0.80 - 1.50 mg/dL [facility] Sodium 138 135 - 145 mmol/L [facility] Potassium 3.9 3.5 - 5.0 mmol/L [facility] Comment: Please note: ??Patients with WBC >100,000 may have falsely elevated Potassium levels. ??For accurate Potassium quantification in these patients send serum separator tube (gold top) for subsequent determinations. ??Contact the Clinical Chemistry Laboratory if there are any questions. Chloride 105 98 - 107 mmol/L [facility] Carbon Dioxide 26 22 - 31 mmol/L [facility] Anion Gap 7 5 - 15 mmol/L [facility] Calcium 9.2 8.5 - 10.5 mg/dL [facility] Est Glomerular Filtration Rate 82 >=60 mL/min/1. 73 m?? [facility] Comment: This patient's estimated GFR was calculated using the 2021 CKD-EPI equation. The estimated GFR can vary from the measured GFR by up to 30% in the absence of rapidly changing kidney function. Assessment of the estimated GFR is not appropriate when creatinine concentrations are rapidly changing. For clinical situations in which a more precise estimate of GFR is necessary, consider alternative methods of GFR estimation such as a 24-hour urine creatinine clearance. Assignment of CKD stage 1-5 for patients with an eGFR near the transition point between stages may be based on clinical assessment of muscle mass and symptoms in addition to eGFR. Blood 07/06/2023 2:00 AM EDT 07/06/2023 2:11 AM EDT Narrative Resulting Agency Comment Spec In Lab Alexandria Amaya MD CHEMISTRY ORDERABLES Performing Organization Address [facility] [place] [address] * Heparin (unfractionated) Level (07/05/2023 8:16 PM EDT) UF Heparin 0.26 IU/mL [facility] Comment: Heparin (anti-Xa) levels should be determined in a plasma sample that has been drawn 6 hours after a dose change to approximate steady-state for continuous heparin infusions. Indication specific Heparin (anti-Xa) levels based on order set selection: Acute DVT or PE treatment: 0.3 ? 0.7 IU/mL Thrombosis Prevention (eg. atrial fibrillation, laci-procedural bridging, mechanical valves): 0.3 ? 0.7 IU/mL Acute Coronary Syndrome: 0.3 ? 0.7 IU/mL Stroke Indications: 0.3 ? 0.5 IU/mL Ultra-low intensity (select indications in cardiac surgery): 0.1 ? 0.3 IU/mL Blood 07/05/2023 8:16 PM EDT 07/05/2023 8:21 PM EDT Narrative Resulting Agency Comment Spec In Lab Alexandria Amaya MD HEMATOLOGY ORDERABLE S Performing Organization Address [facility] [place] [address] * EKG 12 Lead (07/05/2023 5:15 PM EDT) Ventricular rate 53 BPM MUSE SYSTEM Atrial Rate 53 BPM MUSE SYSTEM P-R Interval 144 ms MUSE SYSTEM QRS Duration 100 ms MUSE SYSTEM Q-T Interval 482 ms MUSE SYSTEM QTC Calculated (Bezet) 452 ms MUSE SYSTEM Calculated P [place] 76 degrees MUSE SYSTEM Calculated R [place] 74 degrees MUSE SYSTEM Calculated T [place] -124 degrees MUSE SYSTEM INTERPRETATION Sinus bradycardia ST & Marked T wave abnormality consider anterolateral ischemia Abnormal ECG When compared with ECG of 23-JUN-2016 08:55, Left anterior fascicular block is no longer Present Criteria for Inferior infarct are no longer Present ST now depressed in Anterior leads T wave inversion less evident in Inferior leads T wave inversion more evident in Anterolateral leads Confirmed by MD Rdz Danette ([id number]) on 07/07/2023 8:40:36 AM MUSE SYSTEM 07/05/2023 5:15 PM EDT 07/07/2023 8:40 AM EDT Geneva Zepeda MD ECG ORDERABLES Performing Organization Address City/State/[facility] Co de Phone Number MUSE SYSTEM * Heparin (unfractionated) Level (07/05/2023 2:14 PM EDT) Pathologist [facility] UF Heparin 0.40 IU/mL [facility] Comment: Heparin (anti-Xa) levels should be determined in a plasma sample that has been drawn 6 hours after a dose change to approximate steady-state for continuous heparin infusions. Indication specific Heparin (anti-Xa) levels based on order set selection: Acute DVT or PE treatment: 0.3 ? 0.7 IU/mL Thrombosis Prevention (eg. atrial fibrillation, laci-procedural bridging, mechanical valves): 0.3 ? 0.7 IU/mL Acute Coronary Syndrome: 0.3 ? 0.7 IU/mL Stroke Indications: 0.3 ? 0.5 IU/mL Ultra-low intensity (select indications in cardiac surgery): 0.1 ? 0.3 IU/mL Blood 07/05/2023 2:14 PM EDT 07/05/2023 2:20 PM EDT Narrative Resulting Agency Comment Spec In Lab Alexandria Amaya MD HEMATOLOGY ORDERABLE S Performing Organization Address City/[facility] Co de Phone Number [facility] [place] [address] * Heparin (unfractionated) Level (07/05/2023 8:39 AM EDT) UF Heparin 0.27 IU/mL [facility] Comment: Heparin (anti-Xa) levels should be determined in a plasma sample that has been drawn 6 hours after a dose change to approximate steady-state for continuous heparin infusions. Indication specific Heparin (anti-Xa) levels based on order set selection: Acute DVT or PE treatment: 0.3 ? 0.7 IU/mL Thrombosis Prevention (eg. atrial fibrillation, laci-procedural bridging, mechanical valves): 0.3 ? 0.7 IU/mL Acute Coronary Syndrome: 0.3 ? 0.7 IU/mL Stroke Indications: 0.3 ? 0.5 IU/mL Ultra-low intensity (select indications in cardiac surgery): 0.1 ? 0.3 IU/mL Blood 07/05/2023 8:39 AM EDT 07/05/2023 8:56 AM EDT Narrative Resulting Agency Comment Spec In Lab Alexandria Amaya MD HEMATOLOGY ORDERABLE S Performing Organization Address [facility] de Phone Number [facility] [place] [address] * Hemoglobin A1c (07/05/2023 2:00 AM EDT) Hemoglobin A1c 5.6 4.3 - 5.6 % [facility] Comment: Reference Range: 4.3 - 5.6% 5.7 - 6.4% - Increased Risk of Developing Diabetes Mellitus >= 6.5% - Consistent with diagnosis of Diabetes Mellitus In the absence of hyperglycemia (i.e. plasma glucose > 200 mg/dL) or classic symptoms of hyperglycemia a repeat measurement of HbA1c should be performed on a separate sample to confirm the diagnosis. Diagnosis and Classification of Diabetes Mellitus, Diabetes Care 2013; 36: Suppl. 1, S28-99 Estimated Average Glucose 115 mg/dL [facility] Comment: eAG equivalents for HbA1c percentages: HbA1c(%) ?eAG(mg/dL) 6.0 ?126 6.5 ?140 7.0 ?154 7.5 ?169 8.0 ?183 8.5 ?197 9.0 ?212 9.5 ?226 10.0 ? 240 Limitations: The eAG calculation has not been validated on women, individuals below 18 years old and above 70 years old, and individuals with hemoglobinopathies. Additional resources are available on the ADA website. Cristi HELMS, Ruperto J, Any R, et al. ??Translating the A1C assay into estimated average glucose values. ??Diabetes Care 2008:31(8):7376-2307. Blood Venous Draw / Unknown 07/05/2023 2:00 AM EDT 07/05/2023 4:38 PM EDT Narrative Resulting Agency Comment Spec In Lab Geneva Zepeda MD CHEMISTRY ORDERABL ES Performing Organization Address [facility] Co de Phone Number [facility] [place] [address] * Lavender Tube HOLD (07/05/2023 2:00 AM EDT) Lavender Hold Sample in lab. [facility] Blood Venous Draw / Unknown 07/05/2023 2:00 AM EDT 07/05/2023 2:11 AM EDT Alexandria Amaya MD HEMATOLOGY ORDERABLE S Performing Organization Address [facility] Co de Phone Number [facility] [place] [address] * Differential, Automated (07/05/2023 2:00 AM EDT) Neutrophil % 53.3 % [facility] Neutrophil Absolute 4.33 1.70 - 6.10 x10(3)/[facility] Lymph % 31.2 % [facility] Lymphocytes Abs 2.5 0.9 - 3.2 x10(3)/[facility] Monocyte % 10.4 % [facility] Monocyte Abs 0.8 0.3 - 0.9 x10(3)/[facility] Eos % 3.8 % [facility] Eosinophils Abs 0.3 0.0 - 0.4 x10(3)/[facility] LABORATORY Basophil % 1.1 % [facility] Baso Absolute 0.1 0.0 - 0.1 x10(3)/[facility] LABORATORY Immature Gran % 0.20 % [facility] Comment: Immature granulocytes(IG's)percentage and absolute count will include metamyelocytes, myelocytes, and promyelocytes. Blood smears from CBCs yielding IG's will be scanned manually for concordance. If this scan disagrees with the automated IG or if promyelocytes are noted, a manual differential will be performed. Immature Gran Absolute 0.02 0.00 - 0.04 x10(3)/[facility] LABORATORY Blood 07/05/2023 2:00 AM EDT 07/05/2023 2:11 AM EDT Narrative Resulting Agency Comment Spec In Lab Alexandria Amaya MD HEMATOLOGY ORDERABLE S [facility] [place] [address] * Hemogram (07/05/2023 2:00 AM EDT) White Blood Cell 8.1 4.0 - 9.5 x10(3)/[facility] LABORATORY Red Blood Cell 4.77 4.58 - 5.54 x10(6)/[facility] LAB[facility] Hemoglobin 14.2 13.7 - 16.5 g/dL [facility] Hematocrit 42.3 40.5 - 48.5 % [facility] Mean Cell Volume 88.7 82.9 - 93.1 fL [facility] Mean Cell Hemoglobin 29.8 27.5 - 32.1 pg [facility] Mean Cell Hemoglobin Concentration 33.6 32.0 - 35.7 g/dL [facility] Platelet 179 145 - 357 x10(3)/mcL [facility] RDW Standard Deviation 40.7 36.0 - 45.0 fL [facility] RDW coefficient of variation 12.4 11.4 - 13.8 % [facility] Mean Platelet Volume 9.7 7.6 - 12.9 fL [facility] NRBC% auto 0.0 % [facility] NRBC Absolute 0.000 0.000 - 0.000 x10(3)/[facility] LABORATORY Blood 07/05/2023 2:00 AM EDT 07/05/2023 2:11 AM EDT Narrative Resulting Agency Comment Spec In Lab Alexandria Amaya MD HEMATOLOGY ORDERABLE S Performing Organization Address City/State/[facility] Co de Phone Number [facility] [place] [address] * Heparin (unfractionated) Level (07/05/2023 2:00 AM EDT) UF Heparin 0.31 IU/mL [facility] Comment: Heparin (anti-Xa) levels should be determined in a plasma sample that has been drawn 6 hours after a dose change to approximate steady-state for continuous heparin infusions. Indication specific Heparin (anti-Xa) levels based on order set selection: Acute DVT or PE treatment: 0.3 ? 0.7 IU/mL Thrombosis Prevention (eg. atrial fibrillation, laci-procedural bridging, mechanical valves): 0.3 ? 0.7 IU/mL Acute Coronary Syndrome: 0.3 ? 0.7 IU/mL Stroke Indications: 0.3 ? 0.5 IU/mL Ultra-low intensity (select indications in cardiac surgery): 0.1 ? 0.3 IU/mL Blood 07/05/2023 2:00 AM EDT 07/05/2023 2:11 AM EDT Narrative Resulting Agency Comment Spec In Lab Alexandria Amaya MD HEMATOLOGY ORDERABLE S [facility] [address] [place] [address] * Lipid Panel (Reflex Direct LDL) (07/05/2023 2:00 AM EDT) Cholesterol, Total 93 mg/dL [facility] Comment: Lower Risk: <200 mg/dL Average Risk: 200-239 mg/dL Higher Risk: >gm=604 mg/dL Triglyceride 78 mg/dL [facility] Comment: Average Risk/Lower Risk: <150 mg/dL Borderline High Risk: 150-199 mg/dL High Risk: 200-499 mg/dL Very High Risk: >gc=780 mg/dL HDL Cholesterol 36 mg/dL [facility] Comment: Males: ?? Higher Risk: <40 mg/dL Females: ?? Higher Risk: <50 mg/dL LDL Cholesterol 41 mg/dL [facility] Comment: Lowest Risk: <100 mg/dL Lower Risk: 100-129 mg/dL Borderline High Risk: 130-159 mg/dL High Risk: 160-189 mg/dL Very High Risk: >vi=723 mg/dL Cholesterol/HDL Ratio 2.6 ratio [facility] Lipid Interpretation See Note [facility] Comment: Lipid management should be guided by a patient? s ASCVD risk, goals and preferences. ACC/AHA Guidelines recommend high intensity statin if clinical ASCVD or LDL greater than or equal to 190 mg/dL. http://[employer].com/SUF-AVG-Ppicshznb Adults aged 40-75 with LDL 70-189 mg/dL should have their 10 year ASCVD risk estimated with the ACC/AHA ASCVD risk job cost estimator http://tools.acc.org/GIWZV-Vibb-Uqukobyss/ Statin should be discussed if risk greater than or equal to 7.5% in non-diabetics. With diabetes, moderate intensity statin is recommended if risk less than 7.5%, high intensity if risk greater than or equal to 7.5%. Annual lipid monitoring on statins is not necessary. Evaluate secondary causes of Triglycerides greater than 500 mg/dL or LDL greater than 190 mg/dL: See table 6 of ACC/AHA Guideline. Lifestyle modification is a critical component of ASCVD risk reduction. Blood 07/05/2023 2:00 AM EDT 07/05/2023 2:11 AM EDT Narrative Resulting Agency Comment Spec In Lab Alexandria Amaya MD CHEMISTRY ORDERABLES [facility] [place] [address] * (ABNORMAL) Basic Metabolic Panel (non-fasting) (07/05/2023 2:00 AM EDT) Glucose 95 65 - 199 mg/dL [facility] Comment:Diabetes: >=200 mg/d L plus symptoms Blood Urea Nitrogen 11 10 - 20 mg/dL [facility] Creatinine 0.93 0.80 - 1.50 mg/dL [facility] Sodium 143 135 - 145 mmol/L [facility] Potassium 4.0 3.5 - 5.0 mmol/L [facility] Comment: Please note: ??Patients with WBC >100,000 may have falsely elevated Potassium levels. ??For accurate Potassium quantification in these patients send serum separator tube (gold top) for subsequent determinations. ??Contact the Clinical Chemistry Laboratory if there are any questions. Chloride 109(H) 98 - 107 mmol/L [facility] Carbon Dioxide 24 22 - 31 mmol/L [facility] Anion Gap 10 5 - 15 mmol/L [facility] Calcium 8.7 8.5 - 10.5 mg/dL [facility] Est Glomerular Filtration Rate 98 >=60 mL/min/1. 73 m?? [facility] Comment: This patient's estimated GFR was calculated using the 2020 CKD-EPI equation. The estimated GFR can vary from the measured GFR by up to 30% in the absence of rapidly changing kidney function. Assessment of the estimated GFR is not appropriate when creatinine concentrations are rapidly changing. For clinical situations in which a more precise estimate of GFR is necessary, consider alternative methods of GFR estimation such as a 24-hour urine creatinine clearance. Assignment of CKD stage 1-5 for patients with an eGFR near the transition point between stages may be based on clinical assessment of muscle mass and symptoms in addition to eGFR. Blood 07/05/2023 2:00 AM EDT 07/05/2023 2:11 AM EDT Narrative Resulting Agency Comment Spec In Lab Alexandria Amaya MD CHEMISTRY ORDERABLES [facility] [place] [address] * (ABNORMAL) Troponin (07/04/2023 11:57 PM EDT) Troponin-T, High Sensitivity 123(H) <=22 ng/L [facility] Comment: This patient's troponin T concentration was determined using the Salas 5th Generation troponin T assay. The 99th percentile for Troponin T for this test is 14 ng/L for females, and 22 ng/L for males. According to the fourth universal definition of myocardial infarction, the term acute myocardial infarction should be used when there is acute myocardial injury with clinical evidence of acute myocardial ischemia and with detection of a rise and/or fall of cardiac troponin values with at least one value above the 99th percentile and at least one of the following: - Symptoms of myocardial ischemia; - New ischemic ECG changes; - Development of pathological Q waves; - Imaging evidence of new loss of viable myocardium or new regional wall motion abnormality in a pattern consistent with an ischemic etiology; - Identification of a coronary thrombus by angiography or autopsy (not for type 2 or 3 MIs) Serial measurement of troponin and the change in troponin concentration over time (delta) is crucial for the diagnosis of acute myocardial infarction. Guidance on the interpretation of the new 5th Generation Troponin T values and the delta troponin value can be found in the [facility] Test Catalog Troponin - [facility] Test Catalog Reference: Fourth [place] Definition of Myocardial Infarction. Journal of the [place] College [employer] 2018;72:2654-9257 Blood 07/04/2023 11:5 7 PM EDT 07/05/2023 12:06 AM EDT Narrative Resulting Agency Comment Spec In Lab Alexandria Amaya MD CHEMISTRY ORDERABLES Performing Organization Address City/[facility]/ZIP Co de Phone Number [facility] [place] [address] * (ABNORMAL) Differential, Automated (07/04/2023 8:40 PM EDT) Neutrophil % 62.9 % [facility] Neutrophil Absolute 6.56(H) 1.70 - 6.10 x10(3)/mc L [facility] Lymph % 23.8 % [facility] Lymphocytes Abs 2.5 0.9 - 3.2 x10(3)/ L [facility] Monocyte % 9.9 % [facility] Monocyte Abs 1.0(H) 0.3 - 0.9 x10(3)/ L [facility] Eos % 2.2 % [facility] Eosinophils Abs 0.2 0.0 - 0.4 x10(3)/mc L [facility] Basophil % 1.0 % [facility] Baso Absolute 0.1 0.0 - 0.1 x10(3)/ L [facility] Immature Gran % 0.20 % [facility] Comment: Immature granulocytes(IG's)percentage and absolute count will include metamyelocytes, myelocytes, and promyelocytes. Blood smears from CBCs yielding IG's will be scanned manually for concordance. If this scan disagrees with the automated IG or if promyelocytes are noted, a manual differential will be performed. Immature Gran Absolute 0.02 0.00 - 0.04 x10(3)/ L [facility] Blood 07/04/2023 8:40 PM EDT 07/04/2023 8:51 PM EDT Narrative Resulting Agency Comment Spec In Lab Alexandria Amaya MD HEMATOLOGY ORDERABLE S Performing Organization Address City/State/[facility] Co de Phone Number [facility] [place] [address] * (ABNORMAL) Hemogram (07/04/2023 8:40 PM EDT) White Blood Cell 10.4(H) 4.0 - 9.5 x10(3)/ L [facility] Red Blood Cell 4.67 4.58 - 5.54 x10(6)/mc L [facility] Hemoglobin 14.1 13.7 - 16.5 g/dL [facility] Hematocrit 41.9 40.5 - 48.5 % [facility] Mean Cell Volume 89.7 82.9 - 93.1 fL [facility] Mean Cell Hemoglobin 30.2 27.5 - 32.1 pg [facility] Mean Cell Hemoglobin Concentration 33.7 32.0 - 35.7 g/dL [facility] Platelet 188 145 - 357 x10(3)/mc L [facility] RDW Standard Deviation 41.0 36.0 - 45.0 fL [facility] RDW coefficient of variation 12.5 11.4 - 13.8 % [facility] Mean Platelet Volume 9.8 7.6 - 12.9 fL [facility] NRBC% auto 0.0 % [facility] NRBC Absolute 0.000 0.000 - 0.000 x10(3)/mc L [facility] Blood 07/04/2023 8:40 PM EDT 07/04/2023 8:51 PM EDT Narrative Resulting Agency Comment Spec In Lab Alexandria Amaya MD HEMATOLOGY ORDERABLE S Performing Organization Address City/[facility]/ZIP Co de Phone Number [facility] [place] [address] * (ABNORMAL) Phosphorus (07/04/2023 8:40 PM EDT) Phosphorus 2.4(L) 2.5 - 4.5 mg/dL [facility] Blood 07/04/2023 8:40 PM EDT 07/04/2023 8:51 PM EDT Narrative Resulting Agency Comment Spec In Lab Alexandria Amaya MD CHEMISTRY ORDERABLES [facility] [place] [address] * Magnesium (07/04/2023 8:40 PM EDT) Magnesium 0.93 0.69 - 1.07 mmol/L [facility] Blood 07/04/2023 8:40 PM EDT 07/04/2023 8:51 PM EDT Narrative Resulting Agency Comment Spec In Lab Alexandria Amaya MD CHEMISTRY ORDERABLES Performing Organization Address City/[facility] Co de Phone Number [facility] [place] [address] * TSH (07/04/2023 8:40 PM EDT) Pathologist [facility] Thyroid Stimulating Hormone 1.12 0.27 - 4.20 mcIU/mL [facility] Comment: Reference Interval (mcIU/mL): Females: ??First Trimester: 0.23-3.88 ??Second Trimester: 0.22-3.90 ??Third Trimester: 0.44-4.66 Blood 07/04/2023 8:40 PM EDT 07/04/2023 8:51 PM EDT Narrative Resulting Agency Comment Spec In Lab Alexandria Amaya MD CHEMISTRY ORDERABLES Performing Organization Address [facility] Co de Phone Number [facility] [place] [address] * (ABNORMAL) Troponin (07/04/2023 8:40 PM EDT) Pathologist [facility] Troponin-T, High Sensitivity 134(H) <=22 ng/L [facility] Comment: This patient's troponin T concentration was determined using the Salas 5th Generation troponin T assay. The 99th percentile for Troponin T for this test is 14 ng/L for females, and 22 ng/L for males. According to the fourth universal definition of myocardial infarction, the term acute myocardial infarction should be used when there is acute myocardial injury with clinical evidence of acute myocardial ischemia and with detection of a rise and/or fall of cardiac troponin values with at least one value above the 99th percentile and at least one of the following: - Symptoms of myocardial ischemia; - New ischemic ECG changes; - Development of pathological Q waves; - Imaging evidence of new loss of viable myocardium or new regional wall motion abnormality in a pattern consistent with an ischemic etiology; - Identification of a coronary thrombus by angiography or autopsy (not for type 2 or 3 MIs) Serial measurement of troponin and the change in troponin concentration over time (delta) is crucial for the diagnosis of acute myocardial infarction. Guidance on the interpretation of the new 5th Generation Troponin T values and the delta troponin value can be found in the [facility] Test Catalog Troponin - [facility] Test Catalog Reference: Fourth [place] Definition of Myocardial Infarction. Journal of the [place] [employer] 2018;72:[id number] Blood 07/04/2023 8:40 PM EDT 07/04/2023 8:51 PM EDT Narrative Resulting Agency Comment Spec In Lab Alexandria Amaya MD CHEMISTRY ORDERABLES Performing Organization Address City/State/[facility] Co de Phone Number [facility] [place] [address] * (ABNORMAL) Comprehensive metabolic panel (non-fasting) (07/04/2023 8:40 PM EDT) Glucose 144 65 - 199 mg/dL [facility] Comment:Diabetes: >=200 mg/d L plus symptoms Blood Urea Nitrogen 10 10 - 20 mg/dL [facility] Creatinine 0.95 0.80 - 1.50 mg/dL [facility] Sodium 143 135 - 145 mmol/L [facility] Potassium 3.5 3.5 - 5.0 mmol/L [facility] Comment: Please note: ??Patients with WBC >100,000 may have falsely elevated Potassium levels. ??For accurate Potassium quantification in these patients send serum separator tube (gold top) for subsequent determinations. ??Contact the Clinical Chemistry Laboratory if there are any questions. Chloride 108(H) 98 - 107 mmol/L [facility] Carbon Dioxide 24 22 - 31 mmol/L [facility] Anion Gap 11 5 - 15 mmol/L [facility] Calcium 8.8 8.5 - 10.5 mg/dL [facility] Protein, Total 6.3 6.1 - 8.0 g/dL [facility] Albumin 4.0 3.2 - 5.2 g/dL [facility] Aspartate Aminotransferase 18 0 - 39 unit/L [facility] Alanine Aminotransferase 14 0 - 55 unit/L [facility] Alkaline Phosphatase 73 40 - 130 unit/L [facility] Bilirubin, Total 0.6 0.2 - 1.3 mg/dL [facility] Est Glomerular Filtration Rate 95 >=60 mL/min/1. 73 m?? [facility] Comment: This patient's estimated GFR was calculated using the 2020 CKD-EPI equation. The estimated GFR can vary from the measured GFR by up to 30% in the absence of rapidly changing kidney function. Assessment of the estimated GFR is not appropriate when creatinine concentrations are rapidly changing. For clinical situations in which a more precise estimate of GFR is necessary, consider alternative methods of GFR estimation such as a 24-hour urine creatinine clearance. Assignment of CKD stage 1-5 for patients with an eGFR near the transition point between stages may be based on clinical assessment of muscle mass and symptoms in addition to eGFR. Blood 07/04/2023 8:40 PM EDT 07/04/2023 8:51 PM EDT Narrative Resulting Agency Comment Spec In Lab Alexandria Amaya MD CHEMISTRY ORDERABLES Performing Organization Address City/State/[facility] Co de Phone Number [facility] [place] [address] documented in this encounter Visit Diagnoses Not on filedocumented in this encounter Admitting Diagnoses Diagnosis NSTEMI (non-ST elevated myocardial infarction) Acute myocardial infarction, subendocardial infarction, episode of care unspecified documented in this encounter Administered Medications Inactive Administered Medications - up to 3 most recent administrations Medication Order MAR Action Action Date Dose Rate Site aspirin EC tablet 81 mg 81 mg, Oral, DAILY, First dose on Fri07/05/23 at 0900, Until Discontinued, Routine Given 07/08/2023 10:36 AM EDT 81 mg Given 07/07/2023 8:54 AM EDT 81 mg Given 07/06/2023 8:34 AM EDT 81 mg atorvastatin (Lipitor) tablet 80 mg 80 mg, Oral, DAILY, First dose on Fri07/04/23 at 2030, Until Discontinued, Routine Given 07/08/2023 10:36 AM EDT 80 mg Given 07/07/2023 8:54 AM EDT 80 mg Given 07/06/2023 8:33 AM EDT 80 mg clopidogreL (Plavix) tablet 75 mg 75 mg, Oral, DAILY, First dose on Fri07/05/23 at 0900, Until Discontinued, Routine Given 07/08/2023 10:36 AM EDT 75 mg Given 07/07/2023 8:54 AM EDT 75 mg Given 07/06/2023 8:33 AM EDT 75 mg fentaNYL (pf) (50 mcg/mL) multi-dose injection PRN, Starting on Fri07/07/23 at 1641, Until Fri07/07/23 at 1706, Intra-Operative (Intra-Procedure), Routine Given 07/07/2023 4:57 PM EDT 25 mcg Given 07/07/2023 4:50 PM EDT 25 mcg Given 07/07/2023 4:41 PM EDT 25 mcg heparin (porcine) (1,000 units/mL) injection PRN, Starting on Fri07/07/23 at 1600, Until Fri07/07/23 at 1706, Intra-Operative (Intra-Procedure), Routine Given 07/07/2023 4:37 PM EDT 1,500 Units Given 07/07/2023 4:02 PM EDT 5,000 Units iohexoL (Omnipaque) (350 mg/mL) solution PRN, Starting on Fri07/07/23 at 1704, Until Fri07/07/23 at 1706, Intra-Operative (Intra-Procedure), Routine Given 07/07/2023 5:04 PM EDT 160 mLs metoprolol succinate XL (Toprol-XL) tablet 50 mg 50 mg, Oral, DAILY, First dose on Fri07/04/23 at 2030, Until Discontinued, DO NOT CRUSH OR OPEN, Routine Given 07/08/2023 10:36 AM EDT 50 mg Given 07/07/2023 8:54 AM EDT 50 mg Given 07/06/2023 8:33 AM EDT 50 mg midazolam (pf) (Versed) (1 mg/mL) multi-dose injection PRN, Starting on Fri07/07/23 at 1641, Until Fri07/07/23 at 1706, Intra-Operative (Intra-Procedure), Routine Given 07/07/2023 4:57 PM EDT 1 mg Given 07/07/2023 4:51 PM EDT 1 mg Given 07/07/2023 4:41 PM EDT 1 mg nicotine (Nicoderm CQ) 21 mg/24 hr patch 21 mg 21 mg (1 patch), Transdermal, Administer over 24 Hours, DAILY, First dose on Fri07/05/23 at 0900, Until Discontinued, Apply new patch to clean, dry, hair-free skin on the upper body or upper outer arm; each patch should be applied to a different site. , Routine Patch Applied 07/08/2023 10:36 AM EDT 21 mg 04- Shoulder (Right) Patch Applied 07/07/2023 8:52 AM EDT 21 mg 09- Arm Upper (Left) Patch Applied 07/06/2023 8:30 AM EDT 21 mg 04- Shoulder (Right) nicotine (Nicoderm CQ) 21 mg/24 hr patch Patch Verification Transdermal, 2 TIMES DAILY, First dose on Fri07/05/23 at 1330, Until Discontinued, Verify nicotine 21 mg/24 hr patch nitroGLYcerin (200 mcg/mL) in dextrose 5% 250 mL infusion CONTINUOUS PRN, Starting on Fri07/07/23 at 1653, Until Fri07/07/23 at 1706, Intra-Operative (Intra-Procedure), Routine New Bag 07/07/2023 4:53 PM EDT 20 mcg/min 6 mL /hr nitroGLYcerin 100 mcg/mL intracoronary dilution PRN, Starting on Fri07/07/23 at 1559, Until Fri07/07/23 at 1706, Intra-Operative (Intra-Procedure), Routine Given 07/07/2023 3:59 PM EDT 150 mcg senna-docusate (Pericolace) 8.6-50 mg per tablet 2 tablet 2 tablet, Oral, 2 TIMES DAILY, First dose on Fri07/04/23 at 2100, Until Discontinued, Hold for loose stool. , Routine Given 07/06/2023 8:45 PM EDT 2 tablets Given 07/06/2023 8:33 AM EDT 2 tablets Given 07/05/2023 9:10 PM EDT 2 tablets sodium chloride 0.9 % (flush) (BD PosiFlush Normal Saline 0.9) flush 5 mL 5 mL, Intravenous, 2 TIMES DAILY, First dose on Fri07/04/23 at 2100, Until Discontinued, Routine Given 07/07/2023 9:00 PM EDT 5 mLs Given 07/07/2023 8:56 AM EDT 10 mLs Given 07/06/2023 8:45 PM EDT 5 mLs sodium chloride 0.9% infusion 75 mL/hr, Intravenous, CONTINUOUS, Starting on Fri07/07/23 at 1030, Until Fri07/08/23 at 1405 New Bag 07/07/2023 10:44 AM EDT 75 mL/hr 75 mL/hr verapamiL (Isoptin) (2.5 mg/mL) injection PRN, Starting on Fri07/07/23 at 1559, Until Fri07/07/23 at 1706, Administer over 2 Minutes, Intra-Operative (Intra-Procedure) Given 07/07/2023 3:59 PM EDT 2.5 mg documented in this encounter Active and Recently Administered Medications Times are shown in EDT. Scheduled Medication Order 07/06/2023 07/07/2023 07/08/2023 aspirin EC tablet 81 mg 81 mg, Oral, DAILY, First dose on 07/05/23 at 0900, Until Discontinued, Routine 0834 (Given - Provider: Saad Donato RN) 0854 (Given - Provider: Verona Campos, UMA)1544 (MAR Hold - Provider: Admin Adt - Reason: Transfer to a Procedural area)174 (MAR Unhold - Provider: Admin Adt) 1036 (Given - Provider: Rivka Parada RN) atorvastatin (Lipitor) tablet 80 mg 80 mg, Oral, DAILY, First dose on Fri07/04/23 at 2030, Until Discontinued, Routine 0833 (Given - Provider: Saad Donato RN) 0854 (Given - Provider: Verona Campos, UMA)1544 (MAR Hold - Provider: Admin Adt - Reason: Transfer to a Procedural area)1749 (MAR Unhold - Provider: Admin Adt) 1036 (Given - Provider: Rivka Parada, UMA) clopidogreL (Plavix) tablet 75 mg 75 mg, Oral, DAILY, First dose on 07/05/23 at 0900, Until Discontinued, Routine 0833 (Given - Provider: Saad Donato RN) 0854 (Given - Provider: Verona Campos, UMA)1544 (MAR Hold - Provider: Admin Adt - Reason: Transfer to a Procedural area)1749 (MAR Unhold - Provider: Admin Adt) 1036 (Given - Provider: Rivka Parada RN) magnesium sulfate 1 g in dextrose 5% 100 mL infusion (COMPLETED) 1 g, Intravenous, ONCE, 1 dose, On Fri07/08/23 at 0430, Administer over 60 Minutes 0433 (New Bag - Provider: Umang Langston RN)0533 (Stopped - Provider: Umang Langston RN) metoprolol succinate XL (Toprol-XL) tablet 50 mg 50 mg, Oral, DAILY, First dose on Fri07/04/23 at 2030, Until Discontinued, DO NOT CRUSH OR OPEN, Routine 0833 (Given - Provider: Saad Donato RN) 0854 (Given - Provider: [place] Camp[place], UMA)1544 (MAR Hold - Provider: Admin Adt - Reason: Transfer to a Procedural area)174 (MAR Unhold - Provider: Admin Adt) 1036 (Given - Provider: Rivka Parada RN) nicotine (Nicoderm CQ) 21 mg/24 hr patch 21 mg(Linked Group 1) 21 mg (1 patch), Transdermal, Administer over 24 Hours, DAILY, First dose on Fri07/05/23 at 0900, Until Discontinued, Apply new patch to clean, dry, hair-free skin on the upper body or upper outer arm; each patch should be applied to a different site. , Routine 0830 (Patch Applied - Provider: Saad Donato RN)0833 (Patch Removed - Provider: Saad Donato RN) 0852 (Patch Applied - Provider: Verona Campos RN)0853 (Patch Removed - Provider: Verona Campos RN)1544 (MAR Hold - Provider: Admin Adt - Reason: Transfer to a Procedural area)174 (MAR Unhold - Provider: Admin Adt) 0852 (Patch Removed - Provider: Rivka Parada RN)1036 (Patch Applied - Provider: Rivka Parada RN)1140 (Due: Patch Removed - Provider: Automatic Discharge Provider - Comment: Time automatically adjusted from order being discontinued) nicotine (Nicoderm CQ) 21 mg/24 hr patch Patch Verification(Linked Group 1) Transdermal, 2 TIMES DAILY, First dose on 07/05/23 at 1330, Until Discontinued, Verify nicotine 21 mg/24 hr patch 0900 (Patch (dose and location) verified - Provider: Saad Donato RN)2100 (Patch (dose and location) verified - Provider: Umang Langston RN) 0900 (Patch (dose and location) verified - Provider: Verona Campos RN)1544 (MAR Hold - Provider: Admin Adt - Reason: Transfer to a Procedural area)1749 (MAR Unhold - Provider: Admin Adt)2099 (Patch (dose and location) verified - Provider: Umang Langston RN) 09 (Patch (dose and location) verified - Provider: Rivka Parada RN) senna-docusate (Pericolace) 8.6-50 mg per tablet 2 tablet 2 tablet, Oral, 2 TIMES DAILY, First dose on Fri07/04/23 at 2100, Until Discontinued, Hold for loose stool. , Routine 0833 (Given - Provider: Saad Donato RN)2044 (Given - Provider: Umang Langston RN) 09 (Not Given - Provider: Verona Campos RN - Reason: Patient/family refused)154 ([facility] Hold - Provider: Admin Adt - Reason: Transfer to a Procedural area)174 ([facility] Unhold - Provider: Admin Adt)2099 (Not Given - Provider: Umang Langston RN - Reason: Patient/family refused) 09 (Not Given - Provider: Rivka Parada RN - Reason: Patient/family refused) sodium chloride 0.9 % (flush) (BD PosiFlush Normal Saline 0.9) flush 5 mL 5 mL, Intravenous, 2 TIMES DAILY, First dose on Fri07/04/23 at 2100, Until Discontinued, Routine 0835 (Given - Provider: Saad Donato RN)2044 (Given - Provider: Umang Langston RN) 0856 (Given - Provider: Verona Campos, UMA)154 ([facility] Hold - Provider: Admin Adt - Reason: Transfer to a Procedural area)174 ([facility] Unhold - Provider: Admin Adt)2099 (Given - Provider: Umang Langston RN) 09 (Not Given - Provider: Rivka Parada RN - Reason: Patient/family refused) Continuous Medication Order 07/06/2023 07/07/2023 07/08/2023 heparin (porcine) 50 units/mL in dextrose 5% 500 mL infusion (CANCELED)(Linked Group 2) 0-5,000 Units/hr (0-100 mL/hr), Intravenous, CONTINUOUS, Starting on Fri07/04/23 at 2015, Until Fri07/08/23 at 0051, Begin infusion at 1,000 units per hr (12 units/kg/hr). Maximum initial infusion rate is 1,000 units/hr. Infusion doses are rounded to the nearest 50 units. Target Heparin UFH Level (anti-Xa activity) = 0.3 - 0.7 international unit/mL Start adjustment schedule 6 hours after starting infusion. If Heparin UFH Level is: - Less than 0.1 international unit/mL: Administer PRN bolus and increase rate by 350 units per hr (4 units/kg/hr) - 0.1 - 0.19 international unit/mL: Administer PRN bolus and increase rate by 200 units per hr (2 units/kg/hr) - 0.2 - 0.29 international unit/mL: NO BOLUS and increase rate by 200 units per hr (2 units/kg/hr) - 0.3 - 0.7 international unit/mL: No change - 0.71 - 0.79 international unit/mL: NO BOLUS and decrease rate by 100 units per hr (1 units/kg/hr) - 0.8 - 0.99 international unit/mL: NO BOLUS and decrease rate by 200 units per hr (2 units/kg/hr) - Greater than or equal to 1.00 international unit/mL: Hold infusion for 60 minutes then decrease rate by 250 units per hour (3 units/kg/hr) Obtain Heparin UFH Level 6 hours after initiating heparin. Then 6 hours after each dose adjustment. When 2 consecutive Heparin UFH Level within target range of 0.3 - 0.7 international unit/mL, change Heparin UFH Level to once every 24 hours with A.M. labs while on heparin. RN to order required Heparin UFH Level - Per Protocol, Routine 1740 (New Bag - Provider: Saad Donato RN)1930 (Rate/Dose Verify - Provider: Umang Langston RN) 0700 (Rate/Dose Verify - Provider: Verona Campos, UMA)154 (JAN Hold - Provider: Admin Adt - Reason: Transfer to a Procedural area)174 (J[facility] Unhold - Provider: Admin Adt) sodium chloride 0.9% infusion 75 mL/hr, Intravenous, CONTINUOUS, Starting on 07/07/23 at 1030, Until Fri07/08/23 at 1405 1044 (New Bag - Provider: Verona Campos RN)1544 (JAN Hold - Provider: Admin Adt - Reason: Transfer to a Procedural area)174 (JAN Unhold - Provider: Admin Adt) sodium chloride 0.9% infusion () 100 mL/hr, Intravenous, CONTINUOUS, Starting on Fri07/07/23 at 1730, Until Fri07/07/23 at 2329, Recovery (Recovery-Hospital Unit) 1730 (Continued Bag - Provider: Karen Claudio RN) PRN Medication Order 07/06/2023 07/07/2023 07/08/2023 fentaNYL (pf) (50 mcg/mL) multi-dose injection (CANCELED) PRN, Starting on Fri07/07/23 at 1641, Until Fri07/07/23 at 1706, Intra-Operative (Intra-Procedure), Routine 1639 (Given - Provider: Wayne Bah)1641 (Given - Provider: Wayne Bah)1650 (Given - Provider: Wayne Bah)1657 (Given - Provider: Wayne Bah) heparin (porcine) (1,000 units/mL) injection (CANCELED) PRN, Starting on Fri07/07/23 at 1600, Until Fri07/07/23 at 1706, Intra-Operative (Intra-Procedure), Routine 1602 (Given - Provider: Wayne Bah)1637 (Given - Provider: Wayne Bah) iohexoL (Omnipaque) (350 mg/mL) solution (CANCELED) PRN, Starting on Fri07/07/23 at 1704, Until Fri07/07/23 at 1706, Intra-Operative (Intra-Procedure), Routine 1704 (Given - Provider: Angel Wilkerson MD) lidocaine (Xylocaine) 1% (10 mg/mL) injection 3 mg 3 mg (0.3 mL), Subcutaneous, ONCE PRN, 1 dose, Starting on Fri07/04/23 at 1942, Until Fri07/08/23 at 1405, for discomfort with PIV insertion, Routine 1544 (JAN Hold - Provider: Admin Adt - Reason: Transfer to a Procedural area)174 (JAN Unhold - Provider: Admin Adt) midazolam (pf) (Versed) (1 mg/mL) multi-dose injection (CANCELED) PRN, Starting on Fri07/07/23 at 1641, Until Fri07/07/23 at 1706, Intra-Operative (Intra-Procedure), Routine 1640 (Given - Provider: Wayne Bah)1641 (Given - Provider: Wayne Bah)1651 (Given - Provider: Wayne Bah)1657 (Given - Provider: Wayne Bah) nitroGLYcerin (200 mcg/mL) in dextrose 5% 250 mL infusion (CANCELED) CONTINUOUS PRN, Starting on Fri07/07/23 at 1653, Until Fri07/07/23 at 1706, Intra-Operative (Intra-Procedure), Routine 1653 (New Bag - Provider: Wayne Bah)1720 (Stopped - Provider: Karen Claudio RN) nitroGLYcerin (Nitrostat) disintegrating tablet 0.4 mg 0.4 mg, Sublingual, EVERY 5 MIN PRN, Starting on Fri07/04/23 at 1942, Until Fri07/08/23 at 1405, Chest pain, SL nitroglycerin may be repeated every 5 minutes as needed up to 3 doses, Routine 1544 (JAN Hold - Provider: Admin Adt - Reason: Transfer to a Procedural area)1749 ([facility] Unhold - Provider: Admin Adt) nitroGLYcerin 100 mcg/mL intracoronary dilution (CANCELED) PRN, Starting on Fri07/07/23 at 1559, Until Fri07/07/23 at 1706, Intra-Operative (Intra-Procedure), Routine 1559 (Given - Provider: Angel Wilkerson MD) sodium chloride 0.9 % (flush) (BD PosiFlush Normal Saline 0.9) flush 5-20 mL 5-20 mL, Intravenous, EVERY 1 MIN PRN, Starting on Fri07/04/23 at 1942, Until Fri07/08/23 at 1405, flush, Flush pertains to all indwelling lines. Flush per protocol found in the job aid using the link provided on this medication record., Routine 1544 (JAN Hold - Provider: Admin Adt - Reason: Transfer to a Procedural area)1749 (MAR Unhold - Provider: Admin Adt) verapamiL (Isoptin) (2.5 mg/mL) injection (CANCELED) PRN, Starting on Fri07/07/23 at 1559, Until Fri07/07/23 at 1706, Administer over 2 Minutes, Intra-Operative (Intra-Procedure) 1559 (Given - Provider: Angel Wilkerson MD) Linked Groups Order Group 1: nicotine (Nicoderm CQ) 21 mg/24 hr patch 21 mgJump to med 21 mg (1 patch), Transdermal, Administer over 24 Hours, DAILY, First dose on 07/05/23 at 0900, Until Discontinued, Apply new patch to clean, dry, hair-free skin on the upper body or upper outer arm; each patch should be applied to a different site. , Routine And nicotine (Nicoderm CQ) 21 mg/24 hr patch Patch VerificationJump to med Transdermal, 2 TIMES DAILY, First dose on 07/05/23 at 1330, Until Discontinued, Verify nicotine 21 mg/24 hr patch Group 2: heparin (porcine) 50 units/mL in dextrose 5% 500 mL infusion (CANCELED)Jump to med 0-5,000 Units/hr (0-100 mL/hr), Intravenous, CONTINUOUS, Starting on Fri07/04/23 at 2015, Until Fri07/08/23 at 0051, Begin infusion at 1,000 units per hr (12 units/kg/hr). Maximum initial infusion rate is 1,000 units/hr. Infusion doses are rounded to the nearest 50 units. Target Heparin UFH Level (anti-Xa activity) = 0.3 - 0.7 international unit/mL Start adjustment schedule 6 hours after starting infusion. If Heparin UFH Level is: - Less than 0.1 international unit/mL: Administer PRN bolus and increase rate by 350 units per hr (4 units/kg/hr) - 0.1 - 0.19 international unit/mL: Administer PRN bolus and increase rate by 200 units per hr (2 units/kg/hr) - 0.2 - 0.29 international unit/mL: NO BOLUS and increase rate by 200 units per hr (2 units/kg/hr) - 0.3 - 0.7 international unit/mL: No change - 0.71 - 0.79 international unit/mL: NO BOLUS and decrease rate by 100 units per hr (1 units/kg/hr) - 0.8 - 0.99 international unit/mL: NO BOLUS and decrease rate by 200 units per hr (2 units/kg/hr) - Greater than or equal to 1.00 international unit/mL: Hold infusion for 60 minutes then decrease rate by 250 units per hour (3 units/kg/hr) Obtain Heparin UFH Level 6 hours after initiating heparin. Then 6 hours after each dose adjustment. When 2 consecutive Heparin UFH Level within target range of 0.3 - 0.7 international unit/mL, change Heparin UFH Level to once every 24 hours with A.M. labs while on heparin. RN to order required Heparin UFH Level - Per Protocol, Routine And heparin (porcine) (1,000 units/mL) injection 0-4,000 Units (CANCELED) 0-4,000 Units, Intravenous, BOLUS PER HEPARIN PROTOCOL, Starting on Fri07/04/23 at 1922, Until Fri07/08/23 at 0051, Per Protocol, START ADJUSTMENT SCHEDULE 6 HOURS AFTER STARTING INFUSION Bolus doses are rounded to the nearest 100 units. If Heparin UFH Level is: - Less than 0.1 international unit/mL: Bolus 60 units/kg (Maximum of 4,000 units) = Bolus 4,000 units - 0.1 - 0.19 International unit/mL: Bolus 30 units/kg (Maximum of 2,000 units) = Bolus 2,000 units - Equal to or greater than 0.2 international unit/mL: No Bolus, Routine documented in this encounter Care Teams Outsole Cutter Machine Relationship Specialty Start Date End Date Farooq Munoz PA PCP - General General Internal Medicine 07/02/16 documented as of this encounter
--- OUTSIDE RECORDS SUMMARY | 2024-08-11 18:46 | XMS_ITS | Encounter Summary ---
Author Organization [facility] Address [facility] [place] [address] Care Team Providers Care River Rat Name Role Phone Farooq Munoz Primary Care Provider Encounter Details Date Type Department Care Team (Late st Contact Info) Description 07/04/2023 Telephone Cardiology at [address] [phone] Sahra De Leon PA [facility] [place] [address] Social History Tobacco Use Types Packs/Day Years [...] on filedocumented in this encounter Care Teams River Rat Relationship Specialty Start Date End Date Farooq Munoz PA PCP - General General Internal Medicine 07/02/16 documented as of this encounter
--- OUTSIDE RECORDS SUMMARY | 2024-08-11 18:46 | XMS_ITS | Encounter Summary ---
Author Organization [facility] Address [facility] [place] [address] Care Team Providers Care Grill Attendant Name Role Phone Farooq Munoz Primary Care Provider Encounter Details Date Type Department Care Team (Late st Contact Info) Description 07/04/2023 External Results Transfer Center [facility] [place] [address] Social History Tobacco Use Types Packs/Day Years Used Date Smoking Tobacco: Former Cigarettes 1 30 0 06/21/1986 - 06/21/2016 Smokeless Tobacco: Never Alcohol Use Standard Drinks/Week Comments No 0 (1 standard drink = 0.6 oz pur e alcohol) IPV Inpatient Questions Answer Date Recorded Does Anyone [...] Procedure Name Priority Date/Time Associated Diagnosis Comments ECG SCAN Routine 07/04/2023 6:54 AM EDT ECG SCAN Routine 07/04/2023 6:54 AM EDT documented in this encounter Results * Scan Doc: ECG (07/04/2023 6:54 AM EDT) Historical Provider MD SYED MGR SCAN EX T ORDR/RSLT * Scan Doc: ECG (07/04/2023 6:54 AM EDT) Historical Provider MD SYED MGR SCAN EX T ORDR/RSLT documented in this encounter Visit Diagnoses Not on filedocumented in this encounter Care Teams Grill Attendant Relationship Specialty Start Date End Date Farooq Munoz PA PCP - General General Internal Medicine 07/02/16 documented as of this encounter
--- OUTSIDE RECORDS SUMMARY | 2024-08-11 18:46 | XMS_ITS | Encounter Summary ---
[place] [address] Care Team Providers Care High Lift Mule Operator Name Role Phone Farooq Munoz Primary Care Provider [phone] Reason for Referral * Consultation (Routine) - Closed Specialty Diagnoses / Procedures Referred By tSacey t Referred To Contact Diagnoses ACS (acute coronary syndrome) NSTEMI (non-ST elevated myocardial infarction) Katy Keenan APRN [facility] [place] [address] Cardiology, [address] [address] Referral ID Status Reason Start Date Expiration Date V isits Requested Visits Authorized [id number] Closed Consult, Test & Treat Non PCP 07/07/2023 01/03/2024 1 1 Reason for Visit * Auth/Cert (Routine) Specialty Diagnoses / Procedures Referred By Contac t Referred To Contact Diagnoses NSTEMI (non-ST elevated myocardial infarction) NSTEMI Procedures EMERGENCY MARYI [place] Amaya MD [facility] [address] [facility] Referral ID Status Reason Start Date Expiration Date Visits Re quested Visits Authorized [id number] 1 1 Encounter Details Date Type Department Care Team (Latest Contact Info) Description 07/04/2023 6:35 PM EDT - 07/08/2023 11:40 AM EDT Hospital Encounter Heart and Vascular Unit Level 3 [place] [address] Piyush Pastor MD [facility] [place] [address] [place] [address] [place] [address] [place] [address] ACS (acute coronary syndrome); NSTEMI (non-ST elevated myocardial infarction) Discharge Disposition: Home Social History Tobacco Use Types Packs/Day Years Used Date Smoking Tobacco: Former Cigarettes 1 30 0 06/21/1986 - 06/21/2016 Smokeless Tobacco: Never Alcohol Use Standard Drinks/Week Comments No 0 (1 standard drink = 0.6 oz pur e alcohol) DH IPV Inpatient Questions Answer Date Recorded Does [...] Sign Reading Time Taken Comments Blood Pressure 135/81 07/08/2023 7:24 AM EDT Pulse 61 07/08/2023 7:24 AM EDT Temperature 36.3 ??C (97.3 ??F) 07/08/2023 7:24 AM ED T Respiratory Rate 19 07/08/2023 7:24 AM EDT Oxygen Saturation 94% 07/08/2023 7:24 AM EDT Inhaled Oxygen Concentration - - Weight 91 kg (200 lb 9.6 oz) 07/07/2023 3:49 AM EDT Height 182.9 cm (6') 07/07/2023 3:49 AM EDT Body Mass Index 27.21 07/07/2023 3:49 AM EDT documented in this encounter Discharge Summaries * Lam Keenanshahab Harris, HUMAN RESOURCES PROJECT COORDINATOR - 07/08/2023 10:50 AM EDT Images from the original note were not included. Discharge Summary Patient Name: Antonio Pham Patient Age: 52 y.o. Language: Armenian Admit date: 07/04/2023 Discharge date and time: [...] MD Jonathan C Waltman, MD Janette Stender, HUMAN RESOURCES PROJECT COORDINATOR [phone] Discharge Diagnoses (Hospital Problems) and Secondary Diagnoses (Chronic Problems): Active Hospital Problems Diagnosis NSTEMI (non-ST elevated myocardial infarction) Resolved Hospital Problems No resolved problems to display. Active Non-Hospital Problems Diagnosis Atherosclerotic heart disease of kenaitze coronary artery without angina pectoris Lipid disorder [...] HTN, HLD, current smoker who presents to [facility] with chest pain. The patient reports waking [...] angiography. The patient went to the cardiac medical laboratory technical officer for a diagnostic cath on 07/07/23 which [...] 07/07/2023 CREATININE 0.97 07/07/2023 Recent Labs 07/04/23 2040 TSH 1.12 Recent Labs 07/05/23 0200 HA1C 5.6 Recent Labs 07/04/23 2357 07/04/23 2040 TROPONINTHS 123* 134* Lab Results Component Value [...] appointments: During 8am-5pm Friday through Friday call [phone] to speak with a nurse in the cardiology clinic All other times call [phone] and ask to speak to the instrument maker apprentice vendor relationship manager. Return to work: No lifting more than 10 pounds for the next 7 days Driving: No driving for 48 hours after catheterization. Follow up Appointments: PCP DANYA Jimenez [phone] July 18, 2023 at 1:30 pm Cardiology at [facility] Dr. Varela July 31, 2023 11:20 am General Instructions None Future Appointments and Orders Future Orders Complete By Expires Referral to Cardiology [REF12 Custom] As directed Process Instructions: If no progress note charted, please enter Clinical details in comments. Scheduling Instructions: Questions: My question or request is: establish CV care, post inferior STEMI in 2015, now with NSTEMI in 2022 Discharge References/Attachments Low Keenan APRN 07/08/2023 Associated attestation - Emanuel [...] appointments: During 8am-5pm Friday through Friday call [phone] to speak with a nurse in the cardiology clinic All other times call [phone] and ask to speak to the instrument maker apprentice vendor relationship manager. Return to work: No lifting more than 10 pounds for the next 7 days Driving: No driving for 48 hours after catheterization. Follow up Appointments: PCP DANYA Jimenez [phone] July 18, 2023 at 1:30 pm Cardiology at [facility] Dr. Varela July 31, 2023 11:20 am [...] support provided. Nutrition Services was consulted for [facility] diet teaching and Pt was seen at bedside. Pt stated hisappetite was good and when asked, Pt didn't have any questions or concerns about current diet. Pt had consistently excellent ( 75%- 100%) PO intake over past couple days, according to chart. Veneer Layer provided Pt with Guidelines for a heart healthy lifestyle informational booklet. Veneer Layer highlighted main points of the [facility]/cardiac diet. Pt had no nutritional concerns or questions regarding diet at time of education. Veneer Layer contact information was provided and Pt was encouraged to reach out with questions pre-discharge. Active Orders Diet Daily Healthy Menu Choices/Cardiac diet ([facility]-Diet) Frequency: Effective Now Number of Occurrences: Until [...] questions answered at this time Karen Azul Study Director [phone] * Emanuel Farias MD - 07/07/2023 10:28 [...] current chest pressure, SOB, n/v, abd pain. -[place] well walking outside for a short time [...] person, place, and time. Labs: Recent Labs 07/07/23 0346 07/06/23 0200 07/05/23 0200 07/04/23 2040 WBC 7.2 8.5 8.1 10.4* HGB 13.6* 14.4 14.2 14.1 HCT 40.0* 43.3 42.3 41.9 PLATELET 161 199 179 188 MCV 89.1 90.0 88.7 89.7 Recent Labs 07/07/23 0346 07/06/23 0200 07/05/23 0200 07/04/23 204 NA 143 138 143 143 CL 111* [...] 36 LDLCHOL 41 CHOLHDL 2.6 Recent Labs 07/07/23 0346 07/06/23 2344 07/06/23 0200 07/05/23 020 GLUCOSE 106 -- 98 95 POCGLU -- [...] HTN, HLD, current smoker who presented to [facility] with chest pain characterized as a burning sensation, reminiscent of his past heart attack. Patient's troponin and ECG findingc/f NSTEMI. Patient transferred and admitted to [facility] 07/04/23 for further management. Patient reports being chest pain free since admission. #NSTEMI likely type I #History of ASCVD (inferior STEMI 2016 s/p LEIGH to RCA and LCX) #HLD - Telemetry monitoring - HS Troponin 211>>251 at OSH; at [facility] 134 >> 123 - TTE 07/04/23 revealed [...] Score: 24 PT: OT: PCP DANYA Jimenez [phone] Discussed with MD Katy Broderick, CRISTIAN Pager [phone] 07/07/2023 Addendum: Correction from previous attestation. There [...] place, and time. Labs: Recent Labs 07/06/23 0200 07/05/2319907/04/232039 WBC 8.5 8.1 10.4* HGB 14.4 14.2 14.1 HCT 43.3 42.3 41.9 PLATELET 199 179 188 MCV 90.0 88.7 89.7 Recent Labs 07/06/23 0200 07/05/2319907/04/232039 NA 138 143 143 CL 105 109* 108* CO2 26 24 24 K 3.9 4.0 3.5 MAGNESIUM 0.93 -- 0.93 PHOS -- -- 2.4* CALCIUM 9.2 8.7 8.8 BUN 11 11 10 CREATININE 1.08 0.93 0.95 Coags No results for input(s): INR, PT, PTT, DDIMER in the last 168 hours. Cardiac Markers Recent Labs 07/04/23 2357 07/04/232039 TROPONINTHS 123* 134* Endocrine Recent Labs 07/05/2319907/04/232039 TSH -- 1.12 HA1C 5.6 -- Recent Labs 07/05/23199 CHLPL 93 TRIG 78 HDL 36 LDLCHOL 41 CHOLHDL 2.6 Recent Labs 07/06/2319907/05/2319907/04/232039 GLUCOSE 98 95 144 EKG: pending Telemetry: [...] HTN, HLD, current smoker who presented to [facility] with chest pain characterized as a burning sensation, reminiscent of his past heart attack. Patient's troponin and ECG findingc/f NSTEMI. Patient transferred and admitted to [facility] 07/04/23 for further management. Patient reports being chest pain free since admission. #NSTEMI likely type I #History of ASCVD (inferior STEMI 2016 s/p LEIGH to RCA and LCX) #HLD - Telemetry monitoring - HS Troponin 211>>251 at OSH; at [facility] 134 >> 123 - TTE 07/04/23 revealed [...] PRN for chest pain - NPO at [facility] for [facility] tomorrow #HTN - Hold home [...] Score: 24 PT: OT: PCP DANYA Jimenez [phone] * Milagros Rdz MD - 07/06/2023 2:00 PM EDT Images from the original note were not included. [facility] Department of Cardiology Cardiology Consult Note - Follow Up Patient info: Antonio Pham 1970 [id number] DANYA Jimenez Date of Admission: 07/04/2023 ( Hospital Day 2 days ) Reason for Consult: We are consulted at the request of Dr. Zepeda for recommendations regarding evaluation and management of NSTEMI. Patient ID: Antonio Pham is a 52 y.o. male with a history of ASCVD s/p inf STEMI 2015 (LEIGH to RCA + LCX), HTN, HLD, active TUD who presented to [facility] with chest pain, persistent on background of [...] Psych: Cooperative Labs: Recent Labs 07/06/23 0200 07/05/23 0200 07/04/23 2040 WBC 8.5 8.1 10.4* HGB 14.4 14.2 14.1 PLATELET 199 179 188 Recent Labs 07/06/23 0200 07/05/23 0200 07/04/232039 NA 138 143 143 K 3.9 4.0 [...] 168 hours. No results for input(s): PHART, LMA9YUW, PO2ART, KME1GXF in the last 168 hours. Troponin 134 [...] HTN, HLD, active TUD who presented to [facility] with chest pain, persistent on background of [...] Milagros Rdz MD Cardiovascular Medicine Personal Pager #[phone] 07/06/2023 * Geneva Zepeda MD - 07/05/2023 [...] person, place, and time. Labs: Recent Labs 07/05/230 07/04/232039 WBC 8.1 10.4* HGB 14.2 14.1 HCT 42.3 41.9 PLATELET 179 188 MCV 88.7 89.7 Recent Labs 07/05/23 02007/04/232039 NA 143 143 CL 109* 108* CO2 24 24 K 4.0 3.5 MAGNESIUM -- 0.93 PHOS -- 2.4* CALCIUM 8.7 8.8 BUN 11 10 CREATININE 0.93 0.95 Coags No results for input(s): INR, PT, PTT, DDIMER in the last 168 hours. Cardiac Markers Recent Labs 07/04/23 2357 07/04/232039 TROPONINTHS 123* 134* Endocrine Recent Labs 07/04/232039 TSH 1.12 Recent Labs 07/05/23199 CHLPL 93 TRIG 78 HDL 36 LDLCHOL 41 CHOLHDL 2.6 Recent Labs 07/05/23 0200 07/04/232039 GLUCOSE 95 144 EKG: pending Telemetry: I [...] HTN, HLD, current smoker who presented to [facility] with chest pain characterized as a burning sensation, reminiscent of his past heart attack. Patient's troponin and ECG findingc/f NSTEMI. Patient transferred and admitted to [facility] 07/04/23 for further management. Patient reports being chest pain free since admission. #NSTEMI likely type I #History of ASCVD (inferior STEMI 2016 s/p LEIGH to RCA and LCX) #HLD - Telemetry monitoring - HS Troponin 211>>251 at OSH; at [facility] 134 >> 123 - TTE 07/04/23 revealed [...] PRN for chest pain - NPO at [facility] for [facility] tomorrow #HTN - Hold home amlodipine for now, BP wnl #Tobacco use disorder - Nicotine patch daily Fluids: none Electrolytes: replete PRN Diet: Daily Healthy Menu Choices/Cardiac diet ([facility]-Diet) NPO diet (Give Meds) DVT Prophlaxis: heparin gtt GI Prophylaxis: none IS: ordered Code status: Attempt Cardiopulmonary Resuscitation - Inpatient Disposition: Discharge Planning: AM-PAC Basic Mobility Raw Score: 24 PT: OT: PCP DANYA Jimenez [phone] documented in this encounter H&P Notes * [place] Amaya MD - 07/04/2023 7:38 PM EDT Inpatient Hospital Medicine - Admission Note Problem List: Active Hospital Problems Diagnosis NSTEMI (non-ST elevated myocardial infarction) Resolved Hospital Problems No resolved problems to display. Active Non-Hospital Problems Diagnosis Atherosclerotic heart disease of kenaitze coronary artery without angina pectoris Lipid disorder ST elevation (STEMI) myocardial infarction History of Present Illness: 52 y.o with PMH of ASCVD (inferior STEMI 2016 s/p LEIGH to RCA and LCX), HTN, HLD, current smoker whopresents to [facility] with chest pain. The patient reports waking [...] Medical History: ASCVD (inferior STEMI 2016 s/p ELIGH to RCA and LCX), HTN, HLD Prior [...] LCX), HTN, HLD, current smoker whopresents to [facility] with chest pain characterized as a burning [...] PRN for chest pain - NPO at [facility] for possible [facility] tomorrow #HTN - Hold [...] Cardiac Risk Factors: Smoking: yes, quit on Overweight: no Hyperlipidemia: yes Sedentary: somewhat HTN: yes Family history: unknown DM: no Stress: yes Patient Education: Reviewed cardiac cath findings, implications of coronary artery disease, managing angina and risk factor modification. 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 His biggest risk factor is smoking (pipe), approx 1 pack per week. He quit after his last heart attack in 2016 but only made it a few months. We discussed some strategies for coping with triggers. He was given the [place] quit line. Given parameters for home exercise. Reviewed managing angina /use of sl nitroglycerin. Phase II Referral: Participation in the outpatient cardiac rehabilitation program at [facility] was discussed. Patient agrees to a referral [...] Follow-up Care: Contact information for follow-up Cardiology, [facility] [address] [facility] [address] Transportation: family or friend will provide Wheelchair van/Ambulance? No Functional status prior to admission: Independent Home Environment: Others in the home: significant other. Current Living Arrangements: home/apartment/condo. Accessibility Concerns:1 story home 1 RAY; no home accessibility concerns. Current Functional Ability: Independent DME used at home: none DME Needed at Discharge: N/A Patient is insured through: Primary Insurance: [employer] [place] Payor: [place] / Plan[place]ANGE / [...] surrogate would be surrogate decision maker per [place] decision making law. (Only good for 180 days) Any patient receiving care in [place] must abide by [place] law. The hierarchy for surrogate decision making [...] of the patient. Mili Bhandari (significant other) [phone] is SDM (i) The agent with financial power of energy attorney or a conservator appointed in accordance [...] DME: none Home Address confirmed as: [address] [address] Social & Family Supports: All names listed below confirmed with patient as current and correct Extended Emergency Contact Information Primary Emergency Contact: Mili Bhandari Address: [address] [place] [address] [facility] Mobile Relation: Friend Current Care Provided by: [...] Specific Information: N/A Health/Prescription Coverage: Primary Insurance: [place] Pay[place] [employer] [place] / Plan: [employer] [place] EX[place] / Product Type: *No Product type* / Secondary Insurance: N/A ONLY if patient has Medicare A&B - Does this patient have secondary insurance?: (N/A; [place]) ; Prescription Coverage: Yes ([place]) Preferred Pharmacy: [facility] - [place], [place] - [address] [facility] [address] [facility] [address] [facility] - [place], [place] - [address] [facility] [address] [place] [id number] Status: Patient is a : No Primary Care Provider confirmed: DANYA Jimenez [phone] Patient/Caregiver Goals of Treatment: home when MR [...] scanned docs. Heparin drip continuous. Planned for medical laboratory technical officer tomorrow. NPO at midnight. Call wang within [...] from the original note were not included. [facility] Department of Cardiology Initial Cardiology Consult Note Patient info: Antonio Pham 1970 [id number] DANYA Jimenez Date of Admission: 07/04/2023 ( Hospital Day 1 day ) Source: patient Reason for Consult: We are consulted at the request of Dr. Zepeda for recommendations regarding evaluation and management of NSTEMI. Patient ID: Antonio Pham is a 52 y.o. male with a history of ASCVD s/p inf STEMI 2015 (LEIGH to RCA + LCX), HTN, HLD, active TUD who presented to [facility] with chest pain, persistent on background of stuttering for>1 month with evidence of NSTEMI History of Present Illness: Mr. Pham has had recent stuttering chest discomfort that he felt was likely GI, which he describes as burning esophagus pain which was unlike his prior [place] occurring on and off for the past [...] normally Psych: Appropriate, cooperaitve Labs: Recent Labs 07/05/230 07/04/232039 WBC 8.1 10.4* HGB 14.2 14.1 HCT 42.3 41.9 PLATELET 179 188 NEUTROABS 4.33 6.56* Recent Labs 07/05/23 0200 07/04/232039 NA 143 143 K 4.0 3.5 CL 109* 108* CO2 24 24 BUN 11 10 CREATININE 0.93 0.95 Recent Labs 07/05/23 0200 07/04/232039 CALCIUM 8.7 8.8 MAGNESIUM -- 0.93 PHOS [...] HTN, HLD, active TUD who presented to [facility] with chest pain, persistent on background of [...] Milagros Rdz MD Cardiovascular Medicine Personal Pager #[phone] 07/05/2023 * Plan of Care - [place] [...] 3:46 AM EDT DIFFERENTIAL, AUTOMATED Routine 07/07/20 3:46 AM EDT CBC (WITH DIFF) Routine 07/07/2023 3:46 AM EDT MAGNESIUM Routine 07/07/2023 3:46 AM EDT BASIC METABOLIC PANEL Routine 07/07/2023 3:46 AM EDT POCT GLUCOSE Routine 07/06/2023 11:44 PM EDT HEPARIN (UNFRACTIONATED) LEVEL Timed 07/06/2023 2:00 AM EDT HEMOGRAM Routine 07/06/2023 2:00 AM EDT DIFFERENTIAL, AUTOMATED Routine 07/06/20 23 2:00 AM EDT LAVENDER TUBE HOLD Timed [...] 8:40 PM EDT DIFFERENTIAL, AUTOMATED Routine 07/04/20 8:40 PM EDT CBC (WITH DIFF) Routine [...] (Bezet) 434 ms MUSE SYSTEM Calculated P [place] 68 degrees MUSE SYSTEM Calculated R [place] 36 degrees MUSE SYSTEM Calculated T [place] -142 degrees MUSE SYSTEM INTERPRETATION Normal sinus rhythm ST & T wave abnormality, consider anterolateral ischemia Abnormal ECG When compared with ECG of 07-JUL-2023 17:27, No significant change was found I personally reviewed the tracing and edited the fellows interpretation Confirmed by fellow MD Darlene, Fercho ([id number]) on 07/09/2023 3:01:30 PM Confirmed by MD Alvarez Jon ([id number]) on 07/09/2023 4:46:50 PM MUSE SYSTEM 07/08/2023 7:02 AM EDT 07/09/2023 4:46 PM EDT Katy Keenan APRN ECG ORDERABLES Performing Organization Address City/[facility]/ZIP Co de Phone Number MUSE SYSTEM * Magnesium (07/08/2023 2:50 AM EDT) Magnesium 0.69 0.69 - 1.07 mmol/L [facility] Blood 07/08/2023 2:50 AM EDT 07/08/2023 2:59 AM EDT Narrative Resulting Agency Comment Spec In Lab Geneva Zepeda MD CHEMISTRY ORDERABL ES Performing Organization Address [facility] Co de Phone Number [facility] [place] [address] * EKG 12 Lead (07/07/2023 5:27 PM EDT) Ventricular rate 56 BPM MUSE SYSTEM Atrial Rate 56 BPM MUSE SYSTEM P-R Interval 168 ms MUSE SYSTEM QRS Duration 102 ms MUSE SYSTEM Q-T Interval 478 ms MUSE SYSTEM QTC Calculated (Bezet) 461 ms MUSE SYSTEM Calculated P [place] 76 degrees MUSE SYSTEM Calculated R [place] 75 degrees MUSE SYSTEM Calculated T [place] 168 degrees MUSE SYSTEM INTERPRETATION Sinus bradycardia ST & T wave abnormality, consider anterolateral ischemia Prolonged QT Abnormal ECG When compared with ECG of 07-JUL-2023 10:41, No significant change was found Confirmed by MD Whitney, [place] ([id number]) on 07/08/2023 7:39:03 PM MUSE SYSTEM 07/07/2023 5:27 PM EDT 07/08/2023 7:39 PM EDT Emanuel Farias MD ECG ORDERABLES Performing Organization Address [facility] Co de Phone Number MUSE SYSTEM * CARDIAC CATHETERIZATION (07/07/2023 5:10 PM EDT) Anatomical Region Laterality Modality Other Narrative 07/08/2023 9:22 AM EDT ?[facility] ? Cardiac Catheterization/Intervention Report ? Patient Name: Pham, Antonio ? Procedure Date: 07/07/2023 ? A #: [id number] ? Primary Physician: Dana, Mekhi S ? Case #: [id number] ? File Name: [id number] ? Catheterization Order Number: [id number] ? [facility] ? Final Report [place], [place] ? Patient Name: ? Antonio Pham ?ID#: ?[id number] ? : ?1970 ? Procedure Date: ? July 07, 2023 ?Case #: ? [id number] ? Room: ? 1 ? Case Physician: [...] was designated as ?ASA Class III. [facility] clinical frailty scale is 6: Moderately Frail. [...] procedure was Urgent. The indication for ?the medical laboratory technical officer visit is ACS less than or equal [...] 3.75 guiding catheter and a 3.5 Fr [place] 20 Mhz using ?Manual pullback. ??Imaging was successful. ??Image quality was excellent. ?The proximal LAD showed mild diffuse atherosclerotic plaque with no ?significant calcification. ??Measurements were performed after ?pre-dilation. ?Post Intervention: The stent was well expanded and apposed. ?Intravascular Ultrasound was performed in the mid RCA using a 6 Fr JR 4 ?guiding catheter and a 3.5 Fr [place] 20 Mhz using Manual ?pullback. ??Imaging was [...] premounted 3.50 x 26 mm John [place] (LEIGH) was deployed ? with a maximum [...] ??A ? premounted 2.00 x 15 mm [place] (LEIGH) was deployed with ? a maximum [...] ??A ? premounted 4.00 x 22 mm [place] (LEIGH) was deployed with ? a maximum [...] dose administered prior to arrival in the medical laboratory technical officer. ?Recommended anti-platelet/anti-thrombotic regimen: ?Continue aspirin 81 mg daily for 12 months then stop. ?Continue clopidogrel 75 mg daily for indefinitely. ?These recommendations are made at the time of the intervention. Patient ?and provider preferences or a changing clinical situation may require ?modification of this regimen. Consult [facility] Interventional Cardiology for ?questions. ?This patient has [...] against any medical treatment. Consult ?http://tools.acc.org/DAPTriskapp/#!/content/calculator/ or [facility] ?Interventional Cardiology for questions ? Conclusions: ?* [...] EKG 12 Lead (07/07/2023 10:41 AM EDT) Pathologist [facility] Ventricular rate 58 BPM MUSE SYSTEM Atrial Rate 58 BPM MUSE SYSTEM P-R Interval 148 ms MUSE SYSTEM QRS Duration 96 ms MUSE SYSTEM Q-T Interval 442 ms MUSE SYSTEM QTC Calculated (Bezet) 433 ms MUSE SYSTEM Calculated P [place] 61 degrees MUSE SYSTEM Calculated R [place] 36 degrees MUSE SYSTEM Calculated T [place] 167 degrees MUSE SYSTEM INTERPRETATION Sinus bradycardia ST & T wave abnormality, consider anterolateral ischemia Abnormal ECG When compared with ECG of 05-JUL-2023 17:15, Nonspecific T wave abnormality has replaced inverted T waves in Inferior leads Confirmed by MD Antonio, Iam ([id number]) on 07/07/2023 4:10:02 PM MUSE SYSTEM 07/07/2023 10:4 1 AM EDT 07/07/2023 4:10 PM EDT Katy Keenan APRN ECG ORDERABLES MUSE SYSTEM * Differential, Automated (07/07/2023 3:46 AM EDT) Neutrophil % 47.4 % [facility] Neutrophil Absolute 3.43 1.70 - 6.10 x10(3)/[facility] Lymph % 36.5 % [facility] Lymphocytes Abs 2.6 0.9 - 3.2 x10(3)/[facility] HOSPITAL LAB[facility] Monocyte % 11.3 % [facility] Monocyte Abs 0.8 0.3 - 0.9 x10(3)/[facility] Eos % 3.5 % [facility] Eosinophils Abs 0.2 0.0 - 0.4 x10(3)/[facility] Basophil % 1.2 % [facility] Baso Absolute 0.1 0.0 - 0.1 x10(3)/[facility] Immature Gran % 0.10 % [facility] Comment: Immature granulocytes(IG's)percentage and absolute count will include metamyelocytes, myelocytes, and promyelocytes. Blood smears from CBCs yielding IG's will be scanned manually for concordance. If this scan disagrees with the automated IG or if promyelocytes are noted, a manual differential will be performed. Immature Gran Absolute 0.01 0.00 - 0.04 x10(3)/[facility] Blood 07/07/2023 3:46 AM EDT 07/07/2023 3:55 AM EDT Narrative Resulting Agency Comment Spec In Lab [place] Amaya MD HEMATOLOGY ORDERABLE S [facility] [place] [address] * (ABNORMAL) Hemogram (07/07/2023 3:46 AM EDT) White Blood Cell 7.2 4.0 - 9.5 x10(3)/mc L [facility] Red Blood Cell 4.49(L) 4.58 - 5.54 x10(6)/mc L [facility] Hemoglobin 13.6(L) 13.7 - 16.5 g/dL [facility] Hematocrit 40.0(L) 40.5 - 48.5 % [facility] Mean Cell Volume 89.1 82.9 - 93.1 fL [facility] Mean Cell Hemoglobin 30.3 27.5 - 32.1 pg [facility] Mean Cell Hemoglobin Concentration 34.0 32.0 - 35.7 g/dL [facility] Platelet 161 145 - 357 x10(3)/mc L [facility] RDW Standard Deviation 41.6 36.0 - 45.0 fL [facility] RDW coefficient of variation 12.7 11.4 - 13.8 % [facility] Mean Platelet Volume 9.5 7.6 - 12.9 fL [facility] NRBC% auto 0.0 % [facility] NRBC Absolute 0.000 0.000 - 0.000 x10(3)/mc L [facility] Blood 07/07/2023 3:46 AM EDT 07/07/2023 3:55 AM EDT Narrative Resulting Agency Comment Spec In Lab [place] Amaya MD HEMATOLOGY ORDERABLE S Performing Organization Address City/[facility]/ZIP Co de Phone Number [facility] [place] [address] * Heparin (unfractionated) Level (07/07/2023 3:46 AM EDT) UF Heparin 0.42 IU/mL [facility] Comment: Heparin (anti-Xa) levels should be [...] MD HEMATOLOGY ORDERABLE S Performing Organization Address City/[facility]/ZIP Co de Phone Number [facility] [place] [address] * Magnesium (07/07/2023 3:46 AM EDT) Magnesium 0.80 0.69 - 1.07 mmol/L [facility] Blood 07/07/2023 3:46 AM EDT 07/07/2023 3:55 AM EDT Narrative Resulting Agency Comment Spec In Lab [place] Zepeda MD CHEMISTRY ORDERABL ES [facility] [place] [address] * (ABNORMAL) Basic Metabolic Panel (non-fasting) (07/07/2023 3:46 AM EDT) Glucose 106 65 - 199 mg/dL [facility] Comment:Diabetes: >=200 mg/d L plus symptoms Blood Urea Nitrogen 12 10 - 20 mg/dL [facility] Creatinine 0.97 0.80 - 1.50 mg/dL [facility] Sodium 143 135 - 145 mmol/L [facility] Potassium 3.8 3.5 - 5.0 mmol/L [facility] Comment: Please note: ??Patients with WBC >100,000 may have falsely elevated Potassium levels. ??For accurate Potassium quantification in these patients send serum separator tube (gold top) for subsequent determinations. ??Contact the Clinical Chemistry Laboratory if there are any questions. Chloride 111(H) 98 - 107 mmol/L [facility] Carbon Dioxide 23 22 - 31 mmol/L [facility] Anion Gap 9 5 - 15 mmol/L [facility] Calcium 7.9(L) 8.5 - 10.5 mg/dL [facility] Comment:result rechecked-JSJ Est Glomerular Filtration Rate 93 >=60 mL/min/1. 73 m?? [facility] Comment: This patient's estimated GFR [...] Amaya MD CHEMISTRY ORDERABLES Performing Organization Address [facility] Co de Phone Number [facility] [place] [address] * POCT Glucose (07/06/2023 11:44 PM EDT) Glucose, POC 134 65 - 199 mg/dL [facility] Comment: Supplemental ranges: <140 mg/dL before meals <180 mg/dL all other times of the day Blood 07/06/2023 11:4 4 PM EDT 07/06/2023 11:44 PM EDT Milagros Rdz MD POINT OF CARE TEST O RDERABLES Performing Organization Address [facility] Co de Phone Number [facility] [place] [address] * Lavender Tube HOLD (07/06/2023 2:00 AM EDT) Lavender Hold Sample in lab. [facility] Blood Venous Draw / Unknown 07/06/2023 2:00 AM EDT 07/06/2023 2:12 AM EDT [place] Amaya MD HEMATOLOGY ORDERABLE S Performing Organization Address [facility] Co de Phone Number [facility] [place] [address] * Differential, Automated (07/06/2023 2:00 AM EDT) Neutrophil % 50.9 % [facility] Neutrophil Absolute 4.32 1.70 - 6.10 x10(3)/[facility] Lymph % 33.7 % [facility] Lymphocytes Abs 2.9 0.9 - 3.2 x10(3)/[facility] Monocyte % 10.5 % [facility] Monocyte Abs 0.9 0.3 - 0.9 x10(3)/[facility] Eos % 3.5 % [facility] Eosinophils Abs 0.3 0.0 - 0.4 x10(3)/[facility] Basophil % 1.2 % [facility] Baso Absolute 0.1 0.0 - 0.1 x10(3)/[facility] Immature Gran % 0.20 % [facility] Comment: Immature granulocytes(IG's)percentage and absolute count will include metamyelocytes, myelocytes, and promyelocytes. Blood smears from CBCs yielding IG's will be scanned manually for concordance. If this scan disagrees with the automated IG or if promyelocytes are noted, a manual differential will be performed. Immature Gran Absolute 0.02 0.00 - 0.04 x10(3)/[facility] Blood 07/06/2023 2:00 AM EDT 07/06/2023 2:11 AM EDT Narrative Resulting Agency Comment Spec In Lab [place] Amaya MD HEMATOLOGY ORDERABLE S Performing Organization Address City/State/[facility] Co de Phone Number [facility] [place] [address] * Hemogram (07/06/2023 2:00 AM EDT) White Blood Cell 8.5 4.0 - 9.5 x10(3)/[facility] Red Blood Cell 4.81 4.58 - 5.54 x10(6)/[facility] Hemoglobin 14.4 13.7 - 16.5 g/dL [facility] Hematocrit 43.3 40.5 - 48.5 % [facility] Mean Cell Volume 90.0 82.9 - 93.1 fL [facility] Mean Cell Hemoglobin 29.9 27.5 - 32.1 pg [facility] Mean Cell Hemoglobin Concentration 33.3 32.0 - 35.7 g/dL [facility] Platelet 199 145 - 357 x10(3)/[facility] RDW Standard Deviation 40.7 36.0 - 45.0 fL [facility] RDW coefficient of variation 12.3 11.4 - 13.8 % [facility] Mean Platelet Volume 9.9 7.6 - 12.9 fL [facility] NRBC% auto 0.0 % [facility] NRBC Absolute 0.000 0.000 - 0.000 x10(3)/mcL [facility] Blood 07/06/2023 2:00 AM EDT 07/06/2023 2:11 AM EDT Narrative Resulting Agency Comment Spec In Lab [place] Amaya MD HEMATOLOGY ORDERABLE S Performing Organization Address City/[facility]/ZIP Co de Phone Number [facility] [place] [address] * Heparin (unfractionated) Level (07/06/2023 2:00 AM EDT) UF Heparin 0.38 IU/mL [facility] Comment: Heparin (anti-Xa) levels should [...] MD HEMATOLOGY ORDERABLE S Performing Organization Address City/[facility]/ZIP Co de Phone Number [facility] [place] [address] * Magnesium (07/06/2023 2:00 AM EDT) Magnesium 0.93 0.69 - 1.07 mmol/L [facility] Blood 07/06/2023 2:00 AM EDT 07/06/2023 2:11 AM EDT Narrative Resulting Agency Comment Spec In Lab [place] Zepeda MD CHEMISTRY ORDERABL ES Performing Organization Address City/[facility] Co de Phone Number [facility] [address] * Basic Metabolic Panel (non-fasting) (07/06/2023 2:00 AM EDT) Glucose 98 65 - 199 mg/dL [facility] Comment:Diabetes: >=200 mg/d L plus symptoms Blood Urea Nitrogen 11 10 - 20 mg/dL [facility] Creatinine 1.08 0.80 - 1.50 mg/dL [facility] Sodium 138 135 - 145 mmol/L [facility] Potassium 3.9 3.5 - 5.0 mmol/L [facility] Comment: Please note: ??Patients with WBC >100,000 may have falsely elevated Potassium levels. ??For accurate Potassium quantification in these patients send serum separator tube (gold top) for subsequent determinations. ??Contact the Clinical Chemistry Laboratory if there are any questions. Chloride 105 98 - 107 mmol/L [facility] Carbon Dioxide 26 22 - 31 mmol/L [facility] Anion Gap 7 5 - 15 mmol/L [facility] Calcium 9.2 8.5 - 10.5 mg/dL [facility] Est Glomerular Filtration Rate 82 >=60 mL/min/1. 73 m?? [facility] Comment: This patient's estimated GFR [...] Amaya MD CHEMISTRY ORDERABLES Performing Organization Address City/State/[facility] Co de Phone Number [facility] [place] [address] * Heparin (unfractionated) Level (07/05/2023 8:16 PM EDT) Pathologist [facility] UF Heparin 0.26 IU/mL [facility] Comment: Heparin (anti-Xa) levels [...] MD HEMATOLOGY ORDERABLE S Performing Organization Address [facility] Co de Phone Number [facility] [place] [address] * EKG 12 Lead (07/05/2023 5:15 PM EDT) Pathologist [facility] Ventricular rate 53 BPM MUSE SYSTEM Atrial Rate 53 BPM MUSE SYSTEM P-R Interval 144 ms MUSE SYSTEM QRS Duration 100 ms MUSE SYSTEM Q-T Interval 482 ms MUSE SYSTEM QTC Calculated (Bezet) 452 ms MUSE SYSTEM Calculated P [place] 76 degrees MUSE SYSTEM Calculated R [place] 74 degrees MUSE SYSTEM Calculated T [place] -124 degrees MUSE SYSTEM INTERPRETATION Sinus bradycardia [...] Anterolateral leads Confirmed by MD Rdz Danette ([id number]) on 07/07/2023 8:40:36 AM MUSE SYSTEM 07/05/2023 5:15 PM EDT 07/07/2023 8:40 AM EDT [place] Zepeda MD ECG ORDERABLES MUSE SYSTEM * Heparin (unfractionated) Level (07/05/2023 2:14 PM EDT) UF Heparin 0.40 IU/mL [facility] Comment: Heparin (anti-Xa) levels [...] MD HEMATOLOGY ORDERABLE S Performing Organization Address City/[facility]/ZIP Co de Phone Number [facility] [place] [address] * Heparin (unfractionated) Level (07/05/2023 8:39 AM EDT) UF Heparin 0.27 IU/mL [facility] Comment: Heparin (anti-Xa) levels [...] Lab [place] Amaya MD HEMATOLOGY ORDERABLE S [facility] [place] [address] * Hemoglobin A1c (07/05/2023 2:00 AM EDT) Hemoglobin A1c 5.6 4.3 - 5.6 % [facility] Comment: Reference Range: 4.3 - [...] Mellitus, Diabetes Care 2013; 36: Suppl. 1, X87-57 Estimated Average Glucose 115 mg/dL [facility] Comment: eAG equivalents for HbA1c [...] into estimated average glucose values. ??Diabetes Care 2008:31(8):8761-3789. Blood Venous Draw / Unknown 07/05/2023 2:00 AM EDT 07/05/2023 4:38 PM EDT Narrative Resulting Agency Comment Spec In Lab [place] Zepeda MD CHEMISTRY ORDERABL ES Performing Organization Address [facility] Co de Phone Number [facility] [address] * Lavender Tube HOLD (07/05/2023 2:00 AM EDT) Lavender Hold Sample in lab. [facility] Blood Venous Draw / Unknown 07/05/2023 2:00 AM EDT 07/05/2023 2:11 AM EDT [place] Amaya MD HEMATOLOGY ORDERABLE S Performing Organization Address [facility] [place] [address] * Differential, Automated (07/05/2023 2:00 AM EDT) Neutrophil % 53.3 % [facility] Neutrophil Absolute 4.33 1.70 - 6.10 x10(3)/[facility] Lymph % 31.2 % [facility] Lymphocytes Abs 2.5 0.9 - 3.2 x10(3)/[facility] Monocyte % 10.4 % [facility] Monocyte Abs 0.8 0.3 - 0.9 x10(3)/[facility] Eos % 3.8 % [facility] Eosinophils Abs 0.3 0.0 - 0.4 x10(3)/[facility] Basophil % 1.1 % [facility] Baso Absolute 0.1 0.0 - 0.1 x10(3)/[facility] Immature Gran % 0.20 % [facility] Comment: Immature granulocytes(IG's)percentage and absolute count will include metamyelocytes, myelocytes, and promyelocytes. Blood smears from CBCs yielding IG's will be scanned manually for concordance. If this scan disagrees with the automated IG or if promyelocytes are noted, a manual differential will be performed. Immature Gran Absolute 0.02 0.00 - 0.04 x10(3)/[facility] Blood 07/05/2023 2:00 AM EDT 07/05/2023 2:11 AM EDT Narrative Resulting Agency Comment Spec In Lab [place] Amaya MD HEMATOLOGY ORDERABLE S [facility] [place] [address] * Hemogram (07/05/2023 2:00 AM EDT) White Blood Cell 8.1 4.0 - 9.5 x10(3)/[facility] Red Blood Cell 4.77 4.58 - 5.54 x10(6)/[facility] Hemoglobin 14.2 13.7 - 16.5 g/dL [facility] Hematocrit 42.3 40.5 - 48.5 % [facility] Mean Cell Volume 88.7 82.9 - 93.1 fL [facility] Mean Cell Hemoglobin 29.8 27.5 - 32.1 pg [facility] Mean Cell Hemoglobin Concentration 33.6 32.0 - 35.7 g/dL [facility] Platelet 179 145 - 357 x10(3)/[facility] RDW Standard Deviation 40.7 36.0 - 45.0 fL [facility] RDW coefficient of variation 12.4 11.4 - 13.8 % [facility] Mean Platelet Volume 9.7 7.6 - 12.9 fL [facility] NRBC% auto 0.0 % [facility] NRBC Absolute 0.000 0.000 - 0.000 x10(3)/[facility] Blood 07/05/2023 2:00 AM EDT 07/05/2023 2:11 AM EDT Narrative Resulting Agency Comment Spec In Lab [place] Amaya MD HEMATOLOGY ORDERABLE S Performing Organization Address City/[facility]/ZIP Co de Phone Number [facility] [place] [address] * Heparin (unfractionated) Level (07/05/2023 2:00 AM EDT) UF Heparin 0.31 IU/mL [facility] Comment: Heparin (anti-Xa) levels should be [...] MD HEMATOLOGY ORDERABLE S Performing Organization Address [facility]/ZIP Co de Phone Number [facility] [place] [address] * Lipid Panel (Reflex Direct LDL) (07/05/2023 2:00 AM EDT) Cholesterol, Total 93 mg/dL [facility] Comment: Lower Risk: <200 mg/dL Average Risk: 200-239 mg/dL Higher Risk: >ym=060 mg/dL Triglyceride 78 mg/dL [facility] Comment: Average Risk/Lower Risk: <150 mg/dL Borderline High Risk: 150-199 mg/dL High Risk: 200-499 mg/dL Very High Risk: >rj=338 mg/dL HDL Cholesterol 36 mg/dL [facility] Comment: Males: ?? Higher Risk: <40 mg/dL Females: ?? Higher Risk: <50 mg/dL LDL Cholesterol 41 mg/dL [facility] Comment: Lowest Risk: <100 mg/dL Lower Risk: 100-129 mg/dL Borderline High Risk: 130-159 mg/dL High Risk: 160-189 mg/dL Very High Risk: >tm=271 mg/dL Cholesterol/HDL Ratio 2.6 ratio [facility] Lipid Interpretation See Note [facility] Comment: Lipid management should be guided by a patient? s ASCVD risk, goals and preferences. ACC/AHA Guidelines recommend high intensity statin if clinical ASCVD or LDL greater than or equal to 190 mg/dL. http://[email or web address].com/ANZ-QKL-Vkyskmiuz Adults aged 40-75 with LDL 70-189 mg/dL should have their 10 year ASCVD risk estimated with the ACC/AHA ASCVD risk lumber estimator http://tools.acc.org/LLTDZ-Rnlm-Jhrfeenza/ Statin should be discussed if risk greater [...] In Lab [place] Amaya MD CHEMISTRY ORDERABLES [facility] [place] [address] * (ABNORMAL) Basic Metabolic Panel (non-fasting) (07/05/2023 2:00 AM EDT) Glucose 95 65 - 199 mg/dL [facility] Comment:Diabetes: >=200 mg/d L plus symptoms Blood Urea Nitrogen 11 10 - 20 mg/dL [facility] Creatinine 0.93 0.80 - 1.50 mg/dL [facility] Sodium 143 135 - 145 mmol/L [facility] Potassium 4.0 3.5 - 5.0 mmol/L [facility] Comment: Please note: ??Patients with WBC >100,000 may have falsely elevated Potassium levels. ??For accurate Potassium quantification in these patients send serum separator tube (gold top) for subsequent determinations. ??Contact the Clinical Chemistry Laboratory if there are any questions. Chloride 109(H) 98 - 107 mmol/L [facility] Carbon Dioxide 24 22 - 31 mmol/L [facility] Anion Gap 10 5 - 15 mmol/L [facility] Calcium 8.7 8.5 - 10.5 mg/dL [facility] Est Glomerular Filtration Rate 98 >=60 mL/min/1. 73 m?? [facility] Comment: This patient's estimated GFR [...] Amaya MD CHEMISTRY ORDERABLES Performing Organization Address City/State/[facility] Co de Phone Number [facility] [place] [address] * (ABNORMAL) Troponin (07/04/2023 11:57 PM EDT) Troponin-T, High Sensitivity 123(H) <=22 ng/L [facility] Comment: This patient's troponin T [...] troponin value can be found in the [facility] Test Catalog Troponin - [facility] Test Catalog Reference: Fourth [place] Definition of Myocardial Infarction. Journal of the [place] [employer] 2018;72:2045-9975 Blood 07/04/2023 11:5 7 PM EDT 07/05/2023 12:06 AM EDT Narrative Resulting Agency Comment Spec In Lab [place] Amaya MD CHEMISTRY ORDERABLES [facility] [place] [address] * (ABNORMAL) Differential, Automated (07/04/2023 8:40 PM EDT) Neutrophil % 62.9 % [facility] Neutrophil Absolute 6.56(H) 1.70 - 6.10 x10(3)/mc L [facility] Lymph % 23.8 % [facility] Lymphocytes Abs 2.5 0.9 - 3.2 x10(3)/mc L [facility] Monocyte % 9.9 % [facility] Monocyte Abs 1.0(H) 0.3 - 0.9 x10(3)/mc L [facility] Eos % 2.2 % [facility] Eosinophils Abs 0.2 0.0 - 0.4 x10(3)/mc L [facility] Basophil % 1.0 % [facility] Baso Absolute 0.1 0.0 - 0.1 x10(3)/mc L [facility] Immature Gran % 0.20 % [facility] Comment: Immature granulocytes(IG's)percentage and absolute count will include metamyelocytes, myelocytes, and promyelocytes. Blood smears from CBCs yielding IG's will be scanned manually for concordance. If this scan disagrees with the automated IG or if promyelocytes are noted, a manual differential will be performed. Immature Gran Absolute 0.02 0.00 - 0.04 x10(3)/ L [facility] Blood 07/04/2023 8:40 PM EDT 07/04/2023 8:51 PM EDT Narrative Resulting Agency Comment Spec In Lab [place] Amaya MD HEMATOLOGY ORDERABLE S [facility] [place] [address] * (ABNORMAL) Hemogram (07/04/2023 8:40 PM EDT) White Blood Cell 10.4(H) 4.0 - 9.5 x10(3)/ L [facility] Red Blood Cell 4.67 4.58 - 5.54 x10(6)/[facility] Hemoglobin 14.1 13.7 - 16.5 g/dL [facility] Hematocrit 41.9 40.5 - 48.5 % [facility] Mean Cell Volume 89.7 82.9 - 93.1 fL [facility] Mean Cell Hemoglobin 30.2 27.5 - 32.1 pg [facility] Mean Cell Hemoglobin Concentration 33.7 32.0 - 35.7 g/dL [facility] Platelet 188 145 - 357 x10(3)/ L [facility] RDW Standard Deviation 41.0 36.0 - 45.0 fL [facility] RDW coefficient of variation 12.5 11.4 - 13.8 % [facility] Mean Platelet Volume 9.8 7.6 - 12.9 fL [facility] NRBC% auto 0.0 % [facility] NRBC Absolute 0.000 0.000 - 0.000 x10(3)/ L [facility] Blood 07/04/2023 8:40 PM EDT 07/04/2023 8:51 PM EDT Narrative Resulting Agency Comment Spec In Lab [place] Amaya MD HEMATOLOGY ORDERABLE S Performing Organization Address [facility] Co de Phone Number [facility] [place] [address] * (ABNORMAL) Phosphorus (07/04/2023 8:40 PM EDT) Phosphorus 2.4(L) 2.5 - 4.5 mg/dL [facility] Blood 07/04/2023 8:40 PM EDT 07/04/2023 8:51 PM EDT Narrative Resulting Agency Comment Spec In Lab [place] Amaya MD CHEMISTRY ORDERABLES Performing Organization Address [facility] Co de Phone Number [facility] [place] [address] * Magnesium (07/04/2023 8:40 PM EDT) Magnesium 0.93 0.69 - 1.07 mmol/L [facility] Blood 07/04/2023 8:40 PM EDT 07/04/2023 8:51 PM EDT Narrative Resulting Agency Comment Spec In Lab [place] Amaya MD CHEMISTRY ORDERABLES Performing Organization Address [facility] Co de Phone Number [facility] [place] [address] * TSH (07/04/2023 8:40 PM EDT) Thyroid Stimulating Hormone 1.12 0.27 - 4.20 mcIU/mL [facility] Comment: Reference Interval (mcIU/mL): Females: ??First Trimester: 0.23-3.88 ??Second Trimester: 0.22-3.90 ??Third Trimester: 0.44-4.66 Blood 07/04/2023 8:40 PM EDT 07/04/2023 8:51 PM EDT Narrative Resulting Agency Comment Spec In Lab [place] Amaya MD CHEMISTRY ORDERABLES [facility] [place] [address] * (ABNORMAL) Troponin (07/04/2023 8:40 PM EDT) Troponin-T, High Sensitivity 134(H) <=22 ng/L [facility] Comment: This patient's troponin T [...] troponin value can be found in the [facility] Test Catalog Troponin - [facility] Test Catalog Reference: Fourth [place] Definition of Myocardial Infarction. Journal of the [place] [employer] 2018;72:1366-3884 Blood 07/04/2023 8:40 PM EDT 07/04/2023 8:51 PM EDT Narrative Resulting Agency Comment Spec In Lab [place] Amaya MD CHEMISTRY ORDERABLES [facility] [place] [address] * (ABNORMAL) Comprehensive metabolic panel (non-fasting) (07/04/2023 8:40 PM EDT) Glucose 144 65 - 199 mg/dL [facility] Comment:Diabetes: >=200 mg/d L plus symptoms Blood Urea Nitrogen 10 10 - 20 mg/dL [facility] Creatinine 0.95 0.80 - 1.50 mg/dL [facility] Sodium 143 135 - 145 mmol/L [facility] Potassium 3.5 3.5 - 5.0 mmol/L [facility] Comment: Please note: ??Patients with WBC >100,000 may have falsely elevated Potassium levels. ??For accurate Potassium quantification in these patients send serum separator tube (gold top) for subsequent determinations. ??Contact the Clinical Chemistry Laboratory if there are any questions. Chloride 108(H) 98 - 107 mmol/L [facility] Carbon Dioxide 24 22 - 31 mmol/L [facility] Anion Gap 11 5 - 15 mmol/L [facility] Calcium 8.8 8.5 - 10.5 mg/dL [facility] Protein, Total 6.3 6.1 - 8.0 g/dL [facility] Albumin 4.0 3.2 - 5.2 g/dL [facility] Aspartate Aminotransferase 18 0 - 39 unit/L [facility] Alanine Aminotransferase 14 0 - 55 unit/L [facility] Alkaline Phosphatase 73 40 - 130 unit/L [facility] Bilirubin, Total 0.6 0.2 - 1.3 mg/dL [facility] Est Glomerular Filtration Rate 95 >=60 mL/min/1. 73 m?? [facility] Comment: This patient's estimated GFR [...] In Lab [place] Amaya MD CHEMISTRY ORDERABLES [facility] [address] [facility] [address] [place] [address] documented in this encounter Visit Diagnoses Diagnosis NSTEMI (non-ST elevated myocardial infarction)- Primary Acute myocardial infarction, subendocardial infarction, episode of care unspecified ACS (acute coronary syndrome) Intermediate coronary syndrome NSTEMI (non-ST elevated myocardial infarction) Acute myocardial infarction, subendocardial infarction, episode of care unspecified documented in this encounter Admitting Diagnoses Diagnosis NSTEMI [...] Given 07/06/2023 8:33 AM EDT 75 mg heparin (porcine) 50 units/mL in dextrose 5% 500 mL infusion 0-5,000 Units/hr (0-100 mL/hr), Intravenous, CONTINUOUS, Starting on Fri07/04/23 at 2015, Until Fri07/08/23 at 50, Begin infusion at 1,000 units per hr [...] Heparin UFH Level - Per Protocol, Routine Rate/Dose Verify 07/07/2023 7:00 AM EDT 1,200 Units/hr 24 mL/hr Rate/Dose Verify 07/06/2023 7:30 PM EDT 1,200 Units/hr 24 mL/hr New Bag 07/06/2023 5:40 PM EDT 1,200 Units/hr 24 mL/hr magnesium sulfate 1 g in dextrose 5% 100 mL infusion 1 g, Intravenous, ONCE, 1 dose, On Fri07/08/23 at 0430, Administer over 60 Minutes New Bag 07/08/2023 4:33 AM EDT 1 g 100 mL/hr metoprolol succinate XL (Toprol-XL) tablet 50 mg 50 mg, Oral, DAILY, First dose on Fri07/04/23 at 2030, Until Discontinued, DO NOT CRUSH OR OPEN, Routine Given 07/08/2023 10:36 AM EDT 50 mg Given 07/07/2023 8:54 AM EDT 50 mg Given 07/06/2023 8:33 AM EDT 50 mg nicotine (Nicoderm CQ) 21 mg/24 hr [...] Discontinued, Verify nicotine 21 mg/24 hr patch senna-docusate (Pericolace) 8.6-50 mg per tablet 2 [...] 10:44 AM EDT 75 mL/hr 75 mL/hr sodium chloride 0.9% infusion 100 mL/hr, Intravenous, CONTINUOUS, Starting on Fri07/07/23 at 1730, Until Fri07/07/23 at 2329, Recovery (Recovery-Hospital Unit) Continued Bag 07/07/2023 5:30 PM EDT 100 mL/hr 100 mL/hr documented in this encounter Active and Recently Administered Medications Times are shown in EDT. Scheduled Medication Order 07/06/2023 07/07/2023 07/08/2023 aspirin EC tablet 81 mg 81 mg, Oral, DAILY, First dose on Fri07/05/23 at 0900, Until Discontinued, Routine 0834 (Given - Provider: Saad Donato RN) 0854 (Given - Provider: Verona Campos, UMA)1544 ([facility] Hold - Provider: Admin Adt - Reason: [...] 1036 (Given - Provider: Rivka Parada RN) clopidogreL (Plavix) tablet 75 mg 75 mg, Oral, DAILY, First dose on Fri07/05/23 at 0900, Until Discontinued, Routine 0833 (Given - Provider: Saad Donato RN) 0854 (Given - Provider: Verona Campos RN)1544 (MAR Hold [...] 0854 (Given - Provider: Verona Campos, UMA)1544 (JAN Hold - Provider: Admin Adt - Reason: Transfer to a Procedural area)1749 (JAN Unhold - Provider: Admin Adt) 1036 (Given [...] (Patch Removed - Provider: Verona Campos RN)1544 (JAN Hold - Provider: Admin Adt - Reason: Transfer to a Procedural area)1749 (JAN Unhold - Provider: Admin Adt) 0852 (Patch [...] location) verified - Provider: Verona Campos RN)1544 (JAN Hold - Provider: Admin Adt - Reason: Transfer to a Procedural area)1749 (JAN Unhold - Provider: Admin Adt)2100 (Patch (dose and location) verified - Provider: Umang Langston RN) 0900 (Patch (dose and location) verified - Provider: Rivka Parada RN) senna-docusate (Pericolace) 8.6-50 mg per tablet 2 tablet 2 tablet, Oral, 2 TIMES DAILY, First dose on Fri07/04/23 at 2100, Until Discontinued, Hold for loose stool. , Routine 0833 (Given - Provider: Saad Donato RN)2044 (Given - Provider: Umang Langston RN) 0900 (Not Given - Provider: Verona Campos RN - Reason: Patient/family refused)1544 (MAR Hold - Provider: Admin Adt - Reason: Transfer to a Procedural area)1749 (MAR Unhold - Provider: Admin Adt)2100 (Not Given - Provider: Umang Langston RN - Reason: Patient/family refused) 0900 (Not Given - Provider: Rivka Parada RN - Reason: Patient/family refused) sodium chloride 0.9 % (flush) (BD PosiFlush Normal Saline 0.9) flush 5 mL 5 mL, Intravenous, 2 TIMES DAILY, First dose on Fri07/04/23 at 2100, Until Discontinued, Routine 0835 (Given - Provider: Saad Donato RN)2044 (Given - Provider: Umang Langston RN) 0856 (Given - Provider: Verona Campos, UMA)1544 (MAR Hold - Provider: Admin Adt - Reason: Transfer to a Procedural area)1749 (MAR Unhold - Provider: Admin Adt)2100 (Given - Provider: Umang Langston RN) 0900 (Not Given - Provider: Rivka Parada RN - Reason: Patient/family refused) Continuous Medication Order 07/06/2023 07/07/2023 07/08/2023 heparin (porcine) 50 units/mL in dextrose 5% 500 mL infusion (CANCELED)(Linked Group 2) 0-5,000 Units/hr (0-100 mL/hr), Intravenous, CONTINUOUS, Starting on Fri07/04/23 at 2015, Until Fri07/08/23 at 005, Begin infusion at 1,000 units per hr [...] RN) 0700 (Rate/Dose Verify - Provider: Verona Campos RN)1544 (JAN Hold - Provider: Admin Adt - Reason: Transfer to a Procedural area)174 (JAN Unhold - Provider: Admin Adt) sodium chloride 0.9% infusion 75 mL/hr, Intravenous, CONTINUOUS, Starting on Fri07/07/23 at 1030, Until Fri07/08/23 at 1405 1044 [...] - Reason: Transfer to a Procedural area)1749 (JAN Unhold - Provider: Admin Adt) midazolam [...] needed up to 3 doses, Routine 1544 (MAR Hold - Provider: Admin Adt - Reason: Transfer to a Procedural area)1749 (MAR Unhold - Provider: Admin Adt) nitroGLYcerin 100 [...] provided on this medication record., Routine 1544 (MAR Hold - Provider: Admin Adt - [...] Routine documented in this encounter 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
--- OUTSIDE RECORDS SUMMARY | 2024-08-11 18:46 | XMS_ITS | Clinical Summary ---
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 30 tablet 3 06/23/2016 Active meTOPROLOL succinate (TOPROL-XL) 50 mg Tablet Sustained Release 24 hr Take 1 tablet by mouth daily. 30 tablet 12 06/23/2016 Active aspirin 81 mg Tablet, Delayed Release (E.C.) Take 81 mg by mouth daily. Active nicotine (Nicoderm CQ) 21 mg/24 hr Patch 24 hr Change 1 patch on the skin daily. 28 patch 07/08/2023 Active clopidogreL (Plavix) 75 mg tablet Take 1 tablet by mouth daily. 90 tablet 3 07/08/2023 Active lisinopriL (Zestril) 10 mg tablet Take 1 tablet by mouth daily. 30 tablet 3 07/08/2023 Active nitroGLYcerin (Nitrostat) 0.[address] 1 tablet under the tongue every 5 minutes as needed for Chest pain. 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 07/26/2016 Lipid disorder 07/26/2016 ST elevation (STEMI) myocardial infarction 06/21 Social History Tobacco Use Types Packs/Day Years Used Date Smoking Tobacco: Former Cigarettes 1 30 0 06/21/1986 - 06/21/2016 Smokeless Tobacco: Never Tobacco Cessation:Counseling Given: Yes Alcohol Use Standard Drinks/Week Comments No 0 [...] on file Sexual Orientation Not on file Last Filed Vital Signs Vital Sign Reading [...] Mass Index 27.21 07/07/2023 3:49 AM EDT Plan of Treatment Health Maintenance Due Date Last Done Comments CT Colonography 1968 Colonoscopy 1968 Colorectal Cancer Screening 1968 FIT DNA 1968 FIT 1968 Sigmoidoscopy (10 year) with FIT yearly 1968 Sigmoidoscopy 1968 Pneumococcal Vaccine: At-Ris k 5-64yrs (1 of 2 - PCV) 1974 HIV screen 1986 Hepatitis C Screening 1986 Hepatitis B vaccine (0-59 yrs) (1) 1987 Tdap adult 1987 Tetanus vaccine 1987 Zoster vaccine (1 of 2) 2018 Advance Directive 2023 Covid-19 Vaccine (1 - 2022-2 4 season) 2024 Influenza (Flu) vaccine (1 o f 1 - Influenza standard series) 07/25/2024 Diabetes Screening (HgbA1C o r Glucose) 07/07/2026 07/07/2023, 07/06/2023, 07/05/2023, Additional history exists Procedures Procedure Name Priority Date/Time Associated Diagnosis Comments BASIC METABOLIC PANEL Routine 07/07/2023 3:46 AM EDT from Last 3 Months or Most Recently Relevant to Health Maintenance Results * (ABNORMAL) Basic Metabolic Panel (non-fasting) (07/07/2023 3:46 AM EDT) Glucose 106 65 - 199 mg/dL [facility] Comment:Diabetes: >=200 mg/d L plus symptoms Blood Urea Nitrogen 12 10 - 20 mg/dL [facility] Creatinine 0.97 0.80 - 1.50 mg/dL [facility] Sodium 143 135 - 145 mmol/L [facility] Potassium 3.8 3.5 - 5.0 mmol/L [facility] Comment: Please note: ??Patients with WBC >100,000 may have falsely elevated Potassium levels. ??For accurate Potassium quantification in these patients send serum separator tube (gold top) for subsequent determinations. ??Contact the Clinical Chemistry Laboratory if there are any questions. Chloride 111(H) 98 - 107 mmol/L [facility] Carbon Dioxide 23 22 - 31 mmol/L [facility] Anion Gap 9 5 - 15 mmol/L [facility] Calcium 7.9(L) 8.5 - 10.5 mg/dL [facility] Comment:result [id number] Est Glomerular Filtration Rate 93 >=60 mL/min/1. 73 m?? [facility] Comment: This patient's estimated GFR was [...] In Lab [place] Amaya MD CHEMISTRY ORDERABLES [facility] [place] [address] from Last 3 Months or Most Recently Relevant to Health Maintenance Advance Directives * Attempt Cardiopulmonary Resuscitation - Inpatient (Latest Code Status on File) Date Activated Date Inactivated Comments 07/04/2023 7:25 PM 07/08/2023 2:10 PM Question Answer Comments Code Status decision made by: Patient * Attempt Cardiopulmonary Resuscitation - Inpatient Date Activated Date Inactivated Comments 07/04/2023 7:20 PM 07/04/2023 7:25 PM Question Answer Comments Code Status decision made by: Patient * Full Code Date Activated Date Inactivated Comments 06/21/2016 3:25 PM 06/23/2016 3:38 PM Question Answer Comments Does patient have capacity to make decision: Yes Care Teams Agriculture Science Teacher Relationship Specialty Start Date End Date Farooq Munoz PA PCP - General General Internal Medicine 07/02/16
--- OUTSIDE RECORDS SUMMARY | 2024-08-11 18:47 | XMS_ITS | Encounter Summary ---
Author Organization Formerly [facility] [place] [address] Care Team Providers Care Pan Shover Name Role Phone None Primary Care Provider Unavailabl e Reason for Referral * Rehabilitation (Routine) - Closed Specialty Diagnoses / Procedures Referred By Stacey lowry Referred To Contact Diagnoses ST elevation (STEMI) myocardial infarction involving left anterior descending coronary artery Reina Bailey, [facility] [place] [address] [place] [address] Referral ID Status Reason Start Date Expiration Date V isits Requested Visits Authorized [id number] Closed Consult, Test & Treat 06/23/2016 06/23/2017 1 1 Reason for Visit * Auth/Cert Specialty Diagnoses / Procedures Referred By Stacey lowry Referred To Contact Diagnoses ST elevation (STEMI) myocardial infarction STEMI STEMI Procedures CARDIAC CATHETERIZATION Referral ID Status Reason Start Date Expiration Date Visits Re quested Visits Authorized [id number] 1 1 Encounter Details Date Type Department Care Team (Latest Contact Info) Description 06/21/2016 2:02 PM EDT - 06/23/2016 1:37 PM EDT Hospital Encounter Intermediate [place] [id number] Lavelle Willams MD [facility] [place] [address] ST elevation (STEMI) myocardial infarction involving left anterior descending coronary artery Discharge Disposition: Home Social History Tobacco Use [...] Sign Reading Time Taken Comments Blood Pressure 139/95 06/23/2016 11:44 AM EDT Pulse 64 06/23/2016 6:06 AM EDT Temperature 36.4 ??C (97.5 ??F) 06/23/2016 1 1:27 AM EDT Respiratory Rate 15 06/23/2016 11:2 7 AM EDT Oxygen Saturation 100% 06/23/2016 11: 27 AM EDT Inhaled Oxygen Concentration - - Weight 103.7 kg (228 lb 9.9 oz) 06/23/2016 6:06 AM EDT Height 182.9 cm (6') 06/21/2016 3:00 PM EDT Body Mass Index 31.01 06/21/2016 3:00 PM EDT documented in this encounter Discharge Summaries * Lavelle Willams MD - 06/23/2016 1:34 PM EDT Discharge Summary Patient Name: Alex Joyce Patient Age: 45 y.o. Language: Citizen Of [place] Race: White Ethnicity: Not nor Admit date: 06/21/2016 Discharge date and time: 06/23/2016 Attending Physician: Lavelle Willams MD Discharge Physician: Reina Bailey, DO Follow-up Recommendations for Providers: 1. Establish care with PCP at [facility] 2. F/u with Cardiology, Dr. Flores in [place], [place]. 3. Begin Cardiac Rehab through [facility] 4. New Medications this admission: ASA 81 mg daily, Toprol XL 50 mg daily, Atorvastatin 80 mg daily, Plavix 75 mg daily, Lisinopril 20 mg daily Inpatient Provider Contact Information: Yair Macario, Rosalia, Leo For questions regarding this document or issues relating to this hospitalization on the Medical Service, please contact your inpatient physician through the [facility] . Issues afterhours and on weekends will be handled by the Hospitalist staff on-call. Discharge Diagnoses (Hospital Problems) and Secondary Diagnoses (Chronic Problems): Active Hospital Problems Diagnosis ??? ST elevation (STEMI) myocardial infarction CAD, two vessel (RCA, LCx) Resolved Hospital Problems Diagnosis Date Resolved No resolved problems to display. There are no active non-hospital problems to display for this patient. Operations/Major Procedures: Operations: Procedure(s): CARDIAC CATHETERIZATION 06/21/2016 Other Major Procedures: None. History of Presentation: Alex Joyce is a 45 yo male who presented to [facility] this morning with tightness in his chest radiating to his arms, beginning at 0730 this morning while he was on his way to work. He had no associated nausea or shortness of breath but was diaphoretic. Hewas at work for approximately 3 hours during which his chest tightness got progressively worse, to 8/10 in severity, which prompted him to go to the ED. 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 He notes no exacerbating or relieving factors. The pain did not radiate into his jaw. ?? He denies any recent illness. Denies fevers or chills. Denies palpitations. He does note that he has had episodes of chest pain for the last few weeks which are similar in character to the episode hehad today. These will be brief, lasting minutes at a time, and self-limited. They are not related to exertion. ?? On presentation to [facility], his vital signs were stable. ?? Lab work was remarkable for: WBC 11.7 Hgb 16.5 Plt 206 Cr 1.1, K 4.0 Mag 2.1 CPK 114 Troponin 0.15 (ULN 0.06) ?? EKG demonstrated inferior ST elevations ?? He was given aspirin 324mg, plavix 300mg, tenecteplase 50mg, placed on heparin and nitro gtt, and transferred to [facility] for further management. Hospital Course: #Inferior STEMI: Upon arrival to [facility], Mr. Joyce was taken to the catheterization lab, which demonstrated 70% stenosis of the second obtuse marginal branch of the left circumflex artery (non culprit lesion) for which 1 LEIGH was placed and 75% stenosis of the proximal segment of the right coronary artery (culprit lesion), with evidence of a thrombus, for which thrombectomy was performed and 1 LEIGH was placed. Troponin peaked at 1.29 before down-trending. He was started on daily ASA 81 mg, Plavix 75 mg, Toprol XL 50 mg, Atorvastatin 80 mg and Tkuxatnecg47 mg. He denied any further chest pain after successful catheterization. TTE demonstrated EF 52%, with left ventricular WMAs and normal LV and RV chamber size, without significant valvular disease. He was discharged home on the above medications. Tobacco cessation information was provided and the patient was offered a prescription for nicotine patches. Risk factor modification was emphasized in detail for the patient and his . Cardiac rehab was also recommended at [facility]. Vital Signs at Discharge: BP: (!) 139/95, Heart Rate: 64, Temp: 36.4 ??C (97.5 ??F), Resp: 15, BMI (Calculated): 31.2 Height: 182.9 cm (6') (06/21/16 1500) Weight - Scale: (!) 103.7 kg (228 lb 9.9 oz) (06/23/16 0606) Functional and Cognitive Status: baseline Important Studies and Lab Data: Labs: Last 3 wbc, hgb, hct plt Recent Labs 06/22/16 0405 06/21/16 1450 WBC 9.2 10.6* HGB 15.8 14.9 HCT 47.8 43.9 PLATELET 211 223 Last 3 Lytes Recent Labs 06/23/16 0605 06/22/16 0405 06/21/16 1450 NA 141 142 136 K 4.2 4.4 4.3 CL 106 106 101 CO2 Not Perf 27 20* BUN 12 10 10 CREATININE 1.02 1.00 0.96 Last 3 LFTs No results for input(s): AST, ALT, ALKPHOS, BILITOT, BILIDIR in the last 7068 hours. Last Ca, Mg, Phos Recent Labs 06/23/16 0605 CALCIUM 8.5 Last 3 Coags Recent Labs 06/21/16 1450 PT 15.1* INR 1.2* PTT >160* Last 3 ProBNP, Trop, CK Recent Labs 06/22/16 0405 06/21/16 1450 CK 263* 357* TROPONINT 0.90* 1.29* Last 3 Lipids No results for input(s): CHLPL, HDL, LDLCHOL, LDLDIRECT, TRIG in the last 7068 hours. Last 3 HgbA1C No results for input(s): HA1C in the last 7068 hours. Studies: TTE - 1. Technically limited study. Contrast [...] See remainder of report for additional findings. ?? Cardiac Catheterization: LVEDP 13 Dominance - Right Vessel? Lesion? Intervention? Left main? Mild diffuse disease? -? LAD? Mild diffuse disesae? -? LCX? Mild diffuse disease 70% single discrete stenosis of OM2? - DESx1? RCA? Mild diffuse disease 75% single discrete stenosis of proximal segment with evidence of thrombus? - Thrombectomy with DESx1? Pending Studies and Lab Data: None Discharge Conditions/Prognosis: good Discharge to: home Updated Allergies/ADRs: No Known Allergies Immunizations Given this Hospitalization: There is no immunization history on file for this patient. Discharge Medications: Your Medications New Medications Dose Details atorvastatin 80 mg Tab Commonly known as: LIPITOR Take 1 tablet by mouth daily. 80 mg Quantity: 30 tablet Refills: 3 clopidogrel 75 mg Tab Commonly known as: PLAVIX Take 1 tablet by mouth daily. 75 mg Quantity: 30 tablet Refills: 11 lisinopril 20 mg Tab Commonly known as: PRINIVIL;ZESTRIL Take 1 tablet by mouth daily. 20 mg Quantity: 30 tablet Refills: 12 meTOPROLOL succinate 50 mg Tablet sr Commonly known as: TOPROL-XL Take 1 tablet by mouth daily. 50 mg Quantity: 30 tablet Refills: 12 nitroGLYcerin 0.4 mg Subl Commonly known as: NITROSTAT Place 1 tablet under the tongue every 5 minutes as needed for Chest pain. 0.4 mg Quantity: 90 tablet Refills: 12 Smoking Status at Discharge: History Smoking Status ??? Former Smoker ??? Packs/day: 1.00 ??? Years: 30.00 ??? Types: Cigarettes ??? Quit date: 06/21/2016 Smokeless Tobacco ??? Never Used Instructions Given to Patient at Discharge: Patient Instructions Why you were hospitalized: You were admitted with signs and symptoms indicative of a heart attack or a myocardial infarction. Call your doctor or report to the nearest Emergency Department: if you have chest pain or pressure or symptoms similar or worse to that which initially brought you in to the hospital. If you begin sweating for no reason, have nausea/vomiting, headaches, blurred vision, lightheadedness/ fainting spells, or bleeding from the access site please call your doctor and/or call EMS. Activity: If you are very physically active, then take it easy for the next month, until you are seen in cardiology follow up or given permission by your primary care doctor. It will take time for your heart to recover, so while cardiovascular activity is highly encouraged, over working the heart too soon can be dangerous. Also do not do any heavy lifting for the next 7-10 days, as we accessed your heart via the high pressure femoral artery. We do not want you to begin bleeding. If you do so, apply much pressure and report to the nearest emergency department. Driving: Please refrain from driving for 48 hours after your procedure, as the access site is an area of high pressure and abrupt automobile accident can result in excessive bleeding. Also, it would be difficult to place pressure at the catheterization site if it began to bleed as you were driving. Diet: heart healthy diet including low carbohydrates/refined sugars, and much vegetables, fruits, lean protein and whole grains. Bathing: Showers are ok. Do not submerge your wound into a bath or hot tub for about 7-10 days in order to prevent infection. Sexual activity: You should refrain from sexual activity for 1 month following a heart attack. The importance of your medications: 1. Metoprolol, a beta óscar, lowers your heart rate and blood pressure and is known to decrease mortality rates in the acute post-heart attack setting. 2. Lisinopril, an JAYDEN inhibitor, lowers your blood pressure, is anti- inflammatory, and prevents remodeling and dilation of the pillai of your heart. 3. Atorvastatin, a statin, is a lipid-lowering drug. It is also anti- inflammatory and studies show intensive lipid lowering therapy decreases the rate of myocardial events after a heart attack. 4. Aspirin, an anti-platelet drug, is protective against future thrombus formation, especially in the stent. 5. Plavix or clopidogrel, is also an anti-platelet drug, is protective against future thrombus formation, especially in the stent. 6. Sublingual Nitroglycerine, an anti-anginal medication, is to be used only if you have recurrent chest pain; if you use this med, SEEK MEDICAL ATTENTION FOLLOW-UP APPOINTMENTS: Because you are being discharged on the weekend, outpatient follow-up couldnot be made for you prior to admission. We will be in touch with [facility] for primary care and cardiology (Dr. Flores, [facility], phone #[phone]). Wewill call you about these appointments. If you don't hear from us in the next couple days, please call [facility] to set these appointments up yourself. You should plan to see your new primary care provider in the next 1-2 weeks and professor of legal studies in the next 3-4 weeks. We have also referred you to Cardiac Rehab, which will be coordinated through [facility]. They will contact you to set up your appointment. Primary care provider- To be established. Will call tomorrow. No future appointments. 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 Niño in [place], [place] Return to Work: You were hospitalized for a heart attack. It is very important that you abide by the instructions above with regards to activity, and this applies to work. 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 General Instructions None Future Appointments and Orders Future Orders Complete By Expires Referral to Cardiac Rehab [[id number] Custom] As directed Process Instructions: If no progress note charted, please enter Clinical details in comments. Scheduling Instructions: Questions: My question or request is: STEMI, weekend discharge. Request rehab at [facility]. Discharge References/Attachments None documented in this encounter Discharge Instructions * Patient Instructions* Reina Bailey E - 06/23/2016 11:57 AM EDT Why you were hospitalized: You were admitted with signs and symptoms indicative of a heart attack or a myocardial infarction. Call your doctor or report to the nearest Emergency Department: if you have chest pain or pressure or symptoms similar or worse to that which initially brought you in to the hospital. If you begin sweating for no reason, have nausea/vomiting, headaches, blurred vision, lightheadedness/ fainting spells, or bleeding from the access site please call your doctor and/or call EMS. Activity: If you are very physically active, then take it easy for the next month, until you are seen in cardiology follow up or given permission by your primary care doctor. It will take time for your heart to recover, so while cardiovascular activity is highly encouraged, over working the heart too soon can be dangerous. Also do not do any heavy lifting for the next 7-10 days, as we accessed your heart via the high pressure femoral artery. We do not want you to begin bleeding. If you do so, apply much pressure and report to the nearest emergency department. Driving: Please refrain from driving for 48 hours after your procedure, as the access site is an area of high pressure and abrupt automobile accident can result in excessive bleeding. Also, it would be difficult to place pressure at the catheterization site if it began to bleed as you were driving. Diet: heart healthy diet including low carbohydrates/refined sugars, and much vegetables, fruits, lean protein and whole grains. Bathing: Showers are ok. Do not submerge your wound into a bath or hot tub for about 7-10 days in order to prevent infection. Sexual activity: You should refrain from sexual activity for 1 month following a heart attack. The importance of your medications: 1. Metoprolol, a beta óscar, lowers your heart rate and blood pressure and is known to decrease mortality rates in the acute post-heart attack setting. 2. Lisinopril, an JAYDEN inhibitor, lowers your blood pressure, is anti- inflammatory, and prevents remodeling and dilation of the pillai of your heart. 3. Atorvastatin, a statin, is a lipid-lowering drug. It is also anti- inflammatory and studies show intensive lipid lowering therapy decreases the rate of myocardial events after a heart attack. 4. Aspirin, an anti-platelet drug, is protective against future thrombus formation, especially in the stent. 5. Plavix or clopidogrel, is also an anti-platelet drug, is protective against future thrombus formation, especially in the stent. 6. Sublingual Nitroglycerine, an anti-anginal medication, is to be used only if you have recurrent chest pain; if you use this med, SEEK MEDICAL ATTENTION FOLLOW-UP APPOINTMENTS: Because you are being discharged on the weekend, outpatient follow-up couldnot be made for you prior to admission. We will be in touch with [facility] for primary care and cardiology (Dr. Flores, [facility], phone #[phone]). Wewill call you about these appointments. If you don't hear from us in the next couple days, please call [facility] to set these appointments up yourself. You should plan to see your new primary care provider in the next 1-2 weeks and professor of legal studies in the next 3-4 weeks. We have also referred you to Cardiac Rehab, which will be coordinated through [facility]. They will contact you to set up your appointment. Primary care provider- To be established. Will call tomorrow. No future appointments. 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 Niño in [place], [place] Return to Work: You were hospitalized for a heart attack. It is very important that you abide by the instructions above with regards to activity, and this applies to work. 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 documented in this encounter Medications at Time of Discharge Medication Sig Dispensed Refills Start Date End Date atorvastatin (LIPITOR) 80 mg Tablet Take 1 tablet by mouth daily. 30 tablet 3 06/23/2016 meTOPROLOL succinate (TOPROL-XL) 50 mg Tablet Sustained Release 24 hr Take 1 tablet by mouth daily. 30 tablet 12 06/23/2016 clopidogrel (PLAVIX) 75 mg Tablet Take 1 tablet by mouth daily. 30 tablet 11 06/23/2016 07/08/2023 lisinopril (PRINIVIL;ZESTRIL) 20 mg Tablet Take 1 tablet by mouth daily. 30 tablet 12 06/23/2016 07/08/2023 nitroGLYcerin (NITROSTAT) 0.4 mg Tablet, Sublingual Place 1 tablet under the tongue every 5 minutes as needed for Chest pain. 90 tablet 12 06/23/2016 07/08/2023 documented as of this encounter Progress Notes * Taurus Beckham RN - 06/23/2016 1:20 PM EDT Patient has been alert and oriented this shift. VSS. No reports or pain or discomfort. Has been ambulating independently on unit. Discharge order acknowledged. IV and Telemetry discontinued. AVS printed and provided to patient and significant other. AVS and medication list reviewed with patient and significant other; all questions answered at this time. Patient discharged to [facility] with significant other in stable condition. * Lavelle Willams MD - 06/23/2016 5:29 AM EDT Inpatient Cardiology Progress Note Patient Name: Alex Joyce Date of Admission: 06/21/2016 ( Hospital Day 2 days ) Service: S1 ID: Alex Joyce is a 45 y.o. male with no significant past medical history, active smoker, admitted with an inferior STEMI, now s/p LEIGH to the RCA and LEIGH to the OM2 of the LCX Active Problems: Inferior STEMI 24 hr events/Subjective: - No acute events overnight - Started on Lisinopril 20 and Lopressor 12.5 q6h with good effect on BP - Feels well this morning ROS: Denies CP, SOB, palpitations, PND, Orthopnea, dizziness/LH, LE swelling or pain, n/v, abd pain. Telemetry: NSR HR 55-95 Meds: Continuous Infusions: ??? sodium chloride 0.9% 100 mL/hr (06/21/16 2200) Scheduled Meds: ??? meTOPROLOL succinate 50 mg Oral Daily ??? lisinopril 20 mg Oral Daily ??? clopidogrel 75 mg Oral Daily ??? sodium chloride 0.9 % 5 mL Intravenous BID ??? nicotine 21 mg Transdermal Daily And ??? Patch Verification 1 patch Transdermal BID And ??? nicotine 1 patch Transdermal Daily ??? aspirin 81 mg Oral Daily ??? atorvastatin 80 mg Oral QPM PRN Meds:.nicotine polacrilex, sodium chloride 0.9 %, lidocaine, nitroGLYcerin, meTOPROLOL Physical Exam: Last value Range last 24 hrs Temperature Temp: 36.3 ??C (97.3 ??F) Temp: [36.3 ??C (97.3 ??F)-36.7 ??C (98.1 ??F)] Heart Rate Heart Rate: 64 Heart Rate: [62-67] Blood Pressure BP: 133/77 BP: (108-161)/(57-99) Respiratory Rate Resp: 16 Resp: [16-18] SpO2 SpO2: 98 % SpO2: [95 %-99 %] Intake/Output Summary (Last 24 hours) at 06/23/16 0940 Last data filed at 06/23/16 0800 Gross per 24 hour Intake 1405 ml Output 2875 ml Net -1470 ml cumulative I/O's since admission: Patient Vitals for the past 168 hrs: Weight 06/23/16 0606 (!) 103.7 kg (228 lb 9.9 oz) 06/22/16 1501 (!) 105.1 kg (231 lb 11.3 oz) 06/21/16 1500 (!) 104 kg (229 lb 4.5 oz) Admit wt: 104kg Gen: Pleasant middle aged male, NAD HEENT: MMM CV: RRR, no m/g/r. No JVP Pulm: CTAB Abd: Soft, nt, nd, nabs Ext: No pedal edema, 2+ radial/DP pulses Neuro: No focal deficits grossly Labs Recent Labs 06/22/16 0405 06/21/16 1450 WBC 9.2 10.6* HGB 15.8 14.9 HCT 47.8 43.9 PLATELET 211 223 Recent Labs 06/22/16 0405 06/21/16 1450 NA 142 136 K 4.4 4.3 CL 106 101 CO2 27 20* BUN 10 10 CREATININE 1.00 0.96 No results for input(s): AST, ALT, ALKPHOS, BILITOT, BILIDIR in the last 168 hours. Recent Labs 06/23/16 0605 06/22/16 0405 06/21/16 1450 CALCIUM -- 8.8 8.2* MAGNESIUM 0.90 0.92 -- Recent Labs 06/21/16 1450 INR 1.2* PT 15.1* PTT >160* Recent Labs 06/22/16 0405 06/21/16 1450 CK 263* 357* TROPONINT 0.90* 1.29* No results for input(s): POCGLU in the last 168 hours. Imaging/Studies: TTE - 1. Technically limited study. Contrast [...] remainder of report for additional findings. Cardiac Catheterization: LVEDP 13 Dominance - Right Vessel?? Lesion?? Intervention?? Left main?? Mild diffuse disease?? -?? LAD?? Mild diffuse disesae?? -?? LCX?? Mild diffuse disease 70% single discrete stenosis of OM2?? - DESx1?? RCA?? Mild diffuse disease 75% single discrete stenosis of proximal segment with evidence of thrombus?? - Thrombectomy with DESx1? Assessment: 45 yo male, active smoker, with no significant past medical history who presents with an inferior STEMI, now s/p LEIGH to LCX (non-culprit) and RCA. BMP pending.?? Will need to establish care in [facility] for PCP and Cardiology and Cardiac Rehab. Pt plans to stop tobacco use and will get patches on his own. Plan: ?? #STEMI -Aspirin 81mg -Plavix 75mg -Atrovastatin 80mg -Increase Lisinopril to 20mg -Change Metoprolol 12.5mg q 6 hrs --> Succinate 50 mg daily ?? #Routine DVT PPx: Ambulation Diet: [facility] diet Dispo: Likely discharge home today Code Status: Full Code. ??Reina Jassi bruceDO PGY-1, Internal Medicine Team Pager [phone] 06/23/2016 Staff Discharge Day Notation: I interviewed and examined the patient as part of the attending rounds process today. I personally reviewed the overnight events, medications, supplemental laboratory data and plan for discharge. Thepatient was updated on the acute cardiovascular problems that were addressed during the admission and the plan for follow up care. I spent less than 30 minutes to accomplish the above tasks. I specifically discussed the role of his secondary prevention medications, stent protection, need to eliminate tobacco and the value of cardiac rehab engagement. Details provided in the DC summary document. Lavelle Willams MD, MS Staff Director Of Instructional Technology * Lavelle Willams MD - 06/22/2016 7:28 AM EDT Inpatient Cardiology Progress Note Patient Name: Alex Joyce Date of Admission: 06/21/2016 ( Hospital Day 1 day ) Service: S1 ID: Alex Joyce is a 45 y.o. male with no significant past medical history, active smoker, admitted with an inferior STEMI, now s/p LEIGH to the RCA and LEIGH to the OM2 of the LCX Active Problems: Inferior STEMI 24 hr events/Subjective: - No acute events overnight - Received metoprolol 5mg IV x 1 for SBP > 160 - Feels well this morning ROS: Denies CP, SOB, palpitations, PND, Orthopnea, dizziness/LH, LE swelling or pain, n/v, abd pain. Telemetry: NSR HR 60s-70s Meds: Continuous Infusions: ??? sodium chloride 0.9% 100 mL/hr (06/21/16 2200) Scheduled Meds: ??? clopidogrel 75 mg Oral Daily ??? sodium chloride 0.9 % 5 mL Intravenous BID ??? nicotine 21 mg Transdermal Daily And ??? Patch Verification 1 patch Transdermal BID And ??? nicotine 1 patch Transdermal Daily ??? aspirin 81 mg Oral Daily ??? atorvastatin 80 mg Oral QPM ??? lisinopril 10 mg Oral Daily ??? meTOPROLOL tartrate 12.5 mg Oral Q6H LEA PRN Meds:.sodium chloride 0.9 %, lidocaine, nitroGLYcerin, meTOPROLOL Physical Exam: Last value Range last 24 hrs Temperature Temp: 37 ??C (98.6 ??F) Temp: [37 ??C (98.6 ??F)-37.1 ??C (98.8 ??F)] Heart Rate Heart Rate: 69 Heart Rate: [57-72] Blood Pressure BP: 142/81 BP: (115-162)/(69-100) Respiratory Rate Resp: 16 Resp: [12-22] SpO2 SpO2: 97 % SpO2: [94 %-99 %] Intake/Output Summary (Last 24 hours) at 06/22/16 0729 Last data filed at 06/22/16 0600 Gross per 24 hour Intake 1180 ml Output 4600 ml Net -3420 ml cumulative I/O's since admission: Patient Vitals for the past 168 hrs: Weight 06/21/16 1500 (!) 104 kg (229 lb 4.5 oz) Admit wt: 104kg Gen: Pleasant middle aged male, NAD HEENT: MMM CV: RRR, no m/g/r. No JVP Pulm: CTAB Abd: Soft, nt, nd, nabs Ext: No pedal edema, 2+ radial/DP pulses Neuro: No focal deficits grossly Labs Recent Labs 06/22/16 0405 06/21/16 1450 WBC 9.2 10.6* HGB 15.8 14.9 HCT 47.8 43.9 PLATELET 211 223 Recent Labs 06/22/16 0405 06/21/16 1450 NA 142 136 K 4.4 4.3 CL 106 101 CO2 27 20* BUN 10 10 CREATININE 1.00 0.96 No results for input(s): AST, ALT, ALKPHOS, BILITOT, BILIDIR in the last 168 hours. Recent Labs 06/22/16 0405 06/21/16 1450 CALCIUM 8.8 8.2* MAGNESIUM 0.92 -- Recent Labs 06/21/16 1450 INR 1.2* PT 15.1* PTT >160* Recent Labs 06/22/16 0405 06/21/16 1450 CK 263* 357* TROPONINT 0.90* 1.29* No results for input(s): POCGLU in the last 168 hours. Imaging/Studies: TTE - 1. Technically limited study. Contrast [...] remainder of report for additional findings. Cardiac Catheterization: LVEDP 13 Dominance - Right Vessel?? Lesion?? Intervention?? Left main?? Mild diffuse disease?? -?? LAD?? Mild diffuse disesae?? -?? LCX?? Mild diffuse disease 70% single discrete stenosis of OM2?? - DESx1?? RCA?? Mild diffuse disease 75% single discrete stenosis of proximal segment with evidence of thrombus?? - Thrombectomy with DESx1? Assessment: 45 yo male, active smoker, with no significant past medical history who presents with an inferior STEMI, now s/p LEIGH to LCX (non-culprit) and RCA. Doing well post-catheterization and willtransfer to floor today. ?? Plan: #Admit to Cardiology 679 ?? #STEMI -Aspirin 81mg -Plavix 75mg -Atrovastatin 80mg -Increase Lisinopril to 20mg -Metoprolol 12.5mg q 6 hrs -Daily EKG -Cardiac enzymes until downtrending ?? #Routine DVT PPx: Ambulation Diet: [facility] diet Dispo: Transfer to floor, likely home in 1-2 days Code Status: Full Code. ??FELIPE HAMILTON MD PGY-3 Team Pager [phone] 06/21/2016 Staff Rounding Addendum: I interviewed and examined the patient during comprehensive bedside rounds with the house staff team in the CV. I concur with progress note and active hospital-focused problem list. I personally reviewed the medications, laboratory results, treatment decisions and updated the patient on the primary diagnosis and plan of care. The patient is recovering uneventfully from his acute inferior STEMI.He is stable for transfer to [facility] today to begin cardiac rehab with telemetry surveillance. Lavelle Willams MD, MS, [facility] Staff Director Of Instructional Technology Pager #[phone] * Kin Arce MD - 06/21/2016 10:23 PM EDT Post Cath Check Note S: No chest pain, dyspnea, and hand/arm pain at rest. No rash. No weakness/numbness/tingling. No bleeding/swelling from access site. Pt was sleeping and easily awoken. O: Blood pressure 123/70, pulse 57, temperature 37 ??C (98.6 ??F), temperature source Oral, resp. rate18, height 182.9 cm (6'), weight (!) 104 kg (229 lb 4.5 oz), SpO2 98 %. General: Lying in bed in NAD, initially sleeping peacefully and easily awoken. Oriented x4. Site: access site without hematoma or ecchymoses. dressing c/d/i. No bruits heard directly over site as well as proximal and distal on both wang and diaphragm. Mildly tender to palpation but non-tender at rest. Extrem: no livedo reticularis, warm/symmetric, sensation intact/symmetric, symmetric 2+ radial pulses. Reverse-Gurpreet's test positive for normal qualitative return in < 7 sec and Reverse-Barbeau's test positive on plethysmogram with normal waveform return both c/w patent and good collateral ulnararterial flow; positive Gurpreet's and Barbeau's also noted indicating patent radial arterial flow. A/P: s/p cath with benign-appearing right Radial access site and no issues KIN ARCE MD Cardiology Service, PGY2 06/21/2016, M1 NF documented in this encounter H&P Notes * Lavelle Willams MD - 06/21/2016 2:54 PM EDT Inpatient Cardiology - Admission Note Patient Name: Alex Joyce Patient Age: 45 y.o. Admit date: 06/21/2016 Attending Physician: Lavelle Willams MD Problem List: Active Hospital Problems Diagnosis ??? ST elevation (STEMI) myocardial infarction Resolved Hospital Problems Diagnosis Date Resolved No resolved problems to display. There are no active non-hospital problems to display for this patient. ID: Alex Joyce is a 45 y.o. Male with no significant past medical history, admitted with PCP: No primary care provider on file. History of Present Illness (obtained from patient and OSH records): Alex Joyce is a 45 yo male who presented to [facility] this morning with tightnessin his chest radiating to his arms, beginning at 0730 this morning while he was on his way to work.He had no associated nausea or shortness of breath but was diaphoretic. He was at work for approximately 3 hours during which his chest tightness got progressively worse, to 8/10 in severity, which pr ompted him to go to the ED. 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 He notes no exacerbating or relieving factors. The pain did not radiate into his jaw. He denies any recent illness. Denies fevers or chills. Denies palpitations. He does note that he has had episodes of chest pain for the last few weeks which are similar in character to the episode hehad today. These will be brief, lasting minutes at a time, and self-limited. They are not related to exertion. On presentation to [facility], his vital signs were stable. Lab work was remarkable for: WBC 11.7 Hgb 16.5 Plt 206 Cr 1.1, K 4.0 Mag 2.1 CPK 114 Troponin 0.15 (ULN 0.06) EKG demonstrated inferior ST elevations He was given aspirin 324mg, plavix 300mg, tenecteplase 50mg, placed on heparin and nitro gtt, and transferred to [facility] for further management. Review of Systems (positives bolded) Constitutional: appetite change, fatigue, fevers, chills, night sweats, shakes, unexpected weight change. HEENT: visual changes, hearing changes, speech changes, dysphagia Respiratory: cough, wheeze, shortness of breath. Cardiovascular: chest pain, palpitations, paroxysmal nocturnal dyspnea, dyspnea on exertion, orthopnea, leg swelling, diaphoresis Gastrointestinal: bloating, abdominal pain, nausea, vomitting, diarrhea, constipation, hematochezia, melena. Genitourinary: dysuria, urgency, frequency, hematuria Skin: rash. Muskuloskeletal: arthralgia, myalgia, joint swelling Neurological: headaches, dizziness, lightheadedness, tingling, numbness, extremity weakness, facialweakness, balance problems, speech pattern changes Hematological: adenopathy, easy bruising Past Medical and Surgical History: No known past medical histories Prior To Admission Medications: No prescriptions prior to admission. Allergies: NKDA Family History: Father - CAD, onset in 60s with subsequent CABG Social History and Habits: Active smoker, 1pack per day x 30 years. No etoh or illicits. 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 Physical Exam: Last Set of Vitals and range of vitals over past 24 hours: Last value Range last 24 hrs Temperature Temp: 37.1 ??C (98.8 ??F) Temp: [37.1 ??C (98.8 ??F)] Heart Rate Heart Rate: 63 Heart Rate: [61-69] Blood Pressure BP: 149/77 BP: (149-162)/(77-100) Respiratory Rate Resp: 19 Resp: [12-19] SpO2 SpO2: 97 % SpO2: [97 %-99 %] Gen: Pleasant middle aged male, NAD HEENT: MMM CV: RRR, no m/g/r Pulm: CTAB Abd: Soft, nt, nd, nabs Ext: No pedal edema, 2+ radial/DP pulses Neuro: No focal deficits grossly Laboratory (Last 24 Hours): Recent Results (from the past 24 hour(s)) Cardiac Enzymes Result Value Ref Range Troponin-T 1.29 (H) <=0.03 ng/mL CK, Total 357 (H) 0 - 200 unit/L Basic Metabolic Panel (non-fasting) Result Value Ref Range Glucose Lvl 104 65 - 199 mg/dL BUN 10 10 - 20 mg/dL Creatinine 0.96 0.80 - 1.50 mg/dL Sodium 136 135 - 145 mmol/L Potassium 4.3 3.5 - 5.0 mmol/L Chloride 101 98 - 107 mmol/L CO2 20 (L) 22 - 31 mmol/L Anion Gap 15 5 - 15 mmol/L Calcium 8.2 (L) 8.5 - 10.5 mg/dL Estimated GFR >60 >=60 Prothrombin Time Result Value Ref Range PT 15.1 (H) 12.0 - 15.0 sec INR 1.2 (H) 0.9 - 1.1 APTT Result Value Ref Range PTT >160 (CRIT) 25 - 35 sec Hemogram Result Value Ref Range WBC 10.6 (H) 4.0 - 10.0 x10(3)/mcL RBC 4.87 4.63 - 6.08 x10(6)/mcL Hemoglobin 14.9 13.7 - 17.5 gm/dL Hematocrit 43.9 40.0 - 51.0 % MCV 90.1 79.0 - 92.0 fL MCH 30.6 25.6 - 32.2 pg MCHC 33.9 32.0 - 36.5 gm/dL Platelets 223 145 - 370 x10(3)/mcL RDWSD 41.2 35.0 - 46.0 fL RDWCV 12.5 10.9 - 14.4 % MPV 9.9 9.0 - 12.0 fL nRBC % Auto 0.0 % nRBC Abs Auto 0.000 0.000 - 0.012 x10(3)/mcL Differential, Automated Result Value Ref Range Neutrophils % 67.6 % Neutr Abs (ANC) 7.14 (H) 1.50 - 6.30 x10(3)/mcL Lymphocytes % 23.8 % Lymphocytes Abs 2.5 1.0 - 3.6 x10(3)/mcL Monocytes % 6.9 % Monocyte Abs 0.7 0.2 - 1.0 x10(3)/mcL Eosinophils % 0.7 % Eosinophils Abs 0.1 0.0 - 0.5 x10(3)/mcL Basophils % 0.7 % Basophils Abs 0.1 0.0 - 0.2 x10(3)/mcL Immature Gran % 0.30 % Katlyn Gran Abs 0.03 0.00 - 0.05 x10(3)/mcL Green Tube HOLD Result Value Ref Range Green Hold Sample in lab. Studies: Cardiac Catheterization: LVEDP 13 Dominance - Right Vessel Lesion Intervention Left main Mild diffuse disease - LAD Mild diffuse disesae - LCX Mild diffuse disease 70% single discrete stenosis of OM2 - DESx1 RCA Mild diffuse disease 75% single discrete stenosis of proximal segment with evidence of thrombus - Thrombectomy with DESx1 TTE - Pending Assessment: 45 yo male, active smoker, with no significant past medical history who presents with an inferior STEMI, now s/p LEIGH to LCX (non-culprit) and RCA. Doing well post-catheterization and will initiate routine post-cath care, anti-platelet agents, atorvastatin, and control double product. Plan: #Admit to Cardiology 3349 #STEMI -Aspirin 81mg -Plavix 75mg -Atrovastatin 80mg -Lisinopril 10mg -Metoprolol 12.5mg q 6 hrs -Maintain SBP < 160 and HR < 100 -TTE -Daily EKG -Cardiac enzymes until downtrending #Routine DVT PPx: Ambulation Diet: [facility] diet Dispo: pending course Code Status: Full Code. FELIPE HAMILTON MD PGY-3 Admitting to [facility] (team pager 24h/d) 06/21/2016 Staff Admission Addendum: As the attending of record, I supplemented the admission history by the warehouse checker above by interviewing and examining the patient myself upon their arrival in the [facility]. I performed an exam with focused inquiry and attention to the cardiopulmonary findings . I reviewed the pertinent laboratory and other data today and supervised the development of the plan of care for each. This included a direct review of the coronary angiogram and PCI earlier today. The patient presented to [facility] with an acute inferior RAY. He received lytics and was emergently transferred to us for pharmacoinvasive management. The patient had a culprit lesion in the proximal dominant RCA and a secondary lesion of moderate severity in the terminal segment of the LCx. Both lesions successfully stentedby Dr. Nicole. The patient is hemodynamically stable and pain free at this time. His is at the bedside for our discussion. I identified the primary clinical diagnoses prompting the admission and addressed the medical decision-making with the patient and his . Assessment: 1. Acute inferior STEMI 2. CAD, severe, two vessel Plan: I reviewed the pathophysiology of coronary artery disease and the relevance to the presenting symptoms or laboratory database. The discussion mentioned the risk factors for atherosclerosis, importance of risk factor modification using lifestyle changes and pharmacotherapy. I described the need to protect his stented regions with DAPT and reviewed the implications of his premature CAD for secondary prevention. I talked about the medical regimen known to reduce the risk of recurrent coronary events and to control symptoms, if present. The discussion included details on antiplatelet agents, beta blockers, lipid-lowering therapies, [place] active drugs. I reviewed the generic and, if applicable, Brand name agents, potential doses and side effects of each. I answered the patient's questions specific to this topic. I am a credentialed professor of legal studies at [employer] [facility] [place] and I am the attending of record for the patient's admission. I certify that this patient meets or has met the criteria for inpatient treatment for their acute condition meeting a minimum of two midnights. The acute condition is: acute inferior STEMI, CAD. Lavelle Willams MD, MS, [facility] Staff Director Of Instructional Technology Pager #[phone] documented in this encounter Miscellaneous Notes * Plan of Care - Miriam Bower RN - 06/23/2016 3:24 AM EDT Problem: General Plan of Care Goal: Plan of Care Review Outcome: Ongoing (Interventions Implemented as Appropriate) 06/23/16 0320 Coping/Psychosocial Response Interventions Plan of Care Reviewed with patient Plan of Care Review Plan of Care Outcome Status ongoing (interventions implemented as appropriate) Progress improving OUTCOME EVALUATION NOTE: OUTCOME SUMMARY: VSS on RA. Pt alert and oriented. Pt had uneventful night. No complaints of pain/discomfort or SOB throughout shift. Right radial site benign. NSR on tele. PLAN MOVING FORWARD: Continue to monitor for complications post STEMI, discharge planning as appropriate INDIVIDUALIZED FALL PREVENTION INTERVENTIONS: Assistance: Ind Supervision: Intermittent, call wang within reach, ringing appropriately Surveillance: Telemetry, purposeful rounding CPG GOAL OUTCOME EVALUATION: ongoing Goal: Individualization and Mutuality Outcome: Ongoing (Interventions Implemented as Appropriate) 06/21/16 1500 Mutuality/Individual Preferences What anxieties, fears or concerns do you have about your health or care? none What questions do you have about your health or care? none What information would help us give you more personalized care? medications, diet Goal: Fall Prevention-Safe Patient Handling Outcome: Ongoing (Interventions Implemented as Appropriate) 06/22/16 1937 06/23/16 0257 Safety Interventions Safety Precautions/Fall Reduction -- environmental modification;fall reduction program maintained;lighting adjusted for task/safety;nonskid shoes/slippers when out of bed;supervised activity Musculoskeletal Interventions Activity/Level of Assistance up ad segun;independently -- Positioning independent -- Muscle Strengthening activity/mobility promoted -- Self-Care Promotion independence encouraged while providing assistance -- Activity and Safety Assistive Device None -- Maciel Fall Risk History of Falling 0 -- Secondary Diagnosis 15 -- Ambulatory Aids 0 -- Intravenous Therapy/Heparin/Saline Lock 20 -- Gait/Transferring 0 -- Mental Status 0 -- Score 35 -- OTHER Maciel Fall Risk Med -- Goal: Infection Control Outcome: Ongoing (Interventions Implemented as Appropriate) 06/22/16 1500 06/22/16 1937 Safety Interventions Isolation Precautions -- standard precautions maintained Infection Prevention environmental surveillance;hydration promoted;nutrition promoted;promote handwashing;rest/sleep promoted -- Coping/Psychosocial Response Interventions Counseling -- emotional support provided;understanding of situation facilitated;verbalization of feelings encouraged Goal: Discharge Needs Assessment Outcome: Ongoing (Interventions Implemented as Appropriate) 06/21/16 1600 Discharge Needs Assessment Readmission Within the Last 30 Days no previous admission in last 30 days Living Environment Transportation Available family or friend will provide Problem: Cardiac Catheterization with/without PCI (Adult) Goal: Signs and symptoms of listed potential problems will be absent or manageable (reference (Cardiac Catheterization with/without PCI (Adult)) CPG) Outcome: Ongoing (Interventions Implemented as Appropriate) 06/23/16 0320 Cardiac Catheterization with/without PCI Problems Assessed (Cardiac Catheterization with/without PCI) all Problems Present (Cardiac Catheterization with/without PCI) none * Plan of Care - Taurus Beckham RN - 06/22/2016 6:53 PM EDT Problem: General Plan of Care Goal: Plan of Care Review Outcome: Ongoing (Interventions Implemented as Appropriate) 06/22/16 1500 06/22/16 1851 Coping/Psychosocial Response Interventions Plan of Care Reviewed with patient;significant other -- Plan of Care Review Plan of Care Outcome Status -- ongoing (interventions implemented as appropriate) Progress -- progress toward functional goals as expected OUTCOME EVALUATION NOTE: OUTCOME SUMMARY: Patient is alert and oriented. VSS. No reports of pain or discomfort this shift. Patient ambulatingon unit with significant other. PLAN MOVING FORWARD: Ambulate INDIVIDUALIZED FALL PREVENTION INTERVENTIONS: Patient-specific fall risk factors per assessment: [current deficits]: Assistance [level of assistance required for transfers and ambulation]: Independent Supervision [direct monitoring required during toileting and ADLs]: Intermittent; able to reliably call for assistance Surveillance [continuous indirect monitoring]: Purposeful Hourly Rounding; call wang in reach; roomkept free of obstacles; hall monitor attached and alarms and settings reviewed q 4 hours. Patient-specific fall prevention interventions for sensory deficits provided, if applicable: CPG GOAL OUTCOME EVALUATION: ongoing Goal: Fall Prevention-Safe Patient Handling Outcome: Ongoing (Interventions Implemented as Appropriate) 06/22/16 1500 06/22/161850 Safety Interventions Safety Precautions/Fall Reduction environmental modification;fall reduction program maintained;family at bedside;lighting adjusted for task/safety;low bed;nonskid shoes/slippers when out of bed -- Musculoskeletal Interventions Activity/Level of Assistance up ad segun;independently -- Positioning independent -- Muscle Strengthening -- activity/mobility promoted;mobility in bed promoted;personal routines for BADL/IADL promoted;sitting on edge of bed encouraged;up in chair encouraged for meals and activities Self-Care Promotion -- personal/BADL objects within reach;personal routines for BADL/IADL promoted Activity and Safety Assistive Device -- None Maciel Fall Risk History of Falling -- 0 Secondary Diagnosis -- 15 Ambulatory Aids -- 0 Intravenous Therapy/Heparin/Saline Lock -- 20 Gait/Transferring -- 0 Mental Status -- 0 Score -- 35 OTHER Maciel Fall Risk -- Med Goal: Infection Control Outcome: Ongoing (Interventions Implemented as Appropriate) 06/22/16 1500 06/22/161850 Safety Interventions Isolation Precautions standard precautions maintained -- Infection Prevention environmental surveillance;hydration promoted;nutrition promoted;promote handwashing;rest/sleep promoted -- Coping/Psychosocial Response Interventions Counseling -- goal setting facilitated;understanding of situation facilitated;verbalization of feelings encouraged Problem: Cardiac Catheterization with/without PCI (Adult) Goal: Signs and symptoms of listed potential problems will be absent or manageable (reference (Cardiac Catheterization with/without PCI (Adult)) CPG) Outcome: Ongoing (Interventions Implemented as Appropriate) 06/22/161850 Cardiac Catheterization with/without PCI Problems Assessed (Cardiac Catheterization with/without PCI) all Problems Present (Cardiac Catheterization with/without PCI) none * Med Student Progress Note - LukePinedajennifer Valentine - 06/22/2016 6:56 AM EDT Inpatient Cardiology Progress Note Patient Name: Alex Joyce Date of Admission: 06/21/2016 ( Hospital Day 1 day ) Service: S1 ID: Alex Joyce is a 45 y.o. male with a history of tobacco use who presented at OSH with an interior STEMI. Received lytics (tenecteplase). Now s/pDES to proximal RCA and LEIGH to OM2 of LCX. Active Problems: inferior STEMI 24 hr events: - No acute events overnight - Comfortable, no pain or discomfort, feels ready to go home - Overnight SBP > 160 --> Received metoprolol 5mg IV x 1 Nursing Concerns: - none ROS: Denies CP, SOB, palpitations, PND, Orthopnea, dizziness/LH, LE swelling or pain, n/v, abd pain. Telemetry: 60s-70s, NSR Meds: Continuous Infusions: ??? sodium chloride 0.9% 100 mL/hr (06/21/16 2200) Scheduled Meds: ??? lisinopril 20 mg Oral Daily ??? clopidogrel 75 mg Oral Daily ??? sodium chloride 0.9 % 5 mL Intravenous BID ??? nicotine 21 mg Transdermal Daily And ??? Patch Verification 1 patch Transdermal BID And ??? nicotine 1 patch Transdermal Daily ??? aspirin 81 mg Oral Daily ??? atorvastatin 80 mg Oral QPM ??? meTOPROLOL tartrate 12.5 mg Oral Q6H LEA PRN Meds:.sodium chloride 0.9 %, lidocaine, nitroGLYcerin, meTOPROLOL Vital Signs: Last value Range last 24 hrs Temperature Temp: 37 ??C (98.6 ??F) Temp: [37 ??C (98.6 ??F)-37.1 ??C (98.8 ??F)] Heart Rate Heart Rate: 69 Heart Rate: [57-72] Blood Pressure BP: 142/81 BP: (115-162)/(69-100) Respiratory Rate Resp: 16 Resp: [12-22] SpO2 SpO2: 97 % SpO2: [94 %-99 %] Patient Vitals for the past 168 hrs: Weight 06/21/16 1500 (!) 104 kg (229 lb 4.5 oz) Admit wt: 104 kg I/O: Intake/Output Summary (Last 24 hours) at 06/22/16 0802 Last data filed at 06/22/16 0600 Gross per 24 hour Intake 1180 ml Output 4600 ml Net -3420 ml cumulative I/O's since admission: Physical Exam: Gen: in bed in NAD; alert, oriented, interactive HEENT: anicteric, MMM Neck: no carotid bruits CV: RRR, normal S1/S2, no m/r/g, no JVD Resp: CTAB Abd: +BS, soft, NT, ND, no HSM, no masses Ext: catheter site on right wrist w/o lesion/ecchymoses/hematoma, slight tenderness on paplation, reverse gurpreet test negative, no cyanosis, no clubbing, 2+ DP pulses, no edema Neuro: no focal deficits noted, CN II-XII grossly intact, moves all extremities spontaneously Skin: no rashes, lesions, or ulcerations noted Labs Recent Labs 06/22/16 0405 06/21/16 1450 WBC 9.2 10.6* HGB 15.8 14.9 HCT 47.8 43.9 PLATELET 211 223 Recent Labs 06/22/16 0405 06/21/16 1450 NA 142 136 K 4.4 4.3 CL 106 101 CO2 27 20* BUN 10 10 CREATININE 1.00 0.96 No results for input(s): AST, ALT, ALKPHOS, BILITOT, BILIDIR in the last 168 hours. Recent Labs 06/22/16 0405 06/21/16 1450 CALCIUM 8.8 8.2* MAGNESIUM 0.92 -- Recent Labs 06/21/16 1450 INR 1.2* PT 15.1* PTT >160* Recent Labs 06/22/16 0405 06/21/16 1450 CK 263* 357* TROPONINT 0.90* 1.29* Troponin @ OSH = 0.15 No results for input(s): POCGLU in the last 168 hours. Imaging/Studies: EKG 06/22 @7:45 AM - consistent with inferior inferior infarct - pathologic Q's and inverted T waves in leads II, III, aVF - QRS narrow (104) - when compared with EKG of 06/21/16 T wave inversion more evident in inferior leads - NSR EKG 06/21 @3PM Sinus bradycardia Left axis deviation Inferior infarct , age undetermined Abnormal ECG No previous ECGs available Transthoracic Echo: EF 52%, akinesis mid-posterolateral/anterolateral; hypokinesis at lateral apex 1. Technically limited study. Contrast was administered. [...] is no hemodynamically significant valve disease evident. ?? 5. See remainder of report for additional findings. Cardiac Catheterization: LVEDP 13 Dominance: right Vessel?? Lesion?? Intervention?? Left main?? Mild diffuse disease?? -?? LAD?? Mild diffuse disesae?? -?? LCX?? Mild diffuse disease 70% single discrete stenosis of OM2?? - DESx1?? RCA?? Mild diffuse disease 75% single discrete stenosis of proximal segment with evidence of thrombus?? - Thrombectomy with DESx1? Conclusions: ?? * Two vessel coronary artery disease (LCX and RCA) ?? * Normal left ventricular ejection fraction (EF-60%) ?? * Successful thrombectomy and stent insertion of the proximal RCA lesion ?? * Successful stent insertion of the proximal OM2 lesion ?? * Drug eluting stents placed. Assessment: 45 y.o. male with a history of tobacco use, presents at an OSH with an inferior STEMI, now s/p LEIGH to proximal RCA and LEIGH to 2nd OM of LCX (non- culprit). He is hemodynamically stable, with no CP, SOB or discomfort this morning. Troponins down trending, at 0.90 this morning from a peak at 1.29. Cath site in right wrist is without lesions, negative gurpreet test. Heart rate overnight continued to be elevated, requiring 1 x metoprolol 5 mg IV (SBP >160). We will titrate up lisinopril to 20 mg and c/w antiplatelets (stent), statins, and double product control. He is doing well post cath and ready for transfer to floor today. # STEMI - ASA 81mg - Plavix 75mg - Atorvastatin 80mg - Increase Lisinopril to 20mg - Metoprolol 12.5mg q6hrs - Maintain SBP < 160 and HR <100 - f/u on TTE - monitor troponins/CK until downtrend - daily EKGs ?? #Diet: normal #DVT: not indicated, ambulation #Dispo: pending medical course #Code Status: FULL CODE ?? Yakelin Butler * Med Student H&P - Yakelin Butler I - 06/21/2016 3:46 PM EDT Admission History & Physical History of present illness: Alex Joyce is a 45 y.o. male with a history of tobacco use (30+ PYH) who presents with a STEMI after transfer from [facility]. The patient states that he was in his usual state of health until this morning around 7:30 AM in his car on his way to work when he experienced sudden onset chest tightness in the center of his chest, accompanied by numbness/tingling in his arms and lightheadedness. He also started feeling in credibly hot, with profuse sweating, blasting the a/c to try and cool himself off. He describes thetightness as though someone were sitting on his chest, rating the pain at a 6-7/10. He continued onto work as he thought the discomfort would resolve, but his symptoms continued to increase in severity, with some pain now radiating into his jaw. He noticed that his symptoms worsened with physicalactivity, such as walking into his office. 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 At this time with the pain not abating, his girlfriend drove him into [facility]. He denied any SOB, palpitations, or nausea or vomiting. He has not had any recent illness or fever.He has had similar episodes numerous times in the past, with the last one about 2 years ago. These episodes have always resolved after 2-3 minutes with deep breathing and were not brought on by activity or stress. He notes that he had had a stressful morning trying to get his 2 foster kids ready for a respite weekend away, as well as a generally high baseline level of stress at home with the foster children. Upon arrival at [facility], his vital signs were stable. Labs were notable for: WBC 11.7 Hgb 16.5 Plt 206 Cr 1.1, K 4.0 Mag 2.1 CPK 114 Troponin 0.15 (ULN 0.06) An EKG showed ST elevations in the inferior leads. He was subsequently given ASA 324 mg, 300mg plavix, tenecteplase 50m, placed on nitro and heparin gtt and transferred to [facility] for further management. At [facility] he underwent catherization with 2 LEIGH placed in RCA and LCX. He is now without discomfort, chest pain, SOB or diaphoresis. Past medical/surgical history: No known medical history Review of systems: (positives bolded) General: -fevers/chills/night sweats, -weight loss, -fatigue Eyes: -change in vision, -blurry vision, -loss of vision ENT: -dysphagia, -sore throat, -hearing Cardiovascular: +chest pain, -palpitations, -orthopnea, -PND, -edema, +diaphoresis Respiratory: -dyspnea, -cough, -sputum production, -hemoptysis, -wheeze GI: -abdominal pain, -nausea/vomiting/diarrhea, -constipation, -hematochezia, -melena : -hematuria, -dysuria, -frequency, -urgency Musculoskeletal: -joint pains, -joint swelling, -muscular pain Neuro: -numbness, -tingling, -focal weakness Hem/Lymph: no easy bruising or bleeding Psych: no thoughts of harming self or others; no hallucinations Medications: Takes no medication Allergies: No Known Allergies Social history: Living: Lives in [place], [place] with his girlfriend of 5 years, Mili, and 2 foster kids (who have lived with them for the last 7 months) 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 Tobacco: active smoker, 1 PPD smoker, >30 PYH (30 years with up to 3 PPD at some points) ETOH: rare (2-3 drinks per year) Illicits: no past or present drug use Significant family history: Father ( 2008): CAD, CABG in 60s Physical Exam: Vitals: Patient Vitals for the past 24 hrs: BP Temp Temp src Pulse Resp SpO2 Height Weight 06/21/16 1645 157/85 - - 69 22 98 % - - 06/21/16 1630 151/84 - - 70 22 98 % - - 06/21/16 1615 154/87 - - 69 19 97 % - - 06/21/16 1600 149/77 - - 63 19 97 % - - 06/21/16 1545 149/77 - - 69 17 98 % - - 06/21/16 1530 (!) 162/97 - - 67 19 98 % - - 06/21/16 1515 150/83 - - 61 12 97 % - - 06/21/16 1500 (!) 155/100 37.1 ??C (98.8 ??F) Oral 66 12 99 % 182.9 cm (6') (!) 104 kg (229 lb 4.5 oz) Gen: Middle aged male, appears his stated age, pleasant and conversational, NAD Eyes: PERRL, EOMI, anicteric ENT: MMM, -erythema/exudate, neck supple, no LAD, no JVD CV: RRR, Normal S1/S2, -m/r/g appreciated Respiratory: Symmetrical excursion, CTAB, -w/r/r GI: Soft, NT/ ND, + BS Skin: Warm and Dry, no lesions Neuro: A/Ox3, CN 2-12 intact, nl Strength/Sensation Ext: No edema, 2+ DP/radial pulses Laboratory: Recent Results (from the past 24 hour(s)) Cardiac Enzymes Result Value Ref Range Troponin-T 1.29 (H) <=0.03 ng/mL CK, Total 357 (H) 0 - 200 unit/L Basic Metabolic Panel (non-fasting) Result Value Ref Range Glucose Lvl 104 65 - 199 mg/dL BUN 10 10 - 20 mg/dL Creatinine 0.96 0.80 - 1.50 mg/dL Sodium 136 135 - 145 mmol/L Potassium 4.3 3.5 - 5.0 mmol/L Chloride 101 98 - 107 mmol/L CO2 20 (L) 22 - 31 mmol/L Anion Gap 15 5 - 15 mmol/L Calcium 8.2 (L) 8.5 - 10.5 mg/dL Estimated GFR >60 >=60 Prothrombin Time Result Value Ref Range PT 15.1 (H) 12.0 - 15.0 sec INR 1.2 (H) 0.9 - 1.1 APTT Result Value Ref Range PTT >160 (CRIT) 25 - 35 sec Hemogram Result Value Ref Range WBC 10.6 (H) 4.0 - 10.0 x10(3)/mcL RBC 4.87 4.63 - 6.08 x10(6)/mcL Hemoglobin 14.9 13.7 - 17.5 gm/dL Hematocrit 43.9 40.0 - 51.0 % MCV 90.1 79.0 - 92.0 fL MCH 30.6 25.6 - 32.2 pg MCHC 33.9 32.0 - 36.5 gm/dL Platelets 223 145 - 370 x10(3)/mcL RDWSD 41.2 35.0 - 46.0 fL RDWCV 12.5 10.9 - 14.4 % MPV 9.9 9.0 - 12.0 fL nRBC % Auto 0.0 % nRBC Abs Auto 0.000 0.000 - 0.012 x10(3)/mcL Differential, Automated Result Value Ref Range Neutrophils % 67.6 % Neutr Abs (ANC) 7.14 (H) 1.50 - 6.30 x10(3)/mcL Lymphocytes % 23.8 % Lymphocytes Abs 2.5 1.0 - 3.6 x10(3)/mcL Monocytes % 6.9 % Monocyte Abs 0.7 0.2 - 1.0 x10(3)/mcL Eosinophils % 0.7 % Eosinophils Abs 0.1 0.0 - 0.5 x10(3)/mcL Basophils % 0.7 % Basophils Abs 0.1 0.0 - 0.2 x10(3)/mcL Immature Gran % 0.30 % Katlyn Gran Abs 0.03 0.00 - 0.05 x10(3)/mcL Green Tube HOLD Result Value Ref Range Green Hold Sample in lab. Radiology/Other Pertinent Studies: Cardiac Catheterization LVEDP 13 Dominance: right Vessel Lesion Intervention Left main Mild diffuse disease - LAD Mild diffuse disesae - LCX Mild diffuse disease 70% single discrete stenosis of OM2 - DESx1 RCA Mild diffuse disease 75% single discrete stenosis of proximal segment with evidence of thrombus - Thrombectomy with DESx1 ?? Conclusions: ?? * Two vessel coronary artery disease (LCX and RCA) ?? * Normal left ventricular ejection fraction (EF-60%) ?? * Successful thrombectomy and stent insertion of the proximal RCA lesion ?? * Successful stent insertion of the proximal OM2 lesion ?? * Drug eluting stents placed. Transthoracic Echo: EF 52%, akinesis mid-posterolateral/anterolateral; hypokinesis at lateral apex 1. Technically limited study. Contrast was administered. [...] See remainder of report for additional findings. ?? Assessment/Plan: Alex Joyce is a 45 y.o. male with 30+ PYH who presents from an OSH with an inferior STEMI. At OSH EKG showed ST elevations in inferior leads, with troponins elevated to 0.15; hereceived lytics and was transported here for further management. He then underwent cardiac catheterization, which revealed a 75% stenosis in the proximal RCA with a new thrombus (culprite lesion) and70% stenosis in LCX (non-culprit lesion). Now s/p 2 x LEIGH (LCX and RCA). He is hemodynamically stable and without symptoms at this time. Troponin now at 1.29 (from 0.15 at OSH). Notably, his BP sincearrival has been elevated in the 140s-160s/70s-100s. We will admit him for observation and begin man agement with antiplatelets (stent), statins, and double product control (BP, HR). # STEMI - ASA 81mg - Plavix 75mg - Atorvastatin 80mg - Lisinopril 10mg - Metoprolol 12.5mg q6hrs - Maintain SBP < 160 and HR <100 - f/u on TTE - monitor troponins/CK until downtrend - daily EKGs #Diet: normal #DVT: not indicated, ambulation #Dispo: pending medical course #Code Status: FULL CODE Yakelin Butler 3rd Year Medical Student, [facility] @@ Pager [phone] documented in this encounter Plan of Treatment Scheduled Referrals Name Type Priority Associated Diagnoses Orde r Schedule Referral to Cardiac Rehab Outpatient Referral Routine ST elevation (STEMI) myocardial infarction involving left anterior descending coronary artery Ordered: 06/23/2016 documented as of this encounter Procedures Procedure Name Priority Date/Time Associated Diagnosis Comments ANALYTICS ARCHITECT SCAN 06/24/2016 12:00 AM EDT EKG 12-LEAD Routine 06/23/2016 8:[address] elevation (STEMI) myocardial infarction involving left anterior descending coronary artery BMP W/FASTING GLUCOSE Routine 06/23/2016 6:05 AM EDT LAVENDER TUBE HOLD Routine 06/23/2016 6: 05 AM EDT MAGNESIUM Routine 06/23/2016 6:05 AM EDT EKG 12-LEAD Routine 06/22/2016 7:[address] elevation (STEMI) myocardial infarction involving left anterior descending coronary artery HEMOGRAM Routine 06/22/2016 4:05 AM EDT DIFFERENTIAL, AUTOMATED Routine 06/22/20 16 4:05 AM EDT CARDIAC ENZYMES ([facility]) Routine 06/22/2016 4:05 AM EDT CBC (WITH DIFF) Routine 06/22/2016 4:05 AM EDT MAGNESIUM Routine 06/22/2016 4:05 AM EDT BASIC METABOLIC PANEL Routine 06/22/2016 4:05 AM EDT ECHO COMPLETE W CONTRAST Routine 06/21/2016 4:[address] elevation (STEMI) myocardial infarction involving left anterior descending coronary artery EKG 12-LEAD Routine 06/21/2016 3:[address] elevation (STEMI) myocardial infarction involving left anterior descending coronary artery HEMOGRAM STAT 06/21/2016 2:50 PM EDT DIFFERENTIAL, AUTOMATED STAT 06/21/20 16 2:50 PM EDT GREEN TUBE HOLD STAT 06/21/2016 2:50 PM EDT CARDIAC ENZYMES ([facility]) STAT 06/21/2016 2:50 PM EDT APTT Routine 06/21/2016 2:50 PM EDT PROTHROMBIN TIME Routine 06/21/2016 2:50 PM EDT CBC (WITH DIFF) STAT 06/21/2016 2:50 PM EDT BASIC METABOLIC PANEL Routine 06/21/2016 2:50 PM EDT CARDIAC CATHETERIZATION Routine 06/21/20 16 2:33 PM EDT documented in this encounter Results * SCAN DOC: ANALYTICS ARCHITECT (06/24/2016 12:00 AM EDT) Anatomical Region Laterality Modality Other Scanning Provider MEDIA MGR SCAN EXT O RDR/RSLT * EKG 12 Lead (06/23/2016 8:55 AM EDT) Ventricular rate 62 BPM MUSE SYSTEM Atrial Rate 62 BPM MUSE SYSTEM P-R Interval 154 ms MUSE SYSTEM QRS Duration 108 ms MUSE SYSTEM Q-T Interval 466 ms MUSE SYSTEM QTC Calculated (Bezet) 472 ms MUSE SYSTEM Calculated P [place] 38 degrees MUSE SYSTEM Calculated R [place] -63 degrees MUSE SYSTEM Calculated T [place] -75 degrees MUSE SYSTEM INTERPRETATION Normal sinus rhythm Left anterior fascicular block Inferior infarct (cited on or before 21-JUN-2016) Abnormal ECG When compared with ECG of 22-JUN-2016 07:38, T wave inversion more evident in Inferior leads T wave inversion now evident in Anterolateral leads Confirmed by MD Roel, Major Quezada ([id number]) on 06/23/2016 4:19:24 PM MUSE SYSTEM 06/23/2016 8:55 AM EDT 06/23/2016 4:19 PM EDT Lavelle Willams MD ECG ORDERABLES MUSE SYSTEM * BMP w/fasting Glucose (06/23/2016 6:05 AM EDT) Glucose Fasting 99 65 - 99 mg/dL [facility] Comment: ?Fasting* Glucose Interpretive Criteria Normal ?65-99 mg/dL Impaired Fasting glucose ?100-125 mg/dL Consistent with Diabetes Mellitus ? >or= 126 mg/dL *Fasting is defined as no caloric intake for at least 8 hours In the absence of unequivocal hyperglycemia a plasma glucose value of >or= 126 mg/dL should be repeated on a subsequent day. Diagnosis and Classification of Diabetes Mellitus, Position Statement from the [place] [employer]. ??Diabetes Care, Volume 33, Supplement 1, Nov 2009 Blood Urea Nitrogen 12 10 - 20 mg/dL [facility] Creatinine 1.02 0.80 - 1.50 mg/dL [facility] Comment: Please note that the pediatric reference intervals supplied above were not validated at [facility]. Results from pediatric patients should be interpreted in conjunction to the patient's age, height and muscle mass. Sodium 141 135 - 145 mmol/L [facility] Potassium 4.2 3.5 - 5.0 mmol/L [facility] Comment: Please note: ??Patients with WBC >100,000 may have falsely elevated Potassium levels. ??For accurate Potassium quantification in these patients send serum separator tube (gold top) for subsequent determinations. ??Contact the Clinical Chemistry Laboratory if there are any questions. Chloride 106 98 - 107 mmol/L [facility] Carbon Dioxide Not Perf 22 - 31 mmol/L [facility] Comment:Add-on request. Samp le too old to perform test. Anion Gap Unable to Calculate 5 - 15 mmol/L [facility] Calcium 8.5 8.5 - 10.5 mg/dL [facility] Est Glomerular Filtration Rate >60 >=60 [facility] Comment: This estimated GFR (eGFR) value was calculated using the MDRD equation which has been validated on patients between the ages of 18 and 70. The MDRD should not be used to assess kidney function in patients < 18 years of age or in patients with extremes of body mass, or in patients with acute kidney failure. This value should be multiplied by 1.2 for patients. For further information please copy and paste the following links into your internet browser. [email or web address] Blood specimen (specimen) Venous Draw / Unknown 06/23/2016 6:05 AM EDT 06/23/2016 6:14 AM EDT Narrative Resulting Agency Comment Spec In Lab Lavelle Willams MD CHEMISTRY ORDERABLE S Performing Organization Address City/[facility]/ZIP Co de Phone Number [facility] [place] [address] * Lavender Tube HOLD (06/23/2016 6:05 AM EDT) Lavender Hold Sample in lab. [facility] Blood specimen (specimen) Venous Draw / Unknown 06/23/2016 6:05 AM EDT 06/23/2016 6:13 AM EDT Lavelle Willams MD HEMATOLOGY ORDERABL ES Performing Organization Address City/[facility]/ZIP Co de Phone Number [facility] [place] [address] * Magnesium (06/23/2016 6:05 AM EDT) Magnesium 0.90 0.69 - 1.07 mmol/L [facility] Blood specimen (specimen) 06/23/2016 6:05 AM EDT 06/23/2016 6:12 AM EDT Narrative Resulting Agency Comment Spec In Lab Lavelle Willams MD CHEMISTRY ORDERABLE S Performing Organization Address [facility] Co de Phone Number [facility] [place] [address] * EKG 12 Lead (06/22/2016 7:38 AM EDT) Pathologist [facility] Ventricular rate 64 BPM MUSE SYSTEM Atrial Rate 64 BPM MUSE SYSTEM P-R Interval 150 ms MUSE SYSTEM QRS Duration 104 ms MUSE SYSTEM Q-T Interval 424 ms MUSE SYSTEM QTC Calculated (Bezet) 437 ms MUSE SYSTEM Calculated P [place] 35 degrees MUSE SYSTEM Calculated R [place] -45 degrees MUSE SYSTEM Calculated T [place] -36 degrees MUSE SYSTEM INTERPRETATION Normal sinus rhythm Left anterior fascicular block Inferior infarct (cited on or before 21-JUN-2016) Abnormal ECG When compared with ECG of 21-JUN-2016 15:16, (unconfirmed) T wave inversion more evident in Inferior leads Confirmed by MD Dowd Douglas ([id number]) on 06/22/2016 10:30:50 AM MUSE SYSTEM 06/22/2016 7:38 AM EDT 06/22/2016 10:30 AM EDT Lavelle Willams MD ECG ORDERABLES Performing Organization Address [facility] Phone Number MUSE SYSTEM * (ABNORMAL) Cardiac Enzymes (06/22/2016 4:05 AM EDT) [facility] Troponin-T 0.90(H) <=0.03 ng/mL [facility] Comment: 0.03 ng/mL: Represents the 99th percentile upper reference limit for normals. >0.03 ng/mL: Elevated cardiac troponin T level indicative of myocardial damage. Diagnosis of acute, evolving or recent HI requires a typical rise and gradual fall of cTnT with at least ONE of the following: a) Ischemic symptoms b) Development of pathologic Q waves on the ECG c) ECG changes indicative of eschemia (S-T segment elevation/depression) d) Coronary artery intervention Serial bloods should be obtained for testing on admission, at 6 to 9 hrs and again at 12 to 24 hrs if earlier samples are negative and the clinical index of suspicion is high. Reference: [Myocardial infarction redefined? a consensus document of the Joint Society of Cardiology/[place] College [employer] Cardiology Committee for the redefinition of myocardial infarction. ??Journal of the [place] College of Cardiology 2000; 36: 959-969] Creatine Kinase 263(H) 0 - 200 unit/L [facility] Blood specimen (specimen) Venous Draw / Unknown 06/22/2016 4:05 AM EDT 06/22/2016 5:17 AM EDT Narrative Resulting Agency Comment Spec In Lab Lavelle Willams MD CHEMISTRY ORDERABLE S [facility] [place] [address] * Differential, Automated (06/22/2016 4:05 AM EDT) Neutrophil % 59.5 % [facility] Neutrophil Absolute 5.50 1.50 - 6.30 x10(3)/[facility] Lymph % 26.6 % [facility] Lymphocytes Abs 2.5 1.0 - 3.6 x10(3)/[facility] Monocyte % 10.1 % [facility] Monocyte Abs 0.9 0.2 - 1.0 x10(3)/[facility] Eos % 2.8 % [facility] Eosinophils Abs 0.3 0.0 - 0.5 x10(3)/[facility] Basophil % 0.6 % [facility] Baso Absolute 0.1 0.0 - 0.2 x10(3)/[facility]ORY Immature Gran % 0.40 % [facility] Comment: Immature granulocytes(IG's)percentage and absolute count will include metamyelocytes, myelocytes, and promyelocytes. Blood smears from CBCs yielding IG's will be scanned manually for concordance. If this scan disagrees with the automated IG or if promyelocytes are noted, a manual differential will be performed. Immature Gran Absolute 0.04 0.00 - 0.05 x10(3)/mcL [facility] Blood specimen (specimen) 06/22/2016 4:05 AM EDT 06/22/2016 5:17 AM EDT Narrative Resulting Agency Comment Spec In Lab Lavelle Willams MD HEMATOLOGY ORDERABL ES [facility] [place] [address] * (ABNORMAL) Hemogram (06/22/2016 4:05 AM EDT) White Blood Cell 9.2 4.0 - 10.0 x10(3)/[facility]ORATORY Red Blood Cell 5.18 4.63 - 6.08 x10(6)/[facility]ATORY Hemoglobin 15.8 13.7 - 17.5 gm/dL [facility] Hematocrit 47.8 40.0 - 51.0 % [facility] Mean Cell Volume 92.3(H) 79.0 - 92.0 fL [facility] Mean Cell Hemoglobin 30.5 25.6 - 32.2 pg [facility] Mean Cell Hemoglobin Concentration 33.1 32.0 - 36.5 gm/dL [facility] Platelet 211 145 - 370 x10(3)/[facility]ORATORY RDW Standard Deviation 43.5 35.0 - 46.0 [facility]ORY RDW coefficient of variation 12.7 10.9 - 14.4 % [facility] Mean Platelet Volume 9.7 9.0 - 12.0 fL [facility] NRBC% auto 0.0 % [facility] NRBC Absolute 0.000 0.000 - 0.012 x10(3)/[facility] Blood specimen (specimen) 06/22/2016 4:05 AM EDT 06/22/2016 5:17 AM EDT Narrative Resulting Agency Comment Spec In Lab Lavelle Willams MD HEMATOLOGY ORDERABL ES [facility] [place] [address] * Magnesium (06/22/2016 4:05 AM EDT) [facility] Magnesium 0.92 0.69 - 1.07 mmol/L [facility] Blood specimen (specimen) 06/22/2016 4:05 AM EDT 06/22/2016 5:17 AM EDT Narrative Resulting Agency Comment Spec In Lab Lavelle Willams MD CHEMISTRY ORDERABLE S Performing Organization Address [facility] Co de Phone Number [facility] [place] [address] * Basic Metabolic Panel (non-fasting) (06/22/2016 4:05 AM EDT) [facility] Glucose Not Perf 65 - 199 mg/dL [facility] Comment: Sample improperly processed prior to receipt. Diabetes: >=200 mg/dL plus symptoms Blood Urea Nitrogen 10 10 - 20 mg/dL [facility] Creatinine 1.00 0.80 - 1.50 mg/dL [facility] Comment: Please note that the pediatric reference intervals supplied above were not validated at [facility]. Results from pediatric patients should be interpreted in conjunction to the patient's age, height and muscle mass. Sodium 142 135 - 145 mmol/L [facility] Potassium 4.4 3.5 - 5.0 mmol/L [facility] Comment: Please note: ??Patients with WBC >100,000 may have falsely elevated Potassium levels. ??For accurate Potassium quantification in these patients send serum separator tube (gold top) for subsequent determinations. ??Contact the Clinical Chemistry Laboratory if there are any questions. Chloride 106 98 - 107 mmol/L [facility] Carbon Dioxide 27 22 - 31 mmol/L [facility] Anion Gap 9 5 - 15 mmol/L [facility] Calcium 8.8 8.5 - 10.5 mg/dL [facility] Est Glomerular Filtration Rate >60 >=60 [facility] Comment: This estimated GFR (eGFR) value was calculated using the MDRD equation which has been validated on patients between the ages of 18 and 70. The MDRD should not be used to assess kidney function in patients < 18 years of age or in patients with extremes of body mass, or in patients with acute kidney failure. This value should be multiplied by 1.2 for patients. For further information please copy and paste the following links into your internet browser. [email or web address] [email or web address] Blood specimen (specimen) 06/22/2016 4:05 AM EDT 06/22/2016 5:17 AM EDT Narrative Resulting Agency Comment Spec In Lab Lavelle Willams MD CHEMISTRY ORDERABLE S Performing Organization Address City/State/[facility] Co de Phone Number [facility] [place] [address] * ECHO COMPLETE W CONTRAST (06/21/2016 4:29 PM EDT) EF 52 [facility]ART[facility] SYSTEM Anatomical Region Laterality Modality Other 06/21/2016 Narrative 06/21/2016 4:44 PM EDT Procedure: ?Transthoracic Echocardiogram Patient: ?JOYCE ALEX ? (Age): 1970(45y) Med Rec#: ? [id number] ?Sex: ?M ? Site Loc: ? [facility] ?Ht / Wt: ??180(cm)/115(kg) Pt. Loc: ?CCU ? BSA: ?2.33 Study Date: ?? 06/21/2016 ?Pt. Type: Inpatient Tape: ? Referring: Lavelle Willams Reading: Piyush Pastor ([id number]) Flight Agent: Naeem Guerra Diagnosis: *ICD-10-PCS ST elevation (STEMI) myocardial infarction of unspecified site (I21.3) CPT Codes: *Echo Full (86742) *Spectral Doppler (01849) *Color Doppler (62353) *Optison ([id number]) Rhythm: ? Sinus BP: ? 149/77 SUMMARY: 1. Technically limited study. ??Contrast was administered. 2. The left ventricular chamber size is normal. ??The quantitative left ventricular ejection fraction by biplane Chow's method is 52%. ??There are left ventricular segmental wall motion abnormalities present, as shown in the diagram below. 3. The right ventricle is normal in size. ??Right ventricular global systolic function is normal. ??Pulmonary artery hypertension could not be assessed due to inadequate tricuspid regurgitation jet. 4. There is no hemodynamically significant valve disease evident. 5. See remainder of report for additional findings. Findings ? : Study Quality: ? Technically limited Left Ventricle: ? The left ventricular chamber size is normal. ?Left ventricular wall thickness is normal. ?The quantitative left ventricular ejection fraction by biplane Chow's method is 52%. ?There are left ventricular segmental wall motion abnormalities present, as shown in the diagram below. ?Doppler assessment is consistent with normal left sided filling pressure. ?The ??apical lateral wall segment is hypokinetic (score 2). ?The ??mid anterolateral, and ??mid inferolateral wall segments are akinetic (score 3). ?Overall wallmotion score index is ??1.31 Left Atrium: ? The left atrium is normal in size.24 ml/m2 Right Ventricle: ? The right ventricle is normal in size. ?There is mild right ventricular hypertrophy observed. ?Right ventricular global systolic function is normal. ?Pulmonary artery hypertension could not be assessed due to inadequate tricuspid regurgitation jet. Right Atrium: ? The right atrium appears normal. Aortic Valve: ? The aortic valve is not well visualized. ?The aortic valve leaflets are mildly thickened. ?There is no evidence of aortic valve stenosis. ?There is no evidence of aortic regurgitation. Mitral Valve: ? The mitral valve appears normal in structure and function. ?There is trace mitral regurgitation present. Tricuspid Valve: ? The tricuspid valve appears normal in structure and function. ?Doppler evaluation of tricuspid valve regurgitation is inadequate. Pulmonic Valve: ? The pulmonic valve appears normal in structure and function. Pericardium: ? The pericardium appears normal and there is no evidence of a pericardial effusion. Aorta: ? The aortic root is normal in size. ?The ascending aorta is normal in size. Pulmonary Artery: ? The main pulmonary artery appears normal. Venous: ? The inferior vena cava appears normal in size. ?There is a greater than 50% respiratory change in the inferior vena cava dimension. Misc: ? There is no hemodynamically significant valve disease. ?See remainder of report for additional findings. ?Two-dimensional echo, spectral Doppler and color Doppler performed. Chambers 2D ?Value ?Units (Range) ? IVSd (2D) ? 1 ?cm ? LVPWd (2D) ?1 ?cm ? LVIDd (2D) ?5.1 ?cm ? LVIDs (2D) ?2.6 ?cm ? LV FS (2D) ?48.6 ? % ? EF Teichholz (2D) ?? 79.7 ? % ? Ao root diameter (2D3.2 ?cm (2.1 - 3.6) ? Ascending Ao ?2.8 ?cm (2 - 3.5) ? Volumes/Mass ?Value ?Units (Range) ? LA Area 2 CH ?22 ? cm2 ? LA Area 4 CH ?16 ? cm2 (<21) ? LA ESV BP (A/L) inde24 ? ml/m2 ? RA AREA 4CH ? 15 ? cm2 ? LA ESV SP 4CH (MOD) 36.4 ? ml ? LA ESV SP 2CH (MOD) 70.5 ? ml ? LV ESV SP 4CH (MOD) 71.9 ? ml ? LV ESV SP 2CH (MOD) 62.6 ? ml ? LV EDV BP ? 139.6 ?ml ? LV ESV BP ? 67.4 ? ml ? BP EF (MOD) ? 51.7 ? % ? Diastolic/Systolic Function ?Value ?Units (Range) ? MV E-wave Vmax ?0.5 ?m/sec ? MV deceleration pacl967.3 ?msec ? MV A-wave Vmax ?0.6 ?m/sec ? MV E:A ratio ?0.8 ?ratio ? Measurement Trending Name ? 06/21/2016 ? LV EDV BP ?139.55 LVIDd (2D) ? 5.1 LV ESV BP ?67.39 LVIDs (2D) ? 2.62 Wall Motion: Segment Name ?Rest ? Base-Anteroseptal ?? Normal ? Base-Anterior ? Normal ? Base-Anterolateral ??Normal ? Base-Posterolateral Normal ? Base-Inferior ? Normal ? Base-Inferoseptal ?? Normal ? Mid-Anteroseptal ?Normal ? Mid-Anterior ?Normal ? Mid-Anterolateral ?? Akinetic ? Mid-Posterolateral ??Akinetic ? Mid-Inferior ?Normal ? Mid-Inferoseptal ?Normal ? [place]-Septal ? Normal ? [place]-Anterior ? Normal ? [place]-Lateral ?Hypokinetic ? [place]-Inferior ? Normal ? [place]-Tip ?Normal ? This report has been electronically signed by: Piyush Pastor MD ? 06/21/2016 16:43:40 Images reviewed and interpretation verified [facility] Cardiac Ultrasound Laboratory Procedure Note Piyush Pastor MD - 06/21/2016 Procedure: Transthoracic Echocardiogram Patient: ISIAH ANAYA(Age): 1970(45y) Med Rec#: [id number] Sex: M Site Loc: [facility] Ht / Wt: 180(cm)/115(kg) Pt. Loc: CCU BSA: 2.33 Study Date: 06/21/2016 Pt. Type: Inpatient Tape: Referring: Lavelle Willams Reading: Piyush Pastor ([id number]) Flight Agent: Naeem Guerra Diagnosis: *ICD-10-PCS ST elevation (STEMI) myocardial infarction of unspecified site (I21.3) CPT Codes: *Echo Full (31851) *Spectral Doppler (09456) *Color Doppler (63364) *Optison ([id number]) Rhythm: Sinus BP: 149/77 SUMMARY: 1. Technically limited study. Contrast was [...] See remainder of report for additional findings. Findings : Study Quality: Technically limited Left Ventricle: The left ventricular chamber size is normal. Left ventricular wall thickness is normal. The quantitative left ventricular ejection fraction by biplane Chow's method is 52%. There are left ventricular segmental wall motion abnormalities present, as shown in the diagram below. Doppler assessment is consistent with normal left sided filling pressure. The apical lateral wall segment is hypokinetic (score 2). The mid anterolateral, and mid inferolateral wall segments are akinetic (score 3). Overall wallmotion score index is 1.31 Left Atrium: The left atrium is normal in size.24 ml/m2 Right Ventricle: The right ventricle is normal in size. There is mild right ventricular hypertrophy observed. Right ventricular global systolic function is normal. Pulmonary artery hypertension could not be assessed due to inadequate tricuspid regurgitation jet. Right Atrium: The right atrium appears normal. Aortic Valve: The aortic valve is not well visualized. The aortic valve leaflets are mildly thickened. There is no evidence of aortic valve stenosis. There is no evidence of aortic regurgitation. Mitral Valve: The mitral valve appears normal in structure and function. There is trace mitral regurgitation present. Tricuspid Valve: The tricuspid valve appears normal in structure and function. Doppler evaluation of tricuspid valve regurgitation is inadequate. Pulmonic Valve: The pulmonic valve appears normal in structure and function. Pericardium: The pericardium appears normal and there is no evidence of a pericardial effusion. Aorta: The aortic root is normal in size. The ascending aorta is normal in size. Pulmonary Artery: The main pulmonary artery appears normal. Venous: The inferior vena cava appears normal in size. There is a greater than 50% respiratory change in the inferior vena cava dimension. Misc: There is no hemodynamically significant valve disease. See remainder of report for additional findings. Two-dimensional echo, spectral Doppler and color Doppler performed. Chambers 2D Value Units (Range) IVSd (2D) 1 cm LVPWd (2D) 1 cm LVIDd (2D) 5.1 cm LVIDs (2D) 2.6 cm LV FS (2D) 48.6 % EF Teichholz (2D) 79.7 % Ao root diameter (2D3.2 cm (2.1 - 3.6) Ascending Ao 2.8 cm (2 - 3.5) Volumes/Mass Value Units (Range) LA Area 2 CH 22 cm2 LA Area 4 CH 16 cm2 (<21) LA ESV BP (A/L) inde24 ml/m2 RA AREA 4CH 15 cm2 LA ESV SP 4CH (MOD) 36.4 ml LA ESV SP 2CH (MOD) 70.5 ml LV ESV SP 4CH (MOD) 71.9 ml LV ESV SP 2CH (MOD) 62.6 ml LV EDV BP 139.6 ml LV ESV BP 67.4 ml BP EF (MOD) 51.7 % Diastolic/Systolic Function Value Units (Range) MV E-wave Vmax 0.5 m/sec MV deceleration kdwe039.3 msec MV A-wave Vmax 0.6 m/sec MV E:A ratio 0.8 ratio Measurement Trending Name 06/21/2016 LV EDV BP 139.55 LVIDd (2D) 5.1 LV ESV BP 67.39 LVIDs (2D) 2.62 Wall Motion: Segment Name Rest Base-Anteroseptal Normal Base-Anterior Normal Base-Anterolateral Normal Base-Posterolateral Normal Base-Inferior Normal Base-Inferoseptal Normal Mid-Anteroseptal Normal Mid-Anterior Normal Mid-Anterolateral Akinetic Mid-Posterolateral Akinetic Mid-Inferior Normal Mid-Inferoseptal Normal [place]-Septal Normal [place]-Anterior Normal [place]-Lateral Hypokinetic [place]-Inferior Normal [place]-Tip Normal This report has been electronically signed by: Piyush Pastor MD 06/21/2016 16:43:40 Images reviewed and interpretation verified [facility] Cardiac Ultrasound Laboratory Lavelle Willams MD ECHO ORDERABLES * EKG 12 Lead (06/21/2016 3:16 PM EDT) Ventricular rate 59 BPM MUSE SYSTEM Atrial Rate 59 BPM MUSE SYSTEM P-R Interval 160 ms MUSE SYSTEM QRS Duration 96 ms MUSE SYSTEM Q-T Interval 424 ms MUSE SYSTEM QTC Calculated (Bezet) 419 ms MUSE SYSTEM Calculated P [place] 60 degrees MUSE SYSTEM Calculated R [place] -43 degrees MUSE SYSTEM Calculated T [place] -3 degrees MUSE SYSTEM INTERPRETATION Sinus bradycardia Left axis deviation Inferior infarct , age undetermined Abnormal ECG No previous ECGs available Confirmed by MD Dowd Douglas ([id number]) on 06/22/2016 10:30:32 AM MUSE SYSTEM 06/21/2016 3:16 PM EDT 06/22/2016 10:30 AM EDT Lavelle Willams MD ECG ORDERABLES MUSE SYSTEM * Green Tube HOLD (06/21/2016 2:50 PM EDT) Green Hold Sample in lab. [facility] Blood specimen (specimen) Venous Draw / Unknown 06/21/2016 2:50 PM EDT 06/21/2016 3:02 PM EDT Lavelle Willams MD CHEMISTRY ORDERABLE S Performing Organization Address City/[facility]/ZIP Co de Phone Number [facility] [place] [address] * (ABNORMAL) Differential, Automated (06/21/2016 2:50 PM EDT) Neutrophil % 67.6 % [facility] Neutrophil Absolute 7.14(H) 1.50 - 6.30 x10(3)/ L [facility] Lymph % 23.8 % [facility] Lymphocytes Abs 2.5 1.0 - 3.6 x10(3)/[facility] Monocyte % 6.9 % [facility] Monocyte Abs 0.7 0.2 - 1.0 x10(3)/ L [facility] Eos % 0.7 % [facility] Eosinophils Abs 0.1 0.0 - 0.5 x10(3)/ L [facility] Basophil % 0.7 % [facility] Baso Absolute 0.1 0.0 - 0.2 x10(3)/ L [facility] Immature Gran % 0.30 % [facility] Comment: Immature granulocytes(IG's)percentage and absolute count will include metamyelocytes, myelocytes, and promyelocytes. Blood smears from CBCs yielding IG's will be scanned manually for concordance. If this scan disagrees with the automated IG or if promyelocytes are noted, a manual differential will be performed. Immature Gran Absolute 0.03 0.00 - 0.05 x10(3)/mc L [facility] Blood specimen (specimen) 06/21/2016 2:50 PM EDT 06/21/2016 3:02 PM EDT Narrative Resulting Agency Comment Spec In Lab Lavelle Willams MD HEMATOLOGY ORDERABL ES [facility] [place] [address] * (ABNORMAL) Hemogram (06/21/2016 2:50 PM EDT) White Blood Cell 10.6(H) 4.0 - 10.0 x10(3)/ L [facility] Red Blood Cell 4.87 4.63 - 6.08 x10(6)/ L [facility] Hemoglobin 14.9 13.7 - 17.5 gm/dL [facility] Hematocrit 43.9 40.0 - 51.0 % [facility] Mean Cell Volume 90.1 79.0 - 92.0 fL [facility] Mean Cell Hemoglobin 30.6 25.6 - 32.2 pg [facility] Mean Cell Hemoglobin Concentration 33.9 32.0 - 36.5 gm/dL [facility] Platelet 223 145 - 370 x10(3)/mc L [facility] RDW Standard Deviation 41.2 35.0 - 46.0 fL [facility] RDW coefficient of variation 12.5 10.9 - 14.4 % [facility] Mean Platelet Volume 9.9 9.0 - 12.0 fL [facility] NRBC% auto 0.0 % [facility] NRBC Absolute 0.000 0.000 - 0.012 x10(3)/mc L [facility] Blood specimen (specimen) 06/21/2016 2:50 PM EDT 06/21/2016 3:02 PM EDT Narrative Resulting Agency Comment Spec In Lab Lavelle Willams MD HEMATOLOGY ORDERABL ES Performing Organization Address [facility] de Phone Number [facility] [place] [address] * (ABNORMAL) APTT (06/21/2016 2:50 PM EDT) Partial Thromboplastin Time >160(Crit ical) 25 - 35 sec [facility] Comment: Called by: [facility], Read back by: Gayle Raines, Date/Time:06/21/16 15:34. The recommended therapeutic range for full dose, unfractionated heparin at [facility] is 80 ? 114 seconds. The use of the anti-Xa (heparin) level rather than the PTT is recommended for monitoring anticoagulation intensity in critically ill patients receiving unfractionated heparin by continuous IV infusion. Blood specimen (specimen) 06/21/2016 2:50 PM EDT 06/21/2016 3:02 PM EDT Narrative Resulting Agency Comment Spec In Lab Lavelle Willams MD HEMATOLOGY ORDERABL ES Performing Organization Address [facility] Co de Phone Number [facility] [place] [address] * (ABNORMAL) Prothrombin Time (06/21/2016 2:50 PM EDT) Prothrombin Time 15.1(H) 12.0 - 15.0 sec [facility] Comment: An INR <2.0 indicates adequate procoagulant activity for hemostasis in most patients without underlying bleeding disorders, though the INR may not adequately reflect hemostatic capacity in patients with liver disease and synthetic impairment. The recommended target INR range for therapeutic anticoagulation is 2.0 ? 3.0 for most applications, though lower and higher ranges may be appropriate depending on clinical circumstances. International Normalization Ratio 1.2(H) 0.9 - 1.1 [facility] Blood specimen (specimen) 06/21/2016 2:50 PM EDT 06/21/2016 3:02 PM EDT Narrative Resulting Agency Comment Spec In Lab Lavelle Willams MD HEMATOLOGY ORDERABL ES [facility] [place] [address] * (ABNORMAL) Basic Metabolic Panel (non-fasting) (06/21/2016 2:50 PM EDT) Glucose 104 65 - 199 mg/dL [facility] Comment:Diabetes: >=200 mg/d L plus symptoms Blood Urea Nitrogen 10 10 - 20 mg/dL [facility] Creatinine 0.96 0.80 - 1.50 mg/dL [facility] Comment: Please note that the pediatric reference intervals supplied above were not validated at [facility]. Results from pediatric patients should be interpreted in conjunction to the patient's age, height and muscle mass. Sodium 136 135 - 145 mmol/L [facility] Potassium 4.3 3.5 - 5.0 mmol/L [facility] Comment: Please note: ??Patients with WBC >100,000 may have falsely elevated Potassium levels. ??For accurate Potassium quantification in these patients send serum separator tube (gold top) for subsequent determinations. ??Contact the Clinical Chemistry Laboratory if there are any questions. Chloride 101 98 - 107 mmol/L [facility] Carbon Dioxide 20(L) 22 - 31 mmol/L [facility] Anion Gap 15 5 - 15 mmol/L [facility] Calcium 8.2(L) 8.5 - 10.5 mg/dL [facility] Est Glomerular Filtration Rate >60 >=60 [facility] Comment: This estimated GFR (eGFR) value was calculated using the MDRD equation which has been validated on patients between the ages of 18 and 70. The MDRD should not be used to assess kidney function in patients < 18 years of age or in patients with extremes of body mass, or in patients with acute kidney failure. This value should be multiplied by 1.2 for patients. For further information please copy and paste the following links into your internet browser. [email or web address] [email or web address]/[email or web address] Blood specimen (specimen) 06/21/2016 2:50 PM EDT 06/21/2016 3:02 PM EDT Narrative Resulting Agency Comment Spec In Lab Lavelle Willams MD CHEMISTRY ORDERABLE S Performing Organization Address [facility] Co de Phone Number [facility] [place] [address] * (ABNORMAL) Cardiac Enzymes (06/21/2016 2:50 PM EDT) Troponin-T 1.29(H) <=0.03 ng/mL [facility] Comment: 0.03 ng/mL: Represents the 99th percentile upper reference limit for normals. >0.03 ng/mL: Elevated cardiac troponin T level indicative of myocardial damage. Diagnosis of acute, evolving or recent HI requires a typical rise and gradual fall of cTnT with at least ONE of the following: a) Ischemic symptoms b) Development of pathologic Q waves on the ECG c) ECG changes indicative of eschemia (S-T segment elevation/depression) d) Coronary artery intervention Serial bloods should be obtained for testing on admission, at 6 to 9 hrs and again at 12 to 24 hrs if earlier samples are negative and the clinical index of suspicion is high. Reference: [Myocardial infarction redefined? a consensus document of the Joint Society of Cardiology/[place] College of Cardiology Committee for the redefinition of myocardial infarction. ??Journal of the [place] College of Cardiology 2000; 36: 959-969] Creatine Kinase 357(H) 0 - 200 unit/L [facility] Blood specimen (specimen) 06/21/2016 2:50 PM EDT 06/21/2016 3:02 PM EDT Narrative Resulting Agency Comment Spec In Lab Lavelle Willams MD CHEMISTRY ORDERABLE S Performing Organization Address [facility]/ZIP Co de Phone Number [facility] [place] [address] * CARDIAC CATHETERIZATION (06/21/2016 2:33 PM EDT) Anatomical Region Laterality Modality Other Narrative 06/21/2016 3:53 PM EDT ?[facility] ? Cardiac Catheterization/Intervention Report ? Patient Name: Joyce, Alex ? Procedure Date: 06/21/2016 ? A #: [id number] ? Primary Physician: Nile Nicole ? Case #: [id number] ? File Name: [id number] ? Catheterization Order Number: [id number] ? [facility] ? Final Report [place], [place] ? Patient Name: ? Alex Joyce ?ID#: ?[id number] ? : ?1970 ? Procedure Date: ? June 21, 2016 ?Case #: ? [id number] ? Room: ? 6 ? Case Physician: ? Nile Nicole M.D. ?Start: ?13:23 ?Fellow: ? Carrie Cho M.D. ? Admission: ??06/21/2016 ?Mekhi Cortez ? Referring Physician: ??Jovon Ulloa M.D. ? Procedures: ?* Coronary Angiography ?* Left Heart Catheterization ?* Left Ventriculography ?* Coronary Stent Insertion ?* Coronary Embolic Protection/Thrombectomy ? Pre Case Status: ?These procedures were performed on an emergent basis. ? History ?Alex Joyce is a 45 year old man. He has hypertension. The patient ?has a history of smoking and is still smoking. He is status post an acute ?ST elevation myocardial infarction. The patient also has a history of an ?abnormal EKG. Prior to the initiation of this procedure, the patient was ?designated as ASA Class IV. ? Patient Status at Catheterization: ?The patient presented with: ST-Elevation HI (STEMI) or equivalent (w/i 7 ?days). [place] [employer] angina class was III. This patient ?received full dose lytics. No stress or imaging studies were performed ?prior to this procedure ? Technique: ?A 6 SLFr sheath was inserted in the right radial artery utilizing the ?Seldinger technique. Left ventriculography was performed with a 6Fr ?Angled pigtail catheter. The left coronary artery was injected utilizing ?a 6Fr AR-1 catheter. A 6Fr AR-1 catheter was used to inject the right ?coronary artery. Left ventricular pressure was performed with a 6Fr ?pigtail catheter. Coronary stent insertion and coronary embolic ?protection/thrombectomy were performed and the equipment utilized will be ?described in the intervention summary section. 7,000 units of heparin ?were administered. A total of 300cc of Omnipaque were opened, 210cc of ?Omnipaque were administered and 90cc of Omnipaque were wasted. Radiation: ?Fluoro time was 21.2 minutes, dose area product was 180,528 mGYcm2 and ?air kerma was 1,906 mGY. ?The patient received the following medications prior to and during the ?procedure: Aspirin (any), Clopidogrel, Unfractionated Heparin (any) and ?Lytic (any). ? Hemodynamics: ?Left Heart Pressures ? Resting: ? Syst Diast ? EDP ?a ?v ? m ?Ao 134 ?? 76 ?101 ?LV 143 ? 13 ? Post Contrast: ? Syst Diast ? EDP ?a ?v ? m ?Ao 160 ?? 94 ?128 ?LV 160 ? 13 ? Left Ventriculography: ?Segmental Wall Motion ? Anterobasal Anterolater Apical ? Mid ? Inferobasal ? normal ?normal ?normal ? mildrior ?normal ?hypokinesis ?Estimated LV Ejection Fraction: 60% ? Coronary Angiography: ?Dominance: Right ?Left Main ? There was mild diffuse disease of the entire vessel segment of the ? left main artery. ?Left Anterior Descending ? There was mild diffuse disease of the entire vessel segment of the ? left anterior descending artery (LAD). ?Left Circumflex ? There was mild diffuse disease of the entire vessel segment of the ? left circumflex artery (LCX). ? There was a 70% single discrete stenosis of the proximal segment of ? the second obtuse marginal branch (OM2) of the LCX. ?Right Coronary Artery ? There was mild diffuse disease of the entire vessel segment of the ? right coronary artery (RCA). ??The proximal segment of the RCA had a ? single discrete 75% stenosis. ??There was evidence of thrombus in ? this lesion. ? Indication for Intervention: ?Coronary intervention was indicated for primary therapy for an acute ?myocardial infarction. Left ventricular Ejection Fraction was estimated ?at 60 percent. The priority for the procedure was Emergent. The NCDR ?indication for the procedure was STEMI (Stable after successful full- dose ?Thrombolysis). ? Intervention Summary: ?Second Obtuse Marginal Branch of the LCX ? Proximal 70% ? Stent insertion was performed on the 70% stenosis in the ? proximal segment of the OM2. This was a de colt lesion. ? According to the ACC/AHA classification system, this lesion ? was a type B1 moderate risk lesion. Primary prevention of ? restenosis was the indication for stent insertion. Vessel flow ? pre intervention was ALISON 3. ? Stent insertion was accomplished through a 6 Fr. AR 1 guide. ? The lesion was predilated with a 2.00mm EUPHORA 12 MM balloon ? with a maximum inflation pressure of 12 atmospheres. ??A ? premounted 2.25 x 14 mm Resolute (LEIGH) was deployed with a ? maximum inflation pressure of 12 atmospheres. ? The final outcome was defined as successful. There was no ? residual stenosis following this intervention. The final ALISON ? flow was 3. ?Right Coronary Artery ? Proximal 75% ? Thrombectomy and stent insertion were performed on the 75% ? stenosis in the proximal segment of the RCA. This was a de ? colt lesion. This lesion was designated a type B2 moderate ? risk lesion based on ACC/AHA classification system. Primary ? prevention of restenosis was the indication for stent ? insertion. This was the culprit lesion. Vessel flow pre ? intervention was ALISON 3. ? Thrombectomy was accomplished through a 6 Fr AR 1 guide ? utilizing a Pronto V4. ? Stent insertion was accomplished through a 6 Fr. AR 1 guide. ? A premounted 3.50 x 22 mm Resolute (LEIGH) was deployed with a ? maximum inflation pressure of 18 atmospheres. ? The final outcome was defined as successful. There was no ? residual stenosis following this intervention. The final ALISON ? flow was 3. ? Vascular Access: ?Vascular Access Management: ? Mechanical Compression of the right radial artery access site was ? performed. ? Conclusions: ?* Two vessel coronary artery disease (LCX and RCA) ?* Normal left ventricular ejection fraction (EF-60%) ?* Successful thrombectomy and stent insertion of the proximal RCA lesion ?* Successful stent insertion of the proximal OM2 lesion ?* Drug eluting stents placed. ? Complications/Events: ?The patient had no complications during these procedures. ?The attending physician was present for the entire procedure. ?Dr. Nile Nicole M.D. performed the coronary angiography, left heart ?catheterization, left ventriculography, stent insertion-coronary and ?embolic protection/thrombectomy-coronary. ? Nile Nicole M.D. ? Electronically Signed by: Nile Nicole M.D. ? Report Finalized: 06/21/2016 ??15:48 ? Report Last Ammended: 06/24/2016 ??08:29 ? Procedure Note Nile Nicole MD - 06/24/2016 [facility] Cardiac Catheterization/Intervention Report Patient Name: Alex Joyce Procedure Date: 06/21/2016 A #: [id number] Primary Physician: Nile Nicole Case #: [id number] File Name: [id number] Catheterization Order Number: [id number] [facility] FinalReport [place], [place] Patient Name: Alex Joyce ID#:[id number] Procedure Date: June 21, 2016 Case #: [id number] Room: 6 Case Physician: Nile Nicole M.D. Start: 13:23 Fellow: Carrie Cho M.D. Admission:06/21/2016 M[facility] Cortez Referring Physician: Jovon Ulloa M.D. Procedures: * Coronary Angiography * Left Heart Catheterization * Left Ventriculography * Coronary Stent Insertion * Coronary Embolic Protection/Thrombectomy Pre Case Status: These procedures were performed on an emergent basis. History Alex Joyce is a 45 year old man. He has hypertension. Thepatient has a history of smoking and is still smoking. He is status post anacute ST elevation myocardial infarction. The patient also has a historyof an abnormal EKG. Prior to the initiation of this procedure, the patientwas designated as ASA Class IV. Patient Status at Catheterization: The patient presented with: ST-Elevation HI (STEMI) or equivalent(w/i 7 days). [place] angina class was III. Thispatient received full dose lytics. No stress or imaging studies wereperformed prior to this procedure Technique: A 6 SLFr sheath was inserted in the right radial artery utilizingthe Seldinger technique. Left ventriculography was performed with a 6Fr Angled pigtail catheter. The left coronary artery was injectedutilizing a 6Fr AR-1 catheter. A 6Fr AR-1 catheter was used to inject theright coronary artery. Left ventricular pressure was performed with a 6Fr pigtail catheter. Coronary stent insertion and coronary embolic protection/thrombectomy were performed and the equipment utilizedwill be described in the intervention summary section. 7,000 units ofheparin were administered. A total of 300cc of Omnipaque were opened, 210ccof Omnipaque were administered and 90cc of Omnipaque were wasted.Radiation: Fluoro time was 21.2 minutes, dose area product was 180,528 [id number] air kerma was 1,906 mGY. The patient received the following medications prior to and duringthe procedure: Aspirin (any), Clopidogrel, Unfractionated Heparin (any)and Lytic (any). Hemodynamics: Left Heart Pressures Resting: Syst Diast EDP a v m Ao 134 76 101 LV 143 13 Post Contrast: Syst Diast EDP a v m Ao 160 94 128 LV 160 13 Left Ventriculography: Segmental Wall Motion Anterobasal Anterolater Apical MidInferobasal normal normal normal mildrior normal hypokinesis Estimated LV Ejection Fraction: 60% Coronary Angiography: Dominance: Right Left Main There was mild diffuse disease of the entire vessel segment ofthe left main artery. Left Anterior Descending There was mild diffuse disease of the entire vessel segment ofthe left anterior descending artery (LAD). Left Circumflex There was mild diffuse disease of the entire vessel segment ofthe left circumflex artery (LCX). There was a 70% single discrete stenosis of the proximalsegment of the second obtuse marginal branch (OM2) of the LCX. Right Coronary Artery There was mild diffuse disease of the entire vessel segment ofthe right coronary artery (RCA). The proximal segment of the RCAhad a single discrete 75% stenosis. There was evidence of thrombusin this lesion. Indication for Intervention: Coronary intervention was indicated for primary therapy for an acute myocardial infarction. Left ventricular Ejection Fraction wasestimated at 60 percent. The priority for the procedure was Emergent. The NCDR indication for the procedure was STEMI (Stable after successfulfull-dose Thrombolysis). Intervention Summary: Second Obtuse Marginal Branch of the LCX Proximal 70% Stent insertion was performed on the 70% stenosis in the proximal segment of the OM2. This was a de colt lesion. According to the ACC/AHA classification system, thislesion was a type B1 moderate risk lesion. Primary prevention of restenosis was the indication for stent insertion. Vesselflow pre intervention was ALISON 3. Stent insertion was accomplished through a 6 Fr. AR 1guide. The lesion was predilated with a 2.00mm EUPHORA 12 MMballoon with a maximum inflation pressure of 12 atmospheres. A premounted 2.25 x 14 mm Resolute (LEIGH) was deployed witha maximum inflation pressure of 12 atmospheres. The final outcome was defined as successful. There was no residual stenosis following this intervention. The finalTIMI flow was 3. Right Coronary Artery Proximal 75% Thrombectomy and stent insertion were performed on the75% stenosis in the proximal segment of the RCA. This was hernando colt lesion. This lesion was designated a type [id number] risk lesion based on ACC/AHA classification system.Primary prevention of restenosis was the indication for stent insertion. This was the culprit lesion. Vessel flow pre intervention was ALISON 3. Thrombectomy was accomplished through a 6 Fr AR 1 guide utilizing a Pronto V4. Stent insertion was accomplished through a 6 Fr. AR 1guide. A premounted 3.50 x 22 mm Resolute (LEIGH) was deployedwith a maximum inflation pressure of 18 atmospheres. The final outcome was defined as successful. There was no residual stenosis following this intervention. The finalTIMI flow was 3. Vascular Access: Vascular Access Management: Mechanical Compression of the right radial artery access sitewas performed. Conclusions: * Two vessel coronary artery disease (LCX and RCA) * Normal left ventricular ejection fraction (EF-60%) * Successful thrombectomy and stent insertion of the proximal RCAlesion * Successful stent insertion of the proximal OM2 lesion * Drug eluting stents placed. Complications/Events: The patient had no complications during these procedures. The attending physician was present for the entire procedure. Dr. Nile Nicole M.D. performed the coronary angiography, leftheart catheterization, left ventriculography, stent insertion-coronary and embolic protection/thrombectomy-coronary. Nile Nicole M.D. Electronically Signed by: Nile Nicole M.D. Report Finalized: 06/21/2016 15:48 Report Last Ammended: 06/24/2016 08:29 Nile Nicole MD CARDIAC CATH ORDERAB LES documented in this encounter Visit Diagnoses Diagnosis ST elevation (STEMI) myocardial infarction involving left anterior descending coronary artery Acute myocardial infarction of other anterior wall, episode of care unspecified ST elevation (STEMI) myocardial infarction Acute myocardial infarction, unspecified site, episode of care unspecified documented in this encounter Admitting Diagnoses Diagnosis ST elevation (STEMI) myocardial infarction Acute myocardial infarction, unspecified site, episode of care unspecified documented in this encounter Administered Medications Inactive Administered Medications - up to 3 most recent administrations Medication Order MAR Action Action Date Dose Rate Site aspirin chewable tablet 81 mg 81 mg, Oral, DAILY, First dose on 06/22/16 at 0900, Until Discontinued, Routine Given 06/23/2016 8:06 AM EDT 81 mg Given 06/22/2016 9:06 AM EDT 81 mg atorvastatin (LIPITOR) tablet 80 mg 80 mg, Oral, EVERY EVENING, First dose on Fri06/21/16 at 1700, Until Discontinued, Routine Given 06/22/2016 5:33 PM EDT 80 mg Given 06/21/2016 5:37 PM EDT 80 mg clopidogrel (PLAVIX) tablet 75 mg 75 mg, Oral, DAILY, First dose on Fri06/22/16 at 0900, Until Discontinued, Recovery (Recovery-Hospital Unit), Routine Given 06/23/2016 8:06 AM EDT 75 mg Given 06/22/2016 9:06 AM EDT 75 mg lisinopril (PRINIVIL;ZESTRIL) tablet 10 mg 10 mg, Oral, DAILY, First dose on Fri06/21/16 at 1545, Until Discontinued, Routine Given 06/21/2016 3:53 PM EDT 10 mg lisinopril (PRINIVIL;ZESTRIL) tablet 20 mg 20 mg, Oral, DAILY, First dose (after last modification) on Fri06/22/16 at 0900, Until Discontinued, Routine Given 06/23/2016 8:06 AM EDT 20 mg Given 06/22/2016 9:06 AM EDT 20 mg meTOPROLOL (LOPRESSOR) injection 5 mg 5 mg, Intravenous, EVERY 5 MIN PRN, Starting on Fri06/21/16 at 2024, Until Fri06/23/16 at 1538, High Blood Pressure, For sustained SBP > 160 for 10 mins or DBP > 90 for 10 min (re-check BP at 10 min if elevated), Please hold if HR is < 55 or SBP < 90 Given 06/21/2016 9:04 PM EDT 5 mg meTOPROLOL (LOPRESSOR) tablet 12.5 mg 12.5 mg, Oral, EVERY 6 HOURS SCHEDULED, First dose on Fri06/21/16 at 1800, Until Discontinued, Routine Given 06/23/2016 6:07 AM EDT 12.5 mg Given 06/22/2016 11:31 PM EDT 12.5 mg Given 06/22/2016 5:33 PM EDT 12.5 mg meTOPROLOL succinate (TOPROL-XL) XL tablet 50 mg 50 mg, Oral, DAILY, First dose on Fri06/23/16 at 0900, Until Discontinued, DO NOT CRUSH OR OPEN, Routine Given 06/23/2016 9:28 AM EDT 50 mg nicotine (NICODERM CQ) 21 mg/24 hr patch 21 mg 21 mg, Transdermal, DAILY, First dose on Fri06/21/16 at 1700, Until Discontinued, Routine Patch Applied 06/23/2016 8:06 AM EDT 21 mg 09- Arm Upper (Left) Patch Applied 06/22/2016 12:25 PM EDT 21 mg 10- Arm Upper (Right) Patch Applied 06/21/2016 5:37 PM EDT 21 mg 09- Arm Upper (Left) nicotine (NICODERM CQ) 21 mg/24 hr patch Patch Removal Transdermal, DAILY, First dose on Fri06/22/16 at 0900, Until Discontinued, Remove nicotine 21 mg/24 hr patch nicotine (NICODERM CQ) 21 mg/24 hr patch Patch Verification Transdermal, 2 TIMES DAILY, First dose on Fri06/22/16 at 0330, Until Discontinued, Verify nicotine 21 mg/24 hr patch nicotine polacrilex (NICORETTE) gum 2 mg 2 mg, Buccal, EVERY 2 HOURS PRN, Starting on Fri06/22/16 at 1209, Until Fri06/23/16 at 1538, Smoking cessation, Chew gum slowly. Do not swallow. Maximum of 48 mg/day., Routine perflutren protein-A microspheres (OPTISON) 0.22 mg/mL injection 3 mL 3 mL, Intravenous, ONCE PRN, 1 dose, Starting on Fri06/21/16 at 1629, Until Fri06/21/16 at 1600, Per Protocol, Routine Given 06/21/2016 4:00 PM EDT 3 mLs sodium chloride 0.9 % flush 5 mL 5 mL, Intravenous, 2 TIMES DAILY, First dose on Fri06/21/16 at 2100, Until Discontinued, Routine Given 06/23/2016 8:09 AM EDT 5 mLs Given 06/22/2016 8:43 PM EDT 5 mLs Given 06/22/2016 9:00 AM EDT 5 mLs sodium chloride 0.9% infusion 100 mL/hr, Intravenous, CONTINUOUS, Starting on Fri06/21/16 at 1530, Until Fri06/23/16 at 1538, Recovery (Recovery-Hospital Unit) Rate/Dose Verify 06/21/2016 10:00 PM EDT 100 mL/hr 100 mL/hr Rate/Dose Verify 06/21/2016 9:00 PM EDT 100 mL/hr 100 mL/ hr Rate/Dose Verify 06/21/2016 8:00 PM EDT 100 mL/hr 100 mL/ hr documented in this encounter Active and Recently Administered Medications Times are shown in EDT. Scheduled Medication Order 06/21/2016 06/22/2016 06/23/2016 aspirin chewable tablet 81 mg 81 mg, Oral, DAILY, First dose on 06/22/16 at 0900, Until Discontinued, Routine 09 (Given - Provider: Celeste Amin RN) 0806 (Given - Provider: Taurus Beckham RN) atorvastatin (LIPITOR) tablet 80 mg 80 mg, Oral, EVERY EVENING, First dose on Fri06/21/16 at 1700, Until Discontinued, Routine 1737 (Given - Provider: Gayle Contreras RN) 1733 (Given - Provider: Taurus Beckham RN) clopidogrel (PLAVIX) tablet 75 mg 75 mg, Oral, DAILY, First dose on 06/22/16 at 0900, Until Discontinued, Recovery (Recovery-Hospital Unit), Routine 09 (Given - Provider: Celeste Amin RN) 08 (Given - Provider: Taurus Beckham RN) lisinopril (PRINIVIL;ZESTRIL) tablet 10 mg (CANCELED) 10 mg, Oral, DAILY, First dose on Fri06/21/16 at 1545, Until Discontinued, Routine 1553 (Given - Provider: Gayle Contreras RN) lisinopril (PRINIVIL;ZESTRIL) tablet 20 mg 20 mg, Oral, DAILY, First dose (after last modification) on 06/22/16 at 0900, Until Discontinued, Routine 09 (Given - Provider: Celeste Amin RN) 08 (Given - Provider: Taurus Beckham RN) meTOPROLOL (LOPRESSOR) tablet 12.5 mg (CANCELED) 12.5 mg, Oral, EVERY 6 HOURS SCHEDULED, First dose on Fri06/21/16 at 1800, Until Discontinued, Routine 1737 (Given - Provider: Gayle Contreras RN)2334 (Given - Provider: Nile Ge RN) 0654 (Given - Provider: Nile Ge RN)1225 (Given - Provider: Celeste Amin, UMA)1733 (Given - Provider: Taurus Beckham, UMA)2331 (Given - Provider: Miriam Bower RN) 0607 (Given - Provider: Miriam Bower, UMA) meTOPROLOL succinate (TOPROL-XL) XL tablet 50 mg 50 mg, Oral, DAILY, First dose on Fri06/23/16 at 0900, Until Discontinued, DO NOT CRUSH OR OPEN, Routine 0928 (Given - Provider: Taurus Beckham, UMA) nicotine (NICODERM CQ) 21 mg/24 hr patch 21 mg(Linked Group 1) 21 mg, Transdermal, DAILY, First dose on Fri06/21/16 at 1700, Until Discontinued, Routine 1737 (Patch Applied - Provider: Gayle Contreras RN) 1225 (Patch Applied - Provider: Celeste Amin RN) 0806 (Patch Applied - Provider: Taurus Beckham, UMA) nicotine (NICODERM CQ) 21 mg/24 hr patch Patch Removal(Linked Group 1) Transdermal, DAILY, First dose on Fri06/22/16 at 0900, Until Discontinued, Remove nicotine 21 mg/24 hr patch 0900 (Patch Removed - Provider: Celeste Amin RN) 0808 (Patch Removed - Provider: Taurus Bcekham, UMA) nicotine (NICODERM CQ) 21 mg/24 hr patch Patch Verification(Linked Group 1) Transdermal, 2 TIMES DAILY, First dose on Fri06/22/16 at 0330, Until Discontinued, Verify nicotine 21 mg/24 hr patch 0330 (Patch (dose and location) verified - Provider: Nile Ge RN)2100 (Patch (dose and location) verified - Provider: Miriam Bower RN) 0808 (Patch (dose and location) verified - Provider: Taurus Beckham RN) sodium chloride 0.9 % flush 5 mL 5 mL, Intravenous, 2 TIMES DAILY, First dose on Fri06/21/16 at 2100, Until Discontinued, Routine 210 (Given - Provider: Nile Ge RN) 0900 (Given - Provider: Celeste Amin, RN)2043 (Given - Provider: Miriam Bower, RN) 0809 (Given - Provider: Taurus Beckham, RN) Continuous Medication Order 06/21/2016 06/22/2016 06/23/2016 sodium chloride 0.9% infusion 100 mL/hr, Intravenous, CONTINUOUS, Starting on Fri06/21/16 at 1530, Until Fri06/23/16 at 1538, Recovery (Recovery-Hospital Unit) 1523 (New Bag - Provider: Gayle Littlejohn V, RN)2000 (Rate/Dose Verify - Provider: Nile Ge, RN)2100 (Rate/Dose Verify - Provider: Nile Ge, RN)2200 (Rate/Dose Verify - Provider: Nile Ge, RN) PRN Medication Order 06/21/2016 06/22/2016 06/23/2016 fentaNYL 50 mcg/mL multi-dose injection (CANCELED) ONCE PRN, Starting on Fri06/21/16 at 1338, Until Fri06/21/16 at 1431, Intra-Operative (Intra-Procedure), Routine 1338 (Given - Provider: Dexter Arroyo, UMA) heparin (porcine) injection (CANCELED) ONCE PRN, Starting on Fri06/21/16 at 1340, Until Fri06/21/16 at 1431, Cath (Intra-Procedure), Routine 1340 (Given - Provider: Dexter Arroyo, UMA) lidocaine (XYLOCAINE) 10 mg/mL (1 %) injection 3 mg 3 mg (0.3 mL), Subcutaneous, ONCE PRN, 1 dose, Starting on Fri06/21/16 at 1529, Until Fri06/23/16 at 1538, for discomfort with PIV insertion, Routine meTOPROLOL (LOPRESSOR) injection 5 mg 5 mg, Intravenous, EVERY 5 MIN PRN, Starting on Fri06/21/16 at 2024, Until Fri06/23/16 at 1538, High Blood Pressure, For sustained SBP > 160 for 10 mins or DBP > 90 for 10 min (re-check BP at 10 min if elevated), Please hold if HR is < 55 or SBP < 90 2103 (Given - Provider: Nile Ge, UMA) meTOPROLOL (LOPRESSOR) injection (CANCELED) ONCE PRN, Starting on Fri06/21/16 at 1443, Until Fri06/21/16 at 1529, Cath (Intra-Procedure), Routine 1443 (Given - Provider: Carrie Cho) midazolam (PF) (VERSED) 1 mg/mL multi-dose injection (CANCELED) ONCE PRN, Starting on Fri06/21/16 at 1338, Until Fri06/21/16 at 1431, Cath (Intra-Procedure), Routine 1338 (Given - Provider: Dexter Arroyo RN) nicotine polacrilex (NICORETTE) gum 2 mg 2 mg, Buccal, EVERY 2 HOURS PRN, Starting on 06/22/16 at 1209, Until 06/23/16 at 1538, Smoking cessation, Chew gum slowly. Do not swallow. Maximum of 48 mg/day., Routine nitroGLYcerin (NITROSTAT) SL tablet 0.4 mg 0.4 mg, Sublingual, EVERY 5 MIN PRN, Starting on Fri06/21/16 at 1529, Until Fri06/23/16 at 1538, Chest pain, May repeat every 5 minutes for a total of three doses. Notify provider if chest pain not relieved with nitroglycerin. Do not administer nitroglycerin if the patinet has received or taken phosphodiesterase (PDE-5) inhibitors such as sildenafil, tadalafil or vardenafil within the last 24 to 72 hours., Routine nitroGLYcerin 100 mcg/mL intracoronary dilution (CANCELED) ONCE PRN, Starting on Fri06/21/16 at 1339, Until Fri06/21/16 at 1431, Cath (Intra-Procedure), Routine 1339 (Given - Provider: Nile Nicole MD) perflutren protein-A microspheres (OPTISON) 0.22 mg/mL injection 3 mL (COMPLETED) 3 mL, Intravenous, ONCE PRN, 1 dose, Starting on Fri06/21/16 at 1629, Until Fri06/21/16 at 1600, Per Protocol, Routine 1600 (Given - Provider: Naeem Guerra) sodium chloride 0.9 % flush 5-20 mL 5-20 mL, Intravenous, EVERY 1 MIN PRN, Starting on Fri06/21/16 at 1529, Until Fri06/23/16 at 1538, flush, Flush pertains to all indwelling lines. Flush per protocol found in the job aid using the link provided on this medication record., Routine verapamil (ISOPTIN) injection (CANCELED) ONCE PRN, Starting on Fri06/21/16 at 1338, Until Fri06/21/16 at 1431, Administer over 2 Minutes, Cath (Intra-Procedure) 1338 (Given - Provider: Nile Nicole MD) Linked Groups Order Group 1: nicotine (NICODERM CQ) 21 mg/24 hr patch 21 mgJump to med 21 mg, Transdermal, DAILY, First dose on Fri06/21/16 at 1700, Until Discontinued, Routine And nicotine (NICODERM CQ) 21 mg/24 hr patch Patch VerificationJump to med Transdermal, 2 TIMES DAILY, First dose on 06/22/16 at 0330, Until Discontinued, Verify nicotine 21 mg/24 hr patch And nicotine (NICODERM CQ) 21 mg/24 hr patch Patch RemovalJump to med Transdermal, DAILY, First dose on 06/22/16 at 0900, Until Discontinued, Remove nicotine 21 mg/24 hr patch documented in this encounter Care Teams Pan Shover Relationship Specialty Start Date End Date None None PCP - General 05/24/16 07/01/16 documented as of this encounter
--- OUTSIDE RECORDS SUMMARY | 2024-08-11 18:47 | XMS_ITS | Encounter Summary ---
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 PM EDT Narrative Resulting Agency Comment Spec In Lab Lavelle Willams MD HEMATOLOGY ORDERABL ES Performing Organization Address [facility]/ZIP Co de Phone Number [facility] [place] [address] * (ABNORMAL) Basic Metabolic Panel (non-fasting) (06/21/2016 2:50 PM EDT) Glucose 104 65 - 199 mg/dL [facility] Comment:Diabetes: >=200 mg/d L plus symptoms Blood Urea Nitrogen 10 10 - 20 mg/dL [facility] Creatinine 0.96 0.80 - 1.50 mg/dL [facility] Comment: Please note that the pediatric reference intervals supplied above were not validated at [facility]. Results from pediatric patients should be interpreted in conjunction to the patient's age, height and muscle mass. Sodium 136 135 - 145 mmol/L [facility] Potassium 4.3 3.5 - 5.0 mmol/L [facility] Comment: Please note: ??Patients with WBC >100,000 may have falsely elevated Potassium levels. ??For accurate Potassium quantification in these patients send serum separator tube (gold top) for subsequent determinations. ??Contact the Clinical Chemistry Laboratory if there are any questions. Chloride 101 98 - 107 mmol/L [facility] Carbon Dioxide 20(L) 22 - 31 mmol/L [facility] Anion Gap 15 5 - 15 mmol/L [facility] Calcium 8.2(L) 8.5 - 10.5 mg/dL [facility] Est Glomerular Filtration Rate >60 >=60 [facility] Comment: This estimated GFR (eGFR) [...] the following links into your internet browser. [email or web address] Blood specimen (specimen) 06/21/2016 2:50 PM EDT 06/21/2016 3:02 PM EDT Narrative Resulting Agency Comment Spec In Lab Lavelle Willams MD CHEMISTRY ORDERABLE S [facility] [place] [address] * (ABNORMAL) Cardiac Enzymes (06/21/2016 2:50 PM EDT) Troponin-T 1.29(H) <=0.03 ng/mL [facility] Comment: 0.03 ng/mL: Represents the 99th percentile upper reference limit for normals. >0.03 ng/mL: Elevated cardiac troponin T level indicative of myocardial damage. Diagnosis of acute, evolving or recent NE requires a typical rise and gradual fall [...] consensus document of the Joint Society of Cardiology/[place] College [employer] Committee for the redefinition of myocardial infarction. ??Journal of the [place] College of [employer]iology 2000; 36: 959-969] Creatine Kinase 357(H) 0 - 200 unit/L [facility] Blood specimen (specimen) 06/21/2016 2:50 PM EDT 06/21/2016 3:02 PM EDT Narrative Resulting Agency Comment Spec In Lab Lavelle Willams MD CHEMISTRY ORDERABLE S Performing Organization Address City/State/[facility] Co de Phone Number [facility] [place] [address] * CARDIAC CATHETERIZATION (06/21/2016 2:33 PM EDT) Anatomical Region Laterality Modality Other Narrative 06/21/2016 3:53 PM EDT ?[facility] ? Cardiac Catheterization/Intervention Report ? Patient Name: Joyce, Alex ? Procedure Date: 06/21/2016 ? A #: [id number] ? Primary Physician: Antonio, Nile T ? Case #: [id number] ? File Name: [id number] ? Catheterization Order Number: [id number] ? [facility] ? Final Report [place], [place] ? Patient Name: ? Alex Joyce ?ID#: ?[id number] ? : ?1970 ? Procedure Date: ? June 21, 2016 ?Case #: ? [id number] ? Room: ? 6 ? Case Physician: ? Nile Nicole M.D. ?Start: ?13:23 ?Fellow: ? Carrie Cho M.D. ? Admission: ??06/21/2016 ?Mekhi Loerastein ? Referring Physician: ??Jovon Ulloa M.D. ? [...] at Catheterization: ?The patient presented with: ST-Elevation NE (STEMI) or equivalent (w/i 7 ?days). [place] [employer] angina class was III. This [...] stent insertion-coronary and ?embolic protection/thrombectomy-coronary. ? Nile Nicole, M.D. ? Electronically Signed by: Nile Nicole M.D. ? Report Finalized: 06/21/2016 ??15:48 ? Report Last Ammended: 06/24/2016 ??08:29 ? Procedure Note Nile Nicole MD - 06/24/2016 [facility] Cardiac Catheterization/Intervention Report Patient Name: Alex Joyce Procedure Date: 06/21/2016 A #: [id number] Primary Physician: Nile Nicole Case #: [id number] File Name: [id number] Catheterization Order Number: [id number] [facility] FinalReport [place], [place] Patient Name: Alex Joyce ID#:[id number] :1970 Procedure Date: June 21, 2016 Case [...] at Catheterization: The patient presented with: ST-Elevation NE (STEMI) or equivalent(w/i 7 days). [place] [employer] angina class was III. Thispatient [...] 21.2 minutes, dose area product was 180,528 [id number] air kerma was 1,906 mGY. The patient [...] lesion. This lesion was designated a type [id number] risk lesion based on ACC/AHA classification system.Primary [...] LES documented in this encounter Visit Diagnoses Not on filedocumented in this encounter Admitting Diagnoses Diagnosis ST [...] Given 06/22/2016 9:06 AM EDT 75 mg fentaNYL 50 mcg/mL multi-dose injection ONCE PRN, Starting on Fri06/21/16 at 1338, Until Fri06/21/16 at 1431, Intra-Operative (Intra-Procedure), Routine Given 06/21/2016 1:38 PM EDT 25 mcg heparin (porcine) injection ONCE PRN, Starting on Fri06/21/16 at 1340, Until Fri06/21/16 at 1431, Cath (Intra-Procedure), Routine Given 06/21/2016 1:40 PM EDT 7,000 Units lisinopril (PRINIVIL;ZESTRIL) tablet 20 mg 20 mg, [...] 9:04 PM EDT 5 mg meTOPROLOL (LOPRESSOR) injection ONCE PRN, Starting on Fri06/21/16 at 1443, Until Fri06/21/16 at 1529, Cath (Intra-Procedure), Routine Given 06/21/2016 2:43 PM EDT 5 mg meTOPROLOL succinate (TOPROL-XL) XL tablet 50 mg 50 mg, Oral, DAILY, First dose on Fri06/23/16 at 0900, Until Discontinued, DO NOT CRUSH OR OPEN, Routine Given 06/23/2016 9:28 AM EDT 50 mg midazolam (PF) (VERSED) 1 mg/mL multi-dose injection ONCE PRN, Starting on Fri06/21/16 at 1338, Until Fri06/21/16 at 1431, Cath (Intra-Procedure), Routine Given 06/21/2016 1:38 PM EDT 1 mg nicotine (NICODERM CQ) 21 mg/24 hr [...] swallow. Maximum of 48 mg/day., Routine nitroGLYcerin 100 mcg/mL intracoronary dilution ONCE PRN, Starting on Fri06/21/16 at 1339, Until Fri06/21/16 at 1431, Cath (Intra-Procedure), Routine Given 06/21/2016 1:39 PM EDT 100 mcg sodium chloride 0.9 % flush 5 mL [...] PM EDT 100 mL/hr 100 mL/ hr verapamil (ISOPTIN) injection ONCE PRN, Starting on Fri06/21/16 at 1338, Until Fri06/21/16 at 1431, Administer over 2 Minutes, Cath (Intra-Procedure) Given 06/21/2016 1:38 PM EDT 2.5 mg documented in this encounter Active and Recently Administered Medications Times are shown in EDT. Scheduled Medication Order 06/21/2016 06/22/2016 06/23/2016 aspirin chewable tablet 81 mg 81 mg, Oral, DAILY, First dose on 06/22/16 at 0900, Until Discontinued, Routine 0906 (Given - Provider: Celeste Amin RN) 0806 (Given - Provider: Taurus Beckham, UMA) atorvastatin (LIPITOR) tablet 80 mg 80 mg, Oral, EVERY EVENING, First dose on Fri06/21/16 at 1700, Until Discontinued, Routine 1737 (Given - Provider: Gayle Contreras RN) 1733 (Given - Provider: Taurus Beckham, UMA) clopidogrel (PLAVIX) tablet 75 mg 75 mg, [...] Amin RN) 08 (Given - Provider: Taurus Beckham, UMA) meTOPROLOL (LOPRESSOR) tablet 12.5 mg (CANCELED) 12.5 mg, Oral, EVERY 6 HOURS SCHEDULED, First dose on Fri06/21/16 at 1800, Until Discontinued, Routine 1737 (Given - Provider: Gayle Contreras RN)2334 (Given - Provider: Nile Ge RN) 0654 (Given - Provider: Nile Ge, RN)1225 (Given - Provider: Celeste Amin, UMA)1733 (Given - Provider: Taurus Beckham, UMA)2331 (Given - Provider: Miriam W O'Oliver, RN) 0607 (Given - Provider: Miriam Bower RN) meTOPROLOL succinate (TOPROL-XL) XL tablet 50 mg [...] RN) 1225 (Patch Applied - Provider: Celeste Amin, UMA) 0806 (Patch Applied - Provider: Taurus Beckham, UMA) nicotine (NICODERM CQ) 21 mg/24 hr patch Patch Removal(Linked Group 1) Transdermal, DAILY, First dose on Fri06/22/16 at 0900, Until Discontinued, Remove nicotine 21 mg/24 hr patch 0900 (Patch Removed - Provider: Celeste Amin RN) 0808 (Patch Removed - Provider: Taurus Beckham, UMA) nicotine (NICODERM [...] RN) 0900 (Given - Provider: Celeste Amin, UMA)2043 (Given - Provider: Miriam Bower RN) 0809 (Given - Provider: Taurus Beckham, UMA) Continuous Medication Order 06/21/2016 06/22/2016 06/23/2016 sodium chloride 0.9% infusion 100 mL/hr, Intravenous, CONTINUOUS, Starting on Fri06/21/16 at 1530, Until Fri06/23/16 at 1538, Recovery (Recovery-Hospital Unit) 1523 (New Bag - Provider: Gayle Contreras RN)2000 (Rate/Dose Verify - Provider: Nile Ge, RN)2100 (Rate/Dose Verify - Provider: Nile Ge, RN)2200 (Rate/Dose Verify - Provider: Nile Ge, RN) PRN Medication Order 06/21/2016 06/22/2016 06/23/2016 fentaNYL 50 mcg/mL multi-dose injection (CANCELED) ONCE PRN, Starting on Fri06/21/16 at 1338, Until Fri06/21/16 at 1431, Intra-Operative (Intra-Procedure), Routine 1338 (Given - Provider: Dexter Arroyo RN) heparin (porcine) injection (CANCELED) ONCE PRN, Starting on Fri06/21/16 at 1340, Until Fri06/21/16 at 1431, Cath (Intra-Procedure), Routine 1340 (Given - Provider: Dexter Arroyo RN) lidocaine (XYLOCAINE) 10 mg/mL (1 %) injection [...] PRN, Starting on Fri06/22/16 at 1209, Until 06/23/16 at 1538, Smoking [...] patch documented in this encounter Care Teams Ore Washer Relationship Specialty Start Date End Date None None PCP - General 05/24/16 07/01/16 documented as of this encounter
--- OUTSIDE RECORDS SUMMARY | 2024-08-11 18:47 | XMS_ITS | Encounter Summary ---
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 [address] Pain Discharge Disposition: Home Social History Tobacco Use [...] by mouth daily. 30 tablet 12 06/23/2016 aspirin 81 mg Tablet, Chewable Take 81 mg by mouth daily. 30 tablet 3 06/23/2016 06/23/2016 atorvastatin (LIPITOR) 80 mg Tablet Take 1 tablet by mouth every evening. 30 tablet 3 06/23/2016 06/23/2016 clopidogrel (PLAVIX) 75 mg Tablet Take 1 tablet by mouth daily. 30 tablet 11 06/23/2016 06/23/2016 lisinopril (PRINIVIL;ZESTRIL) 20 mg Tablet Take 1 tablet by mouth daily. 30 tablet 12 06/23/2016 06/23/2016 meTOPROLOL succinate (TOPROL-XL) 50 mg Tablet Sustained Release 24 hr Take 1 tablet by mouth daily. 30 tablet 12 06/23/2016 06/23/2016 nicotine (NICODERM CQ) 21 mg/[address] 1 patch onto the skin daily. 28 patch 3 06/23/2016 06/23/2016 nitroGLYcerin (NITROSTAT) 0.4 mg Tablet, Sublingual Place 1 tablet under the tongue every 5 minutes as needed for Chest pain. 90 tablet 12 06/23/2016 06/23/2016 nicotine polacrilex (NICORETTE) 2 mg Gum Take 1 each by mouth every 2 hours as needed for Smoking cessation for up to 90 days. 84 tablet 3 06/23/2016 06/23/2016 clopidogrel (PLAVIX) 75 mg Tablet Take [...] FILM LIBRARY STORAGE ONLY DX CHEST Routine 06/21/2016 12:00 AM EDT Pain documented in this encounter Results * Film Library- Storage only DX Chest (06/21/2016 12:00 AM EDT) Narrative PHILL BURNHAM - 06/21/2016 11:49 AM EDT This exam is for storage only and is auto-finalizing. Lavelle [facility] FILM LIBRARY OR DERABLES NADINE Frazier documented in this encounter Visit Diagnoses Diagnosis Pain Generalized pain documented in this encounter Care Teams Plant Technician/Control Room Operator Relationship Specialty Start Date End Date None None PCP - General 05/24/16 07/01/16 documented as of this encounter
[2024-08-12 21:03] LABS: PSA, Screening 0.6 ng/mL (<=3.5)
== END 2024-08-11 18:43 | disposition home or self-care (01) ==
LOC: NCHCN 18:42
PROVIDERS: PCP Physician Assistant; Visit Provider Physician Assistant
DX: E78.5 Hyperlipidemia, unspecified (principal); I25.10 Atherosclerotic heart disease of native coronary artery without angina pectoris; Z12.5 Encounter for screening for malignant neoplasm of prostate; A69.20 Lyme disease, unspecified
CPT/HCPCS: 80053; 80061; 84153; 85027; 86140